=== PATIENT | female | born 1985 | race Caucasian/White ===

== ENCOUNTER 2019-02-08 10:18 | Emergency (ER) | payer BC, SELFPAY ==
[2019-02-08 10:32] VITALS: BP 125/84; PULSE 82; RESP 16; TEMP 36.7; O2SAT 100; BMI 29.2
[2019-02-08 10:51] VITALS: BP 145/82; PULSE 84; RESP 20; O2SAT 98
--- NOTE | 2019-02-08 11:06 | HMH.EDGENADL ---
ED Disposition Clinical Impression: Sciatica of left side, Obesity, History of weight loss surgery Disposition: Home, Self-Care Condition on Discharge: Fair Additional Instructions: 1- rest in the most comfortable position. 2- zanatc, tramado, steroids, use toradol as needed scarcely for extreme pain situation as it cause GI bleeding. 3- needs MRI by your pcp Kalpana Delacruz. 4- needs Neurosurgery consultation by Dr. Gardiner as we discussed. 5- to return to the Ed immediately if incontinence or foot drop occur, as we discussed. 6- Also observe for vianey symptoms of GI bleeding, vomiting blood or black stool to return immediately. 7- off work x 7 days. Prescriptions: methylPREDNISolone [Medrol] 4 mg PO DIRECTED #1 tab.ds.pk Ketorolac Tromethamine [Toradol 10mg tablet] 10 mg PO Q12H #10 tab Tramadol HCl [Tramadol 50mg Tab] 50 mg PO Q6 PRN #12 tab PRN Reason: Moderate Pain raNITIdine HCl [Zantac 150mg] 150 mg PO BID #30 tab Referrals: Kalpana Raymundo APRN [Primary Care Provider] - - Critical Care Critical Care Time: No Attestation: On 02/08/19, the high probability of a clinically significant, sudden or life threatening deterioration of the following system(s) required my full and direct attention, intervention and personal management. The time I documented below is in addition to time spent performing reported procedures but includes the following listed in this critical care notation. Medical Decision Making - Thor Inquiry Pt receiving controlled substance: No Thor was queried for this patient: No Vital Signs: 02/08/19 10:32 02/08/19 10:51 Temperature 98.0 F Temperature Source Oral Pulse Rate [Left Radial] 82 84 Respiratory Rate 16 20 Blood Pressure [Right Arm] 125/84 145/82 H Blood Pressure Mean [Right Arm] 97 103 Blood Pressure Source [Right Arm] Automatic Cuff Automatic Cuff Blood Pressure Position [Right Arm] Sitting Sitting 02 Sat by Pulse Oximetry 100 98 Oxygen Delivery Method Room Air Room Air Orders (Tests/Meds): ED MEDICATIONS Discontinued Medications Generic Name Dose Route Start Last Admin Trade Name Freq PRN Reason Stop Dose Admin Hydrocodone Bitart/Acetaminophen 1 tab 02/08/19 12:02 02/08/19 12:09 [place] 7.5/325mg Tablet PO 02/08/19 12:03 Not Given ONCE ONE Ketorolac Tromethamine 60 mg 02/08/19 11:19 02/08/19 11:36 Toradol 60mg/2ml Vial IM 02/08/19 11:20 60 mg ONCE ONE Administration Methylprednisolone Sodium Succinate 125 mg 02/08/19 11:19 02/08/19 11:37 Solu-Medrol 125mg/2ml Vial IM 02/08/19 11:20 125 mg ONCE ONE Administration Tramadol HCl 50 mg 02/08/19 12:06 02/08/19 12:09 Ultram 50mg Tablet PO 02/08/19 12:07 50 mg ONCE ONE Administration ORDERS Category Date Time Status Lumbar spine XR 2-3 views [XR lumbar spine 2-3V] Stat Exams 02/08/19 11:39 Ordered - Radiology Data #1 Image(s): L-Spine Image Reviewed: Yes I reviewed the patient's radiology image Preliminary Findings: Abnormal Lumbar x-ray: Postop changes from prior with reduction surgery. The patient has a narrow L5-S1 with no fracture or subluxation. Medical Decision Narrative: Discussed with the patient her history of obesity multiple intermittent lower back pain and most recent findings of pain radiating to the left lower extremity. She was advised that this is most likely a sciatica. She will require an MRI and a neurosurgery consultation. She was advised about the warning signs of urine or bowel incontinence and dropfoot, will need to go to the emergency room immediately for emergency surgery if this occurs. She verbalized understanding. After reviewing her lumbar x-rays I informed the patient that she will need to to use her Zantac immediately to avoid GI bleed secondary to her prior weight loss surgery. She can start steroids pack, she can use tramadol for pain q evry 6 hours, although she was given Torad
--- NOTE | 2019-02-08 11:10 | ED_ITS ---
ED Disposition Clinical Impression: Sciatica of left side, Obesity, History of weight loss surgery Disposition: Home, Self-Care Condition on Discharge: Fair Additional Instructions: 1- rest in the most comfortable position. 2- zanatc, tramado, steroids, use toradol as needed scarcely for extreme pain situation as it cause GI bleeding. 3- needs MRI by your pcp Kalpana Delacruz. 4- needs Neurosurgery consultation by Dr. Gardiner as we discussed. 5- to return to the Ed immediately if incontinence or foot drop occur, as we discussed. 6- Also observe for vianey symptoms of GI bleeding, vomiting blood or black stool to return immediately. 7- off work x 7 days. Prescriptions: methylPREDNISolone [Medrol] 4 mg PO DIRECTED #1 tab.ds.pk Ketorolac Tromethamine [Toradol 10mg tablet] 10 mg PO Q12H #10 tab Tramadol HCl [Tramadol 50mg Tab] 50 mg PO Q6 PRN #12 tab PRN Reason: Moderate Pain raNITIdine HCl [Zantac 150mg] 150 mg PO BID #30 tab Referrals: Kalpana Raymundo APRN [Primary Care Provider] - - Critical Care Critical Care Time: No Attestation: On 02/08/19, the high probability of a clinically significant, sudden or life threatening deterioration of the following system(s) required my full and direct attention, intervention and personal management. The time I documented below is in addition to time spent performing reported procedures but includes the following listed in this critical care notation. Medical Decision Making - Thor Inquiry Pt receiving controlled substance: No Thor was queried for this patient: No Vital Signs: 02/08/19 10:32 02/08/19 10:51 Temperature 98.0 F Temperature Source Oral Pulse Rate [Left Radial] 82 84 Respiratory Rate 16 20 Blood Pressure [Right Arm] 125/84 145/82 H Blood Pressure Mean [Right Arm] 97 103 Blood Pressure Source [Right Arm] Automatic Cuff Automatic Cuff Blood Pressure Position [Right Arm] Sitting Sitting 02 Sat by Pulse Oximetry 100 98 Oxygen Delivery Method Room Air Room Air Orders (Tests/Meds): ED MEDICATIONS Discontinued Medications Generic Name Dose Route Start Last Admin Trade Name Freq PRN Reason Stop Dose Admin Hydrocodone Bitart/Acetaminophen 1 tab 02/08/19 12:02 02/08/19 12:09 [place] 7.5/325mg Tablet PO 02/08/19 12:03 Not Given ONCE ONE Ketorolac Tromethamine 60 mg 02/08/19 11:19 02/08/19 11:36 Toradol 60mg/2ml Vial IM 02/08/19 11:20 60 mg ONCE ONE Administration Methylprednisolone Sodium Succinate 125 mg 02/08/19 11:19 02/08/19 11:37 Solu-Medrol 125mg/2ml Vial IM 02/08/19 11:20 125 mg ONCE ONE Administration Tramadol HCl 50 mg 02/08/19 12:06 02/08/19 12:09 Ultram 50mg Tablet PO 02/08/19 12:07 50 mg ONCE ONE Administration ORDERS Category Date Time Status Lumbar spine XR 2-3 views [XR lumbar spine 2-3V] Stat Exams 02/08/19 11:39 Ordered - Radiology Data #1 Image(s): L-Spine Image Reviewed: Yes I reviewed the patient's radiology image Preliminary Findings: Abnormal Lumbar x-ray: Postop changes from prior with reduction surgery. The patient has a narrow L5-S1 with no fracture or subluxation. Medical Decision Narrative:
--- NOTE | 2019-02-08 11:39 | XR_ITS ---
EXAM: XR lumbar spine 2-3V HISTORY: ITS.REASON: pain ORDERING PHYSICIAN: Sarthak Tyler MD PATIENT AGE: 33 years COMPARISON: None FINDINGS: There is degenerative disc disease from L2 to S1 worse at the L3-L4 level. There is straightening of the lumbar lordosis which may be due to patient positioning or muscle spasm. No fracture or dislocation. No lytic or blastic change. IMPRESSION: Degenerative disc disease with straightening of lordosis
[2019-02-08 12:46] VITALS: BP 141/80; PULSE 72; RESP 18; TEMP 36.7; O2SAT 97
== END 2019-02-08 12:48 | disposition home or self-care (01) ==
PROVIDERS: Emergency Provider Emergency Medicine; PCP Nurse Practitioner
DX: M54.32 Sciatica, left side (principal); Z98.84 Bariatric surgery status
CPT/HCPCS: 72100; 96372; 99282

== ENCOUNTER 2020-08-06 10:18 | Emergency (ER) | payer BC, SELFPAY ==
[2020-08-06 10:20] VITALS: BP 110/78; PULSE 74; RESP 19; TEMP 36.6; O2SAT 99; BMI 34.4
--- NOTE | 2020-08-06 11:01 | HMH.EDUTC ---
[facility] [place] Disposition Clinical Impression: Viral syndrome, Exposure to COVID-19 virus Disposition: Home, Self-Care Condition on Discharge: Good Instructions: Preventing the Spread of Coronavirus Discharge Instructions Additional Instructions: Drink plenty of fluids. Take tylenol for pain or fever. Return if you begin to have difficulty breathing. Follow up with your regular doctor. GO TO THE ER FOR ANY WORSENING SYMPTOMS Referrals: Kalpana Raymundo APRN [Primary Care Provider] - Time of Disposition: 11:03 Medical Decision Making - Medical Records Medical records reviewed: No: I reviewed the patient's medical records. - Thor Inquiry Pt receiving controlled substance: No Vital Signs: 08/06/20 10:20 08/06/20 11:08 Temperature 97.8 F 97.8 F Temperature Source Oral Pulse Rate 74 Pulse Rate [Right Brachial] 74 Respiratory Rate 19 19 Blood Pressure 110/78 Blood Pressure [Right Arm] 110/78 Blood Pressure Mean [Right Arm] 88 Blood Pressure Source [Right Arm] Automatic Cuff Blood Pressure Position [Right Arm] Sitting 02 Sat by Pulse Oximetry 99 Oxygen Delivery Method Room Air - Lab Data Lab Results 08/06/20 10:47: Strep Scn Rapid Clinic Negative Orders (Tests/Meds): ORDERS Category Date Time Status Covid-19 Nasal PCR Sendout [facility] Stat Lab 08/06/20 10:25 Received Strep Screen Confirmation Stat Micro 08/06/20 10:47 Received [facility] [place] HPI - General Stated complaint: covid exposure Time Seen by Provider: 08/06/20 10:25 Mode of Arrival: Ambulatory Source of Information: Patient Limitations: No Limitations Description of Symptoms (Recalled from Triage Doc. by RN): PATIENT REQUESTING COVID TEST D/T EXPOSURE; C/O HEADACHE, SORE THROAT SINCE THIS MORNING HEENT Symptoms (Recalled from RN notes): Yes Resp Symptoms (Recalled from RN notes): No Skin Symptoms (Recalled from RN notes): No MS Symptoms (Recalled from RN notes): No Functional Status (Recalled from RN notes): WNL - History of Present Illness Provider Complaint: She states that she was exposed to covid at her work. She has a sore throat. She denies any fever/chills/body aches. - Related Data Home Medications Medication Instructions Recorded Confirmed Amitriptyline HCl [Elavil 50mg 50 mg PO BID 08/06/20 08/06/20 tablet] Levothyroxine Sodium [Euthyrox] 50 mcg PO DAILY 08/06/20 08/06/20 Allergies Allergy/AdvReac Type Severity Reaction Status Date / Time No Known Drug Allergies Allergy Unknown Verified 09/04/19 17:42 [NKDA] - Worker's Comp Is this a Worker's Comp case?: No H History - Hepatitis A Screen Drug use history?: No High risk sexual behaviors?: No History of sexually transmitted infection?: No Currently employed?: No Childcare worker?: No Do you have indoor plumbing?: Yes Do you have electricity?: Yes Attestation statement:: This patient has been screened for Hepatitis A risk factors. I have reviewed the patient's past medical history: Yes Medical History: Denies:: Diabetes Mellitus Type 1, Diabetes Mellitus Type 2 Other Surgeries: Yes: Other - Social History Smoking Status: Never smoker Alcohol Intake: never Occupational Status: other Household Members: spouse Family Hx:: Non-contributory ROS Obtained: Yes All systems reviewed & no additional complaints - Constitutional Constitutional: Reports system reviewed and no additional complaints, except as docu - Eyes Eyes: Reports system reviewed and no additional complaints, except as docu - ENT Ears, Nose, Mouth, and Throat: Reports system reviewed and no additional complaints, except as docu - Cardiovascular Cardiovascular: Reports system reviewed and no additional complaints, except as docu - Respiratory Respiratory: Yes system reviewed and no additional complaints, except as docu - Gastrointestinal Gastrointestingal: Reports: system reviewed and no additional complaints, except as docu Physical Exam
[2020-08-06 11:08] VITALS: BP 110/78; PULSE 74; RESP 19; TEMP 36.6; O2SAT 99
[2020-08-06 11:09] LABS: UTC Strep Screen (Rapid) Negative (Negative)
[2020-08-07 13:59] LABS: Covid-19 Nasal PCR Sendout Lex Not Detected
== END 2020-08-06 11:10 | disposition home or self-care (01) ==
PROVIDERS: Emergency Provider Nurse Practitioner Family; PCP Nurse Practitioner
DX: Z20.828 Contact with and (suspected) exposure to other viral communicable diseases (principal); B34.9 Viral infection, unspecified
CPT/HCPCS: 87880; 99202; U0004

== ENCOUNTER 2021-03-01 18:54 | Emergency (ER) | payer BC, SELFPAY ==
[2021-03-01 19:20] VITALS: BP 112/82; PULSE 89; RESP 19; TEMP 36.6; O2SAT 98; BMI 36.0
--- NOTE | 2021-03-01 20:22 | HMH.EDUTC ---
[facility] [place]ression: Urtic[place] Disposition: Home, Self-Care Condition on Discharge: Good Instructions: Hives, DI for Hives, Prednisone Additional Instructions: Go home and take over the counter Benadryl to help with itching Take it per instructions on package Start oral steriods tomorrow Follow up with your Family Doctor if no improvement or any worsening of symptoms watch area to make sure no signs on infection Return if needed Straight to ER if any life threatening symptoms Prescriptions: methylPREDNISolone [Medrol 4mg tab] 4 mg PO DIRECTED #21 tab Transmission Status: Received by [id number] Referrals: Provider,Referral, [Primary Care Provider] - As needed Time of Disposition: 21:05 Medical Decision Making - Thor Inquiry Pt receiving controlled substance: No Thor was queried for this patient: No Vital Signs: 03/01/21 19:20 03/01/21 20:52 Temperature 97.9 F 97.9 F Temperature Source Oral Pulse Rate 89 Pulse Rate [Right Brachial] 89 Respiratory Rate 19 19 Blood Pressure 112/82 Blood Pressure [Right Arm] 112/82 Blood Pressure Mean [Right Arm] 92 Blood Pressure Source [Right Arm] Automatic Cuff Blood Pressure Position [Right Arm] Sitting 02 Sat by Pulse Oximetry 98 Oxygen Delivery Method Room Air Orders (Tests/Meds): ED MEDICATIONS Discontinued Medications Generic Name Dose Route Start Last Admin Trade Name Alcides PRN Reason Stop Dose Admin Famotidine 20 mg 03/01/21 20:31 03/01/21 20:41 Famotidine 20mg Tablet PO 03/01/21 20:32 20 mg ONCE ONE Administration Methylprednisolone Sodium Succinate 125 mg 03/01/21 20:31 03/01/21 20:41 Methylprednisolone Sod Succ 125mg Vial IM 03/01/21 20:32 125 mg ONCE ONE Administration Medical Decision Narrative: Reports had ablasion done previously denies chance of After SoluMedrol rash appears to be improving on abdomen and chest patient agrees states that she feels like it looks better Patient is driving and advised to go home and take Oral benadryl as directed on package [facility] [place] - General Stated complaint: INSECT BITE L LEG Time Seen by Provider: 03/01/21 20:22 Mode of Arrival: Ambulatory Source of Information: Patient Limitations: No Limitations Description of Symptoms (Recalled from Triage Doc. by RN): PATIENT C/O POSSIBLE BITE/RASH TO INNER LEFT THIGH SINCE THIS MORNING HEENT Symptoms (Recalled from RN notes): No Resp Symptoms (Recalled from RN notes): No Skin Symptoms (Recalled from RN notes): Yes MS Symptoms (Recalled from RN notes): No Functional Status (Recalled from RN notes): WNL - History of Present Illness Provider Complaint: Patient states that she was fine when she went to bed last night but when she woke up she noticed it looked like something had bitten her on her left upper thigh area State that she marked it to watch it but since then she started breaking out in hives and itching all over States that she took some benadryl but it hasnt helped much so she came in to get checked - Related Data Home Medications Medication Instructions Recorded Confirmed Amitriptyline HCl [Elavil 50mg 50 mg PO BID 08/06/20 03/01/21 tablet] Levothyroxine Sodium [Euthyrox] 50 mcg PO DAILY 08/06/20 03/01/21 Gabapentin [Neurontin 300mg 300 mg PO TID 03/01/21 03/01/21 capsule] Levonorgest/Eth.estradiol/Iron 1 each PO DAILY 03/01/21 03/01/21 [Balcoltra Tablet] Omeprazole [Omeprazole 40mg 40 mg PO DAILY 03/01/21 03/01/21 Capsule] Vortioxetine Hydrobromide 5 mg PO DAILY 03/01/21 03/01/21 [Trintellix] Previous Rx's Medication Instructions Recorded methylPREDNISolone [Medrol 4mg 4 mg PO DIRECTED #21 tab 03/01/21 tab] Allergies Allergy/AdvReac Type Severity Reaction Status Date / Time No Known Drug Allergies Allergy Unknown Verified 09/04/19 17:42 [NKDA] - Worker's Comp Is this a Worker's Comp case?: No H History
[2021-03-01 20:52] VITALS: BP 112/82; PULSE 89; RESP 19; TEMP 36.6; O2SAT 98
== END 2021-03-01 21:14 | disposition home or self-care (01) ==
PROVIDERS: Emergency Provider Nurse Practitioner
DX: L50.9 Urticaria, unspecified (principal); S70.362A Insect bite (nonvenomous), left thigh, initial encounter; W57.XXXA Bitten or stung by nonvenomous insect and other nonvenomous arthropods, initial encounter
CPT/HCPCS: 96372; 99202; G0463

== ENCOUNTER 2021-03-04 15:12 | Emergency (ER) | payer BC, SELFPAY ==
[2021-03-04 15:15] VITALS: BP 137/97; PULSE 104; RESP 20; TEMP 37; O2SAT 97; BMI 36.0
--- NOTE | 2021-03-04 15:25 | HMH.EDUTC ---
[facility] [place]: [place] Disposition: Home, Self-Care Condition on Discharge: Good Instructions: Trimethoprim/Sulfamethoxazole (Alternative Therapy), DI for Rash, Cephalexin, Hydroxyzine Additional Instructions: Watch area for worsening of redness and going outside the line Follow up with Family Doctor on Sunday for re-evaluation Return if needed Straight to ER if any life threatening symptoms Prescriptions: hydrOXYzine HCL [Hydroxyzine HCl] 25 mg PO Q8HP PRN #15 tab PRN Reason: Itching Transmission Status: Received by [id number] Sulfamethoxazole/Trimethoprim [Bactrim DS tablet] 1 each PO BID 7 Days #14 tab Transmission Status: Received by [id number] cephALEXin [cephALEXin 500mg capsule*] 500 mg PO Q6H 7 Days #28 cap Transmission Status: Received by [id number] Fluconazole [Diflucan 150mg tab] 150 mg PO ONCE #1 tab Transmission Status: Received by [id number] Referrals: Provider,Referral, MD [Primary Care Provider] - As needed Time of Disposition: 16:00 Medical Decision Making - Thor Inquiry Pt receiving controlled substance: No Thor was queried for this patient: No Vital Signs: 03/04/21 15:15 03/04/21 15:45 Temperature 98.6 F 98.6 F Temperature Source Oral Pulse Rate 104 H Pulse Rate [Left Brachial] 104 H Respiratory Rate 20 20 Blood Pressure 137/97 H Blood Pressure [Left Arm] 137/97 H Blood Pressure Mean [Left Arm] 110 Blood Pressure Source [Left Arm] Automatic Cuff Blood Pressure Position [Left Arm] Sitting 02 Sat by Pulse Oximetry 97 Oxygen Delivery Method Room Air Medical Decision Narrative: Spoke with ED physician and he came to [facility] and looked at the rash on her abdomen and the area on her left inner thigh, Patient still denies any tick bite nor being in any wooded area He recommended starting patient on Cephalexin, Bactrim and hydroxyzine for itching, yuriy area due to redness and hard area noted and have her follow up with PCP on Sunday for re-evaluation to see if area is improving or getting worse Medications discussed with [place] [facility] [place] - General Stated complaint: biten by something Time Seen by Provider: 03/04/21 15:25 Mode of Arrival: Ambulatory Source of Information: Patient Limitations: No Limitations Description of Symptoms (Recalled from Triage Doc. by RN): PATIENT WAS SEEN IN [facility] ON 03/01 FOR A BITE TO LEFT THIGH AND HIVES/RASH. SHE WAS GIVEN A STEROID SHOT AND HAS BEEN TAKING ORAL STEROIDS, BENADRYL, AND CLARITAN. SHE STATES THAT THE RASH HAS GOTTEN WORSE (ALL OVER BODY) AND THE BITE TO LEFT THIGH HAS BECOME HARDENED AND AREA AROUND IT IS RED HEENT Symptoms (Recalled from RN notes): No Resp Symptoms (Recalled from RN notes): No Skin Symptoms (Recalled from RN notes): Yes MS Symptoms (Recalled from RN notes): No Functional Status (Recalled from RN notes): WNL - History of Present Illness Provider Complaint: Patient states that she was bitten by something several days ago and she had broke out in hives all over her body State that she was seen and given steriod injection and dc'd with oral steriods and the rash on her face neck and arms is much better and now gone but the bite area on the inside of her left upper thigh has got larger State that the redness has continued to expand around it and has hard area that feels like it is deep in there and still have itching and rash on her abdomen and breast but not like the hives she had on Sunday so she came back in Denies fever, denies chills, still denies known tick bite and unsure what may have biten/stung her - Related Data Home Medications Medication Instructions Recorded Confirmed Amitriptyline HCl [Elavil 50mg 50 mg PO BID 08/06/20 03/01/21 tablet] Levothyroxine Sodium [Euthyrox] 50 mcg PO DAILY 08/06/20 03/01/21 Gabapentin [Neurontin 300mg 300 mg PO TID 03/01/21 03/01/21 capsule] Levonorgest/Eth.estradiol/Iron 1 each PO DAILY 03/01/21 03/01/21
[2021-03-04 15:45] VITALS: BP 137/97; PULSE 104; RESP 20; TEMP 37; O2SAT 97
== END 2021-03-04 16:04 | disposition home or self-care (01) ==
PROVIDERS: Emergency Provider Nurse Practitioner
DX: R21 Rash and other nonspecific skin eruption (principal); S70.362A Insect bite (nonvenomous), left thigh, initial encounter; W57.XXXA Bitten or stung by nonvenomous insect and other nonvenomous arthropods, initial encounter

== ENCOUNTER → 2021-08-09 16:11 | Outpatient (POV) | payer BC, SELFPAY | PROVIDERS: Visit Provider Dermatology | DX: Z00.00 Encounter for general adult medical examination without abnormal findings (principal) ==

== ENCOUNTER → 2023-03-21 13:51 | Outpatient (CLI) | payer BC, SELFPAY ==
--- NOTE | 2023-03-21 13:57 | MM_ITS ---
PROCEDURE INFORMATION: Exam: US Right Breast, Complete MG Bilateral Diagnostic Breast Tomosynthesis Exam date and time: 03/21/2023 1:51 PM Age: 37 years old Clinical indication: Right breast palpable lump; Bilat reduction TECHNIQUE: Imaging protocol: Complete ultrasound of all four quadrants of the right breast and the retroareolar regions, including ultrasound of the axilla when performed. Bilateral Diagnostic tomosynthesis and 2D mammography including computer-aided detection (CAD) when performed. Unilateral or bilateral exam. COMPARISON: No relevant prior studies available. FINDINGS: MAMMOGRAPHY: The breasts are heterogeneously dense, which may obscure small masses. There is no stellate mass, architectural distortion or suspicious microcalcifications in either breast to suggest malignancy. A skin marker was placed over an area of palpable concern in the right lateral periareolar region. No skin thickening or axillary adenopathy. ULTRASOUND: Sonographic images of the right breast including the retroareolar region, all 4 quadrants and the axilla demonstrates slight increased echogenicity of the subcutaneous fat in the area of palpable concern in the right 9 o'clock periareolar region. It is somewhat border forming and may actually reflect a discrete mass. There is an associated crescentic peripheral area of hypoechogenicity. The area of interest measures 0.9 x 0.7 x 0.9 cm in dimension and likely reflects postoperative fat necrosis. It is much less likely the finding reflects focal marked retroareolar duct ectasia with an intraductal solid mass seen. In the immediate right retroareolar region is a predominantly cystic ovoid mass containing a peripheral solid component. This measures 1.1 x 1.3 x 0.7 cm in dimension and may reflect a cyst with internal debris versus an intracystic papillary lesion. This finding is nonpalpable. No axillary adenopathy. IMPRESSION: 1. Palpable abnormality in the right lateral periareolar region corresponds to a questionable focal solid mass. Ultrasound-guided core biopsy is recommended for further evaluation. 2. Right retroareolar predominantly cystic mass. Ultrasound-guided core biopsy of the solid component within this mass is recommended for further evaluation. ASSESSMENT: BI-RADS Category 4: Suspicious
== END ==
PROVIDERS: Visit Provider Nurse Practitioner Family
DX: N63.41 Unspecified lump in right breast, subareolar (principal)
CPT/HCPCS: 76641; 77062; 77066; G0279

== ENCOUNTER 2024-04-13 08:34 | Emergency (ER) | payer OTHER, SELFPAY ==
[2024-04-13 08:40] VITALS: BP 134/79; PULSE 77; RESP 19; TEMP 36.9; O2SAT 99; BMI 35.6
--- NOTE | 2024-04-13 09:00 | ED_ITS ---
Discharge Plan Disposition Patient Disposition: Home, Self-Care Condition: Good Prescriptions Prescriptions: New azithromycin [Zithromax Z-Eugenio] 250 mg tablet See Rx Instructions .ROUTE .COMPLEX 5 Days Qty: 6 0RF Rx Instructions: For 250 mg dose pack: take 500 mg today (day 1), then 250 mg for 4 days (days 2-5) benzonatate 100 mg capsule 100 mg PO TID PRN (Reason: cough) Qty: 30 0RF methylprednisolone [Medrol (Eugenio)] 4 mg tablets,dose pack See Rx Instructions .Route .COMPLEX 6 Days Qty: 21 0RF Rx Instructions: taper pack; No Action Trintellix 20 mg tablet 20 mg PO DAILY Qty: 30 2RF Emgality Pen 120 mg/mL pen injector 120 mg SQ WEEKLY Patient Comments: INJECT 1 SYRINGE SUBCUTANEOUSLY ONCE EVERY MONTH levothyroxine 50 MCG tablet 50 mcg PO DAILY Patient Comments: TAKE 1 TABLET BY MOUTH ONCE DAILY gabapentin 300 MG capsule 300 mg PO TID Referrals Follow up/Referrals: Erika So APRN [Primary Care Provider] - See instructions Activity Restrictions/Add. Instructions Additional Instructions/Restrictions: * Start antibiotic today. Be sure to complete entire prescription even if feeling better * Monitor temp. Tylenol every 4 hours as needed and / or ibuprofen every 6 hours as needed ( As long as your primary care physician has told you that it ok to take both. For fever/aches/pains ER if no less than 101 despite Tylenol or Motrin * Humidifier/vaporizer or hot steamy shower * *Tessalon Perles will not cause drowsiness but use at bedtime to help stop cough so that you may get some rest. *Start steroid today. Helps with inflammation therefore, cough and wheezing. Follow directions on the package. Reviewed side effects. Patient reports taking them before. Follow up IMMEDIATELY for new or worsening of symptoms OR no noticeable improvement over the next 48-72 hours. 911 immediately for any life threatening symptoms such as chest pain or difficulty breathing Clinical Impressions Clinical Impression: Bronchitis Instructions Patient Instructions: Acute Bronchitis, DI for Sinusitis Print Language Print Language: Luxembourgish Discharge ED [place] [facility] [place] General Stated complaint: congestion, cough, sore throat, body aches Mode of Arrival: Ambulatory Source of Information: Patient Limitations: No Limitations Time Seen by Provider: 04/13/24 09:00 Description of Symptoms (Recalled from Triage Doc. by RN): PATIENT C/O COUGH, CHEST CONGESTION, BODY ACHES, AND RIGHT EAR PAIN SINCE SUNDAY HEENT Symptoms (Recalled from RN notes): Yes Resp Symptoms (Recalled from RN notes): Yes Skin Symptoms (Recalled from RN notes): No MS Symptoms (Recalled from RN notes): No Functional Status (Recalled from RN notes): WNL History of Present Illness Provider Complaint: Patient states that she started feeling bad on Sun with pressure in her ears, sinus congestion and feels like it has moved into her chest area and having some burning when she coughs States she was worried she may have bronchitis so she came in Related Data Home Medications ?Medication ?Instructions ?Recorded ?Confirmed levothyroxine 50 mcg tablet 50 mcg PO DAILY THYROID 08/06/20 04/13/24 gabapentin 300 mg capsule 300 mg PO TID . 03/01/21 04/13/24 galcanezumab-gnlm 120 mg/mL 120 mg SQ WEEKLY 03/05/24 04/13/24 subcutaneous pen injector (Emgality Pen) Previous Rx's ?Medication ?Instructions ?Recorded vortioxetine 20 mg tablet 20 mg PO DAILY #30 tabs 01/03/24 (Trintellix) azithromycin 250 mg tablet See Rx Instructions PO .COMPLEX 5 04/13/24 (Zithromax Z-Eugenio) days #6 tabs benzonatate 100 mg capsule 100 mg PO TID PRN cough #30 caps 04/13/24 methylprednisolone 4 mg tablets in See Rx Instructions .Route 04/13/24 a dose pack (Medrol (Eugenio)) .COMPLEX 6 days #21 tabs Allergies Allergy/AdvReac Type Severity Reaction Status Date / Time adhesive tape Allergy Severe Hives Verified 03/05/24 11:29 cephalexin Allergy Severe Hives Verified 03/05/24 11:29 Worker's Comp Is this a Worker's Comp case?: No [facility] Disclaimer: The information contained in this section may have been updated after the patient was seen, as this information can be updated by other users. Medical History (Updated 04/13/24 @ 09:06 by Tyra Jackson APRN) Dyspareunia in female Endometriosis determined by laparoscopy Abnormal uterine bleeding Generalized anxiety disorder Surgical History (Updated 03/05/24 @ 12:35 by Ashleigh Bianchi DO) History of bilateral salpingectomy S/P endometrial ablation History of History of gastric bypass History of lumbar discectomy History of cholecystectomy Family History (Updated 03/05/24 @ 11:33 by JENNYFER Pacheco) Other Coronary artery disease Diabetes Heart attack Hypertension Social History Smoking Status: Never smoker second hand exposure: No alcohol intake: never counseling given: No substance use type: denies use counseling given: No current occupational status: employed and other details: with her 's business; 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 Travel in the last 8 weeks: None adopted: No caregiver/support person: Yes (for her kids) foster care: No household members: spouse and children housing: house lives independently: Yes marital status: number of children: 2 number of grandchildren: 0 education level: college service: No Hx Recent Travel: No sexually active: Yes caffeine: Yes physical activity: none ann marie/restoration: Buddhist special ann marie needs: No working smoke detector in home: Yes fire extinguisher in home: Yes carbon monox detector in home: Yes firearms in home: Yes firearms unloaded and locked: Yes do you feel safe at home: Yes victim of physical abuse: No victim of emotional abuse: No victim of sexual abuse: No would you like helpful sources: No ROS Obtained: Yes All systems reviewed & no additional complaints except as documented and Yes Systems reviewed as appropriate & no additional complaints except as documented Constitutional Constitutional: Reports system reviewed and no additional complaints, except as documented and Reports as per HPI ENT Ears, Nose, Mouth, and Throat: Reports system reviewed and no additional comp laints, except as documented, Reports as per HPI, Reports otalgia, Reports nasal congestion and Reports sinus pressure Cardiovascular Cardiovascular: Reports system reviewed and no additional complaints, except as documented and Reports as per HPI Respiratory Respiratory: Reports system reviewed and no additional complaints, except as documented, Reports as per HPI, Reports chest congestion and Reports cough Gastrointestinal Gastrointestingal: Reports system reviewed and no additional complaints, except as documented and as per HPI Physical Exam General General appearance: alert and in no apparent distress Expanded ENT Exam TM/Canal exam: Bilateral TM: bulging (no redness) Nose exam: Present sinus tenderness Throat exam: Present other (PND noted) Respiratory Respiratory exam: Present normal lung sounds bilaterally; Absent respiratory distress or wheezes Cardiovascular Cardiovascular exam: Present regular rate, normal rhythm and normal heart sounds Neurological Exam Neurological exam: Present alert, oriented X3 and normal gait Medical Decision Making Thro Inquiry Pt receiving controlled substance: No Thor was queried for this patient: No Vital Signs: 04/13/24 08:40 Temperature 98.4 F Temperature Source Oral Pulse Rate [Left Brachial] 77 Respiratory Rate 19 Blood Pressure [Left Arm] 134/79 Blood Pressure Mean [Left Arm] 97 Blood Pressure Source [Left Arm] Automatic Cuff Blood Pressure Position [Left Arm] Sitting 02 Sat by Pulse Oximetry 99 Oxygen Delivery Method Room Air
[2024-04-13 09:06] VITALS: BP 134/79; PULSE 77; RESP 19; TEMP 36.9; O2SAT 99
== END 2024-04-13 09:09 | disposition home or self-care (01) ==
PROVIDERS: Emergency Provider Nurse Practitioner; PCP Nurse Practitioner Family
DX: J20.9 Acute bronchitis, unspecified (principal); H92.03 Otalgia, bilateral; R09.81 Nasal congestion; R05.9 Cough, unspecified
CPT/HCPCS: 99204; 99212; G0463

== ENCOUNTER 2024-05-05 10:00 | Outpatient (CLI) | payer OTHER, SELFPAY ==
[2024-05-05 11:19] LABS: Basophils % 0.9 % (0.1-2.0); Eosinophils % 0.4 % (0.1-12.0); Hematocrit 38.8 % (37.0-47.0); Hemoglobin 12.3 g/dL (12.2-16.2); Lymphocytes # 1.6 K/mm3 (0.7-4.5); Mean Corpuscular HGB Conc 31.7 g/dL (31.8-35.4); Mean Corpuscular Hemoglobin 31.6 pg (27.0-31.2); Mean Corpuscular Volume 99.8 fl (81-99); Monocytes # 0.2 K/mm3 (0.1-1.0); Monocytes % 4.2 % (1.7-9.3); Neutrophils # 1.8 K/mm3 (1.8-7.8); Neutrophils % 49.4 % (37.0-80.0); Platelet Count 266 K/mm3 (142-424); Red Blood Count 3.89 M/mm3 (4.20-5.40); Red Cell Distribution Width 13.4 % (11.5-17.5); White Blood Count 3.6 K/mm3 (4.8-10.8)
[2024-05-05 11:44] LABS: Alanine Aminotransferase 20 U/L (12-78); Albumin/Globulin Ratio 1.3 (1.1-1.8); Alkaline Phosphatase 72 U/L (38-126); Anion Gap 8.2 mEq/L (5-15); Aspartate Amino Transferase 30 U/L (14-36); Bilirubin,Total 1.1 mg/dl (0.2-1.3); Blood Urea Nitrogen 13 mg/dl (7-17); Calcium 9.2 mg/dl (8.4-10.2); Carbon Dioxide 28 mmol/L (22.0-30.0); Chloride 104 mmol/L (98-107); Estimated Glomerular Filt Rate 138 ml/min (>60); GFR (African American) 167 ML/MIN (>60); Glucose 88 mg/dl (74-100); Potassium 4.2 mmoL/L (3.5-5.1); Sodium 136 mmol/L (136-145)
[2024-05-05 11:59] LABS: HCG,Quantitative < 2 mIU/ml (0-5.42)
== END 2024-05-05 23:59 | disposition home or self-care (01) ==
LOC: LAB 10:01
PROVIDERS: PCP Nurse Practitioner Family; Visit Provider Obstetrics & Gynecology
DX: Z98.890 Other specified postprocedural states (principal)
CPT/HCPCS: 36415; 80053; 84702; 85025; 86850

== ENCOUNTER 2024-05-07 07:03 | Inpatient (IN) | payer OTHER, SELFPAY ==
[2024-05-02 14:05] VITALS: BMI 35.2
[2024-05-07] VITALS (22 sets, daily range): BP systolic 96–154; BP diastolic 47–91; PULSE 71–102; RESP 12–22; TEMP 36.2–37.3; O2SAT 94–100
[2024-05-07] MEDS: LACTATED RINGERS 1000ML 1,000 ML 25 ML IV (06:41)
[2024-05-07] MEDS: CELECOXIB 100MG CAPSULE 400 MG PO (06:52)
[2024-05-07] MEDS: GABAPENTIN 300MG CAPSULE 600 MG (06:52)
[2024-05-07] MEDS: ACETAMINOPHEN 500MG TAB 1000 MG (06:52)
--- NOTE | 2024-05-07 07:25 | EXP.HP ---
History of Present Illness *Admission Date: 05/07/24 *Reason for visit:: Scheduled surgery *History of present illness: Mrs Camryn Gu is a [id number] who presents to [facility] for scheduled surgery. She complains of abnormal uterine bleeding, pelvic pain and dyspareunia. She has history of endometrial ablation a few years ago. She was taking OCPs for contraception and had no bleeding. Bilateral salpingectomy was performed with laser of endometriosis in August 2023. History of endometriosis with laparoscopies every 3 years for laser of endometriosis. She stopped OCPs and had bilateral salpingectomy because OCPs were worsening her mood and anxiety. She started bleeding monthly in October or November. She states bleeding is light but she is now having a lot of pain with intercourse. She reports pain with deep penetration and feeling like her cannot fully insert. She has history of Jose-en-Y gastric bypass, x 2, cholecystectomy, multiple laparoscopies and an abdominoplasty. Also history of FORD 3 on colposcopic biopsy followed by LEEP. Operative notes from previous provider reviewed. Discussed history of adhesions including left ovary adhered to bowel and stage 3 endometriosis with intraabdominal adhesions. [facility] Disclaimer: The information contained in this section may have been updated after the patient was seen, as this information can be updated by other users. 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), grade 3 FORD, on biopsy of cervix Dyspareunia in female Endometriosis determined by laparoscopy Abnormal uterine bleeding Generalized anxiety disorder Surgical History History of bilateral salpingectomy S/P endometrial ablation History of History of gastric bypass History of lumbar discectomy History of cholecystectomy Family History Other Coronary artery disease Diabetes Heart attack Hypertension Social History (Updated 05/07/24 @ 06:31 by Estrella Collins RN) Smoking Status: Never smoker second hand exposure: No alcohol intake: never counseling given: No substance use type: denies use counseling given: No current occupational status: employed Travel in the last 8 weeks: None adopted: No caregiver/support person: Yes (for her kids) foster care: No household members: spouse and children housing: house lives independently: Yes marital status: number of children: 2 number of grandchildren: 0 education level: college service: No Hx Recent Travel: No sexually active: Yes caffeine: Yes physical activity: none ann marie/christianity: Confucianist special ann marie needs: No working smoke detector in home: Yes fire extinguisher in home: Yes carbon monox detector in home: Yes firearms in home: Yes firearms unloaded and locked: Yes do you feel safe at home: Yes victim of physical abuse: No victim of emotional abuse: No victim of sexual abuse: No would you like helpful sources: No Review of Systems Review of Systems Review of systems:: pertinent systems reviewed and negative unless documented below Meds Home Medications and Allergies Home Medications ?Medication ?Instructions ?Recorded ?Confirmed ?Type levothyroxine 50 mcg tablet 50 mcg PO DAILY THYROID 08/06/20 05/07/24 History gabapentin 300 mg capsule 300 mg PO HS . 03/01/21 05/07/24 History galcanezumab-gnlm 120 mg/mL 120 mg SQ MONTHLY 03/05/24 05/07/24 History subcutaneous pen injector (Emgality Pen) omeprazole 20 mg tablet,delayed 20 mg PO DAILY 05/02/24 05/07/24 History release vortioxetine 20 mg tablet 10 mg PO HS 05/02/24 05/07/24 History (Trintellix) New Prescriptions to Start Prescriptions: Allergies Allergy/AdvReac Type Severity Reaction Status Date / Time adhesive tape Allergy Severe Hives Verified 05/07/24 06:28 cephalexin Allergy Severe Hives Verified 05/07/24 06:28 Exam Data for Last 24 hours Vital signs and Labs for Last 24 Hours: Temp Pulse Resp BP Pulse Ox O2 Del Method 97.4 F L 71 18 109/62 L 99 Room Air 05/07/24 06:30 05/07/24 06:30 05/07/24 06:30 05/07/24 06:30 05/07/24 06:30 05/07/24 06:30 Constitutional Constitutional: no acute distress and cooperative *Routine HEENT Exam Head: Present normocephalic and atraumatic Eye: Absent conjunctivae pink ENT: Present mucous membranes moist *Routine Neck Exam Neck: Present full ROM *Routine Respiratory Exam Respiratory: Present CTA bilaterally and normal respiratory effort *Routine Cardiovascular Exam Cardiovascular: Present RRR *Routine Abdominal Exam Abdominal: Present soft and normoactive bowel sounds; Absent tenderness or distended *Routine Rectal Exam Rectal:: deferred *Routine Genitalia Exam Genitalia:: normal female *Routine Extremities Exam Extremities: Present full ROM; Absent edema or calf tenderness *Routine Neurological Exam Neurological: Present alert, moving all extremities and normal speech Routine Psychiatric Exam Psychiatric: Present normal affect and cooperative Assessment and Plan *Assessment and plan (1) Abnormal uterine bleeding: Status: Acute Category: Medical Code(s): N93.9 - Abnormal uterine and vaginal bleeding, unspecified (2) Pelvic pain: Status: Acute Category: Medical Code(s): R10.2 - Pelvic and perineal pain (3) Endometriosis determined by laparoscopy: Problem Comment: stage 3 Status: Acute Category: Medical Code(s): N80.9 - Endometriosis, unspecified (4) S/P endometrial ablation: Status: Acute Category: Surgical Code(s): Z98.890 - Other specified postprocedural states (5) History of bilateral salpingectomy: Status: Acute Category: Surgical Code(s): Z90.79 - Acquired absence of other genital organ(s) (6) History of cholecystectomy: Status: Acute Category: Surgical Code(s): Z90.49 - Acquired absence of other specified parts of digestive tract (7) History of gastric bypass: Problem Comment: Jose-en-Y Status: Acute Category: Surgical Code(s): Z98.84 - Bariatric surgery status (8) History of : Problem Comment: X2 Status: Acute Category: Surgical Code(s): Z98.891 - History of uterine scar from previous surgery (9) Dyspareunia in female: Status: Acute Category: Medical Code(s): N94.10 - Unspecified dyspareunia (10) High grade squamous intraepithelial lesion (HGSIL), grade 3 FORD, on biopsy of cervix: Problem Comment: History of FORD 3 Status: Acute Category: Medical Code(s): D06.9 - Carcinoma in situ of cervix, unspecified Plan Admit to [facility] for scheduled surgery Reviewed risks, benefits, alternatives, expectations and possible complications. All questions addressed and answered. She voiced understanding of risks and possible complications. Proceed with JULIET, bilateral oophorectomy, possible cystoscopy
[2024-05-07] MEDS: CLINDAMYCIN PHOSPHATE/D5W 900 MG/50 ML PIGGYBACK 100 MG IV ×3 (07:50→23:20)
[2024-05-07] MEDS: METRONIDAZ/SOD CHL 500 MG/100 ML PIGGYBACK 100 MG IV (07:55)
--- NOTE | 2024-05-07 08:25 | P.PNANES_ITS ---
[facility] Disclaimer: The information contained in this section may have been updated after the patient was seen, as this information can be updated by other users. 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), grade 3 FORD, on biopsy of cervix Dyspareunia in female Endometriosis determined by laparoscopy Abnormal uterine bleeding Generalized anxiety disorder Surgical History History of bilateral salpingectomy S/P endometrial ablation History of History of gastric bypass History of lumbar discectomy History of cholecystectomy Family History Other Coronary artery disease Diabetes Heart attack Hypertension Social History (Updated 05/07/24 @ 06:31 by Estrella Collins RN) Smoking Status: Never smoker second hand exposure: No alcohol intake: never counseling given: No substance use type: denies use counseling given: No current occupational status: employed Travel in the last 8 weeks: None adopted: No caregiver/support person: Yes (for her kids) foster care: No household members: spouse and children housing: house lives independently: Yes marital status: number of children: 2 number of grandchildren: 0 education level: college service: No Hx Recent Travel: No sexually active: Yes caffeine: Yes physical activity: none ann marie/orthodox: Mandaen special ann marie needs: No working smoke detector in home: Yes fire extinguisher in home: Yes carbon monox detector in home: Yes firearms in home: Yes firearms unloaded and locked: Yes do you feel safe at home: Yes victim of physical abuse: No victim of emotional abuse: No victim of sexual abuse: No would you like helpful sources: No [facility] Anesthesia Checklist Patient Identification Patient Identification: Verbal (Name & ) Structural Data Admitted From: Home Planned Operative Procedure/s: [facility] Consent for Planned Operative Procedure(s) Verified: Yes NPO Status Verified Time NPO: 00:00 Additional verifications Anesthesia Reactions: No (pt states she has hard time waking up after surgery and some nausea) Hx Blood Transfusions: No Blood Transfusion Reaction: No Airway Assessment Mallampati Score:: Class II C-Spine Mobility Assessed: Yes TMJ Mobility Assessed: Yes Dentition: Good Dentition Neurological Assessment Level of Consciousness: Awake, Alert and Appropriate Anesthesia Plan Anesthesia Risk discussed: Yes Anesthesia Plan: Verified ASA Class: II Anesthesia Type: General
[2024-05-07] MEDS: GENTAMICIN SULFATE 320 MG in 0.9 % SODIUM CHLORIDE 100 ML 106.875 MG IV (08:57)
--- NOTE | 2024-05-07 09:25 | SUR.OPER ---
updated her with progress of case at 09.
--- NOTE | 2024-05-07 10:29 | P.PNANES_ITS ---
[facility] Anesthesia Record Part I Anesthesia Record I Intake, IV Amount: 2,500 Hydration: Adequate Estimated blood loss (mL): 300 Urine output (mL): 200 Blood Pressure: 145/84 SaO2: 98 Pulse Rate: 91 Airway Patency: Patent Respiratory Rate: 12 Temperature: 99.1 F Patient is:: Awake and Stable Stable to PACU at:: 10:28
[2024-05-07] MEDS: MORPHINE 2MG/ML SYRINGE 2 MG (10:40)
[2024-05-07] MEDS: ONDANSETRON 4MG/2ML VIAL 4 MG IV (10:40)
--- NOTE | 2024-05-07 10:43 | EXP.OP.NOTE ---
Date of procedure: 05/07/24 Pre-op Diagnosis:: 1. Abnormal uterine bleedin. Pelvic pain 3. Endometriosis determined by laparoscopy 4. S/P endometrial ablation: 5. History of bilateral salpingectomy 6. History of cholecystectomy 7. History of gastric bypass 8. History of x 2 9. Dyspareunia in female 10.History of High grade squamous intraepithelial lesion (HGSIL), grade 3 FORD, on biopsy of cervix Post-op Diagnosis:: 1. Abnormal uterine bleedin. Pelvic pain 3. Endometriosis determined by laparoscopy 4. S/P endometrial ablation: 5. History of bilateral salpingectomy 6. History of cholecystectomy 7. History of gastric bypass 8. History of x 2 9. Dyspareunia in female 10.History of High grade squamous intraepithelial lesion (HGSIL), grade 3 FORD, on biopsy of cervix 11. Bilateral patent ureters Procedure performed:: 1. Total Abdominal Hysterectomy with bilateral oophorectomy 2. Cystoscopy Surgeon:: Ashleigh Bianchi DO Restrike Hammer Operator(s):: Sarah Serrano DO SHOVEL LOG LOADER OPERATOR:: Quentin Waggoner Anesthesia: GETA Estimated blood loss (mL): 300 Clinical Note:: Mrs Camryn Gu is a 39 yo [id number] who presents to [facility] for scheduled surgery. She complains of abnormal uterine bleeding, pelvic pain and dyspareunia. She has history of endometrial ablation a few years ago. She was taking OCPs for contraception and had no bleeding. Bilateral salpingectomy was performed with laser of endometriosis in August 2023. History of endometriosis with laparoscopies every 3 years for laser of endometriosis. She stopped OCPs and had bilateral salpingectomy because OCPs were worsening her mood and anxiety. She started bleeding monthly in October or November. She states bleeding is light but she is now having a lot of pain with intercourse. She reports pain with deep penetration and feeling like her cannot fully insert. She has history of Jose-en-Y gastric bypass, x 2, cholecystectomy, multiple laparoscopies and an abdominoplasty. Also history of FORD 3 on colposcopic biopsy followed by LEEP. Operative notes from previous provider reviewed. Discussed history of adhesions including left ovary adhered to bowel and stage 3 endometriosis with intraabdominal adhesions. Operative findings:: 1. Grossly normal appearing uterus and bilateral ovaries 2. Adhesions between bladder and lower uterine segment 3. Grossly normal appearing bowel and bladder 4. Bilateral patent ureters Operative note:: Discussed risks, benefits, alternatives, expectations and possible complications of surgery. All questions addressed and answered. Patient wished to proceed with surgery. Patient was wheeled back to the operating room and placed under general anesthesia without difficulty. The patient received Clindamycin, Metronidazole and Gentamycin preoperatively. SCDs in place. Montalvo catheter was inserted and draining clear urine prior to the start of the procedure. A bimanual exam was performed. Then she was placed in the supine position. She was prepped and draped in normal sterile fashion. Attention was then turned to the abdomen. A Pfannenstiel skin incision was made 2 cm above pubic symphysis. This was carried through to underlying layer of fascia. Fascia was incised in midline, extended laterally with Guerin scissors. Superior aspect of fascial incision was grasped with two Haresh clamps, elevated up, and rectus muscle dissected off bluntly and sharply with Guerin scissors. The retcus muscle was then in the midline and the peritoneum was entered bluntly with a digit. Peritoneal incision was then extended superiorly and inferiorly with good visualization of the bladder. O'Herbie O'march retractor was placed in the abdominal incision. Bowel was packed cephalad with warm moist laparotomy sponges. Bilateral uterine cornua grasped with Peggy clamps. Uterus was deviated to the right, left round ligament was placed on stretch and incised between two clamps. The distal stump of the round ligament was suture ligated with 0 Vicryl suture. The proximal stump was held with a Haresh clamp. The leaves of the broad ligament were opened both anteriorly and posteriorly. The uterus was retracted cephalad. The anterior leaf of the broad ligament was opened down to the vesicouterine fold. Same procedure was carried out on the contralateral side. The vesicouterine peritoneal fold was elevated, and the bladder was dissected off of the lower uterine segment with sharp and blunt dissection. The uterus was retracted toward the pubic symphysis and deviated to right side. A finger was inserted through the peritoneum of the posterior leaf of the broad ligament under the right IP ligament. Care is taken to ensure that the ureter is not included. The infundibulopelvic ligament was doubly clamped and incised, and the distal stump of the ligament is doubly ligated with 0 Vicryl suture removing the ovary. Same procedure was carried out on the contralateral side. The uterus was retracted cephalad and deviated to the right side. Uterine arteries were skeletonized. Three curved Haresh clamps were placed at the junction of the lower uterine segment on the uterine vessels. An incision was made between the upper clamp and two lower clamps. The stump was doubly suture ligated with 0 Vicryl. The same procedure was carried out on the contralateral side. The uterus was held in traction in the cephalad position and pubovescial cervical fascia was dissected inferiorly. Two straight Haresh clamps were applied to the cardinal ligament. Cardinal ligament was incised between the two clamps and the distal stump was ligated with 0 Vicryl suture. The same procedure was carried out on the contralateral side. Bilateral uterosacral ligaments were clamped between straight Haresh clamps, incised, and suture ligated with 0 Vicryl suture. The lower uterine segment and upper vagina were palpated between the thumb and first finger of the surgeon's hand to ensure that the ligaments have been completely incised. The vagina was entered by a stab wound with a scalpel and cut circumferentially with scalpel and Joregenson scissors. The uterus and bilateral ovaries were removed. The edges of the vagina were grasped with straight Haresh clamps. Vaginal cuff was closed in a running locking manner with 1 Vicryl suture. Pelvis was irrigated. Small amount of oozing at cuff and left pedicle noted. Surgicel powder was applied to vaginal cuff and bilateral pedicles. Hemostasis noted. At this point all instruments and sponges were removed from the pelvis.? The peritoneum was grasped with Peggy clamps x 3. The peritoneum was reapproximated with 0 Vicryl suture in a running stitch. The corners of the fascia were grasped with Haresh clamps, and the fascia was reapproximated with two # 1 Vicryl suture overlapped to the right of midline. The subcutaneous tissue was reapproximated with 3-0 Vicryl. The skin was reapproximated with 2-0 Stratafix suture. Telfa was placed over closed Pfannenstiel skin incision. Catheter was removed from the bladder. 30 degree cystoscope was inserted through the urethra and into the bladder. Bladder was evaluated. Bladder intact. No lesions or damage to the bladder noted. Bilateral spill noted from ureters. Cystoscope was removed. New montalvo catheter was reinserted. Patient was awakened from anesthesia and taken to recovery in stable condition. Condition: stable Disposition: floor Specimens:: 1. Uterus, cervix 2. bilateral ovaries Complications:: None
[2024-05-07] MEDS: HYDROMORPHONE 2MG/ML SYRINGE 0.5 MG IV ×2 (10:55→11:03)
--- NOTE | 2024-05-07 11:37 | EXP.ANES.CKL ---
[facility] Disclaimer: The information contained in this section may have been updated after the patient was seen, as this information can be updated by other users. 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), grade 3 FORD, on biopsy of cervix Dyspareunia in female Endometriosis determined by laparoscopy Abnormal uterine bleeding Generalized anxiety disorder Surgical History History of bilateral salpingectomy S/P endometrial ablation History of History of gastric bypass History of lumbar discectomy History of cholecystectomy Family History Other Coronary artery disease Diabetes Heart attack Hypertension Social History (Updated 05/07/24 @ 06:31 by Estrella Collins RN) Smoking Status: Never smoker second hand exposure: No alcohol intake: never counseling given: No substance use type: denies use counseling given: No current occupational status: employed Travel in the last 8 weeks: None adopted: No caregiver/support person: Yes (for her kids) foster care: No household members: spouse and children housing: house lives independently: Yes marital status: number of children: 2 number of grandchildren: 0 education level: college service: No Hx Recent Travel: No sexually active: Yes caffeine: Yes physical activity: none ann marie/worship: Sikhism special ann marie needs: No working smoke detector in home: Yes fire extinguisher in home: Yes carbon monox detector in home: Yes firearms in home: Yes firearms unloaded and locked: Yes do you feel safe at home: Yes victim of physical abuse: No victim of emotional abuse: No victim of sexual abuse: No would you like helpful sources: No [facility] Anesthesia Checklist Patient Identification Patient Identification: Verbal (Name & ) Structural Data Admitted From: Home Planned Operative Procedure/s: peroneal tendon repair Consent for Planned Operative Procedure(s) Verified: Yes NPO Status Verified Time NPO: 00:00 Additional verifications Anesthesia Reactions: No (pt states she has hard time waking up after surgery and some nausea) Hx Blood Transfusions: No Blood Transfusion Reaction: No Airway Assessment Mallampati Score:: Class II C-Spine Mobility Assessed: Yes TMJ Mobility Assessed: Yes Dentition: Good Dentition Neurological Assessment Level of Consciousness: Awake, Alert and Appropriate Anesthesia Plan Anesthesia Risk discussed: Yes Anesthesia Plan: Verified ASA Class: I Anesthesia Type: General w/block Preoperative Comments Pre-Operative Comments: tap block exp to pt and parents, agreed to proceed
[2024-05-07] MEDS: LACTATED RINGERS 1000ML 1,000 ML 125 ML IV ×2 (11:53→21:56)
[2024-05-07] MEDS: ACETAMINOPHEN 500MG TAB 1000 MG PO ×2 (14:02→20:20)
[2024-05-07] MEDS: KETOROLAC 30MG/ML VIAL 30 MG IV ×2 (14:02→20:19)
[2024-05-07] MEDS: HYDROMORPHONE 2MG/ML SYRINGE 1 MG IV ×3 (14:10→21:58)
[2024-05-07] MEDS: PROMETHAZINE HCL 25MG/ML 1ML VIAL 12.5 MG IV ×3 (14:18→21:57)
[2024-05-07] MEDS: SODIUM CHLORIDE 0.9% 25ML BAG 25 ML IV ×2 (14:19→18:12)
[2024-05-07 15:05] LABS: Microscopic, Urine URINE MICROSCOPIC (MICROSCOPIC)
[2024-05-07 15:08] LABS: Appearance,Urine CLEAR (Clear); Bilirubin,Urine Negative (Negative); Blood, Urine 2+ (Negative); Color,Urine YELLOW (Yellow); Glucose,Urine (UA) Negative (Negative); Ketones,Urine Negative (Negative); Leukocyte Esterase,Urine Negative (Negative); Nitrate,Urine Negative (Negative); Protein,Urine Negative (Negative); Urobilinogen,Urine 0.2 EU/dl (0.2)
[2024-05-07 15:09] LABS: Calcium Oxalate Crystals,Urine Trace /lpf
--- NOTE | 2024-05-07 17:49 | PC.NURSE ---
Pt. up walking around unit, tolerating well.
[2024-05-07] MEDS: SODIUM CHLORIDE 0.9% 10ML FLUSH SYRINGE 10 ML IV (18:13)
[2024-05-07] MEDS: POLYETHYLENE GLYCOL 3350 17 GM PACKET PO (20:21)
--- NOTE | 2024-05-07 20:50 | PC.NURSE ---
Patient up ambulating in hallway with . Tolerating well
[2024-05-07] MEDS: ENOXAPARIN 40MG/0.4ML SYRINGE 40 MG SQ (21:57)
[2024-05-08] MEDS: KETOROLAC 30MG/ML VIAL 30 MG IV ×2 (02:23→08:26)
[2024-05-08] MEDS: ACETAMINOPHEN 500MG TAB 1000 MG PO ×3 (02:23→14:38)
[2024-05-08 04:46] VITALS: BP 96/46; PULSE 83; RESP 18; TEMP 36.8; O2SAT 97
--- NOTE | 2024-05-08 04:46 | PC.NURSE ---
Patient awake and oriented x4. Denies CHUNG, dizziness, or visual disturbances. Heart sounds auscultated apically with a normal rate and rhythm. Lung sounds auscultated clear bilaterally and throughout. Bowel sounds present in all 4 quadrants but patient continues to deny passing flatus. States feels bladder is emptying with voiding but it takes a while to start to void. Rashes on skin continue to improve. Lower transverse incision covered by Telfa dressing. Dressing clean, dry and intact with scant amount of serosanguinous drainage noted. No vaginal bleeding. Patient reports deep sharp pains 8/10 and would like Dilaudid and Phenergan at this time. Trash removed from room and water pitcher refilled for patient. No additional needs reported at this time
[2024-05-08] MEDS: PROMETHAZINE HCL 25MG/ML 1ML VIAL 12.5 MG IV (05:00)
[2024-05-08] MEDS: HYDROMORPHONE 2MG/ML SYRINGE 1 MG IV (05:01)
[2024-05-08] MEDS: LACTATED RINGERS 1000ML 1,000 ML 125 ML IV ×2 (06:27→11:00)
[2024-05-08 06:42] LABS: Anion Gap 3.8 mEq/L (5-15); Blood Urea Nitrogen 9 mg/dl (7-17); Calcium 8.2 mg/dl (8.4-10.2); Carbon Dioxide 30 mmol/L (22.0-30.0); Chloride 106 mmol/L (98-107); Creatinine Clearance Estimated 187 mL/min (50-200); Estimated Glomerular Filt Rate 112 ml/min (>60); GFR (African American) 135 ML/MIN (>60); Glucose 99 mg/dl (74-100); Potassium 3.8 mmoL/L (3.5-5.1); Sodium 136 mmol/L (136-145)
[2024-05-08 06:49] LABS: Basophils % 0.5 % (0.1-2.0); Eosinophils % 0.2 % (0.1-12.0); Hematocrit 31.6 % (37.0-47.0); Hemoglobin 9.9 g/dL (12.2-16.2); Lymphocytes # 1.5 K/mm3 (0.7-4.5); Lymphocytes % 27.4 % (10-50); Mean Corpuscular HGB Conc 31.3 g/dL (31.8-35.4); Mean Corpuscular Hemoglobin 31.2 pg (27.0-31.2); Mean Corpuscular Volume 99.4 fl (81-99); Mean Platelet Volume 8.3 fl (7.4-10.4); Monocytes # 0.3 K/mm3 (0.1-1.0); Monocytes % 6.3 % (1.7-9.3); Neutrophils # 3.5 K/mm3 (1.8-7.8); Neutrophils % 65.6 % (37.0-80.0); Platelet Count 254 K/mm3 (142-424); Red Blood Count 3.18 M/mm3 (4.20-5.40); Red Cell Distribution Width 13.7 % (11.5-17.5); White Blood Count 5.3 K/mm3 (4.8-10.8)
[2024-05-08] MEDS: OXYCODONE 5MG IMMEDIATE RELEASE TABLET 5 MG PO ×2 (08:42→12:58)
--- NOTE | 2024-05-08 09:31 | P.DS_ITS ---
General Admission date:: 05/07/24 Discharge date: 05/08/24 HPI HPI HPI: POD # 1 s/p JULIET, bilateral oophorectomy Resting comfortably. Pain controlled with medication. Voiding without difficulty and passing flatus. Tolerating regular diet. Denies fever/chills, chest pain and shortness of breath. Ambulating well ad gladys. Hospital Course Hospital Course Hospital Course: Mrs Camryn Gu is a 39 [id number] who presents to [facility] for scheduled surgery. She complains of abnormal uterine bleeding, pelvic pain and dyspareunia. She has history of endometrial ablation a few years ago. She was taking OCPs for contraception and had no bleeding. Bilateral salpingectomy was performed with laser of endometriosis in August 2023. History of endometriosis with laparoscopies every 3 years for laser of endometriosis. She stopped OCPs and had bilateral salpingectomy because OCPs were worsening her mood and anxiety. She s tarted bleeding monthly in October or November. She states bleeding is light but she is now having a lot of pain with intercourse. She reports pain with deep penetration and feeling like her cannot fully insert. She has history of Jose-en-Y gastric bypass, x 2, cholecystectomy, multiple laparoscopies and an abdominoplasty. Also history of FORD 3 on colposcopic biopsy followed by LEEP. Operative notes from previous provider reviewed. Discussed history of adhesions including left ovary adhered to bowel and stage 3 endometriosis with intraabdominal adhesions. She underwent total abdominal hysterectomy, bilateral oophorectomy on 05/07/24. EBL 300 mL. She was started on estradiol patch for HRT. She did well postoperatively. Pain controlled. Voiding without difficulty and passing flatus. Tolerating regular diet. Denies fever/chills, chest pain and shortness of breath. Vital signs stable, afebrile. Heart regular rate and rhythm. Lungs clear to auscultation. Abdomen soft, nontender., normal bowel sounds. No lower extremity swelling. Ambulating well ad gladys. Normal hospital course. She was discharged to home on POD # 1 with instructions to follow-up in the office in 2 weeks or sooner if needed. Exam Data for Last 24 hours Vital signs and Labs for Last 24 Hours: Temp Pulse Resp BP Pulse Ox O2 Del Method 98.2 F 83 18 96/46 L 97 Room Air 05/08/24 04:46 05/08/24 04:46 05/08/24 04:46 05/08/24 04:46 05/08/24 04:46 05/08/24 08:30 Laboratory Results - last 24 hr 05/07/24 07:43: Urine Color Yellow, Urine Appearance Clear, Urine pH 6.0, Ur Specific [place] 1.020, Urine Protein Negative, Urine Glucose (UA) Negative, Urine Ketones Negative, Urine Blood 2+ A, Urine Nitrate Negative, Urine Bilirubin Negative, Urine Urobilinogen 0.2, Ur Leukocyte Esterase Negative, Urine RBC 3-5, Urine WBC None, Ur Squamous Epith Cells None, Calcium Oxalate Crystal Trace, Urine Bacteria None 05/08/24 06:15: WBC 5.3 D, RBC 3.18 L, Hgb 9.9 L, Hct 31.6 L, MCV 99.4 H, MCH 31.2, MCHC 31.3 L, RDW 13.7, Plt Count 254, MPV 8.3, Neut % (Auto) 65.6, Lymph % (Auto) 27.4, Metcalfe % (Auto) 6.3, Eos % (Auto) 0.2, Baso % (Auto) 0.5, Neut # (Auto) 3.5, Lymph # (Auto) 1.5, Metcalfe # (Auto) 0.3, Eos # (Auto) 0.0, Baso # (Auto) 0.0, Sodium 136, Potassium 3.8, Chloride 106, Carbon Dioxide 30, Anion Gap 3.8 L, BUN 9 D, Creatinine 0.60, Estimated Creat Clear 187, Estimated GFR 112, Est GFR ( Amer) 135, Glucose 99, Calcium 8.2 L I & O for Last 24 hours: Intake & Output 05/05/24 05/06/24 05/07/24 05/08/24 23:59 23:59 23:59 23:59 Intake Total 2500 / 2500 2131 / 2131 Output Total 1300 / 1300 450 / 450 Balance 1200 / 1200 1681 / 1681 Constitutional Constitutional: no acute distress and cooperative *Routine HEENT Exam Head: Present normocephalic and atraumatic Eye: Absent conjunctivae pink ENT: Present mucous membranes moist *Routine Neck Exam Neck: Present full ROM *Routine Respiratory Exam Respiratory: Present CTA bilaterally and normal respiratory effort *Routine Cardiovascular Exam Cardiovascular: Present RRR *Routine Abdominal Exam Abdominal: Present soft, normoactive bowel sounds and tenderness (appropriate postop tenderness to palpation); Absent distended or guarding *Routine Rectal Exam Patient deferred: visual exam *Routine Exam Patient deferred: external exam *Routine Extremities Exam Extremities: Present full ROM; Absent edema or calf tenderness *Routine Neurological Exam Neurological: Present alert, moving all extremities and normal speech Routine Psychiatric Exam Psychiatric: Present normal affect and cooperative Results Data Completed and Pending Labs on day of discharge: Labs from last 24 hours 05/08/24 05/07/24 06:15 07:43 WBC 5.3 D RBC 3.18 L Hgb 9.9 L Hct 31.6 L MCV 99.4 H MCH 31.2 MCHC 31.3 L RDW 13.7 Plt Count 254 MPV 8.3 Neut % (Auto) 65.6 Lymph % (Auto) 27.4 Metcalfe % (Auto) 6.3 Eos % (Auto) 0.2 Baso % (Auto) 0.5 Neut # (Auto) 3.5 Lymph # (Auto) 1.5 Metcalfe # (Auto) 0.3 Eos # (Auto) 0.0 Baso # (Auto) 0.0 Sodium 136 Potassium 3.8 Chloride 106 Carbon Dioxide 30 Anion Gap 3.8 L BUN 9 D Creatinine 0.60 Estimated Creat Clear 187 Estimated GFR 112 Est GFR ( Amer) 135 Glucose 99 Calcium 8.2 L Urine Color Yellow Urine Appearance Clear Urine pH 6.0 Ur Specific [place] 1.020 Urine Protein Negative Urine Glucose (UA) Negative Urine Ketones Negative Urine Blood 2+ A Urine Nitrate Negative Urine Bilirubin Negative Urine Urobilinogen 0.2 Ur Leukocyte Esterase Negative Urine RBC 3-5 Urine WBC None Ur Squamous Epith Cells None Calcium Oxalate Crystal Trace Urine Bacteria None DS: Diagnosis Discharge Diagnosis (1) Status post total abdominal hysterectomy: Status: Acute Code(s): Z90.710 - Acquired absence of both cervix and uterus Problem details: and bilateral oophorectomy (2) Acute postoperative anemia due to expected blood loss: Status: Acute Code(s): D62 - Acute posthemorrhagic anemia (3) Abnormal uterine bleeding: Status: Acute Code(s): N93.9 - Abnormal uterine and vaginal bleeding, unspecified (4) Pelvic pain: Status: Acute Code(s): R10.2 - Pelvic and perineal pain (5) Endometriosis determined by laparoscopy: Status: Acute Code(s): N80.9 - Endometriosis, unspecified Problem details: stage 3 (6) S/P endometrial ablation: Status: Acute Code(s): Z98.890 - Other specified postprocedural states (7) History of bilateral salpingectomy: Status: Acute Code(s): Z90.79 - Acquired absence of other genital organ(s) (8) History of cholecystectomy: Status: Acute Code(s): Z90.49 - Acquired absence of other specified parts of digestive tract (9) History of gastric bypass: Status: Acute Code(s): Z98.84 - Bariatric surgery status Problem details: Jose-en-Y (10) History of : Status: Acute Code(s): Z98.891 - History of uterine scar from previous surgery Problem details: X2 (11) Dyspareunia in female: Status: Acute Code(s): N94.10 - Unspecified dyspareunia (12) High grade squamous intraepithelial lesion (HGSIL), grade 3 FORD, on biopsy of cervix: Status: Acute Code(s): D06.9 - Carcinoma in situ of cervix, unspecified Problem details: History of FORD 3 Meds Home Medications and Allergies Home Medications ?Medication ?Instructions ?Recorded ?Confirmed ?Type levothyroxine 50 mcg tablet 50 mcg PO DAILY THYROID 08/06/20 05/07/24 History gabapentin 300 mg capsule 300 mg PO HS . 03/01/21 05/07/24 History galcanezumab-gnlm 120 mg/mL 120 mg SQ MONTHLY 03/05/24 05/07/24 History subcutaneous pen injector (Emgality Pen) omeprazole 20 mg tablet,delayed 20 mg PO DAILY 05/02/24 05/07/24 History release vortioxetine 20 mg tablet 10 mg PO HS 05/02/24 05/07/24 History (Trintellix) estradiol 0.1 mg/24 hr semiweekly 1 patch transdermal .semiweekly #8 05/07/24 Rx transdermal patch ea ibuprofen 800 mg tablet 800 mg PO Q8H PRN pain #20 tabs 05/08/24 Rx oxycodone 5 mg tablet 5 mg PO Q4HP PRN Moderate Pain 05/08/24 Rx (4-6) #30 tabs New Prescriptions to Start Prescriptions: estradiol Ashleigh Bianchi ibuprofen Ashleigh Bianchi oxycodone Ashleigh Bianchi Allergies Allergy/AdvReac Type Severity Reaction Status Date / Time adhesive tape Allergy Severe Hives Verified 05/07/24 06:28 cephalexin Allergy Severe Hives Verified 05/07/24 06:28 Discharge Plan Disposition Patient Disposition: Home, Self-Care Condition: Good Follow up Plan Follow up with: Ashleigh Bianchi DO [Staff Physician] - 2 weeks Prescriptions/Medication Reconciliation: New estradiol 0.1 mg/24 hr patch semiweekly 1 patch transdermal .semiweekly Qty: 8 0RF oxycodone 5 mg Tablet 5 mg PO Q4HP PRN (Reason: Moderate Pain (4-6)) Qty: 30 0RF ibuprofen 800 mg tablet 800 mg PO Q8H PRN (Reason: pain) Qty: 20 0RF Continued Emgality Pen 120 mg/mL pen injector 120 mg SQ MONTHLY Patient Comments: INJECT 1 SYRINGE SUBCUTANEOUSLY ONCE EVERY MONTH levothyroxine 50 MCG tablet 50 mcg PO DAILY Patient Comments: TAKE 1 TABLET BY MOUTH ONCE DAILY omeprazole 20 mg Tablet,Delayed Release (Dr/Ec) 20 mg PO DAILY Trintellix 20 mg tablet 10 mg PO HS gabapentin 300 MG capsule 300 mg PO HS Problem Reconciliation Problems Reviewed?: Yes Patient Discharge Instructions ACTIVITY: Limited activity DIET: continue same diet and regular diet Additional Instructions: Additional Instructions: You had a total abdominal hysterectomy and bilateral oophorectomy. This means that your uterus, cervix and ovaries were removed. The top of your vagina is closed with dissolvable sutures. You will follow-up in office for a postop visit at 2 weeks and at 6 weeks. At your 6-week postop appointment you will have a pelvic exam to ensure your cuff is healing well. Discharge: 1. Take 800 mg Ibuprofen every 8 hours as needed for pain. You can also take 1000 mg of Tylenol in between doses, every 6-8 hours and Oxycodone 5 mg, 1 tablet every 4-6 hours or more as needed. 2. Take Miralax twice daily for 3 days and then as needed to prevent constipation Activity: - No lifting more than 10 lbs for 6 weeks. - No driving for 7 days and/or while you are taking narcotic pain medication. - Your skin inicision is closed with dissolvable suture Wound care - Keep your wound clean and dry, ok to wash with soap and water but pat thoroughly dry Please call the office or return to the ER if you have any of the followin. heavy vaginal bleeding 2. pain that does not respond to your narcotic pain medication 3. dizziness or lightheadedness such that you lose consciousness 4. abnormal discharge from your incisions Questions or concerns: It is my privilege to be your doctor. Please let me know if you have other questions or concerns. Ashleigh Bianchi DO [facility] [place], [place] [address] Print Language: [place] Providers Primary Care Provider: Erika So Admit Provider: Ashleigh Bianchi Attending Provider: Ashleigh Bianchi
[2024-05-08 09:40] VITALS: BP 90/40; PULSE 72; RESP 16; TEMP 36.8; O2SAT 98
--- NOTE | 2024-05-08 09:57 | EXP.ANES.II ---
[facility] Anesthesia Record Part II Anesthesia Record Part II Discharge Time: 11:00 Destination: Obstetric Gynecology Dept PACU nurse assessment reviewed?: Yes Patient Condition:: Good Anesthesia Complications:: None Swallowing reflex intact?: Yes Airway Patency: Patent Cyanosis?: No Blood Pressure: 133/72 SaO2: 98 Respiratory Rate: 14 Pulse Rate: 102 Temperature: 98.3 F Mental Status: Alert & Oriented Pain level:: 2 Nausea and/or vomitting:: None Intake, IV Amount: 2,500 Hydration: Adequate
[2024-05-08 09:59] VITALS: BP 133/72; PULSE 102; RESP 14; TEMP 36.8; O2SAT 98
--- NOTE | 2024-05-08 11:24 | PC.NURSE ---
Addendum entered by Leonarda Valdez RN 05/08/24 11:25: Occurred at approx 10:10am Original Note: Pt up to shower, present for stand by assistance. Clean gown provided. Pt tolerated well.
[2024-05-08] MEDS: SENNOSIDES 8.6MG/DOCUSATE 50MG TABLET 1 TAB PO (12:58)
[2024-05-08] MEDS: SIMETHICONE 80MG CHEWABLE TABLET 160 MG PO (14:18)
[2024-05-08] MEDS: IBUPROFEN 400 MG TABLET 800 MG PO (14:37)
[2024-05-08 17:38] VITALS: O2SAT 100
[2024-05-08 17:40] VITALS: BP 143/67; PULSE 81; RESP 16; TEMP 36.9; O2SAT 100
--- NOTE | 2024-05-08 17:59 | PC.NURSE ---
All charting and care completed by ANTHONY Luong was completed under my direct supervision
== END 2024-05-08 18:27 | disposition home or self-care (01) | DRG 743 ==
LOC: OB 05-08 05:23
PROVIDERS: Admitting Provider Obstetrics & Gynecology; PCP Nurse Practitioner Family; Visit Provider Obstetrics & Gynecology
PROC: 0UT90ZZ Resection of Uterus, Open Approach (ICD-10-PCS; CPT 58150; principal; 2024-05-07 07:30)
DX: N93.9 Abnormal uterine and vaginal bleeding, unspecified (principal); R10.2 Pelvic and perineal pain; N80.9 Endometriosis, unspecified; Z98.84 Bariatric surgery status; N94.10 Unspecified dyspareunia; N80.399 Endometriosis of the pelvic peritoneum, other specified sites, unspecified depth
CPT/HCPCS: 58150; 36415; 80048; 81001; 85025; 96374; J1100; J1170; J1580; J1650; J1885; J2250; J2270; J2405; J2550; J2710; J3010; J7120

== ENCOUNTER 2025-05-21 13:15 | Outpatient (CLI) | payer BC, SELFPAY | END 2025-05-21 23:59 | LOC: LAB.DROPOF 05-25 08:04 | PROVIDERS: PCP Obstetrics & Gynecology; Visit Provider Obstetrics & Gynecology | DX: N89.8 Other specified noninflammatory disorders of vagina (principal) | CPT/HCPCS: 87491; 87529; 87591; 87661; 87798; 87801 ==

== ENCOUNTER 2025-05-25 13:14 | Outpatient (CLI) | payer BC, SELFPAY ==
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
--- OUTSIDE RECORDS SUMMARY | 2025-05-25 13:18 | XMS_ITS | Encounter Summary ---
Author Organization [facility] ([place], [place], [place], [place]) Address [address] [place] [address] Care Team Providers Care Elevator Conductor Name Role Phone Erika So APRN Primary Care Provider [phone] [place] Bahena MD Unavailable [phone] Encounter Details Date Type Department Care Team (Late st Contact Info) Description 02/17/2019 Transcribed Document [facility] [place] [address] [place] [address] ProviderJosiah MD [address] [place] [address] [phone] Social History Tobacco Use Types Packs/Day Years Used Date Smoking Tobacco: Never Assessed Comments Unknown Sex and Gender Information Value Date Recorded Sex Assigned at Not on file Legal Sex Female 5:57 PM CDT Gender Identity Not on file Sexual Orientation Not on file documented as of this encounter Miscellaneous Notes * Cerner Conversion Note - Josiah Rivers MD - 02/17/2019 2:07 PM CDT ED Discharge Entered On: 02/17/2019 14:08 EDT Performed On: 02/17/2019 14:07 EDT by Chari Cohen RN Discharge Process Patient Disposition : Discharge Personal Belongings With Patient : Yes Patient Education Completed : Yes Teaching Evaluation : Verbalizes understanding IV Discontinued : Not applicable Nursing Documentation Completed : Yes Chari Cohen RN - 02/17/2019 14:07 EDT ED Discharge Vital Signs Temperature Source : Oral Temperature Mode : Fahrenheit Temperature, Fahrenheit : 97.7 Deg F Clinical Temperature, C : 36.5 Deg C Peripheral Pulse Rate : 89 bpm Respiratory Rate : 16 Breaths/Min Systolic Blood Pressure : 122 mmHg Diastolic Blood Pressure : 76 mmHg Oxygen Saturation : 96 % Oxygen Therapy Mode : Room air Chari Cohen, RN - 02/17/2019 14:07 EDT Electronically signed by Interface, [facility] Conversion Sql Consultant Cerner at 12/11/2022 5:07 PM CDT documented in this encounter Plan of Treatment Not on file documented as of this encounter Visit Diagnoses Not on filedocumented in this encounter Care Teams Elevator Conductor Relationship Specialty Start Date End Date Erika So APRN [address] [phone] PCP - General Nurse Practitioner 05/07/23 [place] Bahena MD [address] [address] Referring Physician Obstetrics and Gynecology 05/07/23 documented as of this encounter
--- OUTSIDE RECORDS SUMMARY | 2025-05-25 13:18 | XMS_ITS | Encounter Summary ---
Author Organization [facility] ([place], [place], [place], [place]) Address [address] [place] [address] Care Team Providers Care Managing Partner [employer] Name Role Phone Erika So APRN Primary Care Provider [phone] [place] Bahena MD Unavailable [phone] Encounter Details Date Type Department Care Team (Late st Contact Info) Description 05/19/2020 Transcribed Document [facility] [place] [address] [place] [address] ProviderJosiah MD [address] [place] [address] [phone] Social History Tobacco Use Types Packs/Day Years Used Date Smoking Tobacco: Never Assessed Comments Unknown Sex and Gender Information Value Date Recorded Sex Assigned at Not on file Legal Sex Female 5:57 PM CDT Gender Identity Not on file Sexual Orientation Not on file documented as of this encounter Miscellaneous Notes * Cerner Conversion Note - Josiah Rivers MD - 05/19/2020 10:23 AM CDT Pain Assessment Entered On: 05/19/2020 15:07 EDT Performed On: 05/19/2020 15:23 EDT by AMIRA SERRANO, RN Intervention Information: [email or web address] Performed by AMIRA SERRANO, RN on 05/19/2020 14:53:00 EDT fentaNYL,50mcg IV Push,Right Mid Forearm,Pain Pain Assessment Pain Assessment : Follow-up assessment Pain Scale Goal : 4 Pain Scale Used : 0-10 Scale Onset : Awoke with pain Quality : Cramping Pain Radiation : No Pain Worsened by : Movement Pain Intervention, Drug : Medicated Pain Improved by Intervention : Yes AMIRA SERRANO RN - 05/19/2020 15:07 EDT Pain Scale Intensity : 5 AMIRA SERRANO RN - 05/19/2020 15:07 EDT Image 4 - Images currently included in the form version of this document have not been included in the text rendition version of the form. Electronically signed by Cameron, [facility] Conversion Bore Mill Operator Cerner at 12/11/2022 5:09 PM CDT documented in this encounter Plan of Treatment Not on file documented as of this encounter Visit Diagnoses Not on filedocumented in this encounter Care Teams Managing Partner [employer] [place] Relationship Specialty Start Date End Date Erika So APRN [address] [phone] PCP - General Nurse Practitioner 05/07/23 [place] Bahena MD [address] [address] Referring Physician Obstetrics and Gynecology 05/07/23 documented as of this encounter
--- OUTSIDE RECORDS SUMMARY | 2025-05-25 13:18 | XMS_ITS | Encounter Summary ---
Author Organization [facility] ([place], [place], [place], [place]) Address [address] [place] [address] Care Team Providers Care Harness Maker Name Role Phone Erika So APRN Primary Care Provider [phone] [place] Bahena MD Unavailable [phone] Encounter Details Date Type Department Care Team (Late st Contact Info) Description 04/18/2019 Transcribed Document [facility] [place] Family Medicine [address] [place] [address] ProviderJosiah MD [address] [place] [address] [id number] Social History Tobacco Use Types Packs/Day Years Used Date Smoking Tobacco: Never Assessed Comments Unknown Sex and Gender Information Value Date Recorded Sex Assigned at Not on file Legal Sex Female 5:57 PM CDT Gender Identity Not on file Sexual Orientation Not on file documented as of this encounter Miscellaneous Notes * Cerner Conversion Note - Josiah Rivers MD - 04/18/2019 10:20 AM CDT Patient Education Materials Follows: General Anesthesia, Adult, Care After This sheet gives you information about how to care for yourself after your procedure. Your health care provider may also give you more specific instructions. If you have problems or questions, contact your health care provider. What can I expect after the procedure? After the procedure, the following side effects are common: ??? Pain or discomfort at the IV site. ??? Nausea. ??? Vomiting. ??? Sore throat. ??? Trouble concentrating. ??? Feeling cold or chills. ??? Weak or tired. ??? Sleepiness and fatigue. ??? Soreness and body aches. These side effects can affect parts of the body that were not involved in surgery. Follow these instructions at home: For at least 24 hours after the procedure: ??? Have a responsible adult stay with you. It is important to have someone help care for you until you are awake and alert. ??? Rest as needed. ??? Do not: ? Participate in activities in which you could fall or become injured. ? Drive. ? Use heavy machinery. ? Drink alcohol. ? Take sleeping pills or medicines that cause drowsiness. ? Make important decisions or sign legal documents. ? Take care of children on your own. Eating and drinking ??? Follow any instructions from your health care provider about eating or drinking restrictions. ??? When you feel hungry, start by eating small amounts of foods that are soft and easy to digest (bland), such as toast. Gradually return to your regular diet. ??? Drink enough fluid to keep your urine pale yellow. ??? If you vomit, rehydrate by drinking water, juice, or clear broth. General instructions ??? If you have sleep apnea, surgery and certain medicines can increase your risk for breathing problems. Follow instructions from your health care provider about wearing your sleep device: ? Anytime you are sleeping, including during daytime naps. ? While taking prescription pain medicines, sleeping medicines, or medicines that make you drowsy. ??? Return to your normal activities as told by your health care provider. Ask your health care provider what activities are safe for you. ??? Take kqej-nun-xpfrwnv and prescription medicines only as told by your health care provider. ??? If you smoke, do not smoke without supervision. ??? Keep all follow-up visits as told by your health care provider. This is important. Contact a health care provider if: ??? You have nausea or vomiting that does not get better with medicine. ??? You cannot eat or drink without vomiting. ??? You have pain that does not get better with medicine. ??? You are unable to pass urine. ??? You develop a skin rash. ??? You have a fever. ??? You have redness around your IV site that gets worse. Get help right away if: ??? You have difficulty breathing. ??? You have chest pain. ??? You have blood in your urine or stool, or you vomit blood. Summary ??? After the procedure, it is common to have a sore throat or nausea. It is also common to feel tired. ??? Have a responsible adult stay with you for the first 24 hours after general anesthesia. It is important to have someone help care for you until you are awake and alert. ??? When you feel hungry, start by eating small amounts of foods that are soft and easy to digest (bland), such as toast. Gradually return to your regular diet. ??? Drink enough fluid to keep your urine pale yellow. ??? Return to your normal activities as told by your health care provider. Ask your health care provider what activities are safe for you. This information is not intended to replace advice given to you by your health care provider. Make sure you discuss any questions you have with your health care provider. Document Released: 11/19/2001 Document Revised: 03/29/2018 Document Reviewed: 03/29/2018 [employer] Interactive Patient Education ? 2019 [employer] Ovarian Cystectomy, Care After This sheet gives you information about how to care for yourself after your procedure. Your health care provider may also give you more specific instructions. If you have problems or questions, contact your health care provider. What can I expect after the procedure? After the procedure, it is common to have: ??? Pain in your abdomen, especially at the incision areas. You will be given pain medicines to control the pain. ??? Tiredness. This is a normal part of the recovery process. Your energy level will return to normal over the next several weeks. ??? Problems passing stool (constipation). Follow these instructions at home: Medicines ??? Take wria-cml-yqpysrk and prescription medicines only as told by your health care provider. ??? If you were prescribed an antibiotic medicine, use it as told by your health care provider. Do not stop using the antibiotic even if you start to feel better. ??? Do not take aspirin because it can cause bleeding. ??? Do not drink alcohol while taking prescription pain medicine. ??? Do not drive or use heavy machinery while taking prescription pain medicine. Incision care ??? Follow instructions from your health care provider about how to take care of your incisions. Make sure you: ? Wash your hands with soap and water before you change your bandage (dressing). If soap and water are not available, use hand telephone clerks supervisor. ? Change your dressing as told by your health care provider. ? Leave stitches (sutures), skin glue, or adhesive strips in place. These skin closures may need to stay in place for 2 weeks or longer. If adhesive strip edges start to loosen and curl up, you may trim the loose edges. Do not remove adhesive strips completely unless your health care provider tells you to do that. ??? Check your incision areas every day for signs of infection. Check for: ? Redness, swelling, or pain. ? Fluid or blood. ? Warmth. ? Pus or a bad smell. ??? Do not take baths, swim, or use a hot tub until your health care provider approves. Take showers instead of baths. Activity ??? Return to your normal activities and diet as told by your health care provider. Ask your health care provider what activities are safe for you. ??? Take rest breaks during the day as needed. ??? Do not drive until your health care provider approves. General instructions ??? Do not douche, use tampons, or have sexual intercourse until your health care provider says it is okay to do so. ??? To prevent or treat constipation while you are taking prescription pain medicine, your health care provider may recommend that you: ? Take qonp-csy-jylqmvh or prescription medicines. ? Eat foods that are high in fiber, such as fresh fruits and vegetables, whole grains, and beans. ? Drink enough fluid to keep your urine clear or pale yellow. ? Limit foods that are high in fat and processed sugars, such as fried and sweet foods. ??? Keep all follow-up visits as told by your health care provider. This is important. Contact a health care provider if: ??? You have a fever. ??? You feel nauseous or you vomit. ??? You have pain when you urinate or have blood in your urine. ??? You have a rash on your body. ??? You have pain or redness where the IV was inserted. ??? You have pain that is not relieved with medicine. ??? You have signs of infection, such as: ? Redness, swelling, or pain around your incisions. ? Fluid or blood coming from your incisions. ? An incision that feels warm to the touch. ? Pus or a bad smell coming from your incisions. Get help right away if: ??? You have chest pain or shortness of breath. ??? You feel dizzy or light-headed. ??? You have increasing abdominal pain that is not relieved with medicines. ??? You have pain, swelling, or redness in your leg. ??? Your incision is opening (the edges are not staying together). Summary ??? After the procedure, it is common to have some pain in your abdomen. You will be given pain medicines to control the pain. ??? Follow instructions from your health care provider about how to take care of your incisions. ??? Do not douche, use tampons, or have sexual intercourse until your health care provider says it is okay to do so. ??? Keep all follow-up visits as told by your health care provider. This is important. This information is not intended to replace advice given to you by your health care provider. Make sure you discuss any questions you have with your health care provider. Document Released: 06/03/2014 Document Revised: 10/02/2017 Document Reviewed: 10/02/2017 [employer] Interactive Patient Education ? 2019 [employer] Diagnostic Laparoscopy, Care After This sheet gives you information about how to care for yourself after your procedure. Your health care provider may also give you more specific instructions. If you have problems or questions, contact your health care provider. What can I expect after the procedure? After the procedure, it is common to have: ??? Mild discomfort in the abdomen. ??? Sore throat. Women who have laparoscopy with pelvic examination may have mild cramping and fluid coming from the vagina for a few days after the procedure. Follow these instructions at home: Medicines ??? Take bsig-nov-nkkrkia and prescription medicines only as told by your health care provider. ??? If you were prescribed an antibiotic medicine, take it as told by your health care provider. Do not stop taking the antibiotic even if you start to feel better. Driving ??? Do not drive for 24 hours if you were given a medicine to help you relax (sedative) during your procedure. ??? Do not drive or use heavy machinery while taking prescription pain medicine. Bathing ??? Do not take baths, swim, or use a hot tub until your health care provider approves. You may take showers. Incision care ??? Follow instructions from your health care provider about how to take care of your incisions. Make sure you: ? Wash your hands with soap and water before you change your bandage (dressing). If soap and water are not available, use hand telephone clerks supervisor. ? Change your dressing as told by your health care provider. ? Leave stitches (sutures), skin glue, or adhesive strips in place. These skin closures may need to stay in place for 2 weeks or longer. If adhesive strip edges start to loosen and curl up, you may trim the loose edges. Do not remove adhesive strips completely unless your health care provider tells you to do that. ??? Check your incision areas every day for signs of infection. Check for: ? Redness, swelling, or pain. ? Fluid or blood. ? Warmth. ? Pus or a bad smell. Activity ??? Return to your normal activities as told by your health care provider. Ask your health care provider what activities are safe for you. ??? Do not lift anything that is heavier than 10 lb (4.5 kg), or the limit that you are told, until your health care provider says that it is safe. General instructions ??? To prevent or treat constipation while you are taking prescription pain medicine, your health care provider may recommend that you: ? Drink enough fluid to keep your urine pale yellow. ? Take ylxf-mzf-uwqnmyn or prescription medicines. ? Eat foods that are high in fiber, such as fresh fruits and vegetables, whole grains, and beans. ? Limit foods that are high in fat and processed sugars, such as fried and sweet foods. ??? Do not use any products that contain nicotine or tobacco, such as cigarettes and e-cigarettes. If you need help quitting, ask your health care provider. ??? Keep all follow-up visits as told by your health care provider. This is important. Contact a health care provider if: ??? You develop shoulder pain. ??? You feel lightheaded or faint. ??? You are unable to pass gas or have a bowel movement. ??? You feel nauseous or you vomit. ??? You develop a rash. ??? You have redness, swelling, or pain around any incision. ??? You have fluid or blood coming from any incision. ??? Any incision feels warm to the touch. ??? You have pus or a bad smell coming from any incision. ??? You have a fever or chills. Get help right away if: ??? You have severe pain. ??? You have vomiting that does not go away. ??? You have heavy bleeding from the vagina. ??? Any incision opens. ??? You have trouble breathing. ??? You have chest pain. Summary ??? After the procedure, it is common to have mild discomfort in the abdomen and a sore throat. ??? Check your incision areas every day for signs of infection. ??? Return to your normal activities as told by your health care provider. Ask your health care provider what activities are safe for you. This information is not intended to replace advice given to you by your health care provider. Make sure you discuss any questions you have with your health care provider. Document Released: 07/24/2016 Document Revised: 02/06/2018 Document Reviewed: 02/06/2018 [employer] Interactive Patient Education ? 2019 [employer] Hysteroscopy, Care After This sheet gives you information about how to care for yourself after your procedure. Your health care provider may also give you more specific instructions. If you have problems or questions, contact your health care provider. What can I expect after the procedure? After the procedure, it is common to have: ??? Cramping. ??? Bleeding. This can vary from light spotting to menstrual-like bleeding. Follow these instructions at home: Activity ??? Rest for 1?2 days after the procedure. ??? Do not douche, use tampons, or have sex for 2 weeks after the procedure, or until your health care provider approves. ??? Do not drive for 24 hours after the procedure, or for as long as told by your health care provider. ??? Do not drive, use heavy machinery, or drink alcohol while taking prescription pain medicines. Medicines ??? Take jwja-oqx-gggoucq and prescription medicines only as told by your health care provider. ??? Do not take aspirin during recovery. It can increase the risk of bleeding. General instructions ??? Do not take baths, swim, or use a hot tub until your health care provider approves. Take showers instead of baths for 2 weeks, or for as long as told by your health care provider. ??? To prevent or treat constipation while you are taking prescription pain medicine, your health care provider may recommend that you: ? Drink enough fluid to keep your urine clear or pale yellow. ? Take xtyh-eis-zulegzc or prescription medicines. ? Eat foods that are high in fiber, such as fresh fruits and vegetables, whole grains, and beans. ? Limit foods that are high in fat and processed sugars, such as fried and sweet foods. ??? Keep all follow-up visits as told by your health care provider. This is important. Contact a health care provider if: ??? You feel dizzy or lightheaded. ??? You feel nauseous. ??? You have abnormal vaginal discharge. ??? You have a rash. ??? You have pain that does not get better with medicine. ??? You have chills. Get help right away if: ??? You have bleeding that is heavier than a normal menstrual period. ??? You have a fever. ??? You have pain or cramps that get worse. ??? You develop new abdominal pain. ??? You faint. ??? You have pain in your shoulders. ??? You have shortness of breath. Summary ??? After the procedure, you may have cramping and some vaginal bleeding. ??? Do not douche, use tampons, or have sex for 2 weeks after the procedure, or until your health care provider approves. ??? Do not take baths, swim, or use a hot tub until your health care provider approves. Take showers instead of baths for 2 weeks, or for as long as told by your health care provider. ??? Report any unusual symptoms to your health care provider. ??? Keep all follow-up visits as told by your health care provider. This is important. This information is not intended to replace advice given to you by your health care provider. Make sure you discuss any questions you have with your health care provider. Document Released: 06/03/2014 Document Revised: 09/11/2017 Document Reviewed: 09/11/2017 [employer] Interactive Patient Education ? 2019 [employer] Electronically signed by Armando Barnes Conversion Chief Of Safety And Protection Cerner at 12/11/2022 4:50 PM CDT documented in this encounter Plan of Treatment Not on file documented as of this encounter Visit Diagnoses Not on filedocumented in this encounter Care Teams Harness Maker Relationship Specialty Start Date End Date Erika So APRN [address] [phone] PCP - General Nurse Practitioner 05/07/23 [place] Bahena MD [address] [id number] Referring Physician Obstetrics and Gynecology 05/07/23 documented as of this encounter
--- OUTSIDE RECORDS SUMMARY | 2025-05-25 13:18 | XMS_ITS | Encounter Summary ---
Author Organization [employer] ([place], [place], [place], [place]) Address [address] [place] [address] Care Team Providers Care Threader Name Role Phone Erika So APRN Primary Care Provider [phone] [place] Bahena MD Unavailable [phone] Encounter Details Date Type Department Care Team (Late st Contact Info) Description 04/18/2019 Transcribed Document [facility] [place] Family Medicine [address] [place] [address] ProviderJosiah MD [address] [place], [place] [id number] Social History Tobacco Use Types Packs/Day Years Used Date Smoking Tobacco: Never Assessed Comments Unknown Sex and Gender Information Value Date Recorded Sex Assigned at Not on file Legal Sex Female 5:57 PM CDT Gender Identity Not on file Sexual Orientation Not on file documented as of this encounter Miscellaneous Notes * Cerner Conversion Note - Josiah Rivers MD - 04/18/2019 6:54 AM CDT Pre Procedure Adult Entered On: 04/18/2019 6:58 EDT Performed On: 04/18/2019 6:54 EDT by Cinthia Mendosa Rn Height and Weight, Clinical Dosing Height Source : Stated Height Entry Format : [place] Height, Feet : 5 ft(Converted to: 152 cm, 60 Inch) Height, Inches : 4 Inch(Converted to: 0 ft 4 Inch, 10.16 cm) Clinical Height : 162.56 cm Weight Source : Standing scale Weight Entry Format : [place] Clinical [facility] Weight : 82.27 kg Weight, Pounds : 181 lb Body Surface Area (BSA) : 1.88 m2 Body Mass Index : 31.1 kg/m2 (HI) [place] Body Weight : 54 kg Cinthia Mendosa Rn - 04/18/2019 6:54 EDT Health Histories Smoking Status : Never (less than 100 in lifetime; none in last 30 days) Smokeless Tobacco Status : Never Cinthia Mendosa Rn - 04/18/2019 6:54 EDT Social History (As Of: 04/18/2019 06:58:48 EDT) Tobacco: Use in Last 12 Months: No. Smoking Status Never smoker. (Last Updated: 07/30/2015 14:50:13 EST by KECIA MASON RN) Alcohol: Alcohol Use History Yes. Use in Last 12 Months: Yes. Alcohol Use Frequency Rarely. (Last Updated: 07/30/2015 14:50:19 EST by KECIA AMSON, ANTHONY) Substance Abuse: Drug Use Hx: No. (Last Updated: 01/05/2017 13:14:14 EDT by ERIKA TOUSSAINT RN) Nutrition/Health: Caffeine intake amount: none. (Last Updated: 01/05/2017 13:14:22 EDT by ERIKA TOUSSAINT RN) Type of diet: low carb. Wants to lose weight: Yes. (Last Updated: 01/31/2017 10:31:02 EDT by MARY LOU SIMS, RN) Home/Environment: Lives with Children, Spouse. Living situation: Home/Independent. Alcohol abuse in household: No. Substance abuse in household: No. Smoker in household: No. Injuries/Abuse/Neglect in household: No. Feels unsafe at home: No. Family/Friends available for support: Yes. (Last Updated: 01/31/2017 10:31:36 EDT by MARY LOU SIMS, RN) Employment/School: Employed, Work/School description: [employer]. (Last Updated: 01/31/2017 10:31:56 EDT by MARY LOU SIMS, RN) Infectious Disease History Infectious Disease History : Chicken pox/Shingles, Influenza Isolation Needed : Standard Fever/Chills Last 48 Hours : No Travel To Regions with Travel Advisories : No Travel Outside [place] Within Last 30 Days : No Contact With Traveler to Advisory Region : No Tuberculosis Symptoms : None Cinthia Mendosa Rn - 04/18/2019 6:54 EDT Anesthesia/Transfusion History Family History of Anesthesia Reaction : No prior transfusion(s) Transfusion History : Prior anesthesia reaction Type of Anesthesia Reaction : Excessive nausea/vomiting Family History of Anesthesia Reaction : None Cinthia Mendosa Rn - 04/18/2019 6:54 EDT Functional Assessment Living Situation : Home Patient Lives With : Spouse Current Daily Living Assistance : None Sensory Deficits : None Mobility Assistance Prior to Admission : Independent Current Home Treatments : None Cinthia Mendosa Rn - 04/18/2019 6:54 EDT Psychosocial History Chronic/Terminal Illness w/Freq Visits : No Do You Have a History of the Following? : Anxiety Currently in Unsafe Situation : No Tried to Harm Yourself in the Past? : No Thoughts of Harming/Killing Yourself : No Cinthia Mendosa Rn - 04/18/2019 6:54 EDT Advance Directive Patient has Advance Directive *Q : No, patient refuses Advance Directive information Cinthia Mendosa Rn - 04/18/2019 6:54 EDT Spiritual/Cultural Needs Any Spiritual/Cultural Needs or Requests : No Cinthia Mendosa Rn - 04/18/2019 6:54 EDT Teaching/Learning Assessment Barriers To Learning : None evident Individuals Taught : Patient, Spouse Readiness to Learn : Cooperative Readiness to Learn : Explanation, Printed materials Learning Style Preferences Patient : Printed materials, Verbal explanation Learning Style Preferences Family : Printed materials, Verbal explanation Cinthia Mendosa Rn - 04/18/2019 6:54 EDT Education Topics, Periop Preadmission Perioperative Education Grid Falls : Verbalizes understanding IV's : Verbalizes understanding Pain Management : Verbalizes understanding Preprocedure Preparations : Verbalizes understanding Preprocedure Tests/Labs : Verbalizes understanding Responsible Adult : Verbalizes understanding Cnithia Mendosa Rn - 04/18/2019 6:54 EDT General Info Preferred Name : Camryn Arrived From : Home Mode of Arrival on Unit : Ambulatory Patient Arrival Date/Time : 04/18/2019 5:45 EDT Legal Guardian : Spouse Support Person/Patient Side Seam Machine Operator : Yes Support Person/Pt Rep Name : Jose Gu Support Person/Pt Rep Contact Information : [phone] [place] Family/Rep/Phys Notified of Admit : No Emergency Contact #1 : Jose Emergency Contact #1 Emergency Contact #1 Relationship : Emergency Contact #2 : . Emergency Contact #2 Phone Number : . Emergency Contact #2 Relationship : . Information Obtained From : Patient Primary Language : Fijian Preferred Communication Mode : Verbal Communication Barrier : None Cinthia Mendosa Rn - 04/18/2019 6:54 EDT Sleep Apnea Risk Assmt Hx of Obstructive Sleep Apnea Diagnosis : No Snore Loudly : No Tired, Fatigued, or Sleepy During Day : No Observed Stopping Breathing During Sleep : No Have/Are Being Treated for Hypertension : No BMI Greater Than 35 kg/m2 : No Age over 50 Years Old : No Neck Circumference Greater Than 40 cm : No Gender Male : No STOP-BANG Sleep Apnea Risk Level Score : 0 Cinthia Mendosa Rn - 04/18/2019 6:54 EDT Patel Scale Patel Sensory Perception : No impairment Patel Moisture : Rarely moist Patel Activity : Walks frequently Patel Mobility : No limitation Patel Nutrition : Adequate Patel Friction and Shear : No apparent problem Patel Score : 22 Cinthia Mendosa Rn - 04/18/2019 6:54 EDT Oxygen Therapy Oxygen Therapy Mode : Room air Cinthia Mendosa Rn - 04/18/2019 6:54 EDT Pain Assessment Pain Assessment : Initial assessment Pain Scale Used : 0-10 Scale Cinthia Mendosa Rn - 04/18/2019 6:54 EDT Fall Risk Scales ABCs Fall Injury Risk Identification : None POSEY Hx Falls Immediate/Within 3 Months : No Posey Secondary Diagnosis : Yes POSEY Use of Ambulatory Aid : None POSEY IV Therapy or IV Access : Yes [place]y Gait/Transferring : Normal, bedrest, immobile Posey Mental Status : Oriented to own ability Posey Fall Risk Score : 35 POSEY Fall Scale Risk Level : 25-45 Medium Risk [place] Fall Interventions : Adequate lighting, Bed in low position, Call device within reach, Hourly comfort/safety rounds, Non-slip footwear, Personal items within reach, Reinforced to call for assistance before getting out of bed, Room free of clutter/spills, Upper side-rails up, Wheels locked, Wires/Cords secured Cinthia Mendosa Rn - 04/18/2019 6:54 EDT Education Topics, Day of Surgery DayofSurgery Education Grid Anesthesia/Sedation : Verbalizes understanding Fall Risks : Verbalizes understanding Family Instructions : Verbalizes understanding IV's : Verbalizes understanding Medication Instructions : Verbalizes understanding Plan of Care : Verbalizes understanding Responsible Adult : Verbalizes understanding Cinthia Mendosa Rn - 04/18/2019 6:54 EDT Valuables and Belongings Valuables and Belongings : Clothing Clothing : Common streetwear Clothing Disposition : With family Cinthia Mendosa Rn - 04/18/2019 6:54 EDT Pain Scale Intensity : 0 Cinthia Mendosa Rn - 04/18/2019 6:54 EDT Image 4 - Images currently included in the form version of this document have not been included in the text rendition version of the form. Ada Coma Ada Best Motor Response : Obey commands Denise Best Verbal Response : Oriented Denise Eye Opening Response : Spontaneous Denise Coma Score : 15 Cinthia Mendosa Rn - 04/18/2019 6:54 EDT Electronically signed by [facility] Conversion Director Of Training Cerner at 12/11/2022 5:04 PM CDT documented in this encounter Plan of Treatment Not on file documented as of this encounter Visit Diagnoses Not on filedocumented in this encounter Care Teams Threader Relationship Specialty Start Date End Date Erika So APRN [address] [place] [address] PCP - General Nurse Practitioner 05/07/23 [place] Bahena MD [address] [address] Referring Physician Obstetrics and Gynecology 05/07/23 documented as of this encounter
--- OUTSIDE RECORDS SUMMARY | 2025-05-25 13:18 | XMS_ITS | Encounter Summary ---
Author Organization [employer] ([place], [place], [place], [place]) Address [address] [place] [address] Care Team Providers Care Portable Grinding Machine Operator Name Role Phone Erika So APRN Primary Care Provider [phone] [place] Bahena MD Unavailable [phone] Encounter Details Date Type Department Care Team (Late st Contact Info) Description 06/02/2019 Transcribed Document [facility] [place] [address] [place] [address] ProviderJosiah MD [address] [place], [place] [id number] Social History Tobacco Use Types Packs/Day Years Used Date Smoking Tobacco: Never Assessed Comments Unknown Sex and Gender Information Value Date Recorded Sex Assigned at Not on file Legal Sex Female 5:57 PM CDT Gender Identity Not on file Sexual Orientation Not on file documented as of this encounter Miscellaneous Notes * Cerner Conversion Note - Josiah Rivers MD - 06/02/2019 9:16 AM CDT PAT Adult Entered On: 06/02/2019 9:19 EDT Performed On: 06/02/2019 9:16 EDT by Ashleigh Choudhary RN Vital Measurements Temperature Source : Temporal artery scanning Temperature Mode : Fahrenheit Temperature, Fahrenheit : 98.3 Deg F Clinical Temperature, C : 36.8 Deg C Pulse Method : Non-Invasive BP Device Pulse Source : Brachial, Right Peripheral Pulse Rate : 76 bpm Pulse Rhythm : Regular Respiratory Rate : 16 Breaths/Min Blood Pressure Location : Arm, right upper Blood Pressure Source : Non-Invasive BP Device Blood Pressure Position : Sitting Systolic Blood Pressure : 123 mmHg Diastolic Blood Pressure : 68 mmHg Oxygen Saturation : 99 % Oxygen Therapy Mode : Room air Ashleigh Choudhary RN - 06/02/2019 9:16 EDT Height and Weight, Clinical Dosing Height Source : Stated Height Entry Format : [place] Height, Feet : 5 ft(Converted to: 152 cm, 60 Inch) Height, Inches : 4 Inch(Converted to: 0 ft 4 Inch, 10.16 cm) Clinical Height : 162.56 cm Weight Source : Standing scale Weight Entry Format : [place] Clinical Dosing Weight : 77.27 kg Weight, Pounds : 170 lb Body Surface Area (BSA) : 1.83 m2 Body Mass Index : 29.2 kg/m2 (HI) [place] Body Weight : 54 kg Ashleigh Choudhary RN - 06/02/2019 9:16 EDT Health Histories Smoking Status : Never (less than 100 in lifetime; none in last 30 days) Smokeless Tobacco Status : Never Ashleigh Choudhary RN - 06/02/2019 9:16 EDT Social History (As Of: 06/02/2019 09:19:29 EDT) Tobacco: Use in Last 12 Months: No. Smoking Status Never smoker. (Last Updated: 07/30/2015 14:50:13 EST by KECIA MASON, ANTHONY) Alcohol: Alcohol Use History Yes. Use in Last 12 Months: Yes. Alcohol Use Frequency Rarely. (Last Updated: 07/30/2015 14:50:19 EST by KECIA MASON, ANTHONY) Substance Abuse: Drug Use Hx: No. (Last Updated: 01/05/2017 13:14:14 EDT by ERIKA TOUSSAINT, RN) Nutrition/Health: Caffeine intake amount: none. (Last Updated: 01/05/2017 13:14:22 EDT by ERIKA TOUSSAINT, ANTHONY) Type of diet: low carb. Wants to [...] LOU SIMS, RN) Employment/School: Employed, Work/School description: [employer]. (Last Updated: 01/31/2017 10:31:56 EDT by MARY LOU SIMS, RN) Infectious Disease History Infectious Disease History : Chicken pox/Shingles, Influenza Isolation Needed : Standard Fever/Chills Last 48 Hours : No Travel To [place] with Travel Advisories : No Travel Outside [place] Within Last 30 Days : No Contact With Traveler to Advisory Region : No Tuberculosis Symptoms : None Ashleigh Choudhary RN - 06/02/2019 9:16 EDT Anesthesia/Transfusion History Family History of Anesthesia Reaction : No prior transfusion(s) Transfusion History : Prior anesthesia reaction Type of Anesthesia Reaction : Excessive nausea/vomiting Family History of Anesthesia Reaction : None Ashleigh Choudhary RN - 06/02/2019 9:16 EDT Functional Assessment Functional ADL Evaluation Index EBN Bathing : Independent (2) Dressing : Independent (2) Toileting : Independent (2) Transferring Bed or Chair : Independent (2) Continence : Independent (2) Feeding : Independent (2) Ashleigh Choudhary RN - 06/02/2019 9:16 EDT ADL Index Score : 12 Ashleigh Choudhary RN - 06/02/2019 9:16 EDT Advance Directive Patient has Advance Directive *Q : No, patient refuses Advance Directive information Ashleigh Choudhary RN - 06/02/2019 9:16 EDT Psychosocial History Chronic/Terminal Illness w/Freq Visits : No Do You Have a History of the Following? : Anxiety Currently in Unsafe Situation : No Tried to Harm Yourself in the Past? : No Thoughts of Harming/Killing Yourself : No Ashleigh Choudhary RN - 06/02/2019 9:16 EDT Teaching/Learning Assessment Barriers To Learning : None evident Individuals Taught : Patient Readiness to Learn : Cooperative Ashleigh Choudhary RN - 06/02/2019 9:16 EDT Education Topics, Periop Preadmission Perioperative Education Grid Arrival Time/Place : Verbalizes understanding Infection Control : Verbalizes understanding NPO Status/Directions : Verbalizes understanding Preprocedure Preparations : Verbalizes understanding Preprocedure Tests/Labs : Verbalizes understanding Responsible Adult : Verbalizes understanding Take/Hold Medications Pre-Procedure : Verbalizes understanding Ashleigh Choudhary RN - 06/02/2019 9:16 EDT General Info Preferred Name : Camryn Support Person/Patient Lens Generating Machine Tender : Yes Support Person/Pt Rep Name : Jose Gu Support Person/Pt Rep Contact Information : [phone] [place] Family/Rep/Phys Notified of Admit : No Emergency Contact #1 : Jose Emergency Contact #1 Emergency Contact #1 Relationship : spouse Emergency Contact #2 : . Emergency Contact #2 Phone Number : . Emergency Contact #2 Relationship : . Information Obtained From : Patient Primary Language : Macanese Preferred Communication Mode : Verbal Communication Barrier : None Ashleigh Choudhary RN - 06/02/2019 9:16 EDT Patel Scale Patel Sensory Perception : No impairment Patel Moisture : Rarely moist Patel Activity : Walks occasionally Patel Mobility : No limitation Patel Nutrition : Adequate Patel Friction and Shear : No apparent problem Patel Score : 21 Ashleigh Choudhary RN - 06/02/2019 9:16 EDT Sleep Apnea Risk Assmt Hx of [...] Sleep Apnea Risk Level Score : 0 Ashleigh Choudhary RN - 06/02/2019 9:16 EDT documented in this encounter Plan of Treatment Not on file documented as of this encounter Visit Diagnoses Not on filedocumented in this encounter Care Teams Portable Grinding Machine Operator Relationship Specialty Start Date End Date Erika So APRN [address] [place] [address] PCP - General Nurse Practitioner 05/07/23 [place] Bahena MD [address] [address] Referring Physician Obstetrics and Gynecology 05/07/23 documented as of this encounter
--- OUTSIDE RECORDS SUMMARY | 2025-05-25 13:18 | XMS_ITS | Encounter Summary ---
Author Organization [employer] ([place], [place], [place], [place]) Address [address] [place] [address] Care Team Providers Care Clinical Biostatistician Name Role Phone Erika So APRN Primary Care Provider [phone] Jim Bahena MD Unavailable [phone] Encounter Details Date Type Department Care Team (Late st Contact Info) Description 04/18/2019 Transcribed Document [facility] Family Medicine [address] [place] [address] ProviderJosiah MD [address] [place] [id number] Social History Tobacco Use Types Packs/Day Years Used Date Smoking Tobacco: Never Assessed Comments Unknown Sex and Gender Information Value Date Recorded Sex Assigned at Not on file Legal Sex Female 5:57 PM CDT Gender Identity Not on file Sexual Orientation Not on file documented as of this encounter Miscellaneous Notes * Cerner Conversion Note - Josiah Rivers MD - 04/18/2019 11:22 AM CDT [address] [address] QUINCY MCCARTY :1985 Visit Time:04/18/2019 What to do next Your Diagnosis Hypermenorrhea Severe dysmenorrhea Dyspareunia, female Endometriosis of pelvis Abnormal endometrial ultrasound PCO (polycystic ovaries) BMI 30.0-30.9,adult Truncal obesity Hemorrhagic ovarian cyst Ovarian cyst, right Pelvic and perineal pain, Pelvic and perineal pain Instructions From Your Care Team activity as tolerated. resume diet as tolerated. Keep follow up appointment. You have been prescribed percocet 5 mg tablet to be taken by mouth every 4 hrs as needed for pain. You were given a pain pill at 11:15 am. Your next pain will will not be due until 3:15am. Do not exceed recommended dose. Discharge Follow Up Instructions: Follow up in office in 1 month Activity: Discharge Activity: Activity as tolerated Activity: Discharge Activity: Activity as tolerated Diet: Discharge Diet: Resume usual diet as tolerated Diet: Advance as tolerated to home diet, Discharge Diet: Other (see Special Instructions) Follow-Up Appointments Follow Up with JIM BAHENA MD When 05/19/2019 10:30 AM EDT Where: [address] [place] [phone] Follow Up with JIM BAHENA When Within 1 month Where: [address] [place] [phone] Business (3) Medications What How Much When Instructions Next Dose acetaminophen-oxyCODONE (Percocet 5/ 325 oral tablet) 1 Tablet(s) Oral Every 4 Hours as needed for Pain (Moderate 4-6) ibuprofen (ibuprofen 600 mg oral tablet) 1 Tablet(s) Oral Every 6 Hours as needed for Pain/Fever calcium carbonate (calcium (as carbonate) 600 mg oral tablet) 1 Tablet(s) Oral Two Times A Day cholecalciferol (Vitamin D3 5000 units oral capsule) 1 Capsule(s) Oral Every Day with food cyanocobalamin (Vitamin B12 2500 mcg sublingual tablet) 1 Tablet(s) SubLINgual Sunday, Sunday, Sunday ferrous sulfate (ferrous sulfate 325 mg (65 mg elemental iron) oral tablet) 1 Tablet(s) Oral Every Day multivitamin, ( Multivitamins) 1 Tablet(s) Oral Every Day pyridoxine (Vitamin B6 50 mg oral tablet) 1 Tablet(s) Oral Every Day raNITIdine 150 Milligram(s) Oral Every Day vortioxetine (Trintellix 5 mg oral tablet) 1 Tablet(s) Oral Every Day Take your medications faithfully. Do NOT skip medication. Do NOT stop taking medications without the direction of a physician. Carry a list of your medications with you at all times, and take this medication list with you to your first follow up visit. Report any side effects. Avoid herbal remedies unless discussed with your physician. As part of your treatment plan, your physician may have prescribed a limited course of a controlled substance. This medication may be given to help people with moderate or severe pain or for other medical conditions, but there are risks involved with treatment. Common side effects may include nausea, constipation, drowsiness, sweating, itching, dry mouth, and rash. More serious side effects may include cognitive and motor impairment, like problems with thinking, concentrating, alertness, and movement (e.g. slowed reflexes), and driving and operating heavy machinery can be dangerous. It is important for you to talk to your physician if you have these side effects or questions. These controlled substances can produce physical dependence and be habit-forming if taken for an extended period of time, which means that the body has gotten used to them and may experience withdrawal symptoms if they are abruptly stopped. Withdrawal symptoms can include runny nose, sweating, goose bumps, diarrhea, abdominal cramping, rapid heartbeat, difficulty sleeping, and nervousness. Please dispose of unused and medications per pharmacy guidance. Education Materials General Anesthesia, Adult, Care After This sheet [...] activities are safe for you. ??? Take umbj-hez-omqhdsd and prescription medicines only as told by [...] 11/19/2001 Document Revised: 03/29/2018 Document Reviewed: 03/29/2018 [employer] Interactive Patient Education ?? 2019 [employer] Ovarian Cystectomy, Care After This sheet [...] these instructions at home: Medicines ??? Take cffw-irv-afuzijz and prescription medicines only as told by [...] and water are not available, use hand patient access registrar. ? Change your dressing as told by [...] provider may recommend that you: ? Take dpkh-icp-agcoidb or prescription medicines. ? Eat foods that [...] 06/03/2014 Document Revised: 10/02/2017 Document Reviewed: 10/02/2017 [employer] Interactive Patient Education ?? 2019 [employer] Diagnostic Laparoscopy, Care After This sheet [...] these instructions at home: Medicines ??? Take lufh-qmk-jwqygnf and prescription medicines only as told by [...] and water are not available, use hand patient access registrar. ? Change your dressing as told by [...] keep your urine pale yellow. ? Take gbfg-fnf-kvdkgtm or prescription medicines. ? Eat foods that [...] 07/24/2016 Document Revised: 02/06/2018 Document Reviewed: 02/06/2018 [employer] Interactive Patient Education ?? 2019 [employer] Hysteroscopy, Care After This sheet gives [...] instructions at home: Activity ??? Rest for 1???2 days after the procedure. ??? Do not [...] taking prescription pain medicines. Medicines ??? Take hrvm-nnb-gxfxkam and prescription medicines only as told by [...] urine clear or pale yellow. ? Take zvcs-ycq-uldzeer or prescription medicines. ? Eat foods that [...] 06/03/2014 Document Revised: 09/11/2017 Document Reviewed: 09/11/2017 [employer] Interactive Patient Education ?? 2019 mention. acetaminophen and oxycodone (a SEET a MIN oh fen and OX i KOE done) Endocet 10/325, Endocet 2.5/325, Endocet 5/325, Endocet 7.5/325, Nalocet, Percocet 10/325, Percocet 2.5/325, Percocet 5/325, Percocet 7.5/325, Primalev, Primlev, Roxicet, Xartemis XR What is the most important information I should know about acetaminophen and oxycodone? MISUSE OF OPIOID MEDICINE CAN CAUSE ADDICTION, OVERDOSE, OR . Keep the medication in a place where others cannot get to it. An overdose of acetaminophen can damage your liver or cause . Call your doctor at once if you have pain in your upper stomach, loss of appetite, dark urine, or jaundice (yellowing of your skin or eyes). Taking opioid medicine during may cause life-threatening withdrawal symptoms in the . Fatal side effects can occur if you use opioid medicine with alcohol, or with other drugs that cause drowsiness or slow your breathing. Stop taking this medicine and call your doctor right away if you have skin redness or a rash that spreads and causes blistering and peeling. What is acetaminophen and oxycodone? Oxycodone is an opioid pain medication, sometimes called a narcotic. Acetaminophen is a less potent pain reliever that increases the effects of oxycodone. Acetaminophen and oxycodone is a combination medicine used to relieve moderate to severe pain. Acetaminophen and oxycodone may also be used for purposes not listed in this medication guide. What should I discuss with my healthcare provider before taking acetaminophen and oxycodone? You should not use this medicine if you are allergic to acetaminophen or oxycodone, or if you have: ?? severe asthma or breathing problems; or ?? a blockage in your stomach or intestines. Tell your doctor if you have ever had: ?? liver disease; ?? a drug or alcohol addiction; ?? kidney disease; ?? a head injury or seizures; ?? urination problems; or ?? problems with your thyroid, pancreas, or gallbladder. If you use opioid medicine while you are , your baby could become dependent on the drug. This can cause life-threatening withdrawal symptoms in the baby after it is born. Babies born dependent on opioids may need medical treatment for several weeks. Do not breast-feed. This medicine can pass into breast milk and cause drowsiness, breathing problems, or in a nursing baby. How should I take acetaminophen and oxycodone? Follow all directions on your prescription label. Never take this medicine in larger amounts, or for longer than prescribed. An overdose can damage your liver or cause . Tell your doctor if the medicine seems to stop working as well in relieving your pain. Never share this medicine with another person, especially someone with a history of drug abuse or addiction. MISUSE CAN CAUSE ADDICTION, OVERDOSE, OR . Keep the medicine in a place where others cannot get to it. Selling or giving away acetaminophen and oxycodone is against the law. Measure liquid medicine carefully. Use the dosing syringe provided, or use a medicine dose-measuring device (not a kitchen spoon). If you need surgery or medical tests, tell the doctor ahead of time that you are using this medicine. You should not stop using this medicine suddenly. Follow your doctor's instructions about tapering your dose. Store at room temperature away from moisture and heat. Keep track of your medicine. You should be aware if anyone is using it improperly or without a prescription. Do not keep leftover opioid medication. Just one dose can cause in someone using this medicine accidentally or improperly. Ask your pharmacist where to locate a drug take-back disposal program. If there is no take-back program, flush the unused medicine down the toilet. What happens if I miss a dose? Since this medicine is used for pain, you are not likely to miss a dose. Skip any missed dose if it is almost time for your next dose. Do not use two doses at one time. What happens if I overdose? Seek emergency medical attention or call the Poison Help line at . An overdose of acetaminophen and oxycodone can be fatal. The first signs of an acetaminophen overdose include loss of appetite, nausea, vomiting, stomach pain, sweating, and confusion or weakness. Later symptoms may include pain in your upper stomach, dark urine, and yellowing of your skin or the whites of your eyes. Overdose can also cause severe muscle weakness, pinpoint pupils, very slow breathing, extreme drowsiness, or coma. What should I avoid while taking acetaminophen and oxycodone? Avoid driving or operating machinery until you know how this medicine will affect you. Dizziness or drowsiness can cause falls, accidents, or severe injuries. Do not drink alcohol. Dangerous side effects or could occur. Ask a doctor or pharmacist before using any other medicine that may contain acetaminophen (sometimes abbreviated as APAP). Taking certain medications together can lead to a fatal overdose. What are the possible side effects of acetaminophen and oxycodone? Get emergency medical help if you have signs of an allergic reaction: hives; difficulty breathing; swelling of your face, lips, tongue, or throat. Opioid medicine can slow or stop your breathing, and may occur. A person caring for you should seek emergency medical attention if you have slow breathing with long pauses, blue colored lips, or if you are hard to wake up. In rare cases, acetaminophen may cause a severe skin reaction that can be fatal. This could occur even if you have taken acetaminophen in the past and had no reaction. Stop taking this medicine and call your doctor right away if you have skin redness or a rash that spreads and causes blistering and peeling. Call your doctor at once if you have: ?? noisy breathing, sighing, shallow breathing; ?? a light-headed feeling, like you might pass out; ?? weakness, tiredness, fever, unusual bruising or bleeding; ?? confusion, unusual thoughts or behavior; ?? problems with urination; ?? liver problems--nausea, upper stomach pain, tiredness, loss of appetite, dark urine, lisa-colored stools, jaundice (yellowing of the skin or eyes); or ?? low cortisol levels-- nausea, vomiting, loss of appetite, dizziness, worsening tiredness or weakness. Seek medical attention right away if you have symptoms of serotonin syndrome, such as: agitation, hallucinations, fever, sweating, shivering, fast heart rate, muscle stiffness, twitching, loss of coordination, nausea, vomiting, or diarrhea. Serious side effects may be more likely in older adults and those who are overweight, malnourished, or debilitated. Long-term use of opioid medication may affect fertility (ability to have children) in men or women. It is not known whether opioid effects on fertility are permanent. Common side effects include: ?? dizziness, drowsiness, feeling tired; ?? feelings of extreme happiness or sadness; ?? nausea, vomiting, stomach pain; ?? constipation; or ?? headache. This is not a complete list of side effects and others may occur. Call your doctor for medical advice about side effects. You may report side effects to FDA at 6-839-MOH-2433. What other drugs will affect acetaminophen and oxycodone? You may have breathing problems or withdrawal symptoms if you start or stop taking certain other medicines. Tell your doctor if you also use an antibiotic, antifungal medication, heart or blood pressure medication, seizure medication, or medicine to treat HIV or hepatitis C. Opioid medication can interact with many other drugs and cause dangerous side effects or . Be sure your doctor knows if you also use: ?? cold or allergy medicines, bronchodilator asthma/COPD medication, or a diuretic ('water pill'); ?? medicines for motion sickness, irritable bowel syndrome, or overactive bladder; ?? other narcotic medications--opioid pain medicine or prescription cough medicine; ?? a sedative like Valium--diazepam, alprazolam, lorazepam, Xanax, Klonopin, Versed, and others; ?? drugs that make you sleepy or slow your breathing--a sleeping pill, muscle relaxer, medicine to treat mood disorders or mental illness; ?? drugs that affect serotonin levels in your body--a stimulant, or medicine for depression, Parkinson's disease, migraine headaches, serious infections, or nausea and vomiting. This list is not complete. Other drugs may affect acetaminophen and oxycodone, including prescription and nkks-jgp-kyrylga medicines, vitamins, and herbal products. Not all possible interactions are listed here. Where can I get more information? Your doctor or pharmacist can provide more information about acetaminophen and oxycodone. Remember, keep this and all other medicines out of the reach of children, never share your medicines with others, and use this medication only for the indication prescribed. Every effort has been made to ensure that the information provided by [employer]') is accurate, up-to-date, and complete, but no guarantee is made to that effect. Drug information contained herein may be time sensitive. [employer] information has been compiled for use by healthcare practitioners and consumers in the [place] and therefore [employer] does not warrant that uses outside of the [place] are appropriate, unless specifically indicated otherwise. [employer] drug information does not endorse drugs, diagnose patients or recommend therapy. [employer] drug information is an informational resource designed to assist licensed healthcare practitioners in caring for their patients and/or to serve consumers viewing this service as a supplement to, and not a substitute for, the expertise, skill, knowledge and judgment of healthcare practitioners. The absence of a warning for a given drug or drug combination in no way should be construed to indicate that the drug or drug combination is safe, effective or appropriate for any given patient. [employer] does not assume any responsibility for any aspect of healthcare administered with the aid of information [employer] provides. The information contained herein is not intended to cover all possible uses, directions, precautions, warnings, drug interactions, allergic reactions, or adverse effects. If you have questions about the drugs you are taking, check with your doctor, nurse or pharmacist. Copyright 9473-7591 [employer]. Version: 18.02. Revision Date: 07/24/2018. Emergency Awareness and Preventative Care STROKE is an EMERGENCY Every Minute Counts Act FAST and Check for these signs: FACE Does the face look uneven? ARM Does one arm drift down? SPEECH Does their speech sound strange? TIME Call at any sign of stroke Stroke Risk Factors Atrial Fibrillation (irregular heartbeat) Diabetes Family history of stroke Heart Disease Heavy alcohol use High Blood Pressure High Cholesterol Physical inactivity and obesity Smoking Cigarette Smoking The facts are clear, cigarette smoking will shorten your life. Smoking can cause many illnesses along the way. As a healthcare provider, we recommend that you stop smoking. Assistance with quitting is available by contacting 5-068-[employer]NOW. This is a free resource providing counseling, support, and referral. Or you may contact your personal physician. National Suicide Prevention Lifeline: The National Suicide Prevention Lifeline is a national network of local crisis centers that provides free and confidential emotional support to people in suicidal crisis or emotional distress 24 hours a day, 7 days a week. Don't Wait! Stop a Heart Attack Before it Starts What is a heart attack? A heart attack is damage or to a part of the heart from severely decreased or lack of blood flow to the heart. Over time, arteries can become narrow from the buildup of fat and cholesterol, which is called plaque. The plaque can rupture causing a blood clot to form. When the blood clot forms, the artery can become severely narrowed or completely blocked, causing a heart attack. Heart attack is the leading cause of in the [place]. 85% of muscle damage occurs within the first 2 hours. Delay in the recognition of heart attack symptoms increases the chances of . Know the early symptoms of a heart attack: Nausea Feeling of fullness in chest Jaw Pain Pain that travels down one or both arms Fatigue/being tired Anxiety Back Pain Chest pressure, squeezing, or discomfort Shortness of breath Sweating, or a cold sweat Feeling of impending doom There are unusual signs of a heart attack, too! Women, the elderly, and diabetics may present with atypical symptoms: Fainting/dizziness Weakness Confusion Risk Factors for a Heart Attack Some heart disease risk factors, such as age and family history, cannot be changed. Others, like smoking and lack of exercise, can be changed. Smoking High Cholesterol High Blood Pressure Family History Obesity Age Gender (Males are at higher risk) Lack of Exercise Diabetes Diet Stress Excessive Alcohol Intake If you or someone you know is experiencing the signs and symptoms of a heart attack, DON???T DELAY. Call immediately and seek help. If someone collapses, perform CPR! Do not attempt to drive if you are having symptoms of heart attack. Hands-Only CPR Why Hands-Only CPR? Hands-Only CPR has been shown to be as effective as conventional CPR for cardiac arrests that occur outside of a hospital. Survival depends on immediately receiving CPR from someone nearby. How do you perform Hands-Only CPR? There are two easy steps: Call if you see a teen or adult collapse Push hard and fast in the center of the chest at a beat of 100 beats per minute. Save a life! 4 WAYS TO GET AHEAD OF SEPSIS SEPSIS is a MEDICAL EMERGENCY. Time matters! Infections put you and your family at risk for a life-threatening condition called sepsis. Sepsis is the body's extreme response to an infection. It is life-threatening, and without timely treatment, sepsis can rapidly lead to tissue damage, organ failure, and . Sepsis happens when an infection you already have-in your skin, lungs, urinary tract or somewhere else-triggers a chain reaction throughout your body. 1 PREVENT INFECTIONS Take good care of chronic conditions. Talk to your doctor about getting the recommended vaccines. 2 PRACTICE GOOD HYGIENE Wash your hands frequently. Keep cuts or open sores clean and covered until they are healed. 3 KNOW THE SYMPTOMS Confusion or disorientation Shortness of breath High heart rate Fever, shivering, or feeling very cold Extreme pain or discomfort Clammy or sweaty skin 4 ACT FAST Get medical care IMMEDIATELY if you suspect sepsis or if you have an infection that is not getting better or is getting worse. To learn more about sepsis and how to prevent infections, visit www.cdc.gov/sepsis. Test Results Laboratory or Other Results This Visit (last charted value for your 04/18/2019 visit) Hematology 04/18/19 10:55:00 Platelet Count: 216 K/uL -- Normal range between ( 163 and 369 ) Lipid Studies 04/18/19 06:38:00 Cholesterol Tot: 152 mg/dL -- Normal range between ( 0 and 199 ) Cholesterol HDL: 71.0 mg/dL Cholesterol LDL Calculation: 69.6 mg/dL -- Normal range between ( 0.0 and 99.0 ) Cholesterol VLDL Calculation: 11.4 mg/dL -- Normal range between ( 5.0 and 40.0 ) Cholesterol/HDL Ratio: 2.1 -- Normal range between ( 0.0 and 3.2 ) Triglyceride: 57 mg/dL -- Normal range between ( 0 and 249 ) LDL/HDL Ratio: 1.0 -- Normal range between ( 0.0 and 3.2 ) Endocrinology 04/18/19 06:38:00 HCG Urine Qualitative: Negative Patient Name:QUINCY MCCARTY I have received this information and was given the opportunity to ask questions. Patient/Care Administrative Tech Name: Patient/Care Administrative Tech Signature: Relationship to Patient: Clinician/Hospital Care Administrative Tech Signature: Date: Electronically signed by Cameron, [facility] Conversion Medicine Technologist Cerner at 12/11/2022 4:52 PM CDT documented in this encounter Plan of Treatment Not on file documented as of this encounter Visit Diagnoses Not on filedocumented in this encounter Care Teams Clinical Biostatistician Relationship Specialty Start Date End Date Erika So, RAGHU [address] [phone] PCP - General Nurse Practitioner 05/07/23 Jim Bahena MD [address] [id number] Referring Physician Obstetrics and Gynecology 05/07/23 documented as of this encounter
--- OUTSIDE RECORDS SUMMARY | 2025-05-25 13:18 | XMS_ITS | Encounter Summary ---
Author Organization [employer] ([place], [place], [place], [place]) Address [address] [place] [address] Care Team Providers Care Lithostripper Name Role Phone Erika So APRN Primary Care Provider [phone] [place] Bahena MD Unavailable [phone] Encounter Details Date Type Department Care Team (Late st Contact Info) Description 02/17/2019 Transcribed Document [facility] [address] [place] [address] ProviderJosiah MD [address] [place] [id number] Social History Tobacco Use Types Packs/Day Years Used Date Smoking Tobacco: Never Assessed Comments Unknown Sex and Gender Information Value Date Recorded Sex Assigned at Not on file Legal Sex Female 5:57 PM CDT Gender Identity Not on file Sexual Orientation Not on file documented as of this encounter Miscellaneous Notes * Cerner Conversion Note - Josiah Rivers MD - 02/17/2019 2:10 PM CDT [address] [address] CAMRYN MCCARTY :1985 Visit Time:02/17/2019 Your Visit Summary Your Care Team Admitting Physician - ABDELRAHMAN KEENAN MD-EMR Attending Physician - ABDELRAHMAN KEENAN MD-EMR Primary Care Physician - RUEL LECHUGA VINCE-GLORIA Referring Physician - ROSALIE, SELF REFERRED Your Diagnosis Back pain Elevated blood pressure reading Hip pain-swelling Lumbar herniated disc Medical Information You may obtain a copy of your Emergency Department visit from Medical Records by calling the hospital phone number listed above and asking to be directed to the Medical Records Department. If you had special tests, such as EKG???s or X-rays, the interpretation of your tests given to you by the Emergency Department Physician is a preliminary report. Some fractures and illnesses fail to show up on preliminary tests. These will be reviewed again and we will call you if there are any new suggestions. If your symptoms continue notify your physician. After you leave, you should follow the instructions provided. What to do next Follow-Up Appointments Follow Up with VIVIANA RUBIO When 02/19/2019 10:00 AM EDT Comments [facility] orthopedic [place] office please call prior to ensure the location Where: [address] [place] [address] [address] [place] [address]- Business (1) Follow Up with RUEL LECHUGA When Within 2 to 3 days Where: [address] [place] [address]- Business (1) Allergies Adhesive Bandage (surgical tape rash) Immunizations This Visit No Immunizations Found Medications What How Much When Instructions Next Dose New acetaminophen-oxyCODONE (Percocet 5/ 325 oral tablet) 1 Tablet(s) Oral Every 4 Hours as needed for for pain Printed Prescription New gabapentin (gabapentin 300 mg oral capsule) 1 Capsule(s) Oral Three Times A Day Printed Prescription New methylPREDNISolone (Medrol Dosepak 4 mg oral tablet) 1 Packet(s) Oral Every Day Duration: 6 Day(s) as directed on package labeling Pickup at [facility] Pharmacy Information [facility]: [address] [place] [address] [phone] The home medications listed are only as accurate as the information you provided. Please continue taking all of your medications prescribed by your Primary Care Provider unless specifically told to change or discontinue the medication. Please direct any questions regarding your home medications to your Primary Care Provider. Take your medications faithfully. Do NOT skip [...] of unused and medications per pharmacy guidance. Test Results Laboratory or Other Results This Visit (last charted value for your 02/17/2019 visit) Magnetic Resonance Imaging 02/17/19 12:47:38 MRI Spine Thoracic WO: MRI Spine Thoracic WO Education Materials Herniated Disk A herniated disk, also called a ruptured disk or slipped disk, occurs when a disk in the spine bulges out too far. Between the bones in the spine (vertebrae), there are oval disks that are made of a soft, spongy center that is surrounded by a tough outer ring. The disks connect your vertebrae, help your spine move, and absorb shocks from your movement. When you have a herniated disk, the spongy center of the disk bulges out or breaks through the outer ring. It can press on a nerve between the vertebrae and cause pain. This can occur anywhere in the back or neck area, but the lower back is most commonly affected. What are the causes? This condition may be caused by: ??? Age-related wear and tear. The spongy centers of spinal disks tend to shrink and dry out with age, which makes them more likely to herniate. ??? Sudden injury, such as a strain or sprain. What increases the risk? Aging is the main risk factor for a herniated disk. Other risk factors include: ??? Being a man who is 30???50 years old. ??? Frequently doing activities that involve heavy lifting, bending, or twisting. ??? Frequently driving for long hours at a time. ??? Not getting enough exercise. ??? Being overweight. ??? Smoking. ??? Having a family history of back problems or herniated disks. ??? Being or giving . ??? Having poor nutrition. ??? Being tall. What are the signs or symptoms? Symptoms may vary depending on where your herniated disk is located. ??? A herniated disk in the lower back may cause sharp pain in: ? Part of the arm, leg, hip, or buttocks. ? The back of the lower leg (calf). ? The lower back, spreading down through the leg into the foot (sciatica). ??? A herniated disk in the neck may cause dizziness and vertigo. It may also cause pain or weakness in: ? The neck. ? The shoulder blades. ? Upper arm, forearm, or fingers. ??? You may also have muscle weakness. It may be difficult to: ? Lift your leg or arm. ? Stand on your toes. ? Squeeze tightly with one of your hands. ??? Other symptoms may include: ? Numbness or tingling in the affected areas of the hands, arms, feet, or legs. ? Inability to control when you urinate or when you have bowel movements. This is a rare but serious sign of a severe herniated disk in the lower back. How is this diagnosed? This condition may be diagnosed based on: ??? Your symptoms. ??? Your medical history. ??? A physical exam. The exam may include: ? Straight-leg test. You will lie on your back while your health care provider lifts your leg, keeping your knee straight. If you feel pain, you likely have a herniated disk. ? Neurological tests. This includes checking for numbness, reflexes, muscle strength, and posture. ??? Imaging tests, such as: ? X-rays. ? MRI. ? CT scan. ? Electromyogram (EMG) to check the nerves that control muscles. This test may be used to determine which nerves are affected by your herniated disk. How is this treated? Treatment for this condition may include: ??? A short period of rest. This is usually the first treatment. ? You may be on bed rest for up to 2 days, or you may be instructed to stay home and avoid physical activity. ? If you have a herniated disk in your lower back, avoid sitting as much as possible. Sitting increases pressure on the disk. ??? Medicines. These may include: ? NSAIDs to help reduce pain and swelling. ? Muscle relaxants to prevent sudden tightening of the back muscles (back spasms). ? Prescription pain medicines, if you have severe pain. ??? Steroid injections in the area of the herniated disk. This can help reduce pain and swelling. ??? Physical therapy to strengthen your back muscles. In many cases, symptoms go away with treatment over a period of days or weeks. You will most likely be free of symptoms after 3???4 months. If other treatments do not help to relieve your symptoms, you may need surgery. Follow these instructions at home: Medicines ??? Take gcpn-nwd-pmpouhs and prescription medicines only as told by your health care provider. ??? Do not drive or use heavy machinery while taking prescription pain medicine. Activity ??? Rest as directed. ??? After your rest period: ? Return to your normal activities and gradually begin exercising as told by your health care provider. Ask your health care provider what activities and exercises are safe for you. ? Use good posture. ? Avoid movements that cause pain. ? Do not lift anything that is heavier than 10 lb (4.5 kg) until your health care provider says this is safe. ? Do not sit or stand for long periods of time without changing positions. ? Do not sit for long periods of time without getting up and moving around. ??? If physical therapy was prescribed, do exercises as instructed. ??? Aim to strengthen muscles in your back and abdomen with exercises like crunches, swimming, or walking. General instructions ??? Do not use any products that contain nicotine or tobacco, such as cigarettes and e-cigarettes. These products can delay healing. If you need help quitting, ask your health care provider. ??? Do not wear high-heeled shoes. ??? Do not sleep on your belly. ??? If you are overweight, work with your health care provider to lose weight safely. ??? To prevent or treat constipation while you are taking prescription pain medicine, your health care provider may recommend that you: ? Drink enough fluid to keep your urine clear or pale yellow. ? Take cuze-yfg-hxkrwnc or prescription medicines. ? Eat foods that are high in fiber, such as fresh fruits and vegetables, whole grains, and beans. ? Limit foods that are high in fat and processed sugars, such as fried and sweet foods. ??? Keep all follow-up visits as told by your health care provider. This is important. How is this prevented? Maintain a healthy weight. ??? Try to avoid stressful situations. ??? Maintain physical fitness. Do at least 150 minutes of moderate-intensity exercise each week, such as brisk walking or water aerobics. ??? When lifting objects: ? Keep your feet at least shoulder-width apart and tighten your abdominal muscles. ? Keep your spine neutral as you bend your knees and hips. It is important to lift using the strength of your legs, not your back. Do not lock your knees straight out. ? Always ask for help to lift heavy or awkward objects. Contact a health care provider if: ??? You have back pain or neck pain that does not get better after 6 weeks. ??? You have severe pain in your back, neck, legs, or arms. ??? You develop numbness, tingling, or weakness in any part of your body. Get help right away if: ??? You cannot move your arms or legs. ??? You cannot control when you urinate or have bowel movements. ??? You feel dizzy or you faint. ??? You have shortness of breath. This information is not intended to replace advice given to you by your health care provider. Make sure you discuss any questions you have with your health care provider. Document Released: 08/10/2001 Document Revised: 04/09/2017 Document Reviewed: 04/09/2017 [employer] Interactive Patient Education ?? 2019 [employer] Acute Back Pain, Adult Acute back pain is sudden and usually short-lived. It is often caused by an injury to the muscles and tissues in the back. The injury may result from: ??? A muscle or ligament getting overstretched or torn (strained). Ligaments are tissues that connect bones to each other. Lifting something improperly can cause a back strain. ??? Wear and tear (degeneration) of the spinal disks. Spinal disks are circular tissue that provides cushioning between the bones of the spine (vertebrae). ??? Twisting motions, such as while playing sports or doing yard work. ??? A hit to the back. ??? Arthritis. You may have a physical exam, lab tests, and imaging tests to find the cause of your pain. Acute back pain usually goes away with rest and home care. Follow these instructions at home: Managing pain, stiffness, and swelling ??? Take zaeb-pgh-snvevct and prescription medicines only as told by your health care provider. ??? Your health care provider may recommend applying ice during the first 24???48 hours after your pain starts. To do this: ? Put ice in a plastic bag. ? Place a towel between your skin and the bag. ? Leave the ice on for 20 minutes, 2???3 times a day. ??? If directed, apply heat to the affected area as often as told by your health care provider. Use the heat source that your health care provider recommends, such as a moist heat pack or a heating pad. ? Place a towel between your skin and the heat source. ? Leave the heat on for 20???30 minutes. ? Remove the heat if your skin turns bright red. This is especially important if you are unable to feel pain, heat, or cold. You have a greater risk of getting burned. Activity ??? Do not stay in bed. Staying in bed for more than 1???2 days can delay your recovery. ??? Sit up and stand up straight. Avoid leaning forward when you sit, or hunching over when you stand. ? If you work at a desk, sit close to it so you do not need to lean over. Keep your chin tucked in. Keep your neck drawn back, and keep your elbows bent at a right angle. Your arms should look like the letter L. ? Sit high and close to the steering wheel when you drive. Add lower back (lumbar) support to your car seat, if needed. ??? Take short walks on even surfaces as soon as you are able. Try to increase the length of time you walk each day. ??? Do not sit, drive, or wallcovering hanger one place for more than 30 minutes at a time. Sitting or standing for long periods of time can put stress on your back. ??? Do not drive or use heavy machinery while taking prescription pain medicine. ??? Use proper lifting techniques. When you bend and lift, use positions that put less stress on your back: ? Bend your knees. ? Keep the load close to your body. ? Avoid twisting. ??? Exercise regularly as told by your health care provider. Exercising helps your back heal faster and helps prevent back injuries by keeping muscles strong and flexible. ??? Work with a physical therapist to make a safe exercise program, as recommended by your health care provider. Do any exercises as told by your physical therapist. Lifestyle ??? Maintain a healthy weight. Extra weight puts stress on your back and makes it difficult to have good posture. ??? Avoid activities or situations that make you feel anxious or stressed. Stress and anxiety increase muscle tension and can make back pain worse. Learn ways to manage anxiety and stress, such as through exercise. General instructions ??? Sleep on a firm mattress in a comfortable position. Try lying on your side with your knees slightly bent. If you lie on your back, put a pillow under your knees. ??? Follow your treatment plan as told by your health care provider. This may include: ? Cognitive or behavioral therapy. ? Acupuncture or massage therapy. ? Meditation or yoga. Contact a health care provider if: ??? You have pain that is not relieved with rest or medicine. ??? You have increasing pain going down into your legs or buttocks. ??? Your pain does not improve after 2 weeks. ??? You have pain at night. ??? You lose weight without trying. ??? You have a fever or chills. Get help right away if: ??? You develop new bowel or bladder control problems. ??? You have unusual weakness or numbness in your arms or legs. ??? You develop nausea or vomiting. ??? You develop abdominal pain. ??? You feel faint. Summary ??? Acute back pain is sudden and usually short-lived. ??? Use proper lifting techniques. When you bend and lift, use positions that put less stress on your back. ??? Take giua-osl-xfudsft and prescription medicines and apply heat or ice as directed by your health care provider. This information is not intended to replace advice given to you by your health care provider. Make sure you discuss any questions you have with your health care provider. Document Released: 08/13/2006 Document Revised: 03/27/2018 Document Reviewed: 03/27/2018 [employer] Patient Education ?? 2019 [email or web address]. Emergency Awareness and Preventative Care STROKE is [...] Assistance with quitting is available by contacting 0-398-BOHI-NOW. This is a free resource providing counseling, [...] and how to prevent infections, visit www.cdc.gov/sepsis. The examination and treatment you have received in the Emergency Department has been done to provide an appropriate evaluation and stabilizing treatment on an emergency basis only. Given the limited resources, it is not meant to be a substitute for complete medical care. The follow-up doctor you named will receive a copy of your records and all test reports. IT IS IMPORTANT THAT YOU SCHEDULE A FOLLOW-UP APPOINTMENT AND ARE RE-EVALUATED. You should report any new complaints, symptoms, or remaining problems at that time. IT IS IMPOSSIBLE FOR THE EMERGENCY DEPARTMENT TO RECOGNIZE AND TREAT ALL ELEMENTS OF INJURY OR ILLNESS IN A SINGLE VISIT. If you have been referred to a specialist physician, it means that we believe you may have a condition that requires the expertise of a specialist. These physicians work in partnership with the hospital and have agreed to see referred patients in their office for further evaluation. KEEP IN MIND THAT THE SPECIALIST HAS HIS/HER OWN OFFICE POLICIES WHICH MAY REQUIRE PROPER INSURANCE OR PAYMENT UP FRONT BEFORE THE SPECIALIST WILL SEE YOU. It is your responsibility to call the specialist physician to make an appointment. We do not have the ability to refer patients to specialists/physicians that work with specific insurance companies. Please be advised that all financial charges or billing practices are determined by that practice, not the hospital. If your insurance company requires that you see a specialist from their approved list, it is your responsibility to contact your insurance company to make those arrangements. It is also your responsibility to follow any other requirements of your insurance company necessary to obtain coverage for claims submitted. We will bill your insurance; however, you are responsible today for any co-pay amounts. You will receive a separate bill for any services you may have received including: emergency, radiology, or pathology physicians. Patient Name:EVITA COECUTTCAMRYN I have received this information and was given the opportunity to ask questions. Patient/Upward Bound Director Name: Patient/Upward Bound Director Signature: Relationship to Patient: Clinician/Hospital Upward Bound Director Signature: Please Provide a Telephone Number Where You Can Be Reached: Is it Permissible To Leave a Message? Date: documented in this encounter Plan of Treatment Not on file documented as of this encounter Visit Diagnoses Not on filedocumented in this encounter Care Teams Lithostripper Relationship Specialty Start Date End Date Erika So APRN [address] [place] [address] PCP - General Nurse Practitioner 05/07/23 [place] Bahena MD [address] [place] [address] Referring Physician Obstetrics and Gynecology 05/07/23 documented as of this encounter
--- OUTSIDE RECORDS SUMMARY | 2025-05-25 13:18 | XMS_ITS | Encounter Summary ---
Author Organization [employer] ([place], [place], [place], [place]) Address [address] [place] [address] Care Team Providers Care Production Control Specialist Name Role Phone Erika So APRN Primary Care Provider [phone] Jim Bahena MD Unavailable [phone] Encounter Details Date Type Department Care Team (Late st Contact Info) Description 04/18/2019 Transcribed Document [facility] [place] Family Medicine [address] [place] [address] ProviderJosiah MD [address] [place] [address] Social History Tobacco Use Types Packs/Day Years Used Date Smoking Tobacco: Never Assessed Comments Unknown Sex and Gender Information Value Date Recorded Sex Assigned at Not on file Legal Sex Female 5:57 PM CDT Gender Identity Not on file Sexual Orientation Not on file documented as of this encounter Miscellaneous Notes * Cerner Conversion Note - Josiah Rivers MD - 04/18/2019 8:09 AM CDT [facility] [address], [place] [address] Patient Copy Patient Information: Name: QUINCY MCCARTY Current Date: 04/18/2019 08:09:09 : 1985 Patient Address: [address] [place] [address] Patient Attending Physician: JIM BAHENA MD Primary Care Provider: RUEL LECHUGA APRN Primary Care Provider Discharge Diagnosis: 1:Hypermenorrhea; 2:Severe dysmenorrhea; 3:Dyspareunia, female; 4:Endometriosis of pelvis; 5:Abnormal endometrial ultrasound; 6:PCO (polycystic ovaries); 7:BMI 30.0-30.9,adult; 8:Truncal obesity Weight on Admission: 181 lb, 0 oz Comment: Follow-up Instructions: With: Address: When: JIM BAHENA [facility] [place] [id number] [phone] Business (3) Within 1 month Discharge Instructions: Immunizations Documented During Stay: No Immunizations Found Heart Failure Discharge Instructions (if any): Stroke Related Discharge Instructions (if any): Warfarin Related Discharge Instructions (if any): Final Medication List: Other Medications acetaminophen-oxyCODONE (Percocet 5/325 oral tablet) 1 Tablet(s) Oral Every 4 Hours as needed Pain (Moderate 4-6). calcium carbonate (calcium (as carbonate) 600 mg oral tablet) 1 Tablet(s) Oral Two Times A Day. cholecalciferol (Vitamin D3 5000 units oral capsule) 1 Capsule(s) Oral Every Day. with food. cyanocobalamin (Vitamin B12 2500 mcg sublingual tablet) 1 Tablet(s) SubLINgual Sunday, Sunday, Sunday. ferrous sulfate (ferrous sulfate 325 mg (65 mg elemental iron) oral tablet) 1 Tablet(s) Oral Every Day. ibuprofen (ibuprofen 600 mg oral tablet) 1 Tablet(s) Oral Every 6 Hours as needed Pain/Fever. multivitamin, ( Multivitamins) 1 Tablet(s) Oral Every Day. pyridoxine (Vitamin B6 50 mg oral tablet) 1 Tablet(s) Oral Every Day. raNITIdine 150 Milligram(s) Oral Every Day. vortioxetine (Trintellix 5 mg oral tablet) 1 Tablet(s) Oral Every Day. Patient Allergies: Adhesive Bandage Medication Instructions: Take your medications faithfully. Do NOT skip [...] cramping, rapid heartbeat, difficulty sleeping, and nervousness. CIGARETTE SMOKING: The facts are clear, cigarette smoking will shorten your life. Smoking can cause many illnesses along the way. As a healthcare provider, we recommend that you stop smoking. Assistance with quitting is available by contacting 9-297-YVNY-NOW. This is a free resource providing counseling, support, and referral. Or you may contact your personal physician. 4 WAYS TO GET AHEAD OF SEPSIS SEPSIS is a MEDICAL EMERGENCY. Time matters! Infections put you and your family at risk for a life-threatening condition called sepsis. Sepsis is the body???s extreme response to an infection. It is life-threatening, and without timely treatment, sepsis can rapidly lead to tissue damage, organ failure, and . Sepsis happens when an infection you already have???in your skin, lungs, urinary tract or somewhere else???triggers a chain reaction throughout your body. 1 [...] sepsis or if you have an infection that???s not getting better or is getting worse. To learn more about sepsis and how to prevent infections, visit www.cdc.gov/sepsis. STROKE is an EMERGENCY Every Minute Counts ACT F.A.S.T! FACE ?? Facial droop ?? Uneven smile ARM ?? Arm numbness ?? Arm weakness SPEECH ?? Slurred speech ?? Difficulty speaking or understanding TIME ?? Call 911 and get to the hospital immediately Have the ambulance go to the nearest stroke center. STROKE Risk Factors High blood pressure High cholesterol Heart Disease Diabetes Smoking Heavy alcohol use Physical inactivity and obesity Atrial Fibrillation (irregular heartbeat) Family history of stroke Reminder: Be sure to sign up for the [employer] patient portal, which gives you 19/03 access to your medical information ??? including these discharge instructions ??? using your computer, smartphone, or tablet. Just go to [employer] to get started. Questions? Call . [facility] would like to thank you for allowing us to assist you with your healthcare needs. I, EVITA GU, QUINCY SANCHEZ, (or credit representative) have received the above patient education materials/instructions and have verbalized understanding: Patient Signature _ Date/Time Patient Advice Nurse Signature (if needed) Date/Time Clinician/Hospital Advice Nurse Signature (if needed) Date/Time Electronically signed by Cameron, [facility] Conversion Line Out Man Cerner at 12/11/2022 5:02 PM CDT documented in this encounter Plan of Treatment Not on file documented as of this encounter Visit Diagnoses Not on filedocumented in this encounter Care Teams Production Control Specialist Relationship Specialty Start Date End Date Erika So APRN [address] [place] [address] PCP - General Nurse Practitioner 05/07/23 Jim Bahena MD [address] [address] Referring Physician Obstetrics and Gynecology 05/07/23 documented as of this encounter
--- OUTSIDE RECORDS SUMMARY | 2025-05-25 13:18 | XMS_ITS | Encounter Summary ---
Author Organization [employer] ([place], [place], [place], [place]) Address [address] [place] [address] Care Team Providers Care Control Technician Name Role Phone Erika So APRN Primary Care Provider [phone] Jim Bahena MD Unavailable [phone] Encounter Details Date Type Department Care Team (Late st Contact Info) Description 04/18/2019 Transcribed Document [facility] [place] [address] [place] [address] ProviderJosiah MD [address] [place] [address] Social History Tobacco Use Types Packs/Day Years Used Date Smoking Tobacco: Never Assessed Comments Unknown Sex and Gender Information Value Date Recorded Sex Assigned at Not on file Legal Sex Female 5:57 PM CDT Gender Identity Not on file Sexual Orientation Not on file documented as of this encounter Miscellaneous Notes * Cerner Conversion Note - Josiah Rivers MD - 04/18/2019 9:42 AM CDT [facility] [address], [place] [address] Patient Copy Patient Information: Name: QUINCY MCCARTY Current Date: 04/18/2019 09:42:20 : 1985 Patient Address: [address] [place] [address] Patient Attending Physician: JIM BAHENA MD Primary Care Provider: RUEL LECHUGA APRN Primary Care Provider Discharge Diagnosis: 1:Hypermenorrhea; 2:Severe dysmenorrhea; 3:Dyspareunia, female; 4:Endometriosis of pelvis; 5:Abnormal endometrial ultrasound; 6:PCO (polycystic ovaries); 7:BMI 30.0-30.9,adult; 8:Truncal obesity; Hemorrhagic ovarian cyst; Ovarian cyst, right Weight on Admission: 181 lb, 0 oz Comment: Follow-up Instructions: With: Address: When: JIM BAHENA [address] [place] [address] [place] [phone] Business (3) Within 1 month Discharge Instructions: [...] Assistance with quitting is available by contacting 5-811-WVJJ-NOW. This is a free resource providing counseling, [...] Be sure to sign up for the [employer] patient portal, which gives you 19/03 access to your medical information ??? including these discharge instructions ??? using your computer, smartphone, or tablet. Just go to [employer] to get started. Questions? Call . [facility] would like to thank you for allowing us to assist you with your healthcare needs. I, QUINCY MCCARTY, (or textile machinery sales representative) have received the above patient education materials/instructions and have verbalized understanding: Patient Signature _ Date/Time Patient Stone Grader Signature (if needed) Date/Time Clinician/Hospital Stone Grader Signature (if needed) Date/Time Electronically signed by Cameron, [facility] Conversion Internet Sales Representative Cerner at 12/11/2022 4:50 PM CDT documented in this encounter Plan of Treatment Not on file documented as of this encounter Visit Diagnoses Not on filedocumented in this encounter Care Teams Control Technician Relationship Specialty Start Date End Date Erika So, RAGHU [address] [place] [phone] PCP - General Nurse Practitioner 05/07/23 Jim Bahena MD [address] [address] Referring Physician Obstetrics and Gynecology 05/07/23 documented as of this encounter
--- OUTSIDE RECORDS SUMMARY | 2025-05-25 13:18 | XMS_ITS | Encounter Summary ---
Author Organization [employer] ([place], [place], [place], [place]) Address [address] [place] [address] Care Team Providers Care Lime Plant Operator Name Role Phone Erika So APRN Primary Care Provider [phone] Jim Bahena MD Unavailable [phone] Encounter Details Date Type Department Care Team (Late st Contact Info) Description 04/18/2019 Transcribed Document [facility] [place] Medicine [address] [place] [address] ProviderJosiah MD [address] [place] [id number] Social History Tobacco Use Types Packs/Day Years Used Date Smoking Tobacco: Never Assessed Comments Unknown Sex and Gender Information Value Date Recorded Sex Assigned at Not on file Legal Sex Female 5:57 PM CDT Gender Identity Not on file Sexual Orientation Not on file documented as of this encounter Miscellaneous Notes * Cerner Conversion Note - Josiah Rivers MD - 04/18/2019 8:16 AM CDT [facility] PACU Summary Primary Physician: JIM BAHENA MD Finalized Date/Time: 04/18/19 10:15:40 Pt. Name: TAHIR GU QUINCYJANAY SANCHEZ D.O.B./Sex: 1985 Female Med Rec #: [id number] Physician: JIM BAHENA MD Financial #: [id number] Pt. Type: O Room/Bed: [facility]/2 Admit/Disch: 04/18/19 05:38:00 - Institution: [facility] OR PACU Case Times Entry 1 In PACU I 04/18/19 09:24:00 Ready for PACU 04/18/19 10:06:00 Discharge Discharge from PACU 04/18/19 10:06:00 I Last Modified By: Deidre Ramsay RN 04/18/19 10:15:34 [facility] OR PACU Case Times Audit 04/18/19 10:15:34 Graphic Design Specialist: [email or web address] Modifier: [email or web address] <+> 1 Ready for PACU Discharge <+> 1 Discharge from PACU I Finalized By: Deidre Ramsay RN Document Signatures Signed By: Deidre Ramsay RN 04/18/19 10:15 Electronically signed by Cameron [facility] Conversion Psych Coordinator Cerner at 12/11/2022 5:13 PM CDT documented in this encounter Plan of Treatment Not on file documented as of this encounter Visit Diagnoses Not on filedocumented in this encounter Care Teams Lime Plant Operator Relationship Specialty Start Date End Date Erika So, CONCEPTOR [address] [place] [address] PCP - General Nurse Practitioner 05/07/23 Jim Bahena MD [address] [address] Referring Physician Obstetrics and Gynecology 05/07/23 documented as of this encounter
--- OUTSIDE RECORDS SUMMARY | 2025-05-25 13:18 | XMS_ITS | Encounter Summary ---
Author Organization [employer] ([place], [place], [place], [place]) Address [address] [place] [address] Care Team Providers Care Commercial Or Institutional Cleaner Name Role Phone Erika So APRN Primary Care Provider [phone] Jim Bahena MD Unavailable [phone] Encounter Details Date Type Department Care Team (Late st Contact Info) Description 04/18/2019 Transcribed Document [facility] [place] Family Medicine [address] [place] [address] ProviderJosiah MD [address] [place] [id number] Social History Tobacco Use Types Packs/Day Years [...] 04/18/2019 8:16 AM CDT [facility] PreOp Summary Primary Physician: JIM BAHENA MD Finalized Date/Time: 04/18/19 09:15:19 Pt. Name: TAHIR GU QUINCYJANAY SANCHEZ D.O.B./Sex: 1985 Female Med Rec #: [id number] Physician: JIM BAHENA MD Financial #: [id number] Pt. Type: O Room/Bed: EAS/2 Admit/Disch: 04/18/19 05:38:00 - Institution: [facility] PreOp Case Times Entry 1 In Preop 04/18/19 05:45:00 Ready for Holding n/a Room Patient Ready for 04/18/19 07:10:00 Surgery Patient Out of Preop 04/18/19 07:37:00 Patient Out of n/a Holding Room Last Modified By: KEVIN SAWANT RN 04/18/19 09:15:15 [facility] PreOp Case Times Audit 04/18/19 09:15:15 Computer Tech: MILLEDA Modifier: [email or web address] <+> 1 Patient Out of Preop 04/18/19 07:10:06 Computer Tech: MILLEDA Modifier: [email or web address] <+> 1 Patient Ready for Surgery Finalized By: KEVIN SAWANT, RN Document Signatures Signed By: KEVIN SAWANT RN 04/18/19 09:15 Electronically signed by Cameron [facility] Conversion Agile Developer Cerner at 12/11/2022 5:16 PM CDT documented in this encounter Plan of Treatment Not on file documented as of this encounter Visit Diagnoses Not on filedocumented in this encounter Care Teams Commercial Or Institutional Cleaner Relationship Specialty Start Date End Date Erika So APRN [address] [place] [address] PCP - General Nurse Practitioner 05/07/23 Jim Bahena MD [address] [address] Referring Physician Obstetrics and Gynecology 05/07/23 documented as of this encounter
--- OUTSIDE RECORDS SUMMARY | 2025-05-25 13:18 | XMS_ITS | Encounter Summary ---
Author Organization [employer] ([place], [place], [place], [place]) Address [address] [place] [address] Care Team Providers Care Airborne Operations Manager Name Role Phone Erika So APRN Primary Care Provider [phone] [place] Bahena MD Unavailable [phone] Reason for Visit * Reason Comments Medication Refill Encounter Details Date Type Department Care Team (Late st Contact Info) Description 11/09/2023 Refill [facility] Neurology - [facility] [address] [facility] [address] [place] [address] Bette Garner APRN [address] [facility] [address] [place] [address] Social History Tobacco Use Types Packs/Day Years Used Date Smoking Tobacco: Never Smokeless Tobacco: Never Alcohol Use Standard Drinks/Week Comments Not Currently 0 (1 standard drink = 0.6 oz pur e alcohol) Family and Community Support Answer Dalton e Recorded Help with Day to Day Activities Not on file 09/05/2023 Feeling Lonely or Isolated Not on file 09/05 Educational Attainment Answer Date Lonnie rded Speak language other than Divehi at home Not on file 09/05/2023 Want help with school or training Not on file 09/05/2023 Substance Use Answer Date Recorded Used prescription meds for non-medical reasons N ot on file 09/05/2023 Used illegal drugs past 12 months Not on file 09/05/2023 Comments Unknown Sex and Gender Information Value Date Recorded Sex Assigned at Not on file Legal Sex Female 5:57 PM CDT Gender Identity Not on file Sexual Orientation Not on file documented as of this encounter Plan of Treatment Not on file documented as of this encounter Visit Diagnoses Not on filedocumented in this encounter Care Teams Airborne Operations Manager Relationship Specialty Start Date End Date SoAngeliErika, SHAFT HEADMAN [address] [place] [phone] PCP - General Nurse Practitioner 05/07/23 [place] Bahena MD [address] [address] Referring Physician Obstetrics and Gynecology 05/07/23 documented as of this encounter
--- OUTSIDE RECORDS SUMMARY | 2025-05-25 13:18 | XMS_ITS | Encounter Summary ---
Author Organization [employer] ([place], [place], [place], [place]) Address [address] [place] [address] Care Team Providers Care Kitchen Steward Name Role Phone Erika So APRN Primary Care Provider [phone] [place] Bahena MD Unavailable [phone] Encounter Details Date Type Department Care Team (Late st Contact Info) Description 11/05/2020 Transcribed Document [facility] [place] [facility] [place] [address] ProviderJosiah MD [address] [place] [address] Social History Tobacco Use Types Packs/Day Years Used Date Smoking Tobacco: Never Assessed Comments Unknown Sex and Gender Information Value Date Recorded Sex Assigned at Not on file Legal Sex Female 5:57 PM CDT Gender Identity Not on file Sexual Orientation Not on file documented as of this encounter Miscellaneous Notes * Cerner Conversion Note - Josiah Rivers MD - 11/05/2020 4:56 PM SPARE HAND CARDING Patient Education Materials Follows: General Anesthesia, Adult, [...] activities are safe for you. ??? Take cxby-lce-asbbuak and prescription medicines only as told by [...] care provider. Document Released: 11/19/2001 Document Revised: 08/16/2018 Document Reviewed: 03/29/2018 [employer] Patient Education ? 2020 [employer]. documented in this encounter Plan of Treatment Not on file documented as of this encounter Visit Diagnoses Not on filedocumented in this encounter Care Teams Kitchen Steward Relationship Specialty Start Date End Date Erika So APRN [address] [place] [address] PCP - General Nurse Practitioner 05/07/23 [place] Bahena MD [address] [place] [address] Referring Physician Obstetrics and Gynecology 05/07/23 documented as of this encounter
--- OUTSIDE RECORDS SUMMARY | 2025-05-25 13:18 | XMS_ITS | Encounter Summary ---
Author Organization [employer] ([place], [place], [place], [place]) Address [address] [place] [address] Care Team Providers Care Smoke Chaser Name Role Phone Erika So APRN Primary Care Provider [phone] [place] Bahena MD Unavailable [phone] Encounter Details Date Type Department Care Team (Late st Contact Info) Description 11/05/2020 Transcribed Document [facility] [place] [address] [place] [address] ProviderJosiah MD [address] [place] [address] Social History Tobacco Use Types Packs/Day Years Used Date Smoking Tobacco: Never Assessed Comments Unknown Sex and Gender Information Value Date Recorded Sex Assigned at Not on file Legal Sex Female 5:57 PM CDT Gender Identity Not on file Sexual Orientation Not on file documented as of this encounter Miscellaneous Notes * Cerner Conversion Note - Josiah ProviderMD - 11/05/2020 12:30 PM ORNAMENTAL PLASTER STICKER PAT Adult Entered On: 11/05/2020 14:18 EST Performed On: 11/05/2020 12:30 EST by Carol Licona RN Vital Measurements Temperature Source : Temporal artery scanning Temperature Mode : Fahrenheit Temperature, Fahrenheit : 98.2 Deg F Clinical Temperature, C : 36.8 Deg C Peripheral Pulse Rate : 82 bpm Pulse Rhythm : Regular Respiratory Rate : 16 Breaths/Min Systolic Blood Pressure : 124 mmHg Diastolic Blood Pressure : 82 mmHg Oxygen Saturation : 98 % Oxygen Therapy Mode : Room air Carol Licona RN - 11/05/2020 14:15 EST Pain Assessment Pain Assessment : Initial assessment Pain Scale Used : 0-10 Scale Carol Licona RN - 11/05/2020 14:15 EST Height and Weight, Clinical Dosing Height Source : Stated Height Entry Format : [place] Height, Feet : 5 ft(Converted to: 152 cm, 60 Inch) Height, Inches : 4 Inch(Converted to: 0 ft 4 Inch, 10.16 cm) Clinical Height : 162.56 cm Weight Source : Standing scale Weight Entry Format : [place] Clinical Dosing Weight : 97.27 kg Weight, Pounds : 214 lb Body Surface Area (BSA) : 2.01 m2 Body Mass Index : 36.8 kg/m2 (HI) [place] Body Weight : 54 kg Carol Licona RN - 11/05/2020 14:15 EST Health Histories Smoking Status : Never (less than 100 in lifetime; none in last 30 days) Smokeless Tobacco Status : Never Implant/Device Type, Court Reporter and Model : Carol Russell RN - 11/05/2020 14:15 EST Social History (As Of: 11/05/2020 14:18:01 EST) Tobacco: Use in Last 12 Months: No. Smoking Status Never smoker. (Last Updated: 07/30/2015 14:50:13 EST by KECIA MASON, ANTHONY) Alcohol: Alcohol Use History Yes. Use in Last 12 Months: Yes. Alcohol Use Frequency Rarely. (Last Updated: 07/30/2015 14:50:19 EST by KECIA MASON RN) Substance Abuse: Drug Use Hx: No. (Last Updated: 01/05/2017 13:14:14 EDT by ERIKA TOUSSAINT, ANTHONY) Nutrition/Health: Caffeine intake amount: none. (Last Updated: 01/05/2017 13:14:22 EDT by ERIKA TOUSSAINT, ANTHONY) Type of diet: low carb. Wants to lose weight: Yes. (Last Updated: 01/31/2017 10:31:02 EDT by MARY LOU SIMS, ANTHONY) Home/Environment: Lives with Children, Spouse. Living situation: Home/Independent. Alcohol abuse in household: No. Substance abuse in household: No. Smoker in household: No. Injuries/Abuse/Neglect in household: No. Feels unsafe at home: No. Family/Friends available for support: Yes. (Last Updated: 01/31/2017 10:31:36 EDT by MARY LOU SIMS, RN) Employment/School: Employed, Work/School description: [employer]. (Last Updated: 01/31/2017 10:31:56 EDT by MARY LOU SIMS, RN) Infectious Disease History Where are the test results? : In EMR Results Date of COVID-19 test known? : Yes Date of COVID-19 Test : 11/01/2020 EST Does patient have symptoms of COVID-19? : No COVID19 Screening : No Experiencing Infectious Disease Symptoms : No symptoms Physical contact outside [place] in the last 30 days : No Tuberculosis Symptoms : None Carol Licona RN - 11/05/2020 14:18 EST Has the patient ever been tested for COVID-19? : Yes, Patient stated results Negative Infectious Disease History : Chicken pox/Shingles, Human papilloma virus (HPV), Influenza Carol Licona RN - 11/05/2020 14:15 EST COVID19 PreProcedure Screening Is this an Emergent or Add on Procedure? : No Date PreProcedure COVID-19 test known? : Yes Date of PreProcedure COVID-19 : 11/01/2020 EST Has patient been isolated since the test : Yes Exposed to COVID19 symptoms since test? : No Carol Licona RN - 11/05/2020 14:18 EST Anesthesia/Transfusion History Family History of Anesthesia Reaction : No prior transfusion(s) Transfusion History : Prior anesthesia reaction Type of Anesthesia Reaction : Excessive somnolence, Excessive nausea/vomiting Family History of Anesthesia Reaction : None Carol Licona RN - 11/05/2020 14:18 EST Functional Assessment Functional ADL Evaluation Index EBN Bathing : Independent (2) Dressing : Independent (2) Toileting : Independent (2) Transferring Bed or Chair : Independent (2) Continence : Independent (2) Feeding : Independent (2) Carol Licona RN - 11/05/2020 14:18 EST ADL Index Score : 12 Carol Licona RN - 11/05/2020 14:18 EST Advance Directive Patient has Advance Directive *Q : No, patient refuses Advance Directive information Carol Licona RN - 11/05/2020 14:18 EST Spiritual/Cultural Needs Any Spiritual/Cultural Needs or Requests : No Carol Licona RN - 11/05/2020 14:18 EST [place] Suicide Severity Rating Scale (C-SSRS) CSSRS Past Month Wish to be : No CSSRS Past Month Suicidal Thoughts : No CSSRS Lifetime Suicide Behavior : No Suicide Severity Rating Score : 0 Suicide Severity Rating : No Additional Care Required at this time Carol Licona RN - 11/05/2020 14:18 EST Psychosocial History Chronic/Terminal Illness w/Freq Visits : No Do You Have a History of the Following? : Anxiety Currently in Unsafe Situation : No Carol Lciona RN - 11/05/2020 14:18 EST Teaching/Learning Assessment Individuals Taught : Patient Readiness to Learn : Cooperative Readiness to Learn : Explanation Carol Licona RN - 11/05/2020 14:18 EST Education Topics, Periop Preadmission Perioperative Education Grid Arrival Time/Place : Verbalizes understanding Falls : Verbalizes understanding Infection Control : Verbalizes understanding IV's : Verbalizes understanding NPO Status/Directions : Verbalizes understanding Pain Management : Verbalizes understanding Preprocedure Preparations : Verbalizes understanding Preprocedure Tests/Labs : Verbalizes understanding Responsible Adult : Verbalizes understanding Take/Hold Medications Pre-Procedure : Verbalizes understanding Carol Licona RN - 11/05/2020 14:18 EST General Info Preferred Name : Camryn Arrived From : Home Mode of Arrival on Unit : Ambulatory Patient Arrival Date/Time : 11/05/2020 11:55 EST Legal Guardian : Spouse Support Person/Patient Waiter/Waitress Third Class : Alvina Support Person/Pt Rep Name : Jose Gu Support Person/Pt Rep Contact Information : [phone] Want Family/Rep/Phys Notified of Admit : No Emergency Contact #1 : Jose Emergency Contact #1 Emergency Contact #1 Relationship : spouse Emergency Contact #2 : . Emergency Contact #2 Phone Number : . Emergency Contact #2 Relationship : . Primary Language : Korean Preferred Communication Mode : Verbal Communication Barrier : None Vp Customer Service Needed : No Carol Licona RN - 11/05/2020 14:18 EST Patel Scale Patel Sensory Perception : No impairment Patel Moisture : Rarely moist Patel Activity : Walks frequently Patel Mobility : No limitation Patel Nutrition : Excellent Patel Friction and Shear : No apparent problem Patel Score : 23 Carol Licona RN - 11/05/2020 14:18 EST Sleep Apnea Risk Assmt Hx of Obstructive [...] Sleep Apnea Risk Level Score : 0 Carol Licona RN - 11/05/2020 14:18 EST Pain Scale Intensity : 0 Carol Licona RN - 11/05/2020 14:15 EST Image 4 - Images currently included in the form version of this document have not been included in the text rendition version of the form. documented in this encounter Plan of Treatment Not on file documented as of this encounter Visit Diagnoses Not on filedocumented in this encounter Care Teams Smoke Chaser Relationship Specialty Start Date End Date Erika So APRN [address] [phone] PCP - General Nurse Practitioner 05/07/23 [place] Bahena MD [address] [address] Referring Physician Obstetrics and Gynecology 05/07/23 documented as of this encounter
--- OUTSIDE RECORDS SUMMARY | 2025-05-25 13:18 | XMS_ITS | Encounter Summary ---
Author Organization [employer] ([place], [place], [place], [place]) Address [address] [place] [address] Care Team Providers Care Eyelet Punch Operator Name Role Phone Erika So APRN Primary Care Provider [phone] Jim Bahena MD Unavailable [phone] Encounter Details Date Type Department Care Team (Late st Contact Info) Description 05/19/2020 Transcribed Document [facility] [place] [address] [place] [address] ProviderJosiah MD [address] [place] [phone] Social History Tobacco Use Types Packs/Day Years Used Date Smoking Tobacco: Never Assessed Comments Unknown Sex and Gender Information Value Date Recorded Sex Assigned at Not on file Legal Sex Female 5:57 PM CDT Gender Identity Not on file Sexual Orientation Not on file documented as of this encounter Miscellaneous Notes * Cerner Conversion Note - Josiah Rivers MD - 05/19/2020 1:23 PM CDT [facility] Main OR PACU Summary Primary Physician: JIM BAHENA MD-OBG Finalized Date/Time: 05/19/20 15:55:39 Pt. Name: MAYCOBIJAL COECUTTQUINCY D.O.B./Sex: 1985 Female Med Rec #: [id number] Physician: JIM BAHENA MD-OBG Financial #: [id number] Pt. Type: O Room/Bed: /1 Admit/Disch: 05/19/20 08:51:00 - Institution: [facility] Main OR PACU I Case Times Entry 1 In PACU I 05/19/20 14:28:00 Ready for PACU 05/19/20 15:54:00 Discharge Discharge from PACU 05/19/20 15:54:00 I Last Modified By: AMIRA SERRANO RN 05/19/20 15:55:24 Finalized By: AMIRA SERRANO, RN Document Signatures Signed By: AMIRA SERRANO RN 05/19/20 15:55 Electronically signed by [facility] Conversion Rotary Drill Operator Helper Cerner at 12/11/2022 5:18 PM CDT documented in this encounter Plan of Treatment Not on file documented as of this encounter Visit Diagnoses Not on filedocumented in this encounter Care Teams Eyelet Punch Operator Relationship Specialty Start Date End Date Erika So APRN [address] [place] [address] PCP - General Nurse Practitioner 05/07/23 Jim Bahena MD [address] [phone] Referring Physician Obstetrics and Gynecology 05/07/23 documented as of this encounter
--- OUTSIDE RECORDS SUMMARY | 2025-05-25 13:18 | XMS_ITS | Encounter Summary ---
Author Organization [employer] ([place], [place], [place], [place]) Address [address] [place] [address] Care Team Providers Care Center Consultant Name Role Phone Erika So APRN Primary Care Provider [phone] [place] Bahena MD Unavailable [phone] Encounter Details Date Type Department Care Team (Late st Contact Info) Description 04/18/2019 Transcribed Document [facility] [place] [address] [place] [address] ProviderJosiah MD [address] [place] [id number] Social History Tobacco Use Types Packs/Day Years Used Date Smoking Tobacco: Never Assessed Comments Unknown Sex and Gender Information Value Date Recorded Sex Assigned at Not on file Legal Sex Female 5:57 PM CDT Gender Identity Not on file Sexual Orientation Not on file documented as of this encounter Miscellaneous Notes * Cerner Conversion Note - Josiah Rivers MD - 04/18/2019 9:43 AM CDT DATE OF PROCEDURE: PREOPERATIVE DIAGNOSIS(ES): Hypermenorrhea, abnormal endometrial ultrasound, severe dysmenorrhea, dyspareunia, pelvic pain, history of pelvic endometriosis, polycystic ovaries, body mass index greater than 30 with truncal obesity. POSTOPERATIVE DIAGNOSIS(ES): Hypermenorrhea, abnormal endometrial ultrasound, severe dysmenorrhea, dyspareunia, pelvic pain, history of pelvic endometriosis, polycystic ovaries, body mass index greater than 30 with truncal obesity, and right ovarian hemorrhagic cyst. PROCEDURE: 1. Hysteroscopy, and dilation and curettage. 2. Laparoscopy with removal of stage III endometriosis, right ovarian cystectomy, lysis of dense vascular adhesions, decompression of bilateral ovarian cysts. SURGEON: [place] Bahena MD ESTIMATED BLOOD LOSS: 5 mL. FINDINGS: On hysteroscopic findings, patient had normal uterine cavity. There was vascular sub-endometrium and thickened endometrium, which appeared polypoid in nature. On laparoscopic findings, patient has had stage III endometriosis consisting of red vascular inflammatory implants located in the back of the uterus, cul-de-sac, superficially on the ovaries and some in front of the uterus and the old scar. The appendix was normal. The uterus was normal size. Tubes were patent. There were dense adhesions pulling the left tube and ovary out of the pelvis, and attaching it to the pelvic brim. Filmy tubal ovarian adhesions were present and filmy adhesions in the ovaries and pelvic side. DESCRIPTION OF PROCEDURE: Under general anesthesia, patient was placed in dorsal lithotomy position. The perineum was prepped and draped in sterile manner so was the abdomen. Tdod was placed. Speculum was placed. Cervix was grasped with tenaculum and then dilated. Hysteroscope was introduced and uterine cavity was visualized. A thick polypoid endometrium was noted, and therefore, D and C was performed and tissue was submitted to Pathology. Hysteroscope was reintroduced and most of the endometrial tissue was removed. No abnormalities were noted. A uterine manipulator was placed with a balloon inflated inside the endometrial cavity and then attention was turned towards the abdomen. A midline incision was made inside the umbilicus through which Veress needle was inserted and the abdomen was insufflated with CO2. Veress needle was removed and trocars introduced. Next, 10 cm right from the umbilicus to the left to the right and using previous laparoscopic incisions, size 8 trocars were placed, and a size 5 in right lower lateral area. These were all done under direct visualization. Prior to making skin incision, local Marcaine was infiltrated. Next, the robot was docked and rest of procedure was done through the console. First, the left side was addressed the dense adhesions pulling left tube and ovary up, however, released and the ovary relaxed into normal position. The filmy adhesions were that were also between the pelvic side and the ovary were removed with the laser. Superficial endometriosis was removed from the surface of the ovary and 1 cm cyst was decompressed. The endometriosis was then treated in the cul-de-sac, back of the uterus and behind the right ovary. The right ovary was freed up from filmy adhesions and the larger cyst was an old hemorrhagic cyst with a thick capsule, which was removed with a capsule and submitted to Pathology. The area of the excision was cauterized, and laser and bleeding stopped. Tubes were then checked for patency and there was good spill on both sides. The front of the uterus was then examined and the endometriosis in the scar was removed. The pelvis was then thoroughly irrigated. It was felt that all the visible endometriosis and adhesions were taken care of. We then used for adhesion prevention, amniotic allograft, which was placed in the areas of the adhesiolysis as a tissue wrap . It was also placed in the right cystectomy area on the ovary and then the left ovary and then in the uterosacral ligaments where pain fibers run to the uterus. All instruments were then removed. The gas was deflated. Incisions closed with 4-0 PDS subcuticular closure. A deeper suture was placed in the umbilical fascia with 0-Vicryl. Sponge and instrument count was correct. Patient tolerated the procedure well and was taken to Recovery in good condition. [place] Bahena M.D. Dict: 04/18/2019 09:43:47 Trans: 04/18/2019 11:11:38 CC1: [place] Bahena M.D. documented in this encounter Plan of Treatment Not on file documented as of this encounter Visit Diagnoses Not on filedocumented in this encounter Care Teams Center Consultant Relationship Specialty Start Date End Date Erika So, RAGHU [address] [place] [address] PCP - General Nurse Practitioner 05/07/23 [place] Bahena MD [address] [place] [phone] Referring Physician Obstetrics and Gynecology 05/07/23 documented as of this encounter
--- OUTSIDE RECORDS SUMMARY | 2025-05-25 13:18 | XMS_ITS | Encounter Summary ---
Author Organization [employer] ([place], [place], [place], [place]) Address [address] [place] [address] Care Team Providers Care Director Zone Name Role Phone Erika So APRN Primary Care Provider [phone] [place] Bahena MD Unavailable [phone] Encounter Details Date Type Department Care Team (Late st Contact Info) Description 04/18/2019 Transcribed Document [facility] [place] [address] [place] [address] ProviderJosiah MD [address] [place] [phone] Social History Tobacco Use Types Packs/Day Years Used Date Smoking Tobacco: Never Assessed Comments Unknown Sex and Gender Information Value Date Recorded Sex Assigned at Not on file Legal Sex Female 5:57 PM CDT Gender Identity Not on file Sexual Orientation Not on file documented as of this encounter Miscellaneous Notes * Cerner Conversion Note - Josiah Rivers MD - 04/18/2019 12:43 PM CDT Event Note Entered On: 04/18/2019 12:52 EDT Performed On: 04/18/2019 12:43 EDT by Chari Wynn, Rn Event Note Event Date/Time : 04/18/2019 12:43 EDT Description of Event : Patient started feeling nauseated after she got up to go to the bathroom. has already had zofran in OR and PACU. She was given the option ot have haldol and chose to have it. haldol administered. will follow up. Chari Wynn, Rn - 04/18/2019 12:43 EDT Electronically signed by Armando Barnes Conversion Microfabrication Engineer Manager Cerner at 12/11/2022 5:18 PM CDT documented in this encounter Plan of Treatment Not on file documented as of this encounter Visit Diagnoses Not on filedocumented in this encounter Care Teams Director Zone Relationship Specialty Start Date End Date Erika So APRN [address] [phone] PCP - General Nurse Practitioner 05/07/23 [place] Bahena MD [address] [phone] Referring Physician Obstetrics and Gynecology 05/07/23 documented as of this encounter
--- OUTSIDE RECORDS SUMMARY | 2025-05-25 13:18 | XMS_ITS | Encounter Summary ---
Author Organization [employer] ([place], [place], [place], [place]) Address [address] [place] [address] Care Team Providers Care Side Stapler Name Role Phone Erika So APRN Primary Care Provider [phone] [place] Bahena MD Unavailable [phone] Encounter Details Date Type Department Care Team (Late st Contact Info) Description 11/05/2020 Transcribed Document [facility] [place] [facility] [place] [address] ProviderJosiah MD [address] [place] [address] Social History Tobacco Use Types Packs/Day Years Used Date Smoking Tobacco: Never Assessed Comments Unknown Sex and Gender Information Value Date Recorded Sex Assigned at Not on file Legal Sex Female 5:57 PM CDT Gender Identity Not on file Sexual Orientation Not on file documented as of this encounter Miscellaneous Notes * Cerner Conversion Note - Josiah ProviderMD - 11/05/2020 3:37 PM [employer] TRAVEL COUNSELOR [facility] Main OR PostOp Summary Primary Physician: [place] BAHENA MD-OBG Finalized Date/Time: 11/05/20 17:29:18 Pt. Name: EVITAJaymiePRECIOUSCAMRYN D.O.B./Sex: 1985 Female Med Rec #: [id number] Physician: [place] BAHENA MD-OBG Financial #: [id number] Pt. Type: O Room/Bed: EAS/1 Admit/Disch: 11/05/20 11:56:00 - Institution: [facility] Main OR PostOp Case Times Entry 1 In PACU II 11/05/20 17:04:00 Ready for PACU II 11/05/20 17:29:00 Discharge Discharge from PACU 11/05/20 17:29:00 II Last Modified By: Jaycee Cook RN 11/05/20 17:29:17 [facility] OR PostOp Case Times Audit 11/05/20 17:29:17 Salicylic Acid Blender: JOSE ANTONIO Modifier: SUSANBREWER <+> 1 Ready for PACU II Discharge <+> 1 Discharge from PACU II Finalized By: Jaycee Cook, RN Document Signatures Signed By: Jaycee Cook RN 11/05/20 17:29 Electronically signed by [facility] Conversion Manager Work Cerner at 12/11/2022 5:05 PM CDT documented in this encounter Plan of Treatment Not on file documented as of this encounter Visit Diagnoses Not on filedocumented in this encounter Care Teams Side Stapler Relationship Specialty Start Date End Date Erika So, RAGHU [address] [place] [address] PCP - General Nurse Practitioner 05/07/23 [place] Bahena MD [address] [phone] Referring Physician Obstetrics and Gynecology 05/07/23 documented as of this encounter
--- OUTSIDE RECORDS SUMMARY | 2025-05-25 13:18 | XMS_ITS | Encounter Summary ---
Author Organization [employer] ([place], [place], [place], [place]) Address [address] [place] [address] Care Team Providers Care Jackscrew Man Name Role Phone So, Erika RAGHU Primary Care Provider [phone] [place] Bahena MD Unavailable [phone] Encounter Details Date Type Department Care Team (Late st Contact Info) Description 11/05/2020 Transcribed Document [facility] [place] Family Medicine [facility], [facility] [place] [address] ProviderJosiah MD [address] [place] [address] [id number] Social History Tobacco Use Types Packs/Day Years Used Date Smoking Tobacco: Never Assessed Comments Unknown Sex and Gender Information Value Date Recorded Sex Assigned at Not on file Legal Sex Female 5:57 PM CDT Gender Identity Not on file Sexual Orientation Not on file documented as of this encounter Miscellaneous Notes * Cerner Conversion Note - Josiah Rivers MD - 11/05/2020 8:18 PM FIRST GRADE TEACHER DATE OF PROCEDURE: 11/05/2020 SURGEON: [place] Bahena MD PREOPERATIVE DIAGNOSIS: Cervical dysplasia with FORD-3, 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 PROCEDURE: Conization of the cervix and laser removal of external vulvar lesions under colposcopic visualization. ESTIMATED BLOOD LOSS: Zero. ANESTHESIA: General. FINDINGS: The patient had an area of the dysplasia around the cervical os that was irregular, but not extending to the vaginal region. Mid vaginal area did not have any lesions. Around the vaginal introitus flat condyloma were noted and a few raised ones. No perianal lesions were noted. DESCRIPTION OF PROCEDURE: Under general anesthesia, the patient was placed in dorsal lithotomy position. The perineum was prepped and draped in a sterile manner. The bladder was emptied with a Todd. A speculum was placed and cervix was visualized colposcopically. Lugol solution was applied and the area of dysplasia was clearly visible. This area was outlined with the laser and then the laser was used to resect the cone-shaped area from the cervix including the endocervical canal. This was submitted to pathology in few pieces not intact. The area of the excision was then treated with the laser such that the edges were smoothed down and future Pap smears would be easy to obtain. The defocused laser beam was used to brush over the whole area. No active bleeders were present and the rest of the vagina was inspected and then the vulva. The external vulvar lesions were treated to the depth of the dermis with Revolix laser. No bleeding was present. The patient tolerated the procedure well and was taken to recovery room in good condition. /[id number] MD GAMA Campbell/TOMAS / GAMA / MODL /[id number] Electronically signed by Cameron [facility] Conversion System Development Manager Cerner at 12/11/2022 4:54 PM CDT documented in this encounter Plan of Treatment Not on file documented as of this encounter Visit Diagnoses Not on filedocumented in this encounter Care Teams Jackscrew Man Relationship Specialty Start Date End Date Erika So, CALL CENTER TEAM LEADER [address] [place] [address] PCP - General Nurse Practitioner 05/07/23 [place] Bahena MD [address] [place] [phone] Referring Physician Obstetrics and Gynecology 05/07/23 documented as of this encounter
--- OUTSIDE RECORDS SUMMARY | 2025-05-25 13:18 | XMS_ITS | Encounter Summary ---
Author Organization [employer] ([place], [place], [place], [place]) Address [address] [place] [address] Care Team Providers Care Resident Assistant Name Role Phone Erika So APRN Primary Care Provider [phone] [place] Bahena MD Unavailable [phone] Encounter Details Date Type Department Care Team (Late st Contact Info) Description 11/05/2020 Transcribed Document [facility] [place] [facility] [place] [address] ProviderJosiah MD [address] [place] [address] Social History Tobacco Use Types Packs/Day Years Used Date Smoking Tobacco: Never Assessed Comments Unknown Sex and Gender Information Value Date Recorded Sex Assigned at Not on file Legal Sex Female 5:57 PM CDT Gender Identity Not on file Sexual Orientation Not on file documented as of this encounter Miscellaneous Notes * Cerner Conversion Note - Josiah ProviderMD - 11/05/2020 3:37 PM ACADEMIC ADVISER [facility] Main OR IntraOp Summary Primary Physician: FLOR[place] BAHENA MD-OBG Finalized Date/Time: 11/05/20 16:29:42 Pt. Name: EVTIAJaymiePRECIOUSCAMRYN D.O.B./Sex: 1985 Female Med Rec #: [id number] Physician: [place] BAHENA MD-OBG Financial #: [id number] Pt. Type: O Room/Bed: [facility] Admit/Disch: 11/05/20 11:56:00 - Institution: [facility] [place] IntraOp Case Attendance Entry 1 Entry 2 Entry 3 Case Attendee [place]OR[place] BAHENA Dooley, Carol, RN TOÑITO PRINCE, HEATHER ALVAREZ-OBG Role Performed Surgeon/Proceduralist, Pan Washer, First INSIDE STEWARD/STEWARDESS/Nurse Early Childhood Director First Time In 11/05/20 15:18:00 11/05/20 15:18:00 11/05/20 15:18:00 Time Out 11/05/20 16:35:00 11/05/20 16:35:00 11/05/20 16:35:00 Procedure Cervix Conization w CO2 Cervix Conization w CO2 Cervix Conization w CO2 Laser, Vulva Labia Laser, Vulva Labia Laser, Vulva Labia Laser Vaporization Laser Vaporization Laser Vaporization Other Attendee Superficial Wound Closed By: Last Modified By: Divya Slaughter RN Dooley, Carol, Divya Mondragon, ANTHONY 11/05/20 16:25:38 11/05/20 16:25:38 11/05/20 16:25:38 Entry 4 Entry 5 Case Attendee JULIETTE JACOBO CHRISTOPHER, ST Role Performed Scrub, First Laser System Operation Superintendent Time In 11/05/20 15:18:00 11/05/20 15:18:00 Time Out 11/05/20 16:35:00 11/05/20 16:35:00 Procedure Cervix Conization w CO2 Cervix Conization w CO2 Laser, Vulva Labia Laser, Vulva Labia Laser Vaporization Laser Vaporization Other Attendee Superficial Wound Closed By: Last Modified By: Divya Slaughter RN Dooley, Carol, RN 11/05/20 16:25:38 11/05/20 16:25:38 [facility] [place] [facility] IntraOp Case Attendance Audit 11/05/20 16:25:38 Delicatessen Clerk: MATA Modifier: MATA 1 <+> Time In 1 <+> Time Out 1 <*> Procedure Cervix Conization w CO2 Laser, Vulva Labia Laser Vaporization 2 <+> Time In 2 <+> Time Out 2 <*> Procedure Cervix Conization w CO2 Laser, Vulva Labia Laser Vaporization 3 <+> Time In 3 <+> Time Out 3 <*> Procedure Cervix Conization w CO2 Laser, Vulva Labia Laser Vaporization 4 <+> Time In 4 <+> Time Out 4 <*> Procedure Cervix Conization w CO2 Laser, Vulva Labia Laser Vaporization 5 <+> Time In 5 <+> Time Out 5 <*> Procedure Cervix Conization w CO2 Laser, Vulva Labia Laser Vaporization [facility] IntraOp Case Times Entry 1 Patient In Room Time 11/05/20 15:18:00 Out Room Time 11/05/20 16:35:00 Anesthesia Start Time 11/05/20 15:18:00 Stop Time 11/05/20 16:35:00 Anesthesia Ready 11/05/20 15:18:00 Surgery / Procedure Times Start Time 11/05/20 15:37:00 Stop Time 11/05/20 16:25:00 Last Modified By: Divya Slaughter RN 11/05/20 16:25:37 [facility] IntraOp Case Times Audit 11/05/20 16:25:37 Delicatessen Clerk: DOOLEYC Modifier: DOOLEYC <+> 1 Out Room Time <+> 1 Stop Time <+> 1 Start Time <+> 1 Stop Time [facility] IntraOp Cultures and Spec Summary Entry 1 Cultrures and Specimens Specimen Ordered: Yes Test(s) Routine/Path-Lab Requested/Final Disposition Last Modified By: Divya Slaughter RN 11/05/20 15:33:23 [facility] IntraOp Departure from OR Entry 1 Integumentary Assessment Integumentary WDL Assessment WDL Transfer/Handoff Transfer to PACU Phase I Handoff Method Bedside/Face to face Post-op Transport Stretcher/Gurney Via Patient Transport Divya Slaughter, RN, Accompanied by TOÑITO PRINCE CRNA Last Modified By: Divya Slaughter RN 11/05/20 15:33:27 [facility] IntraOp Fire Risk Assessment Entry 1 Fire Info Surgical Site or 0- No Incision Above the Xyphoid Open O2 Source 0- No (Mask or Cannula) Available Ignition 1- Yes (ESU, Laser, Light Source) Fire Risk 1 Assessment Score Fire Score Fire Risk Yes Assessment Complete Fire Risk Divya Slaughter RN Assessment Verified By Fire Risk 11/05/20 15:18:00 Assessment Verified Date/Time Fire Risk High Risk Protocol Yes Implemented Standard Fire Yes Safety Precautions Followed Last Modified By: Divya Slaughter RN 11/05/20 15:33:35 [facility] IntraOp General Case Tin Flopper 1 Case Information OR OR 07 [facility] Case Level 1 Room Verified Yes Wound Class II - Clean-Contaminated Specialty SN Gynecology Anesthesia Type General ASA Class 2 Diagnosis Preop Diagnosis abnormal pap, hpv Postop Same As Preop Yes Postop Diagnosis abnormal pap, hpv Last Modified By: Divya Slaughter RN 11/05/20 15:33:53 [facility] IntraOp Intraoperative Assessment Entry 1 Valid History / Yes Physical in Chart Preoperative Yes Checklist Reviewed/Evaluated Allergies Reviewed Yes Patient is Latex No Sensitive Isolation Not applicable Precautions Noted Level of WDL Consciousness (WDL = Alert, Oriented to Person, Place, and Time) Skin Assessment Yes Verified Present Upon IVs Arrival to OR Last Modified By: Divya Slaughter RN 11/05/20 15:33:58 [facility] IntraOp Intraoperative Equipment Entry 1 Type Equipment Equipment Equipment Smoke evacuator Intraop Monitoring Antiembolic Devices Scopes Photo/Video Documentation Last Modified By: Divya Slaughter RN 11/05/20 15:34:02 [facility] IntraOp Laser Data/Safety Entry 1 Procedure Cervix Conization w CO2 Laser, Vulva Labia Laser Vaporization Laser Data Laser Type Other Laser Mode Continuous Laser Mode Set By DAVID OSHEA ST Laser Fiber Used Yes Laser Safety Procedure personnel Measures Included received laser safety information, [place] of water/Saline immediately available, Fire extinguisher location noted, Laser Caution placards placed on all doors, Laser safe instrumentation utilized, Specific laser safety precautions implemented, Rinse prep thoroughly from surgical site, Smoke evacuator tested/used, Suction evacuator with laser filter, Wet towels and sponges used to protect patient and drapes, Windows covered, Laser tested/calibrated, Appropriate eye protection for patient, Appropriate eye protection for staff, Appropriate eye protection for surgeon, Laser safe ET tube as applicable, High-filtration mask available, No flammable liquid around surgical area, Secure laser operation ca, Implement fire protection measures Last Modified By: Divya Slaughter RN 11/05/20 15:34:37 [facility] IntraOp Medication Admin Entry 1 Entry 2 Medication/Irrigant Acetic Acid irrigation Lugols solution 30ml 3% 500ml - [id number] topical - [id number] Combo Med List Time Administered Route of topical topical Administration Dose Dose 10 10 Unit of Measure ml ml Volume qs Administered By FLOR[place] BAHENA, [place] BAHENA MD-OBG ALIYAH Procedure Irrigation Irrigant Volume In Irrigant Volume Out Last Modified By: Divya Slaughter, Divya Mondragon RN 11/05/20 15:36:37 11/05/20 15:36:37 [facility] IntraOp Patient Positioning Entry 1 Procedure Cervix Conization w CO2 Laser Body Position Lithotomy Left Arm Position Secured on padded arm board Right Arm Position Secured on padded arm board Left Leg Position Secured in stirrup Right Leg Position Secured in stirrup Feet Uncrossed Yes Pressure Points Yes Checked Positioning Devices Arm Board, Stirrups/Leg Brown, Sling Positioned By TOÑITO PRINCE CRNA, [place] BAHENA, ALIYAH, Divya Slaughter, RN Position Verified Positioning Yes Verified by Anesthesia Positioning Yes Verified by Surgeon Last Modified By: Divya Slaughter RN 11/05/20 15:38:01 [facility] IntraOp Patient Positioning Audit 11/05/20 15:38:01 Delicatessen Clerk: DOOLEYC Modifier: DOOLEYC 1 <*> Procedure Cervix Conization w CO2 Laser 11/05/20 15:38:00 Delicatessen Clerk: DOOLEYC Modifier: DOOLEYC 1 <*> Procedure Cervix Conization w CO2 Laser 1 <+> Positioned By [facility] IntraOp Sign In Entry 1 Patient, Site, Yes Procedure Identified Surgical Consent Yes Confirmed Relevant Surgical Yes Documents Available Surgical Site Yes Marked by person performing procedure Anesthesia Machine Yes Check Completed Medication Checks Yes Completed Allergies Yes Airway Difficult No Airway/Aspiration Risk Difficult Yes Airway/Aspiration Intervention Equipment Available Blood Loss Risk Yes Blood Loss Yes Intervention Equipment Prepared and Ready Hypothermia Risk Yes Warming Measures Yes Taken Last Modified By: Divya Slaughter RN 11/05/20 15:36:53 [facility] Intra Op Sign Out Entry 1 RN Confirmation Surgical Yes Procedure(s) Identified Instrument, Sponge Yes and Sharps Counts Correct/Documented Equipment Problems Yes Documented Specimen Labeled N/A Correctly Urinary Catheter N/A Documented in IView Ca Patient Yes Recovery Concerns Reviewed with Anesthesia Provider, Surgeon and RN Ca Patient Yes Management Concerns Reviewed with Anesthesia Provider, Surgeon and RN Safety Checklist Yes Elements Complete? RN Sign Out Divya Slaughter, RN Signature RN Sign Out 11/05/20 16:35:00 Signature Date/Time Plan of Care Outcome - Fire Risk OUTCOME STATEMENT: Goal met Patient is free from injury related to surgical fire Plan of Care Outcome - Pt Positioning OUTCOME STATEMENT: Goal met Absence of signs and symptoms of positioning injury. Plan of Care Outcome - Skin Prep OUTCOME STATEMENT: Goal met Intraoperative care is consistent with measures to prevent infection Plan of Care Outcome - Xray/Images OUTCOME STATEMENT: Goal met Absence of observable signs or symptoms of radiation injury Plan of Care Outcome - Counts OUTCOME STATEMENT: Goal met Absence of signs and symptoms of injury related to extraneous objects Last Modified By: Divya Slaughter RN 11/05/20 16:25:50 [facility] IntraOp Surgical Procedures Entry 1 Entry 2 Procedure Cervix Conization w CO2 Vulva Labia Laser Laser Vaporization Modifiers Additional LASER CONIZATION OF THE Procedure CERVIX, LASER OF VULVAR Description LESIONS Primary Procedure Yes No Primary Surgeon FLOR[place] BAHENA, [place] BAHENA MD-OBG MD-OBG Start 11/05/20 15:37:00 11/05/20 15:37:00 Stop 11/05/20 16:25:00 11/05/20 16:25:00 Physician States Cecum Reached Anesthesia Type General General Specialty SN Gynecology SN Gynecology Wound Class II - Clean-Contaminated II - Clean-Contaminated Last Modified By: Divay Slaughter RN Dooley, Carol, RN 11/05/20 16:25:39 11/05/20 16:25:39 [facility] IntraOp Surgical Procedures Audit 11/05/20 16:25:39 Delicatessen Clerk: DOOLEYC Modifier: DOOLEYC <+> 1 Start <+> 1 Stop <+> 2 Start <+> 2 Stop [facility] IntraOp Time Out Entry 1 Procedure to be Cervix Conization w CO2 Performed Laser, Vulva Labia Laser Vaporization Time Out Time Out Pause Time 11/05/20 15:37:00 All activity Yes suspended (unless life threatening emergency) Team Verbally Correct patient Confirms Information identity, Correct side and site are marked, Consent form is present and accurate, Agreement on the procedure to be done, Correct patient position, Relevant images/results properly labeled/appropriately displayed, Confirm antibiotics have been administered, Confirm the skin prep has dried, Confirm prosthesis/implant/devic e is present, Performed in location of procedure after prepped/draped, Performed before each procedure if multiple procedures, Reconcile problems if responses among team members differ Antibiotic Yes Prophylaxis Administered Or In Progress Within the Last 60 Minutes Beta Tatianna N/A Administered Venous Yes Thromboembolism Prophylaxis Required Anticipated Critical Events Surgeon None expected Anesthesia Provider None expected Nursing Assures Sterility of instruments Essential Imaging N/A Labeled and Displayed Last Modified By: Divya Slaughter RN 11/05/20 15:37:32 Case Comments <None> Finalized By: Divya Slaughter RN Document Signatures Signed By: Divya Slaughter RN 11/05/20 16:[address] [facility] Conversion Pilot Can Router Cerner at 12/11/2022 4:53 PM CDT documented in this encounter Plan of Treatment Not on file documented as of this encounter Visit Diagnoses Not on filedocumented in this encounter Care Teams Resident Assistant Relationship Specialty Start Date End Date Erika So APRN [address] [place] [address] PCP - General Nurse Practitioner 05/07/23 [place] Bahena MD [address] [phone] Referring Physician Obstetrics and Gynecology 05/07/23 documented as of this encounter
--- OUTSIDE RECORDS SUMMARY | 2025-05-25 13:18 | XMS_ITS | Encounter Summary ---
Author Organization [employer] ([place], [place], [place], [place]) Address [address] [place] [address] Care Team Providers Care Communications Director Name Role Phone Erika So APRN Primary Care Provider [phone] [place] Bahena MD Unavailable [phone] Encounter Details Date Type Department Care Team (Late st Contact Info) Description 04/18/2019 Transcribed Document [facility] [place] Family Medicine [address] [place] [address] ProviderJosiah MD [address] [place], [place] [id number] Social History Tobacco Use Types Packs/Day Years Used Date Smoking Tobacco: Never Assessed Comments Unknown Sex and Gender Information Value Date Recorded Sex Assigned at Not on file Legal Sex Female 5:57 PM CDT Gender Identity Not on file Sexual Orientation Not on file documented as of this encounter Miscellaneous Notes * Cerner Conversion Note - Josiah Rivers MD - 04/18/2019 11:05 AM CDT Event Note Entered On: 04/18/2019 11:06 EDT Performed On: 04/18/2019 11:05 EDT by Chari Wynn Rn Event Note Event Date/Time : 04/18/2019 10:50 EDT Description of Event : dr bryant notified of purpura on patient face and neck area. vitals wnl. eyes swollen slightly. orders to draw platelet count. anesthesia will see patient. no other symptoms noted of patient. Chari Wynn Rn - 04/18/2019 11:05 EDT Electronically signed by Cameron, [facility] Conversion Insole Doubler Cerner at 12/11/2022 5:00 PM CDT documented in this encounter Plan of Treatment Not on file documented as of this encounter Visit Diagnoses Not on filedocumented in this encounter Care Teams Communications Director Relationship Specialty Start Date End Date Erika So APRN [address] [id number] PCP - General Nurse Practitioner 05/07/23 [place] Bahena MD [address] [phone] Referring Physician Obstetrics and Gynecology 05/07/23 documented as of this encounter
--- OUTSIDE RECORDS SUMMARY | 2025-05-25 13:18 | XMS_ITS | Encounter Summary ---
Author Organization [employer] ([place], [place], [place], [place]) Address [address] [place] [address] Care Team Providers Care Insurance Billing Clerk Name Role Phone Erika So APRN Primary Care Provider [phone] Jim Bahena MD Unavailable [phone] Encounter Details Date Type Department Care Team (Late st Contact Info) Description 11/05/2020 Transcribed Document [facility] [place] Family Medicine [facility] [place] [address] ProviderJosiah MD [address] [place] [address] Social History Tobacco Use Types Packs/Day Years Used Date Smoking Tobacco: Never Assessed Comments Unknown Sex and Gender Information Value Date Recorded Sex Assigned at Not on file Legal Sex Female 5:57 PM CDT Gender Identity Not on file Sexual Orientation Not on file documented as of this encounter Miscellaneous Notes * Cerner Conversion Note - Josiah ProviderMD - 11/05/2020 3:37 PM MANAGER DOMESTIC [facility] Main OR PreOp Summary Primary Physician: JIM BAHENA MD-OBG Finalized Date/Time: 11/11/20 08:07:36 Pt. Name: MAYCOBIJALJaymiePRECIOUSQUINCY D.O.B./Sex: 1985 Female Med Rec #: [id number] Physician: JIM BAHENA MD-OBG Financial #: [id number] Pt. Type: O Room/Bed: [facility] Admit/Disch: 11/05/20 11:56:00 - 11/05/20 17:29:00 Institution: [facility] [place] PreOp Case Times Entry 1 In Preop 11/05/20 11:55:00 Ready for Holding n/a Room Patient Ready for 11/05/20 13:00:00 Surgery Patient Out of Preop 11/05/20 15:18:00 Patient Out of n/a Holding Room Last Modified By: KEVNI SAWANT, RN 11/11/20 08:07:33 [facility] PreOp Case Times Audit 11/11/20 08:07:33 [employer] Leadership: [id number] Modifier: [email or web address] <+> 1 Patient Out of Preop Finalized By: KEVIN SAWANT, RN Document Signatures Signed By: KEVIN SAWANT RN 11/11/20 08:07 Electronically signed by [facility] Conversion Program Director Group Work Cerner at 12/11/2022 4:57 PM CDT documented in this encounter Plan of Treatment Not on file documented as of this encounter Visit Diagnoses Not on filedocumented in this encounter Care Teams Insurance Billing Clerk Relationship Specialty Start Date End Date Erika So APRN [address] [place] [address] PCP - General Nurse Practitioner 05/07/23 Jim Bahena MD [address] [phone] Referring Physician Obstetrics and Gynecology 05/07/23 documented as of this encounter
--- OUTSIDE RECORDS SUMMARY | 2025-05-25 13:18 | XMS_ITS | Clinical Summary ---
Author Organization [facility] Address [address] [place] [address] Care Team Providers Care Hvac Controls Technician Name Role Phone Provider, No Known Primary Care Provider Unavail able Allergies Active Allergy Reactions Criticality Noted Date Comments Cephalexin Hives,Itching,Rash Low 10/10/2022 Medications gabapentin (NEURONTIN) 300 MG capsule Take 1 capsule by mouth Every 12 (Twelve) Hours. 08/29/19 23 Active levothyroxine (SYNTHROID, LEVOTHROID) 50 MCG tablet Take 1 tablet by mouth Daily. 07/18/20 22 Active Trintellix 10 MG tablet tablet Take 1 tablet by mouth Every Night. 09/29/19 23 Active amitriptyline (ELAVIL) 25 MG tablet Take 25-50 mg by mouth Every Night. 09/08/19 23 Active omeprazole (priLOSEC) 20 MG capsule Take 20 mg by mouth Daily As Needed. Active Levonorgest-Eth Estrad-Fe Bisg (BALCOLTRA PO) Take 1 tablet by mouth Daily. Active diazePAM (VALIUM) 5 MG tablet Take 1 tablet by mouth 3 (Three) Times a Day. 10/02/19 23 Active docusate sodium (COLACE) 100 MG capsule Take 1 capsule by mouth Every 12 (Twelve) Hours. 10/02/19 23 Active fluconazole (DIFLUCAN) 150 MG tablet Take 1 tablet by mouth Daily. 10/02/19 23 Active doxycycline (VIBRAMYCIN) 100 MG capsule Take 1 capsule by mouth Every 12 (Twelve) Hours. 10/02/19 23 Active fondaparinux (ARIXTRA) 2.5 MG/0.5ML solution injection INJECT 1 SYRINGE UNDER THE SKIN SUBCUTANEOUSLY DAILY START 24 HOURS AFTER SURGERY 10/03/19 23 Active Emgality 120 MG/ML auto-injector pen INJECT 1 SYRINGE SUBCUTANEOUSLY ONCE EVERY MONTH 09/30/19 23 Active loratadine (CLARITIN) 10 MG tablet Take 1 tablet by mouth Daily As Needed. 07/18/20 22 Active ondansetron ODT (ZOFRAN-ODT) [address] under the tongue Daily As Needed. 08/25/20 22 Active oxyCODONE (ROXICODONE) 5 MG immediate release tablet 10/03/19 23 Active promethazine (PHENERGAN) 12.5 MG tablet Take 1 tablet by mouth 6 (Six) Times a Day. 10/02/19 23 Active Active Problems Problem Noted Date Diagnosed Date S/P cosmetic plastic surgery 10/17/2022 Immunizations Immunization Administration Dates Next Due Influenza Injectable Mdck Pf Quad 06/13/2019 Social History Tobacco Use Types Packs/Day Years Used Date Smoking Tobacco: Never Smokeless Tobacco: Never Tobacco Cessation:Counseling Given: Not Answered Alcohol Use Standard Drinks/Week Comments Yes 0 (1 standard drink = 0.6 oz pur e alcohol) RARELY PER PT AUDIT-C Answer Date Recorded Q1: How often do you have a drink containing alc ohol? Monthly or less 10/17/2022 Q2: How many drinks containi ng alcohol do you have on a typical day when you are drinking? 1 or 2 10/17/2022 Q3: How often do you have si x or more drinks on one occasion? Never 10/17/2022 Abuse Screen Answer Date Recorded Unsafe at Home or Work/School Not on file Feels Threatened by Someone? Not on file Does Anyone Keep You from Co ntacting Others or Doint Things Outside the Home? Not on file 10/22/2023 Physical Sign of Abuse Present Not on file 0 10/22/2023 Housing Stability Answer Date Recorded Current Living Arrangements Not on file 09/28 Potentially Unsafe Housing Conditions Not on jackie e 10/22/2023 Family and Community Support Answer [place] Recorded Help with Day-to-Day Activities Not on file 06/08/2023 Lonely or Isolated Not on file 06/08/2023 Employment Answer Date Recorded Do you want help finding or keeping work or a kasey b? Not on file 06/08/2023 Disabilities Answer Date Recorded Concentrating, Remembering, or Making Decisions Difficulty Not on file 10/22/2023 Doing Errands Independently Difficulty Not on fi le 10/22/2023 Education Answer Date Recorded Help with school or training? Not on file Preferred Language Not on file 10/22/2023 Comments No Sex and Gender Information Value Date Recorded Sex Assigned at Not on file Legal Sex Female 10:39 AM EST Gender Identity Not on file Sexual Orientation Not on file Last Filed Vital Signs Vital Sign Reading Time Taken Comments Blood Pressure 112/70 10/18/2022 7:00 AM EST Pulse 83 10/18/2022 7:00 AM EST Temperature 37 C (98.6 F) 10/18/2022 7:00 AM EST Respiratory Rate 18 10/18/2022 7:00 AM EST Oxygen Saturation 95% 10/18/2022 7:00 AM EST Inhaled Oxygen Concentration - - Weight 95.3 kg (210 lb) 10/17/2022 7:43 AM EST Height 162.6 cm (5' 4 ) 10/17/2022 7:43 AM EST Body Mass Index 36.05 10/17/2022 7:43 AM EST Plan of Treatment Health Maintenance Due Date Last Done Comments Annual Gynecologic Pelvic an d Breast Exam 1986 TDAP/TD VACCINES (1 - Tdap) 2005 ANNUAL PHYSICAL 10/10/2022 HEPATITIS C SCREENING 10/10/2022 INFLUENZA VACCINE 03/27/2025 06/13/2019 Pneumococcal Vaccine 0-49 Aged Out No longer eligible based on patient's age to complete this topic Medical Devices Implanted Type Area Halfway House Counselor Device Identifier Shelf Expiration Date Model / Serial / Lot Dev Contrl Tiss Stratafix Spiral Mncryl Ud 3/0 Pls 60cm - [id number] Implanted:Qty : 4 on 10/17/2022 by Rene Adkins MD at [facility] Implant N/A: Abdomen [employer] 02/24/2024 [id number] / / [id number] Dev Contrl Tiss Stratafix Spiral Mncryl Ud 3/0 Pls 30cm - [id number] Implanted:Qty : 2 on 10/17/2022 by Rene Adkins MD at [facility] Implant N/A: Breast [employer] [id number] / / [id number] Insurance EMPLOYEE Advance Directives * CPR (Attempt to Resuscitate) (Latest Code Status on File) Date Activated Date Inactivated Comments 10/17/2022 4:57 PM 10/18/2022 12:31 PM Question Answer Comments Code Status (Patient has no pulse and is not breathing): CPR (Attempt to Resuscitate) Medical Interventions (Patie nt has pulse or is breathing): Full Support Level Of Support Discussed With: Patient Release to patient: Routine Release Care Teams Hvac Controls Technician Relationship Specialty Start Date End Date Provider, No Known [facility] [place] [address] PCP - General 09/19/22
--- OUTSIDE RECORDS SUMMARY | 2025-05-25 13:18 | XMS_ITS | Encounter Summary ---
Author Organization [employer] ([place], [place], [place], [place]) Address [address] [place] [address] Care Team Providers Care Water Supply Engineer Name Role Phone Erika So APRN Primary Care Provider [phone] Jim Bahena MD Unavailable [phone] Encounter Details Date Type Department Care Team (Late st Contact Info) Description 05/19/2020 Transcribed Document [facility] [place] [address] [place] [address] ProviderJosiah MD [address] [place] [address] Social History Tobacco Use Types Packs/Day Years Used Date Smoking Tobacco: Never Assessed Comments Unknown Sex and Gender Information Value Date Recorded Sex Assigned at Not on file Legal Sex Female 5:57 PM CDT Gender Identity Not on file Sexual Orientation Not on file documented as of this encounter Miscellaneous Notes * Cerner Conversion Note - Josiah Rivers MD - 05/19/2020 4:10 PM CDT [facility] [place] [address] QUINCY MCCARTY :1985 Visit Time:05/19/2020 What to do next Your Diagnosis Cervical dysplasia, moderate High risk HPV infection Vulvar lesion Unspecified abnormal cytological findings in specimens from cervix uteri, Unspecified abnormal cytological findings in specimens from cervix uteri Instructions From Your Care Team Diet after Discharge: Resume usual diet as tolerated, Do not drink any alcoholic beverages, Drink at least 8-10 glasses of water per day Activity after Discharge: As tolerated, Rest and relax today, No strenuous activity Driving after Discharge: Do not drive for 24 hours Notify Provider of: fever, chills, excessive swelling/bleeding, discharge/foul odor of operative site some spotting is normal, may use pad without deodorant or irritant for spotting walk 3-5 times a day take pain medication with food, use stool softener 2-3 times a day while taking pain medication Discharge Activity: Discharge Activity: Activity as tolerated Activity: Discharge Activity: Activity as tolerated Diet: Discharge Diet: Resume usual diet as tolerated Diet: Advance as tolerated and resume usual diet, Discharge Diet: Other (see Special Instructions) Follow-Up Appointments Follow Up with JIM BAHENA When Within 1 month Where: [address] [facility] [place] [phone]- Business (1) Medications What How Much When Instructions Next Dose amitriptyline 100 Milligram(s) Oral At Bedtime ethinyl estradiol-levonorgestrel (Balcoltra) Oral Every Day levothyroxine (levothyroxine 50 mcg (0.05 mg) oral tablet) 1 Tablet(s) Oral Every Day omeprazole 20 Milligram(s) Oral Every Day vortioxetine (Trintellix 10 mg oral tablet) Oral Every Day Take your medications faithfully. [...] and medications per pharmacy guidance. Education Materials Hysteroscopy, Care After This sheet gives you [...] taking prescription pain medicines. Medicines ??? Take sark-nna-voejyoe and prescription medicines only as told by [...] urine clear or pale yellow. ? Take jbsn-ovx-ncrvacm or prescription medicines. ? Eat foods that [...] care provider. Document Released: 06/03/2014 Document Revised: 07/26/2018 Document Reviewed: 09/11/2017 [employer] Patient Education ?? 2020 [employer]. acetaminophen and hydrocodone (a SEET a MIN oh fen and suzanne droe KOE done) Hycet, Lorcet, [place], Verdrocet, Vicodin, Xodol, Zamicet What is the most important information I should know about acetaminophen and hydrocodone? MISUSE OF OPIOID MEDICINE CAN CAUSE ADDICTION, OVERDOSE, OR . Keep the medication in a place where others cannot get to it. Taking opioid medicine during may cause life-threatening [...] blistering and peeling. What is acetaminophen and hydrocodone? Acetaminophen and hydrocodone is a combination medicine used to relieve moderate to severe pain. Acetaminophen and hydrocodone may also be used for purposes not listed in this medication guide. What should I discuss with my healthcare provider before taking acetaminophen and hydrocodone? You should not use this medicine if you are allergic to acetaminophen or hydrocodone, or if you have: ?? severe asthma or breathing problems; or ?? a blockage in your stomach or intestines. Tell your doctor if you have ever had: ?? breathing problems, sleep apnea; ?? liver disease; ?? a drug or [...] medical treatment for several weeks. Do not breastfeed. This medicine can pass into breast milk and cause drowsiness, breathing problems, or in a nursing baby. How should I take acetaminophen and hydrocodone? Follow all directions on your prescription label. Never take this medicine in larger amounts, or for longer than prescribed. An overdose can damage your liver or cause . Tell your doctor if you feel an increased urge to use more of this medicine. Never share this medicine with another person, especially someone with a history of drug abuse or addiction. MISUSE CAN CAUSE ADDICTION, OVERDOSE, OR . Keep the medicine in a place where others cannot get to it. Selling or giving away acetaminophen and hydrocodone is against the law. Measure liquid medicine [...] at . An overdose of acetaminophen and hydrocodone can be fatal. The first signs of [...] should I avoid while taking acetaminophen and hydrocodone? Avoid driving or operating machinery until you [...] the possible side effects of acetaminophen and hydrocodone? Get emergency medical help if you have [...] you have: ?? noisy breathing, sighing, shallow breathing, breathing that stops during sleep; ?? a light-headed feeling, like you might pass out; ?? liver problems--nausea, upper stomach pain, tiredness, [...] include: ?? dizziness, drowsiness, feeling tired; ?? nausea, vomiting, stomach pain; ?? constipation; or ?? headache. This is not a complete list of side effects and others may occur. Call your doctor for medical advice about side effects. You may report side effects to FDA at 3-692-NWX-2351. What other drugs will affect acetaminophen and hydrocodone? You may have breathing problems or withdrawal [...] complete. Other drugs may affect acetaminophen and hydrocodone, including prescription and yicv-bnc-bsuhkta medicines, vitamins, and herbal products. Not all possible interactions are listed here. Where can I get more information? Your doctor or pharmacist can provide more information about acetaminophen and hydrocodone. Remember, keep this and all other medicines out of the reach of children, never share your medicines with others, and use this medication only for the indication prescribed. Every effort has been made to ensure that the information provided by [employer]. ('[employer]') is accurate, up-to-date, and complete, but no guarantee is made to that effect. Drug information contained herein may be time sensitive. [employer] information has been compiled for use by healthcare practitioners and consumers in the [place] and therefore [employer] does not warrant that uses outside of the [place] are appropriate, unless specifically indicated otherwise. [employer] drug information does not endorse drugs, diagnose patients or recommend therapy. [employer] drug information is an informational resource designed [...] effective or appropriate for any given patient. [employer] does not assume any responsibility for any aspect of healthcare administered with the aid of information [employer] provides. The information contained herein is not intended to cover all possible uses, directions, precautions, warnings, drug interactions, allergic reactions, or adverse effects. If you have questions about the drugs you are taking, check with your doctor, nurse or pharmacist. Copyright 0148-2534 [employer]. Version: 16.01. Revision Date: 09/17/2019. Emergency Awareness and Preventative Care STROKE is [...] Assistance with quitting is available by contacting 0-316-SERN-NOW. This is a free resource providing counseling, [...] This Visit (last charted value for your 05/19/2020 visit) Microbiology 05/17/2020 12:15 PM Novel Coronavirus 2019: Not Detected Lipid Studies 05/19/2020 12:20 PM Cholesterol Tot: 159 mg/dL -- Normal range between ( 0 and 199 ) Cholesterol HDL: 78.0 mg/dL Cholesterol LDL Calculation: 71.8 mg/dL -- Normal range between ( 0.0 and 99.0 ) Cholesterol VLDL Calculation: 9.2 mg/dL -- Normal range between ( 5.0 and 40.0 ) Cholesterol/HDL Ratio: 2.0 -- Normal range between ( 0.0 and 3.2 ) Triglyceride: 46 mg/dL -- Normal range between ( 0 and 249 ) LDL/HDL Ratio: 0.9 -- Normal range between ( 0.0 and 3.2 ) Patient Name:QUINCY MCCARTY I have received this information and was given the opportunity to ask questions. Patient/Automobile Detailer Name: Patient/Automobile Detailer Signature: Relationship to Patient: Clinician/Hospital Automobile Detailer Signature: Date: Electronically signed by Cameron, [facility] Conversion Governor Assembler Cerner at 12/11/2022 5:13 PM CDT documented in this encounter Plan of Treatment Not on file documented as of this encounter Visit Diagnoses Not on filedocumented in this encounter Care Teams Water Supply Engineer Relationship Specialty Start Date End Date Erika So APRN [address] [place] [address] PCP - General Nurse Practitioner 05/07/23 Jim Bahena MD [address] [place] [phone] Referring Physician Obstetrics and Gynecology 05/07/23 documented as of this encounter
--- OUTSIDE RECORDS SUMMARY | 2025-05-25 13:18 | XMS_ITS | Encounter Summary ---
Author Organization [employer] ([place], [place], [place], [place]) Address [address] [place] [address] Care Team Providers Care Respite Care Provider Name Role Phone Erika So APRN Primary Care Provider [phone] [place] Bahena MD Unavailable [phone] Encounter Details Date Type Department Care Team (Late st Contact Info) Description 05/19/2020 Transcribed Document [facility] [place] [address] [place] [address] ProviderJosiah MD [address] [place], [place] [id number] Social History Tobacco Use Types Packs/Day Years Used Date Smoking Tobacco: Never Assessed Comments Unknown Sex and Gender Information Value Date Recorded Sex Assigned at Not on file Legal Sex Female 5:57 PM CDT Gender Identity Not on file Sexual Orientation Not on file documented as of this encounter Miscellaneous Notes * Cerner Conversion Note - Josiah Rivers MD - 05/19/2020 4:07 PM CDT Patient Education Materials Follows: Hysteroscopy, Care After This sheet gives you [...] taking prescription pain medicines. Medicines ??? Take xdmp-pqr-ipclgkw and prescription medicines only as told by [...] urine clear or pale yellow. ? Take wnjo-mvg-damsbmj or prescription medicines. ? Eat foods that [...] 06/03/2014 Document Revised: 07/26/2018 Document Reviewed: 09/11/2017 [employer] Patient Education ? 2020 [employer]. documented in this encounter Plan of Treatment Not on file documented as of this encounter Visit Diagnoses Not on filedocumented in this encounter Care Teams Respite Care Provider Relationship Specialty Start Date End Date Erika So APRN [address] [place] [address] PCP - General Nurse Practitioner 05/07/23 [place] Bahena MD [address] [address] Referring Physician Obstetrics and Gynecology 05/07/23 documented as of this encounter
--- OUTSIDE RECORDS SUMMARY | 2025-05-25 13:18 | XMS_ITS | Encounter Summary ---
Author Organization [employer] ([place], [place], [place], [place]) Address [address] [place] [address] Care Team Providers Care Attenuator Name Role Phone Erika So APRN Primary Care Provider [phone] [place] Bahena MD Unavailable [phone] Encounter Details Date Type Department Care Team (Late st Contact Info) Description 05/19/2020 Transcribed Document [facility] [place] [address] [place] [address] ProviderJosiah MD [address] [place] [id number] Social History Tobacco Use Types Packs/Day Years Used Date Smoking Tobacco: Never Assessed Comments Unknown Sex and Gender Information Value Date Recorded Sex Assigned at Not on file Legal Sex Female 5:57 PM CDT Gender Identity Not on file Sexual Orientation Not on file documented as of this encounter Miscellaneous Notes * Cerner Conversion Note - Josiah Rivers MD - 05/19/2020 9:45 AM CDT Patient: QUINCY MCCARTY Age: 35 years Sex: Female : 1985 Associated Diagnoses: None Author: CHEVYRLAWANDA APRN Chief Complaint AUB, cervical dysplasia Review of Systems ROS reviewed as documented in chart no change since last seen by surgeon Health Status Allergies: Allergic Reactions (Selected) Severity Not Documented Adhesive Bandage- Surgical tape rash., Allergies (1) Active Reaction Adhesive Bandage surgical tape rash Current medications: (Selected) Inpatient Medications Ordered Mefoxin: 2 Gram, 50 mL, 100 mL/Hr, IV Piggyback, PREOP acetaminophen: 1,000 mg, Oral, 1-Time Documented Medications Documented Trintellix 10 mg oral tablet: Tab, Oral, Daily, 0 Refill(s), Home Medications (1) Active Trintellix 10 mg oral tablet , Oral, Daily , Medications (2) Active Scheduled: (2) acetaminophen 500 mg tab 1,000 mg 2 Tab, Oral, 1-Time cefOXitin 2 Gram 50 mL, IV Piggyback, PREOP Continuous: (0) PRN: (0) Problem list: All Problems PONV (postoperative nausea and vomiting) / SNOMED CT 4215212 / Confirmed PCOS (polycystic ovarian syndrome) / SNOMED CT 197438660 / Confirmed Pelvic pain in female / SNOMED CT 5829391484 / Confirmed Heartburn / SNOMED CT 43907306 / Confirmed GERD (gastroesophageal reflux disease) / SNOMED CT 6051028627 / Confirmed Endometriosis / SNOMED CT 252512137 / Confirmed Back pain / SNOMED CT 551622801 / Confirmed Anxiety / SNOMED CT 49766058 / Confirmed, Active Problems (8) Anxiety Back pain Endometriosis GERD (gastroesophageal reflux disease) Heartburn PCOS (polycystic ovarian syndrome) Pelvic pain in female PONV (postoperative nausea and vomiting) AUB cervical dysplasia Histories Past Medical History: Active GERD (gastroesophageal reflux disease) (2478055355) Family History: No family history items have been selected or recorded. Procedure history: Dx Lap for endometrosis. Lap Cholecystectomy. x 2. removal of IUD. Gastric bypass 2017. Physical Examination VS/Measurements No qualifying data available General: Alert and oriented, No acute distress, obese. Eye: Pupils are equal, round and reactive to light, Extraocular movements are intact, glasses. HENT: Normocephalic, Normal hearing. Neck: Supple, Non-tender. Respiratory: Lungs are clear to auscultation, Respirations are non-labored. Cardiovascular: Normal rate, Regular rhythm, No murmur, No gallop, No edema. Gastrointestinal: Soft, Non-tender. Genitourinary: No costovertebral angle tenderness. Lymphatics: No lymphadenopathy neck, axilla, groin. Musculoskeletal: Normal range of motion, Normal strength. Integumentary: Warm, Dry, [place]. Neurologic: Alert, Oriented. Psychiatric: Cooperative, Appropriate mood & affect. Review / Management Results review: No qualifying data available. Impression and Plan Condition: Stable. documented in this encounter Plan of Treatment Not on file documented as of this encounter Visit Diagnoses Not on filedocumented in this encounter Care Teams Attenuator Relationship Specialty Start Date End Date Erika So APRN [address] [place] [id number] PCP - General Nurse Practitioner 05/07/23 [place] Bahena MD [address] [address] Referring Physician Obstetrics and Gynecology 05/07/23 documented as of this encounter
--- OUTSIDE RECORDS SUMMARY | 2025-05-25 13:18 | XMS_ITS | Encounter Summary ---
Author Organization [employer] ([place], [place], [place], [place]) Address [address] [place] [address] Care Team Providers Care Dye Colorist Formulator Name Role Phone Erika So APRN Primary Care Provider [phone] [place] Bahena MD Unavailable [phone] Encounter Details Date Type Department Care Team (Late st Contact Info) Description 04/18/2019 Transcribed Document [facility] [place] [address] [place] [address] ProviderJosiah MD [address] [place] [id number] Social History Tobacco Use Types Packs/Day Years Used Date Smoking Tobacco: Never Assessed Comments Unknown Sex and Gender Information Value Date Recorded Sex Assigned at Not on file Legal Sex Female 5:57 PM CDT Gender Identity Not on file Sexual Orientation Not on file documented as of this encounter Miscellaneous Notes * [employer] Conversion Note - Josiah Rivers MD - 04/18/2019 6:04 AM CDT Pediatric Growth Entered On: 04/18/2019 6:04 EDT Performed On: 04/18/2019 6:04 EDT by Uzma Cordova Patient Prekindergarten Teacher Height and Weight, Clinical Dosing Weight Source : Standing scale Weight Entry Format : [place] Clinical Dosing Weight : 82.27 kg Weight, Pounds : 181 lb Uzma Cordova Patient Prekindergarten Teacher - 04/18/2019 6:04 EDT Electronically signed by Cameron [facility] Conversion Gold Beater Cerner at 12/11/2022 5:11 PM CDT documented in this encounter Plan of Treatment Not on file documented as of this encounter Visit Diagnoses Not on filedocumented in this encounter Care Teams Dye Colorist Formulator Relationship Specialty Start Date End Date Erika So APRN [address] [place] [id number] PCP - General Nurse Practitioner 05/07/23 [place] Bahena MD [address] [address] Referring Physician Obstetrics and Gynecology 05/07/23 documented as of this encounter
--- OUTSIDE RECORDS SUMMARY | 2025-05-25 13:18 | XMS_ITS | Encounter Summary ---
Author Organization [employer] ([place], [place], [place], [place]) Address [address] [place] [address] Care Team Providers Care Credit Counselor Name Role Phone Erika So APRN Primary Care Provider [phone] [place] Bahena MD Unavailable [phone] Encounter Details Date Type Department Care Team (Late st Contact Info) Description 02/17/2019 Transcribed Document [facility] [address] [place] [address] ProviderJosiah MD [address] [place] [address] Social History Tobacco Use Types Packs/Day Years Used Date Smoking Tobacco: Never Assessed Comments Unknown Sex and Gender Information Value Date Recorded Sex Assigned at Not on file Legal Sex Female 5:57 PM CDT Gender Identity Not on file Sexual Orientation Not on file documented as of this encounter Miscellaneous Notes * Cerner Conversion Note - Josiah Rivers MD - 02/17/2019 10:27 AM CDT ED Triage Entered On: 02/17/2019 10:35 EDT Performed On: 02/17/2019 10:28 EDT by SHELLEY OWEN RN ED Triage Across the Room Triage Date/Time : 02/17/2019 10:28 EDT Chief Complaint : c/o left hip/back radiating into left leg starting few weeks ago, has been seen at [facility] and her pmd and given pain meds and steroids , states not helping. pt p/w/d. SHELLEY OWEN RN - 02/17/2019 10:28 EDT DCP GENERIC CODE Tracking Acuity : 3 - Urgent Tracking Group : [facility] SHELLEY OWEN RN - 02/17/2019 10:28 EDT Mode of Arrival : Wheelchair Transported to ED by : Private vehicle To Room Via : Wheelchair Accompanied By : Friend ED Vital Signs : Document Height & Weight : Document ED Allergies : Document ED Reason for Visit : Document Tetanus Immunization : Unknown SHELLEY OWEN RN - 02/17/2019 10:28 EDT Infectious Disease History Infectious Disease History : Chicken pox/Shingles, Influenza Isolation Needed : Standard Fever/Chills Last 48 Hours : No Travel To Regions with Travel Advisories : No Travel Outside [place] Within Last 30 Days : No Contact With Traveler to Advisory Region : No Tuberculosis Symptoms : None SHELLEY OWEN RN - 02/17/2019 10:28 EDT Vital Signs ED Temperature Source : Oral Temperature Mode : Fahrenheit Temperature, Fahrenheit : 98.7 Deg F ED Pain : Yes Clinical Temperature, C : 37.1 Deg C Oxygen Therapy Mode : Room air Peripheral Pulse Rate : 106 bpm (HI) Respiratory Rate : 18 Breaths/Min Systolic Blood Pressure : 138 mmHg Diastolic Blood Pressure : 84 mmHg Oxygen Saturation : 99 % SHELLEY OWEN RN - 02/17/2019 10:28 EDT Allergy (As Of: 02/17/2019 10:35:20 EDT) Allergies (Active) Adhesive Bandage Estimated Onset Date: Unspecified ; Reactions: surgical tape rash ; Comments: Comment 1: pt states she is allergic to surgical tape ; Created By: KEVIN SAWANT RN; Reaction Status: Active ; Category: Other ; Substance: Adhesive Bandage ; Type: Allergy ; Updated By: KEVIN SAWANT RN; Reviewed Date: 02/17/2019 10:34 EDT Diagnosis Control ED (As Of: 02/17/2019 10:35:20 EDT) Problems(Active) Anxiety (SNOMED CT :37397454 ) Name of Problem: Anxiety ; Recorder: KECIA MASON RN; Confirmation: Confirmed ; Classification: Patient Stated ; Code: [id number] ; Contributor System: PowerChart ; Last Updated: 07/30/2015 14:46 EST ; Life Cycle Date: 07/30/2015 ; Life Cycle Status: Active ; Vocabulary: SNOMED CT Endometriosis (SNOMED CT :608792578 ) Name of Problem: Endometriosis ; Recorder: KECIA MASON RN; Confirmation: Confirmed ; Classification: Patient Stated ; Code: [id number] ; Contributor System: PowerChart ; Last Updated: 07/30/2015 14:45 EST ; Life Cycle Date: 07/30/2015 ; Life Cycle Status: Active ; Vocabulary: SNOMED CT GERD (gastroesophageal reflux disease) (SNOMED CT :9999300337 ) Name of Problem: GERD (gastroesophageal reflux disease) ; Recorder: ERIKA TOUSSAINT RN; Confirmation: Confirmed ; Classification: Medical ; Code: [id number] ; Contributor System: 1001 MenusChart ; Last Updated: 01/05/2017 13:12 EDT ; Life Cycle Date: 01/05/2017 ; Life Cycle Status: Active ; Vocabulary: SNOMED CT Heartburn (SNOMED CT :51760876 ) Name of Problem: Heartburn ; Recorder: KECIA MASON RN; Confirmation: Confirmed ; Classification: Patient Stated ; Code: 48794170 ; Contributor System: PowerChart ; Last Updated: 07/30/2015 14:43 EST ; Life Cycle Date: 07/30/2015 ; Life Cycle Status: Active ; Vocabulary: SNOMED CT Obesity, Class III, BMI 40-49.9 (morbid obesity) (SNOMED CT :337428316 ) Name of Problem: Obesity, Class III, BMI 40-49.9 (morbid obesity) ; Recorder: KECIA MASON RN; Confirmation: Confirmed ; Classification: Patient Stated ; Code: 039660728 ; Contributor System: PowerChart ; Last Updated: 01/31/2017 10:27 EDT ; Life Cycle Date: 07/30/2015 ; Life Cycle Status: Active ; Vocabulary: SNOMED CT PCOS (polycystic ovarian syndrome) (SNOMED CT :485578628 ) Name of Problem: PCOS (polycystic ovarian syndrome) ; Recorder: KECIA MASON RN; Confirmation: Confirmed ; Classification: Patient Stated ; Code: 089567606 ; Contributor System: PowerChart ; Last Updated: 07/30/2015 14:44 EST ; Life Cycle Date: 07/30/2015 ; Life Cycle Status: Active ; Vocabulary: SNOMED CT Pelvic pain in female (SNOMED CT :9980758531 ) Name of Problem: Pelvic pain in female ; Recorder: KECIA MASON RN; Confirmation: Confirmed ; Classification: Patient Stated ; Code: 3206278004 ; Contributor System: [employer] ; Last Updated: 07/30/2015 14:45 EST ; Life Cycle Date: 07/30/2015 ; Life Cycle Status: Active ; Vocabulary: SNOMED CT PONV (postoperative nausea and vomiting) (SNOMED CT :2279874 ) Name of Problem: PONV (postoperative nausea and vomiting) ; Recorder: KECIA MASON RN; Confirmation: Confirmed ; Classification: Patient Stated ; Code: 7453231 ; Contributor System: 1001 MenusChart ; Last Updated: 07/30/2015 14:49 EST ; Life Cycle Date: 07/30/2015 ; Life Cycle Status: Active ; Vocabulary: SNOMED CT Diagnoses(Active) Hip pain-swelling Date: 02/17/2019 ; Diagnosis Type: Reason For Visit ; Confirmation: Complaint of ; Clinical Dx: Hip pain-swelling ; Classification: Medical ; Clinical Service: Emergency medicine ; Code: PNED ; Probability: 0 ; Diagnosis Code: [id number] ED Height and Weight Height Source : Stated Height Entry Format : [place] Height, Feet : 5 ft(Converted to: 152 cm, 60 Inch) Height, Inches : 4 Inch(Converted to: 0 ft 4 Inch, 10.16 cm) Clinical Height : 162.56 cm Weight Source, ED : Standing scale Weight Entry Format : [place] Weight, Pounds : 170 lb Clinical Dosing Weight : 77.27 kg Body Surface Area (BSA) : 1.83 m2 Body Mass Index : 29.2 kg/m2 (HI) [place]ce Body Weight (IBW) : 54.3 kg SHELLEY OWEN RN - 02/17/2019 10:28 EDT Pain Assessment Pain Assessment : Initial assessment Pain Scale Used : 0-10 Scale Location : Back, lower SHELLEY OWEN RN - 02/17/2019 10:28 EDT Pain Scale Intensity : 1 SHELLEY OWEN RN - 02/17/2019 10:28 EDT Image 4 - Images currently included in the form version of this document have not been included in the text rendition version of the form. documented in this encounter Plan of Treatment Not on file documented as of this encounter Visit Diagnoses Not on filedocumented in this encounter Care Teams Credit Counselor Relationship Specialty Start Date End Date Erika So APRN [address] [id number] PCP - General Nurse Practitioner 05/07/23 [place] Bahena MD [address] [address] Referring Physician Obstetrics and Gynecology 05/07/23 documented as of this encounter
--- OUTSIDE RECORDS SUMMARY | 2025-05-25 13:18 | XMS_ITS | Encounter Summary ---
Author Organization [employer] ([place], [place], [place], [place]) Address [address] [place] [address] Care Team Providers Care Quality Lead Name Role Phone Erika So APRN Primary Care Provider [phone] [place] Bahena MD Unavailable [phone] Encounter Details Date Type Department Care Team (Late st Contact Info) Description 02/17/2019 Transcribed Document [facility] [place] Medicine [address] [place] [address] ProviderJosiah MD [address] [place], [place] [address] Social History Tobacco Use Types Packs/Day Years [...] MD - 02/17/2019 10:27 AM CDT ED Assessment Entered On: 02/17/2019 10:39 EDT Performed On: 02/17/2019 10:38 EDT by NAYA SEBASTIAN RN ED Quick Look Assessment Level of Consciousness : Alert Affect/Behavior : Appropriate Orientation : Oriented x 4 Skin Temperature : Warm Skin Description : Normal for ethnicity NAYA SEBASTIAN RN - 02/17/2019 10:38 EDT ED General-Functional Assess Information Obtained From : Patient Preferred Communication Mode : Verbal Communication Barrier : None Primary Language : Sinhala Any Spiritual/Cultural Needs or Requests : No Currently in Unsafe Situation : No NAYA SEBASTIAN RN - 02/17/2019 10:38 EDT Social Habits Smoking Status : Never (less than 100 in lifetime; none in last 30 days) Smokeless Tobacco Status : Never Desires Tobacco Cessation Calc : 0 NAYA SEBASTIAN RN - 02/17/2019 10:38 EDT Social History (As Of: 02/17/2019 10:39:22 EDT) Tobacco: Use in Last 12 Months: No. Smoking Status Never smoker. (Last Updated: 07/30/2015 14:50:13 EST by KECIA MASON, RN) Alcohol: Alcohol Use History Yes. Use in Last 12 Months: Yes. Alcohol Use Frequency Rarely. (Last Updated: 07/30/2015 14:50:19 EST by KECIA MASON, RN) Substance Abuse: Drug Use Hx: No. (Last Updated: 01/05/2017 13:14:14 EDT by ERIKA TOUSSAINT, RN) Nutrition/Health: Caffeine intake amount: none. (Last Updated: 01/05/2017 13:14:22 EDT by ERIKA TOUSSAINT, RN) Type of diet: low carb. Wants [...] LOU SIMS, RN) Employment/School: Employed, Work/School description: [employer]. (Last Updated: 01/31/2017 10:31:56 EDT by MARY LOU SIMS, RN) documented in this encounter Plan of Treatment Not on file documented as of this encounter Visit Diagnoses Not on filedocumented in this encounter Care Teams Quality Lead Relationship Specialty Start Date End Date Erika So APRN [address] [place] [address] PCP - General Nurse Practitioner 05/07/23 [place] Bahena MD [address] [facility] [address] [place] [address] Referring Physician Obstetrics and Gynecology 05/07/23 documented as of this encounter
--- OUTSIDE RECORDS SUMMARY | 2025-05-25 13:18 | XMS_ITS | Encounter Summary ---
Author Organization [employer] ([place], [place], [place], [place]) Address [address] [place] [address] Care Team Providers Care Caustic Pump Operator Name Role Phone Erika So APRN Primary Care Provider [phone] Jim Bahena MD Unavailable [phone] Encounter Details Date Type Department Care Team (Late st Contact Info) Description 11/05/[address] [facility] [place] Family Medicine [address] [place] [address] ProviderJosiah MD [address] [place] [address] Social History Tobacco Use Types Packs/Day Years Used Date Smoking Tobacco: Never Assessed Comments Unknown Sex and Gender Information Value Date Recorded Sex Assigned at Not on file Legal Sex Female 5:57 PM CDT Gender Identity Not on file Sexual Orientation Not on file documented as of this encounter Miscellaneous Notes * Cerner Conversion Note - Josiah ProviderMD - 11/05/2020 5:13 PM ELEMENTARY SCHOOL PROFESSIONAL [address] [address] QUINCY GEORGES :1985 Visit Time:11/05/2020 What to do next Your Diagnosis Cervical dysplasia FORD III with severe 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 Bahena's post op order sheet. Take Scopolamine patch behind left ear off in 3 days, wash hands immediately after. Discharge Activity: Discharge Activity: Activity as tolerated Activity: Discharge Activity: Activity as tolerated Diet: Discharge Diet: Resume usual diet as tolerated Diet: Advance as tolerated and resume usual diet, Discharge Diet: Other (see Special Instructions) Follow-Up Appointments Follow Up with JIM BAHENA When Within 1 month Comments Call for follow up appointment. 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 Do NOT skip [...] activities are safe for you. ??? Take qwxz-xwa-xqxubvj and prescription medicines only as told by [...] 11/19/2001 Document Revised: 08/16/2018 Document Reviewed: 03/29/2018 Elsevier Patient Education ?? 2020 [employer] Emergency Awareness and Preventative Care STROKE is [...] Assistance with quitting is available by contacting 0-051-PJIH-NOW. This is a free resource providing counseling, support, and referral. Or you may contact your personal physician. [employer] Suicide Prevention Lifeline: The National Suicide Prevention [...] This Visit (last charted value for your 11/05/2020 visit) Microbiology 11/01/2020 11:35 AM SARS-CoV-2 (COVID19 PCR): Negative Lipid Studies 11/05/2020 12:37 PM Cholesterol Tot: 173 mg/dL -- Normal range between ( 0 and 199 ) Cholesterol HDL: 79.0 mg/dL Cholesterol LDL Calculation: 79.4 mg/dL -- Normal range between ( 0.0 and 99.0 ) Cholesterol VLDL Calculation: 14.6 mg/dL -- Normal range between ( 5.0 and 40.0 ) Cholesterol/HDL Ratio: 2.2 -- Normal range between ( 0.0 and 3.2 ) Triglyceride: 73 mg/dL -- Normal range between ( 0 and 249 ) LDL/HDL Ratio: 1.0 -- Normal range between ( 0.0 and 3.2 ) Patient Name:QUINCY GEORGES I have received this information and was given the opportunity to ask questions. Patient/Supervisor Slitting And Shipping Name: Patient/Supervisor Slitting And Shipping Signature: Relationship to Patient: Clinician/Hospital Supervisor Slitting [employer] Shipping Signature: Date: Electronically signed by [facility] Conversion Die Presser Cerner at 12/11/2022 5:12 PM CDT documented in this encounter Plan of Treatment Not on file documented as of this encounter Visit Diagnoses Not on filedocumented in this encounter Care Teams Caustic Pump Operator Relationship Specialty Start Date End Date Erika So APRN [address] [place] [address] PCP - General Nurse Practitioner 05/07/23 Jim Bahena MD [address] [place] [address] Referring Physician Obstetrics and Gynecology 05/07/23 documented as of this encounter
--- OUTSIDE RECORDS SUMMARY | 2025-05-25 13:18 | XMS_ITS | Encounter Summary ---
Author Organization [employer] ([place], [place], [place], [place]) Address [address] [place] [address] Care Team Providers Care Restorative Coordinator Name Role Phone Erika So APRN Primary Care Provider [phone] Jim Bahena MD Unavailable [phone] Encounter Details Date Type Department Care Team (Late st Contact Info) Description 11/05/2020 Transcribed Document [facility] [place] [address] [place] [address] ProviderJosiah MD [address] [place] [address] Social History Tobacco Use Types Packs/Day Years Used Date Smoking Tobacco: Never Assessed Comments Unknown Sex and Gender Information Value Date Recorded Sex Assigned at Not on file Legal Sex Female 5:57 PM CDT Gender Identity Not on file Sexual Orientation Not on file documented as of this encounter Miscellaneous Notes * Cerner Conversion Note - Josiah ProviderMD - 11/05/2020 4:56 PM SPECIAL WARFARE OPERATOR [facility] [address], [place] [address] Patient Copy Patient Information: Name: QUINCY GEORGES Current Date: 11/05/2020 16:56:18 : 1985 Patient Address: [place] [address] Patient Attending Physician: JIM BAHENA MD-OBG Primary Care Provider: RUEL LECHUGA NP-[facility] Primary Care Provider Discharge Diagnosis: 1:Cervical dysplasia; 2:FORD III with severe dysplasia; 3:High risk HPV infection; 4:Vulvar low-grade squamous intraepithelial lesion (LGSIL) Weight on Admission: 214 lb, 0 oz Comment: Follow-up Instructions: With: Address: When: JIM BAHENA [address] [place] [address] Seaters (1) Within 1 month Comments: Call for follow up appointment Discharge Instructions: Immunizations Documented During Stay: No Immunizations Found Heart Failure Discharge Instructions (if any): Stroke Related Discharge Instructions (if any): Warfarin Related Discharge Instructions (if any): Final Medication List: [facility], [address] [address], [phone] silver sulfADIAZINE topical (Silvadene 1% topical cream) 1 Application(s) Topical Two Times A Day. Refills: 0. Other Medications amitriptyline 50 Milligram(s) Oral At Bedtime. ethinyl estradiol-levonorgestrel (Balcoltra) Oral Every Day. levothyroxine (levothyroxine 50 mcg (0.05 mg) oral tablet) 1 Tablet(s) Oral Every Day. omeprazole 20 Milligram(s) Oral Every Day. vortioxetine (Trintellix 10 mg oral tablet) Oral Every Day. Patient Allergies: Latex; Adhesive Bandage Medication Instructions: Take your medications [...] cramping, rapid heartbeat, difficulty sleeping, and nervousness. Patient education materials: General Anesthesia, Adult, Care After This sheet [...] activities are safe for you. ??? Take oepa-yvk-bvegaxx and prescription medicines only as told by [...] 11/19/2001 Document Revised: 08/16/2018 Document Reviewed: 03/29/2018 [employer] Patient Education ? 2019 [employer] CIGARETTE SMOKING: The facts are clear, cigarette smoking will shorten your life. Smoking can cause many illnesses along the way. As a healthcare provider, we recommend that you stop smoking. Assistance with quitting is available by contacting 9-797-GEZA-NOW. This is a free resource providing counseling, [...] Be sure to sign up for the [employer] patient portal, which gives you 19/03 access to your medical information ??? including these discharge instructions ??? using your computer, smartphone, or tablet. Just go to [employer] to get started. Questions? Call . [facility] would like to thank you for allowing us to assist you with your healthcare needs. I, QUINCY GEORGES, (or corporate sales representative) have received the above patient education materials/instructions and have verbalized understanding: Patient Signature _ Date/Time Patient Gate Keeper Signature (if needed) Date/Time Clinician/Hospital Gate Keeper Signature (if needed) Date/Time Electronically signed by [facility] Conversion Flying Teacher Cerner at 12/11/2022 5:03 PM CDT documented in this encounter Plan of Treatment Not on file documented as of this encounter Visit Diagnoses Not on filedocumented in this encounter Care Teams Restorative Coordinator Relationship Specialty Start Date End Date Erika So, RAGHU [address] [place] [address] PCP - General Nurse Practitioner 05/07/23 Jim Bahean MD [address] [place] [address] Referring Physician Obstetrics and Gynecology 05/07/23 documented as of this encounter
--- OUTSIDE RECORDS SUMMARY | 2025-05-25 13:18 | XMS_ITS | Encounter Summary ---
Author Organization [employer] ([place], [place], [place], [place]) Address [address] [place] [address] Care Team Providers Care Helpdesk Administrator Name Role Phone Erika So APRN Primary Care Provider [phone] Bahena MD Unavailable [phone] Encounter Details Date Type Department Care Team (Late st Contact Info) Description 02/17/2019 Transcribed Document [facility] [place] Family Medicine [address] [place] [address] ProviderJosiah MD [address] [place] [address] Social History Tobacco Use Types Packs/Day Years Used Date Smoking Tobacco: Never Assessed Comments Unknown Sex and Gender Information Value Date Recorded Sex Assigned at Not on file Legal Sex Female 5:57 PM CDT Gender Identity Not on file Sexual Orientation Not on file documented as of this encounter Miscellaneous Notes * [employer] Conversion Note - Josiah ProviderMD - 02/17/2019 2:07 PM CDT Electronically signed by Cameron [facility] Conversion Pest Control Service Sales Agent [employer] at 12/11/2022 5:01 PM CDT documented in this encounter Plan of Treatment Not on file documented as of this encounter Visit Diagnoses Not on filedocumented in this encounter Care Teams Helpdesk Administrator Relationship Specialty Start Date End Date Erika So APRN [address] [place] [address] PCP - General Nurse Practitioner 05/07/23 [place] Bahena MD [address] [address] Referring Physician Obstetrics and Gynecology 05/07/23 documented as of this encounter
--- OUTSIDE RECORDS SUMMARY | 2025-05-25 13:18 | XMS_ITS | Encounter Summary ---
Author Organization [employer] ([place], [place], [place], [place]) Address [address] [place] [address] Care Team Providers Care Predator Control Trapper Name Role Phone Erika So APRN Primary Care Provider [phone] [place] Bahena MD Unavailable [phone] Encounter Details Date Type Department Care Team (Late st Contact Info) Description 05/19/2020 Transcribed Document [facility] [place] [address] [place] [address] ProviderJosiah MD [address] [place] [address] [id number] Social History Tobacco Use Types Packs/Day Years Used Date Smoking Tobacco: Never Assessed Comments Unknown Sex and Gender Information Value Date Recorded Sex Assigned at Not on file Legal Sex Female 5:57 PM CDT Gender Identity Not on file Sexual Orientation Not on file documented as of this encounter Miscellaneous Notes * Cerner Conversion Note - Josiah Rivers MD - 05/19/2020 3:01 PM CDT DATE OF PROCEDURE: 05/19/2020 SURGEON: [place] Bahena MD PREOPERATIVE DIAGNOSES: 1. 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 2. Hypermenorrhea and abnormal endometrium on ultrasound. POSTOPERATIVE DIAGNOSES: 1. 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 2. Hypermenorrhea and abnormal endometrium on ultrasound. PROCEDURE PERFORMED: 1. Hysteroscopy, dilation and curettage, and endometrial ablation. 2. Conization of the cervix, colposcopy of the vagina and the vulva and laser removal of vulvar lesions. ESTIMATED BLOOD LOSS: 3 mL. FINDINGS: On hysteroscopic findings, patient had hypervascular fundal portion of the uterine cavity and there were prominent cornual regions of both the left and right cornua of the uterus, but not a true septum. Multiple small soft polypoid structures were present originating from the endometrium. On colposcopic findings, the patient had an irregular area around the cervix consistent with the dysplasia. There were no vaginal lesions. Around the vaginal introitus there were raised HPV spikes and also some flat HPV lesions. DESCRIPTION OF PROCEDURE: Under general anesthesia, the patient was placed in the dorsal lithotomy position. The perineum was prepped and draped in a sterile manner. The bladder was emptied with a catheter. Speculum was placed. Cervix was grasped with tenaculum and then dilated. Hysteroscope was introduced and uterine cavity was visualized. The polypoid structures were noted and removed with dilation and curettage, and a curette. The cavity appeared normal. Endometrial ablation was then performed with Monserrat device in a standard fashion. Afterwards, the cavity was again assessed and there were some pink areas around the tubal origins on each side, but overall very good blanching effect was achieved. No active bleeders were present. The conization was then performed with a laser. Vinegar solution was applied to the cervix, vaginal rausch and the vulva. Cervix was visualized after monsells solution was applied which made the area of the dysplasia more visible. Cone shaped area was excised and submitted to pathology in one shanika. The area of the excision was then treated with a defocused laser beam to shrink the surface area and remodel it to make the future pap smears more acessible. The rest of the wagina was examined and no lesions were seen. The vulva was inspected and both the raised and the flat lesions were removed with the laser. No bleeding was present. Monsel's solution was applied to the cervix. Sponge and instrument count was correct. Patient tolerated procedure well and was taken to recovery in good condition. /[id number] MD GAMA Campbell/TOMAS / GAMA / MODL /[id number] documented in this encounter Plan of Treatment Not on file documented as of this encounter Visit Diagnoses Not on filedocumented in this encounter Care Teams Predator Control Trapper Relationship Specialty Start Date End Date Erika So APRN [address] [place] [address] PCP - General Nurse Practitioner 05/07/23 [place] Bahena MD [address] [address] Referring Physician Obstetrics and Gynecology 05/07/23 documented as of this encounter
--- OUTSIDE RECORDS SUMMARY | 2025-05-25 13:18 | XMS_ITS | Encounter Summary ---
Author Organization [employer] ([place], [place], [place], [place]) Address [address] [place] [address] Care Team Providers Care Offset Printing Pressmen Name Role Phone Erika So APRN Primary Care Provider [phone] [place] Bahena MD Unavailable [phone] Encounter Details Date Type Department Care Team (Late st Contact Info) Description 04/18/2019 Transcribed Document [facility] [place] [address] [place] [address] ProviderJosiah MD [address] [place] [address] [id number] Social History Tobacco Use Types Packs/Day Years [...] 04/18/2019 8:16 AM CDT [facility] Main OR PostOp Summary Primary Physician: [place] BAHENA MD Finalized Date/Time: 04/22/19 07:51:57 Pt. Name: EVITA GU CAMRYNJANAY SANCHEZ D.O.B./Sex: 1985 Female Med Rec #: [id number] Physician: [place] BAHENA MD Financial #: [id number] Pt. Type: O Room/Bed: [facility]/2 Admit/Disch: 04/18/19 05:38:00 - 04/18/19 13:03:00 Institution: [facility] [place] PostOp Case Times Entry 1 In PACU II 04/18/19 10:11:00 Ready for PACU II 04/18/19 13:03:00 Discharge Discharge from PACU 04/18/19 13:03:00 II Last Modified By: Chari Wynn Rn 04/18/19 13:07:12 Finalized By: Arlette Deras RN Document Signatures Signed By: Chari Wynn Rn 04/18/19 13:07 Arlette Deras RN 04/22/19 07:51 Unfinalized History Date/Time Username Reason for Unfinalizing Freetext Reason for Unfinalizing 04/22/19 07:51 JAJA Modify Pick List Electronically signed by [facility] Conversion Professor Of Art Cerner at 12/11/2022 5:02 PM CDT documented in this encounter Plan of Treatment Not on file documented as of this encounter Visit Diagnoses Not on filedocumented in this encounter Care Teams Offset Printing Pressmen Relationship Specialty Start Date End Date Erika So APRN [address] [place] [address] PCP - General Nurse Practitioner 05/07/23 [place] Bahena MD [address] [address] Referring Physician Obstetrics and Gynecology 05/07/23 documented as of this encounter
--- OUTSIDE RECORDS SUMMARY | 2025-05-25 13:18 | XMS_ITS | Encounter Summary ---
Author Organization [facility] ([place], [place], [place], [place]) Address [address] [place] [address] Care Team Providers Care Water Treatment Plant Engineer Name Role Phone Erika So APRN Primary Care Provider [phone] [place] Bahena MD Unavailable [phone] Encounter Details Date Type Department Care Team (Late st Contact Info) Description 04/18/2019 Transcribed Document [facility] [place] [facility] [address] [place] [address] ProviderJosiah MD [address] [place] [address] [id number] Social History Tobacco Use Types Packs/Day Years [...] 04/18/2019 8:16 AM CDT [facility] Main OR IntraOp Summary Primary Physician: [place] BAHENA MD-OBG Finalized Date/Time: 05/28/20 12:48:33 Pt. Name: EVITA COECUTTJAIMECAMRYNJANAY CAREY D.O.B./Sex: 1985 Female Med Rec #: [id number] Physician: [place] BAHENA MD-OBG Financial #: [id number] Pt. Type: O Room/Bed: [facility]/2 Admit/Disch: 04/18/19 05:38:00 - 04/18/19 13:03:00 Institution: [facility] IntraOp Case Attendance Entry 1 Entry 2 Entry 3 Case Attendee [place] BAHENA Davis, Aleitha E, LANCE MELGAR ST MD-OBG Role Performed Surgeon/Proceduralist, Plastics Tooling Engineer, First Scrub, First First Time In 04/18/19 07:50:00 04/18/19 07:50:00 04/18/19 07:50:00 Time Out 04/18/19 09:20:00 04/18/19 09:20:00 04/18/19 09:20:00 Procedure Laparoscopy Operative Laparoscopy Operative Laparoscopy Operative Robotic, Uterine D and Robotic, Uterine D and Robotic, Uterine D and C Hysteroscopy, Ovarian C Hysteroscopy, Ovarian C Hysteroscopy, Ovarian Cystectomy Laparoscopic Cystectomy Laparoscopic Cystectomy Laparoscopic Other Attendee Superficial Wound Closed By: Last Modified By: Carmen Lo RN Davis, Aleitha E, Carmen Sierra RN 04/18/19 09:25:38 04/18/19 09:25:38 04/18/19 09:25:38 Entry 4 Entry 5 Entry 6 Case Attendee DAVID OSHEA ST ARVIN, BRIAN Araujo, CARLO LOW, HEATHER Role Performed Scrub, Second Physician assistant professor of forestry VP STRATEGIC PLANNING/Nurse Health And Safety Consultant Time In 04/18/19 07:50:00 04/18/19 07:50:00 04/18/19 07:50:00 Time Out 04/18/19 09:20:00 04/18/19 09:20:00 04/18/19 09:20:00 Procedure Laparoscopy Operative Laparoscopy Operative Laparoscopy Operative Robotic, Uterine D and Robotic, Uterine D and Robotic, Uterine D and C Hysteroscopy, Ovarian C Hysteroscopy, Ovarian C Hysteroscopy, Ovarian Cystectomy Laparoscopic Cystectomy Laparoscopic Cystectomy Laparoscopic Other Attendee Superficial Wound Closed By: Last Modified By: Carmen Lo RN Davis, Aleitha E, Carmen Sierra RN 04/18/19 09:25:38 04/18/19 09:25:38 04/18/19 09:25:38 Entry 7 Entry 8 Entry 9 Case Attendee Luis Carlos Hanks, REP - Quentin Starks, Surgical RICHARD COLE, Skein Washer Cert VP STRATEGIC PLANNING Role Performed Skein Washer, Ancillary Scrub, Second VP STRATEGIC PLANNING/Nurse Health And Safety Consultant Time In 04/18/19 07:50:00 04/18/19 08:57:00 04/18/19 09:00:00 Time Out 04/18/19 09:20:00 04/18/19 09:20:00 04/18/19 09:20:00 Procedure Laparoscopy Operative Laparoscopy Operative Laparoscopy Operative Robotic, Uterine D and Robotic, Uterine D and Robotic, Uterine D and C Hysteroscopy, Ovarian C Hysteroscopy, Ovarian C Hysteroscopy, Ovarian Cystectomy Laparoscopic Cystectomy Laparoscopic Cystectomy Laparoscopic Other Attendee VP STRATEGIC PLANNING BREAK Superficial Wound Closed By: Last Modified By: Carmen Lo RN Davis, Aleitha E, RN Davis, Aleitha E, RN 04/18/19 09:25:38 04/18/19 09:25:38 04/18/19 09:08:44 Entry 10 Case Attendee KEVIN KNOWLES, ANTHONY Role Performed Plastics Tooling Engineer, Second Time In 04/18/19 08:57:00 Time Out 04/18/19 09:07:00 Procedure Laparoscopy Operative Robotic, Uterine D and C Hysteroscopy, Ovarian Cystectomy Laparoscopic Other Attendee Superficial Wound Closed By: Last Modified By: Carmen Lo RN 04/18/19 09:08:44 [facility] IntraOp Case Attendance Audit 04/18/19 09:25:38 Gum Worker: [email or web address] Modifier: ALEITHADAVIS 1 <+> Time Out 1 <*> Procedure Laparoscopy Operative Robotic, Uterine D and C Hysteroscopy, Ovarian Cystectomy Laparoscopic 2 <+> Time Out 2 <*> Procedure Laparoscopy Operative Robotic, Uterine D and C Hysteroscopy, Ovarian Cystectomy Laparoscopic 3 <+> Time Out 3 <*> Procedure Laparoscopy Operative Robotic, Uterine D and C Hysteroscopy, Ovarian Cystectomy Laparoscopic 4 <+> Time Out 4 <*> Procedure Laparoscopy Operative Robotic, Uterine D and C Hysteroscopy, Ovarian Cystectomy Laparoscopic 5 <+> Time Out 5 <*> Procedure Laparoscopy Operative Robotic, Uterine D and C Hysteroscopy, Ovarian Cystectomy Laparoscopic 6 <+> Time Out 6 <*> Procedure Laparoscopy Operative Robotic, Uterine D and C Hysteroscopy, Ovarian Cystectomy Laparoscopic 7 <+> Time Out 7 <*> Procedure Laparoscopy Operative Robotic, Uterine D and C Hysteroscopy, Ovarian Cystectomy Laparoscopic 8 <+> Time Out 8 <*> Procedure Laparoscopy Operative Robotic, Uterine D and C Hysteroscopy, Ovarian Cystectomy Laparoscopic 9 <+> Time Out 9 <*> Procedure Laparoscopy Operative Robotic, Uterine D and C Hysteroscopy, Ovarian Cystectomy Laparoscopic 10 <*> Procedure Laparoscopy Operative Robotic, Uterine D and C Hysteroscopy, Ovarian Cystectomy Laparoscopic 04/18/19 09:10:57 Gum Worker: [email or web address] Modifier: ALEITHADAVIS 1 <*> Procedure Laparoscopy Operative Robotic, Uterine D and C Hysteroscopy 2 <*> Procedure Laparoscopy Operative Robotic, Uterine D and C Hysteroscopy 3 <*> Procedure Laparoscopy Operative Robotic, Uterine D and C Hysteroscopy 4 <*> Procedure Laparoscopy Operative Robotic, Uterine D and C Hysteroscopy 5 <*> Procedure Laparoscopy Operative Robotic, Uterine D and C Hysteroscopy 6 <*> Procedure Laparoscopy Operative Robotic, Uterine D and C Hysteroscopy 7 <*> Procedure Laparoscopy Operative Robotic, Uterine D and C Hysteroscopy 8 <*> Procedure Laparoscopy Operative Robotic, Uterine D and C Hysteroscopy 9 <*> Procedure Laparoscopy Operative Robotic, Uterine D and C Hysteroscopy 10 <*> Procedure Laparoscopy Operative Robotic, Uterine D and C Hysteroscopy 04/18/19 09:08:44 Gum Worker: [email or web address] Modifier: ALEITHADAVIS 1 <*> Procedure Laparoscopy Operative Robotic, Uterine D and C Hysteroscopy 2 <+> Time In 2 <*> Procedure Laparoscopy Operative Robotic, Uterine D and C Hysteroscopy 3 <+> Time In 3 <*> Procedure Laparoscopy Operative Robotic, Uterine D and C Hysteroscopy 4 <+> Time In 4 <*> Procedure Laparoscopy Operative Robotic, Uterine D and C Hysteroscopy 5 <+> Time In 5 <*> Procedure Laparoscopy Operative Robotic, Uterine D and C Hysteroscopy 6 <+> Time In 6 <*> Procedure Laparoscopy Operative Robotic, Uterine D and C Hysteroscopy 7 <+> Time In 7 <*> Procedure Laparoscopy Operative Robotic, Uterine D and C Hysteroscopy <+> 8 Case Attendee <+> 8 Role Performed <+> 8 Time In <+> 8 Procedure <+> 9 Case Attendee <+> 9 Role Performed <+> 9 Time In <+> 9 Procedure <+> 9 Other Attendee <+> 10 Case Attendee <+> 10 Role Performed <+> 10 Time In <+> 10 Time Out <+> 10 Procedure 04/18/19 08:21:47 Gum Worker: [email or web address] Modifier: [email or web address] <+> 1 Procedure <+> 2 Case Attendee <+> 2 Role Performed <+> 2 Procedure <+> 3 Case Attendee <+> 3 Role Performed <+> 3 Procedure <+> 4 Case Attendee <+> 4 Role Performed <+> 4 Procedure <+> 5 Case Attendee <+> 5 Role Performed <+> 5 Procedure <+> 6 Case Attendee <+> 6 Role Performed <+> 6 Procedure <+> 7 Case Attendee <+> 7 Role Performed <+> 7 Procedure [facility] IntraOp Case Times Entry 1 Patient In Room Time 04/18/19 07:50:00 Out Room Time 04/18/19 09:20:00 Anesthesia Start Time 04/18/19 07:50:00 Stop Time 04/18/19 09:20:00 Anesthesia Ready 04/18/19 07:50:00 Surgery / Procedure Times Start Time 04/18/19 08:16:00 Stop Time 04/18/19 09:15:00 Last Modified By: Carmen Lo RN 04/18/19 08:10:04 [facility] IntraOp Case Times Audit 04/18/19 09:25:37 Gum Worker: [email or web address] Modifier: ALEITHADAVIS <+> 1 Out Room Time <+> 1 Stop Time <+> 1 Stop Time 04/18/19 08:20:13 Gum Worker: ALEITHADAVIS Modifier: ALEITHADAVIS <+> 1 Start Time [facility] IntraOp Cautery Entry 1 ESU Identification Cautery Type Monopolar ESU ID Number ERBE ID Type Hospital Number Cautery Settings Cut Setting 0 Coag Setting 30 ESU Grounding Pad Ground Pad Type Adult Grounding Pad Site Left thigh Grounding Pad Carmen Lo RN Applied By Grounding Pad Site Intact Skin Condition Before Cautery Grounding Pad Site Unchanged Skin Condition After Cautery Last Modified By: Carmen Lo RN 04/18/19 08:33:23 [facility] IntraOp Cautery Audit 04/18/19 08:35:51 Gum Worker: [email or web address] Modifier: [email or web address] <+> 1 ID Type [facility] IntraOp Communication Entry 1 Communication To Family/Significant other Comment START OF PROCEDURE Communication By Carmen Lo RN Date and Time 04/18/19 08:33:00 Last Modified By: Carmen Lo RN 04/18/19 08:33:34 [facility] IntraOp Counts Verification Entry 1 Procedure Laparoscopy Operative Robotic, Uterine D and C Hysteroscopy, Ovarian Cystectomy Laparoscopic Count Info Count Type Sponge, Sharps, Instrument, Miscellaneous Counts Verification Baseline/pre-procedure Sequence Count Results Correct, surgeon notified Counts Performed By Count Performed By LANCE GONZALEZ ST (Scrub) Count Performed By Carmen Lo RN (RN) Last Modified By: Carmen Lo RN 04/18/19 08:33:45 [facility] IntraOp Counts Verification Audit 04/18/19 09:10:59 Gum Worker: [email or web address] Modifier: ALEITHADAVIS 1 <*> Procedure Laparoscopy Operative Robotic, Uterine D and C Hysteroscopy [facility] IntraOp Counts Final Entry 1 Procedure Laparoscopy Operative Robotic, Uterine D and C Hysteroscopy, Ovarian Cystectomy Laparoscopic Final Count Info Count Type Sponge, Sharps, Miscellaneous Counts Verification Skin Closure/end of Sequence procedure Count Results Correct, surgeon notified Counts Performed By Count Performed By Quentin Cooper Surgical (Scrub) Skein Washer Cert Count Performed By Carmen Lo RN (RN) Last Modified By: Carmen Lo RN 04/18/19 08:33:56 [facility] IntraOp Counts Final Audit 04/18/19 09:11:01 Gum Worker: ALEITHADAVIS Modifier: ALEITHADAVIS 1 <*> Procedure Laparoscopy Operative Robotic, Uterine D and C Hysteroscopy 04/18/19 09:09:24 Gum Worker: [email or web address] Modifier: ALEITHADAVIS 1 <*> Procedure Laparoscopy Operative Robotic, Uterine D and C Hysteroscopy 1 <+> Count Performed By (Scrub) [facility] IntraOp Cultures and Spec Summary Entry 1 Cultrures and Specimens Specimen Ordered: Yes Test(s) Routine/Path-Lab Requested/Final Disposition Last Modified By: Carmen Lo RN 04/18/19 08:33:59 [facility] IntraOp Delays Entry 1 Delay Reason Surgeon late - no reason Duration 20 Minute(s) Comment MD SPEAKING WITH PATIENT AND FAMILY IN PREOP BEFORE PROCEDURE Last Modified By: Carmen Lo RN 04/18/19 08:34:34 [facility] IntraOp Departure from OR Entry 1 Integumentary Assessment Integumentary WDL Assessment WDL Transfer/Handoff Transfer to PACU Phase I Post-op Transport Stretcher/Gurney Via Patient Transport Carmen Lo RN, Accompanied by CARLO BA CRNA Last Modified By: Carmen Lo RN 04/18/19 08:34:45 [facility] IntraOp Dressing and Packing Entry 1 Type Dressing Location ABDOMEN Wound Dressing Item Steristrip, Occlusive dressing Applied By BRIAN BARRERA PA-C Other Comments STERISTRIPS AND TEGADERM Last Modified By: Carmen Lo RN 04/18/19 08:35:38 [facility] IntraOp Fire Risk Assessment Entry 1 Fire Info Surgical Site or 0- No Incision Above the Xyphoid Open O2 Source 0- No (Mask or Cannula) Available Ignition 1- Yes (ESU, Laser, Light Source) Fire Risk 1 Assessment Score Fire Score Fire Risk Yes Assessment Complete Fire Risk Carmen Lo RN Assessment Verified By Fire Risk 04/18/19 07:45:00 Assessment Verified Date/Time Fire Risk Standard Fire Yes Safety Precautions Followed Last Modified By: Carmen Lo RN 04/18/19 08:35:43 [facility] IntraOp General Case Goldbeater 1 Case Information OR OR 07 SJE Case Level 1 Room Verified Yes Wound Class II - Clean-Contaminated Specialty SN Gynecology Anesthesia Type General ASA Class 2 Diagnosis Preop Diagnosis HEAVY PAINFUL PERIODS, HX ENDOMETRIOSIS, DYSPAREUNIA, PCOS Postop Diagnosis DICTATED BY Last Modified By: Carmen Lo RN 04/18/19 08:36:09 [facility] IntraOp Implant Log Entry 1 Type Tissue Implant (Biologic) Implant Log Tissue Implant Type Tissue Implant TISS MTRX BIODRESTORE Identification [id number] Description Implant Quantity 1 Implant Site ABDOMEN Implant [id number] Identification Serial Number Implant [employer] Identification Vp Cardiovascular Service Line Name: Implant [id number] Identification Catalog Number Implant Has an Yes Expiration Date Implant Expiration 09/19/20 Date Tissue Implant Last Modified By: Carmen Lo RN 04/18/19 10:47:03 [facility] IntraOp Intraoperative Assessment Entry 1 Handoff Method Bedside/Face to face Valid History / Yes Physical in Chart Preoperative Yes Checklist Reviewed/Evaluated Allergies Reviewed No Patient is Latex No Sensitive Isolation Not applicable Precautions Noted Level of WDL Consciousness (WDL = Alert, Oriented to Person, Place, and Time) Skin Assessment Yes Verified Present Upon IVs Arrival to OR Last Modified By: Carmen Lo RN 04/18/19 08:36:14 [facility] IntraOp Intraoperative Equipment Entry 1 Equipment Equipment Robot Intraop Monitoring Electrocardiogram Three lead placement (ECG) Electrode Placement Antiembolic Devices Antiembolic Devices Sequential compression device, knee high Antiembolic Device Bilateral Location Scopes Photo/Video Documentation Last Modified By: Carmen Lo RN 04/18/19 08:36:29 [facility] IntraOp Laser Data/Safety Entry 1 Procedure Laparoscopy Operative Robotic, Uterine D and C Hysteroscopy, Ovarian Cystectomy Laparoscopic Laser Data Laser Mode Set By DAVID OSHEA ST Laser Fiber Used Yes Laser Safety Procedure personnel Measures Included received laser safety information, [place] of water/Saline immediately available, Fire extinguisher location [...] liquid around surgical area, Secure laser operation mitcehll, Implement fire protection measures Last Modified By: Carmen Lo RN 04/18/19 08:36:55 [facility] IntraOp Laser Data/Safety Audit 04/18/19 09:11:01 Gum Worker: TAMIKO Modifier: TAMIKO 1 <*> Procedure Laparoscopy Operative Robotic, Uterine D and C Hysteroscopy E IntraOp Medication Admin Entry 1 Entry 2 Entry 3 Medication/Irrigant Bacitracin 15Gm Xylocaine 2% 5ml jelly methylene blue 1% 1ml - ointment - [id number] - [id number] Combo Med List Time Administered Route of USED ON TROCARS LOCAL FLUSH Administration Dose Dose 5 Unit of Measure ml Volume QS QS Administered By [place] BAHENA KARON, MAGDALENE B, KARON, MAGDALENE B, MD-OBG MD-OBG MD-OBG Procedure Irrigation Irrigant Volume In Irrigant Volume Out Last Modified By: Carmen Lo, Carmen Sierra, Carmen Sierra, ANTHONY 04/18/19 08:37:39 04/18/19 08:37:39 04/18/19 08:37:39 Entry 4 Entry 5 Entry 6 Medication/Irrigant Ketorolac 30mg/ml vial clonidine 1ml Marcaine 0.5% w/ epinephrine 1:200,000 30ml vial - [id number] Combo Med List Time Administered Route of LOCAL LOCAL LOCAL Administration Dose Dose 1 0.8 30 Unit of Measure ml ml ml Volume QS Administered By [place] BAHENA KARON, MAGDALENE B, KARON, MAGDALENE B, MD-OBG MD-OBG MD-OBG Procedure Irrigation Irrigant Volume In Irrigant Volume Out Last Modified By: Carmen Lo RN Davis, Aleitha E, Carmen Sierra RN 04/18/19 08:37:39 04/18/19 08:37:39 04/18/19 08:37:39 Entry 7 Entry 8 Medication/Irrigant Naropin 0.5% 30ml vial Xylocaine 1% w/ - [id number] epinephrine 1:200,000 30ml vial - [id number] Combo Med List Time Administered Route of LOCAL LOCAL Administration Dose Dose 30 28.2 Unit of Measure ml ml Volume Administered By [place] BAHENA KARON, MAGDALENE B, MD-OBG MD-OBG Procedure Irrigation Irrigant Volume In Irrigant Volume Out Last Modified By: Carmen Lo RN Davis, Aleitha E, RN 04/18/19 08:37:39 04/18/19 08:37:39 [facility] IntraOp Patient Positioning Entry 1 Procedure Laparoscopy Operative Robotic, Ovarian Cystectomy Laparoscopic Body Position Lithotomy Left Arm Position Tucked and padded at side Right Arm Position Tucked and padded at side Left Leg Position Uncrossed, parallel Right Leg Position Uncrossed, parallel Feet Uncrossed Yes Pressure Points Yes Checked Positioning Devices Stirrups/Leg Brown, Boot, Pad (Other) Device Position PINK PAD Positioned By Carmen oL RN, CARLO BA CRNA, KARON, MAGDALENE B, MD-OBG, BRIAN BARRERA PA-C Position Verified Positioning Yes Verified by Anesthesia Positioning Yes Verified by Surgeon Last Modified By: Carmen Lo RN 04/18/19 08:38:17 [facility] IntraOp Patient Positioning Audit 04/18/19 09:11:00 Gum Worker: [email or web address] Modifier: ALEITHADAVIS 1 <*> Procedure Laparoscopy Operative Robotic 04/18/19 08:38:17 Gum Worker: [email or web address] Modifier: ALEITHADAVIS 1 <+> Body Position 1 <*> Procedure Laparoscopy Operative Robotic 1 <*> Positioned By Carmen Lo RN [facility] IntraOp Sign In Entry 1 Patient, Site, Yes Procedure Identified Surgical Consent Yes Confirmed Relevant Surgical Yes Documents Available Surgical Site N/A Marked by person performing procedure Anesthesia Machine Yes Check Completed Medication Checks Yes Completed Allergies Yes Airway Difficult No Airway/Aspiration Risk Difficult Yes Airway/Aspiration Intervention Equipment Available Blood Loss Risk No Blood Loss No Intervention Equipment Prepared and Ready Hypothermia Risk Yes Warming Measures Yes Taken Last Modified By: Carmen Lo RN 04/18/19 08:38:01 [facility] Intra Op Sign Out Entry 1 RN Confirmation Surgical Yes Procedure(s) Identified Instrument, Sponge Yes and Sharps Counts Correct/Documented Equipment Problems N/A Documented Specimen Labeled Yes Correctly Urinary Catheter Yes Documented in IView Mitchell Patient Yes Recovery Concerns Reviewed with Anesthesia Provider, Surgeon and RN Mitchell Patient Yes Management Concerns Reviewed with Anesthesia Provider, Surgeon and RN Safety Checklist Yes Elements Complete? RN Sign Out Carmen Lo RN Signature RN Sign Out 04/18/19 09:25:00 Signature Date/Time Plan of Care Outcome - [...] related to extraneous objects Last Modified By: Carmen Lo RN 04/18/19 08:38:22 [facility] Intra Op Sign Out Audit 04/18/19 09:25:43 Gum Worker: TAMIKO Modifier: [email or web address] <+> 1 RN Sign Out Signature Date/Time [facility] IntraOp Skin Prep Entry 1 Procedure Laparoscopy Operative Robotic, Uterine D and C Hysteroscopy, Ovarian Cystectomy Laparoscopic Prescribed Yes Pre-Surgical Prep Completed Prep Area VAGINA AND ABDOMEN Intraop Prep Integumentary WDL Assessment WDL Prep Agents Betadine solution, Chloraprep Prep by Carmen Lo RN Hair Removal Last Modified By: Carmen Lo RN 04/18/19 08:38:37 [facility] IntraOp Skin Prep Audit 04/18/19 09:11:00 Gum Worker: TAMIKO Modifier: ALEITHADAVIS 1 <*> Procedure Laparoscopy Operative Robotic, Uterine D and C Hysteroscopy [facility] IntraOp Surgical Procedures Entry 1 Entry 2 Entry 3 Procedure Laparoscopy Operative Uterine D and C Ovarian Cystectomy Robotic Hysteroscopy Laparoscopic Modifiers Additional ROBOTIC LAPAROSCOPY Procedure WITH LASER, Description HYSTEROSCOPY WITH DILATATION AND CURATTAGE, ENDOMETRIAL ABLATION Primary Procedure Yes No No Primary Surgeon [place] BAHENA, [place] BAHENA, [place] BAHENA MD-OBG -OBG -OBG Start 04/18/19 08:16:00 04/18/19 08:16:00 04/18/19 08:16:00 Stop 04/18/19 09:15:00 04/18/19 09:15:00 04/18/19 09:15:00 Physician States Cecum Reached Anesthesia Type General General General Specialty SN Gynecology SN Gynecology SN Gynecology Wound Class I - Clean II - Clean-Contaminated I - Clean Last Modified By: Carmen Lo RN Davis, Aleitha E, RN Davis, Aleitha E, RN 04/18/19 08:39:31 04/18/19 08:39:31 04/18/19 09:10:53 [facility] IntraOp Surgical Procedures Audit 04/18/19 09:25:44 Gum Worker: TAMIKO Modifier: [email or web address] <+> 1 Stop <+> 2 Stop <+> 3 Start <+> 3 Stop 04/18/19 09:10:53 Gum Worker: TAMIKO Modifier: [email or web address] <+> 3 Procedure <+> 3 Primary Procedure <+> 3 Primary Surgeon <+> 3 Specialty <+> 3 Wound Class <+> 3 Anesthesia Type [facility] IntraOp Time Out Entry 1 Procedure to be Laparoscopy Operative Performed Robotic, Uterine D and C Hysteroscopy, Ovarian Cystectomy Laparoscopic Time Out Time Out Pause Time 04/18/19 08:15:00 All activity Yes suspended (unless life threatening [...] present, Performed in location of procedure after prepped/draped Antibiotic Yes Prophylaxis Administered Or In Progress Within the Last 60 Minutes Beta Tatianna N/A Administered Venous Yes Thromboembolism Prophylaxis Required Anticipated Critical Events Surgeon None expected Anesthesia Provider None expected Nursing Assures Sterility of instruments, Implant Availability Essential Imaging Yes Labeled and Displayed Last Modified By: Carmen Lo RN 04/18/19 09:11:01 [facility] IntraOp Time Out Audit 04/18/19 09:11:01 Gum Worker: TAMIKO Modifier: MARBINVIS 1 <*> Procedure to be Performed Laparoscopy Operative Robotic, Uterine D and C Hysteroscopy Case Comments <None> Finalized By: Arlette Deras, RN Document Signatures Signed By: Carmen Lo RN 04/18/19 09:25 Carmen Lo RN 04/18/19 10:47 Arlette Deras RN 04/18/19 14:25 VIRY BENITEZ RN 04/19/19 05:05 Arlette Deras RN 05/28/20 12:48 Unfinalized History Date/Time Username Reason for Unfinalizing Freetext Reason for Unfinalizing 04/18/19 10:46 JESICA Modify Pick List S 04/18/19 14:24 JAJA Correct Billing 04/19/19 05:04 BALAJI Correct Billing 05/28/20 12:47 JAJA Chart Audit documented in this encounter Plan of Treatment Not on file documented as of this encounter Visit Diagnoses Not on filedocumented in this encounter Care Teams Water Treatment Plant Engineer Relationship Specialty Start Date End Date Erika So APRN [address] [place] [address] PCP - General Nurse Practitioner 05/07/23 [place] Bahena MD [address] [address] Referring Physician Obstetrics and Gynecology 05/07/23 documented as of this encounter
--- OUTSIDE RECORDS SUMMARY | 2025-05-25 13:18 | XMS_ITS | Encounter Summary ---
Author Organization [employer] ([place], [place], [place], [place]) Address [address] [place] [address] Care Team Providers Care Director Of Strategic Communications Name Role Phone Erika So APRN Primary Care Provider [phone] [place] Bahena MD Unavailable [phone] Encounter Details Date Type Department Care Team (Late st Contact Info) Description 03/06/2021 Transcribed Document [facility] [place] Medicine [facility] [place] [address] ProviderJosiah MD [address] [place] [address] Social History Tobacco Use Types Packs/Day Years Used Date Smoking Tobacco: Never Assessed Comments Unknown Sex and Gender Information Value Date Recorded Sex Assigned at Not on file Legal Sex Female 5:57 PM CDT Gender Identity Not on file Sexual Orientation Not on file documented as of this encounter Miscellaneous Notes * Cerner Conversion Note - Josiah Rivers MD - 03/06/2021 11:11 AM CDT ED Triage Entered On: 03/06/2021 11:30 EDT Performed On: 03/06/2021 11:25 EDT by Odessa Farr RN ED Triage Across the Room Chief Complaint : Pt c/o abscess on left upper thigh, pt was seen twice a @ [facility]. Pt was placed on steroids, bactrim, keflex and hydroxizine. Pt states site is getting worse. Pt has rash on back/abd and buttocks. Pt states rash was there prior to abx. Triage Date/Time : 03/06/2021 11:25 EDT Odessa Farr RN - 03/06/2021 11:25 EDT DCP GENERIC CODE Tracking Acuity : 3 - Urgent Tracking Group : [facility] [place] Odessa Farr RN - 03/06/2021 11:25 EDT Mode of Arrival : Ambulatory Transported to ED by : Walk in To Room Via : Ambulate Accompanied By : Unaccompanied ED Vital Signs : Document Height & Weight : Document ED Allergies : Document ED Infection Control : No ED Reason for Visit : Document Tetanus Immunization : Greater than 10 years Odessa Farr RN - 03/06/2021 11:25 EDT Infectious Disease History Has the patient ever been tested for COVID-19? : No, Patient stated Does patient have symptoms of COVID-19? : No COVID19 Screening : No Experiencing Infectious Disease Symptoms : No symptoms Physical contact outside [place] in the last 30 days : No Infectious Disease History : Chicken pox/Shingles, Human papilloma virus (HPV), Influenza Tuberculosis Symptoms : None Odessa Farr RN - 03/06/2021 11:25 EDT Vital Signs ED Temperature Source : Oral Temperature Mode : Fahrenheit Temperature, Fahrenheit : 98.5 Deg F Clinical Temperature, C : 36.9 Deg C Peripheral Pulse Rate : 78 bpm Respiratory Rate : 18 Breaths/Min Systolic Blood Pressure : 147 mmHg (HI) Diastolic Blood Pressure : 75 mmHg Oxygen Saturation : 98 % Odessa Farr RN - 03/06/2021 11:25 EDT Allergy (As Of: 03/06/2021 11:30:34 EDT) Allergies (Active) Adhesive Bandage Estimated Onset Date: Unspecified ; Reactions: surgical tape rash ; Comments: Comment 1: pt states she is allergic to surgical tape ; Created By: KEVIN SAWANT RN; Reaction Status: Active ; Category: Other ; Substance: Adhesive Bandage ; Type: Allergy ; Updated By: KEVIN SAWANT RN; Reviewed Date: 03/06/2021 11:28 EDT Latex Estimated Onset Date: Unspecified ; Created By: Carol Licona RN; Reaction Status: Active ; Category: Other ; Substance: Latex ; Type: Allergy ; Updated By: Carol Licona RN; Reviewed Date: 03/06/2021 11:28 EDT Diagnosis Control ED (As Of: 03/06/2021 11:30:34 EDT) Problems(Active) Anxiety (SNOMED CT :47360782 ) Name of Problem: Anxiety ; Recorder: KECIA MASON RN; Confirmation: Confirmed ; Classification: Patient Stated ; Code: 53681489 ; Contributor System: PowerChart ; Last Updated: 07/30/2015 14:46 EST ; Life Cycle Date: 07/30/2015 ; Life Cycle Status: Active ; Vocabulary: SNOMED CT Back pain (SNOMED CT :716285155 ) Name of Problem: Back pain ; Recorder: Ashleigh Choudhary RN; Confirmation: Confirmed ; Classification: Medical ; Code: 082120727 ; Contributor System: PowerChart ; Last Updated: 06/02/2019 9:16 EDT ; Life Cycle Date: 06/02/2019 ; Life Cycle Status: Active ; Vocabulary: SNOMED CT Endometriosis (SNOMED CT :778301996 ) Name of Problem: Endometriosis ; Recorder: KECIA MASON RN; Confirmation: Confirmed ; Classification: Patient Stated ; Code: 604976266 ; Contributor System: PowerChart ; Last Updated: 07/30/2015 14:45 EST ; Life Cycle Date: 07/30/2015 ; Life Cycle Status: Active ; Vocabulary: SNOMED CT GERD (gastroesophageal reflux disease) (SNOMED CT :6299917225 ) Name of Problem: GERD (gastroesophageal reflux disease) ; Recorder: ERIKA TOUSSAINT RN; Confirmation: Confirmed ; Classification: Medical ; Code: 5550249686 ; Contributor System: PowerChart ; Last Updated: 01/05/2017 13:12 EDT ; Life Cycle Date: 01/05/2017 ; Life Cycle Status: Active ; Vocabulary: SNOMED CT PCOS (polycystic ovarian syndrome) (SNOMED CT :205192349 ) Name of Problem: PCOS (polycystic ovarian syndrome) ; Recorder: KECIA MASON RN; Confirmation: Confirmed ; Classification: Patient Stated ; Code: 903976865 ; Contributor System: PowerChart ; Last Updated: 07/30/2015 14:44 EST ; Life Cycle Date: 07/30/2015 ; Life Cycle Status: Active ; Vocabulary: SNOMED CT Pelvic pain in female (SNOMED CT :8582320068 ) Name of Problem: Pelvic pain in female ; Recorder: KECIA MASON RN; Confirmation: Confirmed ; Classification: Patient Stated ; Code: 9807302962 ; Contributor System: Sazneo ; Last Updated: 07/30/2015 14:45 EST ; Life Cycle Date: 07/30/2015 ; Life Cycle Status: Active ; Vocabulary: SNOMED CT PONV (postoperative nausea and vomiting) (SNOMED CT :3115977 ) Name of Problem: PONV (postoperative nausea and vomiting) ; Recorder: KECIA MASON RN; Confirmation: Confirmed ; Classification: Patient Stated ; Code: 5995057 ; Contributor System: Accelerated IOChart ; Last Updated: 07/30/2015 14:49 EST ; Life Cycle Date: 07/30/2015 ; Life Cycle Status: Active ; Vocabulary: SNOMED CT Diagnoses(Active) Abscess - simple Date: 03/06/2021 ; Diagnosis Type: Reason For Visit ; Confirmation: Complaint of ; Clinical Dx: Abscess - simple ; Classification: Medical ; Clinical Service: Emergency medicine ; Code: PNED ; Probability: 0 ; Diagnosis Code: [id number] ED Height and Weight Height Source : Stated Height Entry Format : Carver Height, Feet : 5 ft(Converted to: 152 cm, 60 Inch) Height, Inches : 4 Inch(Converted to: 0 ft 4 Inch, 10.16 cm) Clinical Height : 162.56 cm Weight Source, ED : Critical estimated dosing weight Weight Entry Format : Carver Weight, Pounds : 210 lb Clinical Dosing Weight : 95.45 kg Body Surface Area (BSA) : 2 m2 Body Mass Index : 36.1 kg/m2 (HI) Deloit Body Weight (IBW) : 54.3 kg Odessa Farr RN - 03/06/2021 11:25 EDT documented in this encounter Plan of Treatment Not on file documented as of this encounter Visit Diagnoses Not on filedocumented in this encounter Care Teams Director Of Strategic Communications Relationship Specialty Start Date End Date Erika So APRN [address] [place] [address] PCP - General Nurse Practitioner 05/07/23 [place] Bahena MD [address] [address] Referring Physician Obstetrics and Gynecology 05/07/23 documented as of this encounter
--- OUTSIDE RECORDS SUMMARY | 2025-05-25 13:18 | XMS_ITS | Encounter Summary ---
Author Organization [employer] ([place], [place], [place], [place]) Address [address] [place] [address] Care Team Providers Care Mandarin Tutor Name Role Phone Erika So APRN Primary Care Provider [phone] Jim Bahena MD Unavailable [phone] Encounter Details Date Type Department Care Team (Late st Contact Info) Description 05/19/2020 Transcribed Document [facility] [place] [address] [place] [address] ProviderJosiah MD [address] [place] [id number] Social History Tobacco Use Types Packs/Day Years [...] Rivers MD - 05/19/2020 1:23 PM CDT [facility] Main OR PostOp Summary Primary Physician: JIM BAHENA MD-OBG Finalized Date/Time: 05/19/20 16:39:47 Pt. Name: TAHIR COECUTTQUINCY D.O.B./Sex: 1985 Female Med Rec #: [id number] Physician: JIM BAHENA MD-OBG Financial #: [id number] Pt. Type: O Room/Bed: /1 Admit/Disch: 05/19/20 08:51:00 - Institution: [facility] Main OR PostOp Case Times Entry 1 In PACU II 05/19/20 15:50:00 Ready for PACU II 05/19/20 16:23:00 Discharge Discharge from PACU 05/19/20 16:30:00 II Last Modified By: Samuel Jo RN 05/19/20 16:39:44 Finalized By: Samuel Jo, RN Document Signatures Signed By: Samuel Jo RN 05/19/20 16:39 Electronically signed by [facility] [employer] Conversion Banker Mason [employer]ner at 12/11/2022 4:51 PM CDT documented in this encounter Plan of Treatment Not on file documented as of this encounter Visit Diagnoses Not on filedocumented in this encounter Care Teams Mandarin Tutor Relationship Specialty Start Date End Date Erika So APRN [address] [place], [place] [phone] PCP - General Nurse Practitioner 05/07/23 Jim Bahena MD [address] [address] Referring Physician Obstetrics and Gynecology 05/07/23 documented as of this encounter
--- OUTSIDE RECORDS SUMMARY | 2025-05-25 13:18 | XMS_ITS | Encounter Summary ---
Author Organization [employer] ([place], [place], [place], [place]) Address [address] [place] [address] Care Team Providers Care White Goods Appliance Tech Name Role Phone Erika So APRN Primary Care Provider [phone] [place] Bahena MD Unavailable [phone] Encounter Details Date Type Department Care Team (Late st Contact Info) Description 02/17/2019 Transcribed Document [facility] [place] Family Medicine [address] [place] [address] ProviderJosiah MD [address] [place], [place] [id number] Social History Tobacco Use Types Packs/Day Years Used Date Smoking Tobacco: Never Assessed Comments Unknown Sex and Gender Information Value Date Recorded Sex Assigned at Not on file Legal Sex Female 5:57 PM CDT Gender Identity Not on file Sexual Orientation Not on file documented as of this encounter Miscellaneous Notes * Cerner Conversion Note - Josiah Rivers MD - 02/17/2019 10:54 AM CDT Pain Assessment Entered On: 02/17/2019 12:22 EDT Performed On: 02/17/2019 12:22 EDT by Chari Cohen RN Intervention Information: morphine Performed by Chari Cohen RN on 02/17/2019 11:22:00 EDT morphine,10mg IntraMuscular,Left Gluteus Medius Pain Assessment Pain Scale Used : 0-10 Scale Chari Cohen RN - 02/17/2019 12:22 EDT Pain Scale Intensity : 2 Chari Cohen, RN - 02/17/2019 12:22 EDT Image 4 - Images currently included in the form version of this document have not been included in the text rendition version of the form. documented in this encounter Plan of Treatment Not on file documented as of this encounter Visit Diagnoses Not on filedocumented in this encounter Care Teams White Goods Appliance Tech Relationship Specialty Start Date End Date Erika So, RAGHU [address] [place] [phone] PCP - General Nurse Practitioner 05/07/23 [place] Bahena MD [address] [address] Referring Physician Obstetrics and Gynecology 05/07/23 documented as of this encounter
--- OUTSIDE RECORDS SUMMARY | 2025-05-25 13:18 | XMS_ITS | Encounter Summary ---
Author Organization [employer] ([place], [place], [place], [place]) Address [address] [place] [address] Care Team Providers Care Manager Latin Name Role Phone Erika So APRN Primary Care Provider [phone] [place] Bahena MD Unavailable [phone] Encounter Details Date Type Department Care Team (Late st Contact Info) Description 02/17/2019 Transcribed Document [facility] [place] [address] [place] [address] ProviderJosiah MD [address] [place] [phone] Social History Tobacco Use Types Packs/Day Years Used Date Smoking Tobacco: Never Assessed Comments Unknown Sex and Gender Information Value Date Recorded Sex Assigned at Not on file Legal Sex Female 5:57 PM CDT Gender Identity Not on file Sexual Orientation Not on file documented as of this encounter Miscellaneous Notes * Cerner Conversion Note - Josiah Rivers MD - 02/17/2019 2:08 PM CDT ED Discharge Entered On: 02/17/2019 14:09 EDT Performed On: 02/17/2019 14:08 EDT by Chari Cohen RN Discharge Process Patient Disposition : Discharge Personal Belongings With Patient : No Patient Education Completed : No Teaching Evaluation : Verbalizes understanding IV Discontinued : Not applicable Nursing Documentation Completed : Yes Chari Cohen RN - 02/17/2019 14:08 EDT ED Discharge Discharge To : Home with ambulatory/outpatient follow-up Mode Of Departure : Ambulatory Discharge Instructions Reviewed With, Opportunity For Questions Given : Patient Chari Cohen, RN - 02/17/2019 14:08 EDT documented in this encounter Plan of Treatment Not on file documented as of this encounter Visit Diagnoses Not on filedocumented in this encounter Care Teams Manager Latin Relationship Specialty Start Date End Date Erika So APRN [address] [place] [phone] PCP - General Nurse Practitioner 05/07/23 [place] Bahena MD [address] [address] Referring Physician Obstetrics and Gynecology 05/07/23 documented as of this encounter
--- OUTSIDE RECORDS SUMMARY | 2025-05-25 13:18 | XMS_ITS | Referral Summary ---
Author Organization [employer] ([place], [place], [place], [place]) Address [address] [place] [address] Care Team Providers Care Combining Machine Operator Name Role Phone Erika So APRN Primary Care Provider [phone] [place] Bahena MD Unavailable [phone] Allergies Active Allergy Reactions Criticality Noted Date Comments Adhesive Bandage 09/18/2023 Other reaction(s): surgical tape rash 1pt states she is allergic to surgical tape Cephalexin Hives,Itching,Rash High 10/10/2022 Medications gabapentin (NEURONTIN) 300 MG capsule Take 1 capsule (300 mg total) by mouth 2 (two) times daily. 3 Active levothyroxine (SYNTHROID, LEVOTHROID) 50 MCG tablet Take 1 tablet (50 mcg total) by mouth daily. 2 Active omeprazole (PriLOSEC) 20 MG capsule Take 1 capsule (20 mg total) by mouth. Active Trintellix 10 mg tablet Take 1 tablet (10 mg total) by mouth daily. 3 Active galcanezumab-gnlm (Emgality Pen) 120 mg/mL pen Inject 1 mL (120 mg total) under the skin every 28 days. 3 mL 3 5 12/17/19 26 Active indomethacin (INDOCIN) 50 MG capsule Take 1 capsule (50 mg total) by mouth 2 (two) times daily as needed. 20 capsule 11 5 12/17/19 26 Active ondansetron (ZOFRAN-ODT) 8 MG disintegrating tabletIndications:I ntractable migraine without aura and without status migrainosus Take 1 tablet (8 mg total) by mouth every 6 (six) hours as needed for nausea. 20 tablet 11 5 12/17/19 26 Active Active Problems Problem Noted Date Diagnosed Date Endometriosis, pelvic peritoneum 09/24/2023 Severe dysmenorrhea 09/24/2023 Pelvic pain in female 09/24/2023 Irregular menses 09/24/2023 Preop examination 09/18/2023 Hypothyroid 09/18/2023 Endometriosis 09/18/2023 Mood disorder 09/18/2023 Migraine 09/18/2023 Obesity 09/18/2023 Social History Tobacco Use Types Packs/Day Years Used Date Smoking Tobacco: Never Smokeless Tobacco: Never Tobacco Cessation:Counseling Given: Not Answered Alcohol Use Standard Drinks/Week Comments Not Currently 0 (1 standard drink = 0.6 oz pur e alcohol) Family and Community Support Answer Dalton e Recorded Help with Day to Day Activities Not on file 09/05/2023 Feeling Lonely or Isolated Not on file 09/05 Educational Attainment Answer Date Lonnie rded Speak language other than Chinese at home Not on file 09/05/2023 Want [...] Sign Reading Time Taken Comments Blood Pressure 96/63 12/16/2024 10:45 AM EDT Pulse 69 12/16/2024 10:45 AM EDT Temperature 36.5 C (97.7 F) 09/25/2023 9:03 AM EST Respiratory Rate 14 09/25/2023 10:24 AM EST Oxygen Saturation 99% 12/20/2023 8:59 AM EDT Inhaled Oxygen Concentration - - Weight 98.2 kg (216 lb 8 oz) 12/16/2024 10:45 AM EDT Height 162.6 cm (5' 4 ) 12/16/2024 10:45 AM EDT Body Mass Index 37.16 12/16/2024 10:45 AM EDT Plan of Treatment Not on file Procedures Procedure Name Priority Date/Time Associated Diagnosis Comments LIPID PANEL STAT 09/25/2023 6:53 AM EST from Last 3 Months or Most Recently Relevant to Health Maintenance Results * Lipid panel (09/25/2023 6:53 AM EST) Triglycerides 60 0 - 249 mg/dL 09/25/2023 7:20 AM EST [facility] Cholesterol 197 0 - 199 mg/dL 09/25/2023 7:20 AM EST [facility] Comment: 200 to 239 mg/dL = Moderate (borderline) >239 mg/dL = High HDL Cholesterol 88 >=40 mg/dL 7:20 AM EST [facility] Comment: >=60 mg/dL = Desirable <40 mg/dL = Increased Risk All other components are listed individually or are calculations VLDL Cholesterol 12 5 - 40 mg/dL 09/25/2023 7:20 AM EST [facility] Cholesterol/HDL ratio 2.2 0.0 - 3.2 09/25/2023 7:20 AM EST [facility] LDl/HDL Ratio 1 0 - 4 09/25/2023 7:20 AM EST [facility] RISK COMP 2 09/25/2023 7:20 AM EST [facility] LDL Cholesterol, Calculated 97 0 - 99 mg/dL 09/25/2023 7:20 AM EST [facility] Blood Venipuncture / Unknown 09/25/2023 6:53 AM EST 09/25/2023 6:57 AM EST us [place] Bahena MD LAB BLOOD ORDERABLES Final Re sult [facility] [address] [place] [address], [facility] [phone] from Last 3 Months or Most Recently Relevant to Health Maintenance Insurance [employer] Advance Directives For more information, please contact: [phone] * Full Code (Latest Code Status on File) Date Activated Date Inactivated Comments 09/25/2023 8:08 AM 09/25/2023 12:20 PM * Full Code Date Activated Date Inactivated Comments 09/25/2023 5:18 AM 09/25/2023 8:08 AM Care Teams Combining Machine Operator Relationship Specialty Start Date End Date Erika So, RAGHU [address] [address] PCP - General Nurse Practitioner 05/07/23 [place] Bahena MD [address] [phone] Referring Physician Obstetrics and Gynecology 05/07/23
--- OUTSIDE RECORDS SUMMARY | 2025-05-25 13:18 | XMS_ITS | Encounter Summary ---
Author Organization [employer] ([place], [place], [place], [place]) Address [address] [place] [address] Care Team Providers Care Supervisor Mattress And Boxsprings Name Role Phone Erika So APRN Primary Care Provider [phone] [place] Bahena MD Unavailable [phone] Encounter Details Date Type Department Care Team (Late st Contact Info) Description 11/05/2020 Transcribed Document [facility] [place] [facility] [place] [address] ProviderJosiah MD [address] [place] [address] Social History Tobacco Use Types Packs/Day Years Used Date Smoking Tobacco: Never Assessed Comments Unknown Sex and Gender Information Value Date Recorded Sex Assigned at Not on file Legal Sex Female 5:57 PM CDT Gender Identity Not on file Sexual Orientation Not on file documented as of this encounter Miscellaneous Notes * Cerner Conversion Note - Josiah ProviderMD - 11/05/2020 3:37 PM GUITAR PLAYER [facility] Main OR PACU Summary Primary Physician: [place] BAHENA MD-OBG Finalized Date/Time: 11/05/20 17:09:59 Pt. Name: MAYCOJANAYCHUCKTTCAMRYN D.O.B./Sex: 1985 Female Med Rec #: [id number] Physician: [place] BAHENA MD-OBG Financial #: [id number] Pt. Type: O Room/Bed: EAS/1 Admit/Disch: 11/05/20 11:56:00 - Institution: [facility] Main OR PACU Case Times Entry 1 In PACU I 11/05/20 16:33:00 Ready for PACU 11/05/20 17:03:00 Discharge Discharge from PACU 11/05/20 17:03:00 I Last Modified By: Jaycee Cook RN 11/05/20 17:09:57 [facility] Main OR PACU Case Times Audit 11/05/20 17:09:57 Scientific Informatics Project Leader: JOSE ANTONIO Modifier: SUSANBREWER <+> 1 Ready for PACU Discharge <+> 1 Discharge from PACU I Finalized By: Jaycee Cook, RN Document Signatures Signed By: Jaycee Cook RN 11/05/20 17:09 Electronically signed by [facility] Conversion Insecticide Maker Cerner at 12/11/2022 4:52 PM CDT documented in this encounter Plan of Treatment Not on file documented as of this encounter Visit Diagnoses Not on filedocumented in this encounter Care Teams Supervisor Mattress And Boxsprings Relationship Specialty Start Date End Date Erika So, RAGHU [address] [place] [address] PCP - General Nurse Practitioner 05/07/23 [place] Bahena MD [address] [address] Referring Physician Obstetrics and Gynecology 05/07/23 documented as of this encounter
--- OUTSIDE RECORDS SUMMARY | 2025-05-25 13:19 | XMS_ITS | Encounter Summary ---
Author Organization [employer] ([place], [place], [place], [place]) Address [address] [place] [address] Care Team Providers Care Waterproofer Name Role Phone Erika So APRN Primary Care Provider [phone] [place] Bahena MD Unavailable [phone] Encounter Details Date Type Department Care Team (Late st Contact Info) Description 06/13/2019 Transcribed Document [facility] Family Medicine [address] [place] [address] ProviderJosiah MD [address] [place] [phone] Social History Tobacco Use Types Packs/Day Years Used Date Smoking Tobacco: Never Assessed Comments Unknown Sex and Gender Information Value Date Recorded Sex Assigned at Not on file Legal Sex Female 5:57 PM CDT Gender Identity Not on file Sexual Orientation Not on file documented as of this encounter Miscellaneous Notes * Cerner Conversion Note - Josiah Rivers MD - 06/13/2019 2:46 PM CDT Evaluation, Physical Therapy Entered On: 06/13/2019 15:27 EDT Performed On: 06/13/2019 14:38 EDT by VINITA ESTEVEZ Physical Therapist General Information, PT Visit Type, PT : Initial evaluation Patient Orders : Order Date Order Ordering 06/13/2019 09:50 Consult to Physical Therapy Ordered By: VIVIANA RUBIO MD-ORT 06/13/2019 14:46 PT Evaluation and Treatment Ordered By: VIVIANA RUBIO MD-ORT Active Diagnoses : No Qualifying Diagnoses Therapy Diagnosis, PT : aftercare following lumbar disc/lami Onset of Problem, PT : 06/13/2019 EDT Admission Date : 06/13/2019 03:57 Personal Devices : Personal Devices No Devices Recorded Assistive Devices : Assistive Devices No Devices Recorded VINITA ESTEVEZ Physical Therapist - 06/13/2019 15:11 EDT General Status Patient Received Status : Supine in bed Treatment Start Time : 06/13/2019 14:38 EDT Patient Left Status : Up in chair, Chair alarm activated, RN/PCT informed, Family/Visitors at bedside, Communication board completed, All needs met and within reach RN/PCT Informed Comment : RN and pt agreeable Treatment End Time : 06/13/2019 15:03 EDT Treatment Time : 25 Minute(s) VINITA ESTEVEZ Physical Therapist - 06/13/2019 15:11 EDT History and Environment Living Situation, Therapy : Home Patient Lives With : Dependent Child/Children, Spouse Persons Assisting Patient at Home : Spouse Professional Skilled Services : None Persons Providing Information : Patient Home Equipment Therapy, PT : None Home Setup : Two story Bedroom Location : Main level Bathroom #1 Location : Main level Stairs : Yes Stair Location(s) : Outside Outside Stairs, Number of Steps : 1 VINITA ESTEVEZ Physical Therapist - 06/13/2019 15:11 EDT Prior Level of Function PT GRID Prior LOF Ambulation, Household : Independent Prior LOF Ambulation, Community : Independent Prior LOF Bed Mobility : Independent Prior LOF Toileting : Independent Prior LOF Transfer : Independent VINITA ESTEVEZ Physical Therapist - 06/13/2019 15:11 EDT Upper Extremity Upper Extremity Dominance : Right Right UE Active ROM : WFL Right UE Strength : WFL Left UE Active ROM : WFL Left UE Strength : WFVINITA CAMPOS Physical Therapist - 06/13/2019 15:11 EDT Lower Extremity RLE Active ROM : WFL Right LE Strength : WFL LLE Active ROM : WFL Left LE Strength : WFVINITA CAMPOS Physical Therapist - 06/13/2019 15:11 EDT Functional Mobility Mobility Grid Bed Roll Left : Rehab Minimal assistance Bed Scooting : Rehab Minimal assistance Supine to Sit : Rehab Minimal assistance Sit to Stand : Rehab Minimal assistance Bed to Chair : Rehab Minimal assistance Stand to Sit : Rehab Minimal assistance VINITA ESTEVEZ Physical Therapist - 06/13/2019 15:11 EDT Functional MobilityComment : gait belt and RWx for transfers. CGA and educ for bed mobility within spinal precautions. CGA and cues for sit/stand, bed/chair, and stand/sit. Limited gait per pt request due to nausea once supine-sit. VINITA ESTEVEZ Physical Therapist - 06/13/2019 15:11 EDT Gait Training/Assessment, PT Weight Bearing Status : Full Gait Assistance Level : Assist, minimal Walking Distance : 5 feet Ambulatory Devices : Gait belt, Walker, front wheel Gait Deviations : Yes Gait Training Comment : CGA, cues for upright posture and gaze, safety with turns. Decreased hari, step length B, and apprehensive with all mobility. Pt used Wx for stability but unlikely to need it once anesthesia fully wears off and pt is no longer nauseous. VINITA ESTEVEZ Physical Therapist - 06/13/2019 15:11 EDT Neuromuscular Reeducation, PT Balance Comment : Sitting SBA static, CGA dynamic Standing CGA static, Haile dynamic VINITA ESTEVEZ Physical Therapist - 06/13/2019 15:11 EDT Neurological/Sensory Overall Sensory Response : Intact Response to Pain : Intact Neuro/Sensory Interventions Comment : ankle DF WFL B VINITA ESTEVEZ Physical Therapist - 06/13/2019 15:11 EDT Cognition Assessment, PT Orientation : Oriented x 4 Attention Assessment : Present VINITA ESTEVEZ Physical Therapist - 06/13/2019 15:11 EDT Edu Topics Physical Therapy Education Grid Balance Training : Returns demonstration Bed Mobility Training : Returns demonstration Caregiver Training : Verbalizes understanding Gait Training : Returns demonstration Positioning : Verbalizes understanding Precaution/Contraindication : Verbalizes understanding Role of Physical Therapy : Verbalizes understanding Safety : Verbalizes understanding Transfer Training : Returns demonstration Use of Assistive Device : Returns demonstration VINITA ESTEVEZ Physical Therapist - 06/13/2019 15:11 EDT Indication Assesessment, PT Physical Therapy Indicated : No VINITA ESTEVEZ Physical Therapist - 06/13/2019 15:11 EDT Plan of Care, PT PT Tx Plan/Goals Established w Patient : No Reason Tx/Plan Not Established W/ Pt PT : Pt to DC home today wtith good family support. No skilled need following eval and teaching today. VINITA ESTEVEZ Physical Therapist - 06/13/2019 15:11 EDT Treatment Note Subjective Comment : Pt agreeable to PT, denies pain but has nausea once sitting and requests not to walk too far. Her arrives in room during treatment and is supportive. Patient's Response to Treatment : good aside from nausea limiting amb distance Additional Objective Information : Per eval Pt educ in detail for spinal precautions and implications for mobility and ADLs, written on board in room to improve retention. Pt educ for safety precautions at home and general home safety. Assessment : Pt is appropriate to DC home once medically stable. No further skilled needs at this time. Plan for Treatment : DC home VINITA ESTEVEZ Physical Therapist - 06/13/2019 15:11 EDT Pain Assessment Pain Scaled Used : 0-10 Pain scale Pain Score Pre-Intervention : 0 (Comment: pt denies pain but has nausea, RN Notified and brought meds while PT still in room [VINITA ESTEVEZ Physical Therapist - 06/13/2019 15:11 EDT] ) Pain Score During-Intervention : 0 Pain Score Post-Intervention. : 0 VINITA ESTEVEZ Physical Therapist - 06/13/2019 15:11 EDT Image 1 - Images currently included in the form version of this document have not been included in the text rendition version of the form. [facility] PT Charges Gait Training Each 15 Min : 1 PT Eval Low Complexity : 1 VINITA ESTEVEZ Physical Therapist - 06/13/2019 15:11 EDT Electronically signed by Armando Barnes Conversion Machine Or Machinery Mechanic Cerner at 12/11/2022 5:19 PM CDT documented in this encounter Plan of Treatment Not on file documented as of this encounter Visit Diagnoses Not on filedocumented in this encounter Care Teams Waterproofer Relationship Specialty Start Date End Date Erika So APRN [address] [place] [address] PCP - General Nurse Practitioner 05/07/23 [place] Bahena MD [address] [place] [id number] Referring Physician Obstetrics and Gynecology 05/07/23 documented as of this encounter
--- OUTSIDE RECORDS SUMMARY | 2025-05-25 13:19 | XMS_ITS | Encounter Summary ---
Author Organization [employer] ([place], [place], [place], [place]) Address [address] [place] [address] Care Team Providers Care Waste Salvager Name Role Phone Erika So APRN Primary Care Provider [phone] [place] Bahena MD Unavailable [phone] Encounter Details Date Type Department Care Team (Late st Contact Info) Description 06/13/2019 Transcribed Document [facility] [place] [address] [place] [address] ProviderJosiah MD [address] [place], [place] [address] Social History Tobacco Use Types Packs/Day Years Used Date Smoking Tobacco: Never Assessed Comments Unknown Sex and Gender Information Value Date Recorded Sex Assigned at Not on file Legal Sex Female 5:57 PM CDT Gender Identity Not on file Sexual Orientation Not on file documented as of this encounter Miscellaneous Notes * Cerner Conversion Note - Josiah Rivers MD - 06/13/2019 5:13 PM CDT Initial Discharge Planning Entered On: 06/13/2019 17:14 EDT Performed On: 06/13/2019 17:13 EDT by GAYE DEVI, Care Management-Gel Coater Initial Assessment I Previously Documented Living Environment : No qualifying data available. Living Situation : Home Patient Lives With : Spouse Emergency Contact #1 : Jose Emergency Contact #1 Emergency Contact #1 Relationship : spouse Emergency Contact #2 : . Emergency Contact #2 Phone Number : . Emergency Contact #2 Relationship : . GAYE DEVI Care Management-Gel Coater - 06/13/2019 17:13 EDT Initial Assessment II Sensory and Motor Deficits : Other: lumbar fusion Current Home Treatments and Equipment : None GAYE DEVI Care Management-Gel Coater - 06/13/2019 17:13 EDT Discharge Needs I Anticipated Discharge Date : 06/13/2019 EDT Anticipated Discharge To, CM : Home with family care Current Home Treatment/Equipment : Current Home Treatment/Equipment No qualifying data available. Post Acute/Home Treatments : None Documentation Status Complete : Yes GAYE DEVI Care Management-Gel Coater - 06/13/2019 17:13 EDT Discharge Needs II Professional Skilled Services : Professional Skilled Services No qualifying data available. GAYE DEVI Care Management-Gel Coater - 06/13/2019 17:13 EDT Narrative Note Narrative Note : patient ambulating independently with no use of walker stated she does not need one GAYE DEVI Care Management-Gel Coater - 06/13/2019 17:13 EDT documented in this encounter Plan of Treatment Not on file documented as of this encounter Visit Diagnoses Not on filedocumented in this encounter Care Teams Waste Salvager Relationship Specialty Start Date End Date Erika So APRN [address] [place] [address] PCP - General Nurse Practitioner 05/07/23 [place] Bahena MD [address] [facility] [address] [place] [address] Referring Physician Obstetrics and Gynecology 05/07/23 documented as of this encounter
--- OUTSIDE RECORDS SUMMARY | 2025-05-25 13:20 | XMS_ITS | Encounter Summary ---
Author Organization [employer] ([place], [place], [place], [place]) Address [address] [place] [address] Care Team Providers Care Eap Counselor Name Role Phone Erika So APRN Primary Care Provider [phone] [place] Bahena MD Unavailable [phone] Encounter Details Date Type Department Care Team (Late st Contact Info) Description 03/06/2021 Transcribed Document [facility] [place] Family Medicine [address] [place] [address] ProviderJosiah MD [address] [place] [id number] Social History Tobacco Use Types Packs/Day Years Used Date Smoking Tobacco: Never Assessed Comments Unknown Sex and Gender Information Value Date Recorded Sex Assigned at Not on file Legal Sex Female 5:57 PM CDT Gender Identity Not on file Sexual Orientation Not on file documented as of this encounter Miscellaneous Notes * Cerner Conversion Note - Josiah Rivers MD - 03/06/2021 3:15 PM CDT [address] [address] EVITA CAVAZOSTT QUINCYJANAY SANCHEZ :1985 Visit Time:03/06/2021 Your Visit Summary Your Care Team Primary Provider: ZIA SYKES MD Secondary Provider: Your Diagnosis Abscess - simple Cellulitis, leg Hypertension Rash Vasculitis of skin Medical Information You may obtain a copy [...] do next Follow-Up Appointments Follow Up with SHON BAEZA When Within 2 to 3 days Comments Your blood pressure was elevated during your visit to the emergency department today. There are many reasons as to why this may be, including your condition upon arrival to the hospital, as well as the stress involved with your situation. I have provided you a phone contact in order to arrange follow-up for this condition and its potential complications. You may certainly arrange follow up with your primary provider. Return or go to the nearest ER for dizziness, fever, difficulty in breathing and or persistent vomiting without keeping the medications down. I would discontinue the Bactrim, Keflex, Medrol Dosepak and low-dose hydroxyzine. Prescriptions (3) Active clindamycin 300 mg oral capsule 300 mg = 1 Cap, Cap, Q6H, Oral, 10 Day(s), 40 Cap, 0 refill(s), Route to Pharmacy Electronically, [facility] DexPak 13 DayTaperpak 1.5 mg oral tablet See Instructions, as directed on package labeling, 27 Day(s), 51 Each, 0 refill(s), Route to Pharmacy Electronically, [facility] hydrOXYzine pamoate 50 mg oral capsule 50 mg = 1 Cap, Cap, QID, Oral, PRN, as needed for itching, 5 Day(s), 20 Cap, 0 refill(s), Route to Pharmacy Electronically, [facility] Where: [address] [place] [address] Business (1) Follow Up with RUEL LECHUGA When Within 2 to 3 days Where: [address] [place] [address]- Business (1) Allergies Adhesive Bandage (surgical tape rash) Latex Immunizations This Visit No Immunizations Found Medications What How Much When Instructions Next Dose clindamycin (clindamycin 300 mg oral capsule) 1 Capsule(s) Oral Every 6 Hours Duration: 10 Day(s) Pickup at [facility]91 dexAMETHasone (DexPak 13 DayTaperpak 1.5 mg oral tablet) See instructions Duration: 27 Day(s) as directed on package labeling Pickup at [facility] 591 hydrOXYzine (hydrOXYzine pamoate 50 mg oral capsule) 1 Capsule(s) Oral Four Times A Day as needed for as needed for itching Duration: 5 Day(s) Pickup at [facility] 591 amitriptyline 50 Milligram(s) Oral At Bedtime ethinyl estradiol-levonorgestrel (Balcoltra) Oral Every Day levothyroxine (levothyroxine 50 mcg (0.05 mg) oral tablet) 1 Tablet(s) Oral Every Day omeprazole 20 Milligram(s) Oral Every Day vortioxetine (Trintellix 10 mg oral tablet) Oral Every Day Pharmacy Information [facility]: [address] [place] [address] [phone] The home medications listed are only as [...] This Visit (last charted value for your 03/06/2021 visit) Hematology 03/06/2021 12:12 PM WBC: 13.6 K/uL -- Normal range between ( 3.9 and 10.0 ) RBC: 4.15 Million/uL -- Normal range between ( 3.93 and 5.22 ) Hct: 39.8 % -- Normal range between ( 34.1 and 44.9 ) Hgb: 13.0 Gram/dL -- Normal range between ( 11.2 and 15.7 ) Platelet Count: 306 K/uL -- Normal range between ( 163 and 369 ) MCH: 31.3 pg -- Normal range between ( 25.6 and 32.2 ) MCHC: 32.7 Gram/dL -- Normal range between ( 32.3 and 36.5 ) MCV: 95.9 fL -- Normal range between ( 79.0 and 94.8 ) Slide Review: No Eos %: 2.3 % -- Normal range between ( 1.0 and 7.0 ) [place] #: 0.60 K/uL -- Normal range between ( 0.24 and 0.82 ) Eos #: 0.31 K/uL -- Normal range between ( 0.04 and 0.54 ) [place] %: 4.4 % -- Normal range between ( 4.7 and 12.5 ) Sed Rate Auto: 15 mm/Hr -- Normal range between ( 0 and 20 ) Baso %: 0.1 % -- Normal range between ( 0.0 and 1.0 ) Baso #: 0.02 K/uL -- Normal range between ( 0.01 and 0.08 ) RDW: 13.0 % -- Normal range between ( 11.6 and 14.4 ) Neut %: 86.9 % -- Normal range between ( 34.0 and 71.0 ) Neut #: 11.82 K/uL -- Normal range between ( 1.56 and 6.13 ) Lymph %: 5.9 % -- Normal range between ( 19.3 and 53.0 ) Lymph #: 0.81 K/uL -- Normal range between ( 1.18 and 3.74 ) MPV: 8.6 fL -- Normal range between ( 9.4 and 12.4 ) IG#: 0 x10(3)/uL IG%: 0 % -- Normal range between ( 0 and 1 ) Urinalysis 03/06/2021 12:12 PM Ur RBC: 10-20 /HPF Urine Nitrite: Negative Urine Leukocyte Esterase: Moderate Urine Appearance: Cloudy Urine Glucose Dipstick: Negative Urine Blood Dipstick: Large Urine Urobilinogen Dipstick: 0.2 EU/dL -- Normal range between ( 0.2 and 1.0 ) Urine Protein Dipstick: Negative Ur Bacteria: 2+ Ur Squamous Epithelial Cells: 50-100 /HPF Urine Color: Yellow Ur WBC: 10-20 /HPF Urine Ketones Dipstick: Negative Ur Mucous: 1+ Urine pH Dipstick: 6.0 -- Normal range between ( 6.0 and 8.0 ) Urine Bilirubin Dipstick: Negative Urine Specific [place]: 1.020 -- Normal range between ( 1.005 and 1.030 ) Urine Type.: U CleanCatch Urine Culture if Indicated: See Comment General Chemistry 03/06/2021 12:12 PM Creatinine Level: 0.95 mg/dL -- Normal range between ( 0.55 and 1.02 ) Sodium Level: 139 mmol/L -- Normal range between ( 136 and 146 ) Potassium Level: 3.8 mmol/L -- Normal range between ( 3.5 and 5.1 ) Chloride Level: 111 mmol/L -- Normal range between ( 102 and 112 ) Carbon Dioxide Level: 23 mmol/L -- Normal range between ( 21 and 32 ) Anion Gap: 9 -- Normal range between ( 9 and 20 ) Bilirubin Total: 0.5 mg/dL -- Normal range between ( 0.2 and 1.3 ) A/G Ratio: 0.9 -- Normal range between ( 1.1 and 2.5 ) ALT: 19 Units/Liter -- Normal range between ( 12 and 78 ) AST: 12 Units/Liter -- Normal range between ( 5 and 37 ) Globulin: 3.8 Gram/dL -- Normal range between ( 1.5 and 4.5 ) Alk Phos: 89 Units/Liter -- Normal range between ( 27 and 136 ) Bun/Creatinine: 18.9 -- Normal range between ( 8.0 and 20.0 ) Calcium Level: 7.7 mg/dL -- Normal range between ( 8.5 and 10.1 ) CRP: 1.0 mg/dL -- Normal range between ( 0.0 and 0.9 ) eGFR : >60 mL/min/1.73m2 eGFR NonAfrican: >60 mL/min/1.73m2 Glucose Level: 80 mg/dL -- Normal range between ( 74 and 106 ) Blood Urea Nitrogen: 18 mg/dL -- Normal range between ( 7 and 22 ) Protein Total: 7.2 Gram/dL -- Normal range between ( 6.4 and 8.2 ) Albumin Level: 3.4 Gram/dL -- Normal range between ( 3.4 and 5.0 ) Cardiac Specific Markers 03/06/2021 12:12 PM CK: 47 Units/Liter -- Normal range between ( 26 and 192 ) Education Materials Hypertension, Adult High blood pressure (hypertension) is when the force of blood pumping through the arteries is too strong. The arteries are the blood vessels that carry blood from the heart throughout the body. Hypertension forces the heart to work harder to pump blood and may cause arteries to become narrow or stiff. Untreated or uncontrolled hypertension can cause a heart attack, heart failure, a stroke, kidney disease, and other problems. A blood pressure reading consists of a higher number over a lower number. Ideally, your blood pressure should be below 120/80. The first ( top ) number is called the systolic pressure. It is a measure of the pressure in your arteries as your heart beats. The second ( bottom ) number is called the diastolic pressure. It is a measure of the pressure in your arteries as the heart relaxes. What are the causes? The exact cause of this condition is not known. There are some conditions that result in or are related to high blood pressure. What increases the risk? Some risk factors for high blood pressure are under your control. The following factors may make you more likely to develop this condition: ??? Smoking. ??? Having type 2 diabetes mellitus, high cholesterol, or both. ??? Not getting enough exercise or physical activity. ??? Being overweight. ??? Having too much fat, sugar, calories, or salt (sodium) in your diet. ??? Drinking too much alcohol. Some risk factors for high blood pressure may be difficult or impossible to change. Some of these factors include: ??? Having chronic kidney disease. ??? Having a family history of high blood pressure. ??? Age. Risk increases with age. ??? Race. You may be at higher risk if you are . ??? Gender. Men are at higher risk than women before age 45. After age 65, women are at higher risk than men. ??? Having obstructive sleep apnea. ??? Stress. What are the signs or symptoms? High blood pressure may not cause symptoms. Very high blood pressure (hypertensive crisis) may cause: ??? Headache. ??? Anxiety. ??? Shortness of breath. ??? Nosebleed. ??? Nausea and vomiting. ??? Vision changes. ??? Severe chest pain. ??? Seizures. How is this diagnosed? This condition is diagnosed by measuring your blood pressure while you are seated, with your arm resting on a flat surface, your legs uncrossed, and your feet flat on the floor. The cuff of the blood pressure monitor will be placed directly against the skin of your upper arm at the level of your heart. It should be measured at least twice using the same arm. Certain conditions can cause a difference in blood pressure between your right and left arms. Certain factors can cause blood pressure readings to be lower or higher than normal for a short period of time: ??? When your blood pressure is higher when you are in a health care provider's office than when you are at home, this is called white coat hypertension. Most people with this condition do not need medicines. ??? When your blood pressure is higher at home than when you are in a health care provider's office, this is called masked hypertension. Most people with this condition may need medicines to control blood pressure. If you have a high blood pressure reading during one visit or you have normal blood pressure with other risk factors, you may be asked to: ??? Return on a different day to have your blood pressure checked again. ??? Monitor your blood pressure at home for 1 week or longer. If you are diagnosed with hypertension, you may have other blood or imaging tests to help your health care provider understand your overall risk for other conditions. How is this treated? This condition is treated by making healthy lifestyle changes, such as eating healthy foods, exercising more, and reducing your alcohol intake. Your health care provider may prescribe medicine if lifestyle changes are not enough to get your blood pressure under control, and if: ??? Your systolic blood pressure is above 130. ??? Your diastolic blood pressure is above 80. Your personal target blood pressure may vary depending on your medical conditions, your age, and other factors. Follow these instructions at home: Eating and drinking ??? Eat a diet that is high in fiber and potassium, and low in sodium, added sugar, and fat. An example eating plan is called the DASH (Dietary Approaches to Stop Hypertension) diet. To eat this way: ? Eat plenty of fresh fruits and vegetables. Try to fill one half of your plate at each meal with fruits and vegetables. ? Eat whole grains, such as whole-wheat pasta, brown rice, or whole-grain bread. Fill about one fourth of your plate with whole grains. ? Eat or drink low-fat dairy products, such as skim milk or low-fat yogurt. ? Avoid fatty cuts of meat, processed or cured meats, and poultry with skin. Fill about one fourth of your plate with lean proteins, such as fish, chicken without skin, beans, eggs, or tofu. ? Avoid pre-made and processed foods. These tend to be higher in sodium, added sugar, and fat. ??? Reduce your daily sodium intake. Most people with hypertension should eat less than 1,500 mg of sodium a day. ??? Do not drink alcohol if: ? Your health care provider tells you not to drink. ? You are , may be , or are planning to become . ??? If you drink alcohol: ? Limit how much you use to: ? 0???1 drink a day for women. ? 0???2 drinks a day for men. ? Be aware of how much alcohol is in your drink. In the [place] one drink equals one 12 oz bottle of beer (355 mL), one 5 oz glass of wine (148 mL), or one 1?? oz glass of hard liquor (44 mL). Lifestyle ??? Work with your health care provider to maintain a healthy body weight or to lose weight. Ask what an ideal weight is for you. ??? Get at least 30 minutes of exercise most days of the week. Activities may include walking, swimming, or biking. ??? Include exercise to strengthen your muscles (resistance exercise), such as Pilates or lifting weights, as part of your weekly exercise routine. Try to do these types of exercises for 30 minutes at least 3 days a week. ??? Do not use any products that contain nicotine or tobacco, such as cigarettes, e-cigarettes, and chewing tobacco. If you need help quitting, ask your health care provider. ??? Monitor your blood pressure at home as told by your health care provider. ??? Keep all follow-up visits as told by your health care provider. This is important. Medicines ??? Take ukvj-jos-qmjpiht and prescription medicines only as told by your health care provider. Follow directions carefully. Blood pressure medicines must be taken as prescribed. ??? Do not skip doses of blood pressure medicine. Doing this puts you at risk for problems and can make the medicine less effective. ??? Ask your health care provider about side effects or reactions to medicines that you should watch for. Contact a health care provider if you: ??? Think you are having a reaction to a medicine you are taking. ??? Have headaches that keep coming back (recurring). ??? Feel dizzy. ??? Have swelling in your ankles. ??? Have trouble with your vision. Get help right away if you: ??? Develop a severe headache or confusion. ??? Have unusual weakness or numbness. ??? Feel faint. ??? Have severe pain in your chest or abdomen. ??? Vomit repeatedly. ??? Have trouble breathing. Summary ??? Hypertension is when the force of blood pumping through your arteries is too strong. If this condition is not controlled, it may put you at risk for serious complications. ??? Your personal target blood pressure may vary depending on your medical conditions, your age, and other factors. For most people, a normal blood pressure is less than 120/80. ??? Hypertension is treated with lifestyle changes, medicines, or a combination of both. Lifestyle changes include losing weight, eating a healthy, low-sodium diet, exercising more, and limiting alcohol. This information is not intended to replace advice given to you by your health care provider. Make sure you discuss any questions you have with your health care provider. Document Revised: 04/23/2019 Document Reviewed: 04/23/2019 [employer] Patient Education ?? 2020 [employer]. Cellulitis, Adult Cellulitis is a skin infection. The infected area is often warm, red, swollen, and sore. It occurs most often in the arms and lower legs. It is very important to get treated for this condition. What are the causes? This condition is caused by bacteria. The bacteria enter through a break in the skin, such as a cut, burn, insect bite, open sore, or crack. What increases the risk? This condition is more likely to occur in people who: ??? Have a weak body defense system (immune system). ??? Have open cuts, pitst, bites, or scrapes on the skin. ??? Are older than 60 years of age. ??? Have a blood sugar problem (diabetes). ??? Have a long-lasting (chronic) liver disease (cirrhosis) or kidney disease. ??? Are very overweight (obese). ??? Have a skin problem, such as: ? Itchy rash (eczema). ? Slow movement of blood in the veins (venous stasis). ? Fluid buildup below the skin (edema). ??? Have been treated with high-energy rays (radiation). ??? Use IV drugs. What are the signs or symptoms? Symptoms of this condition include: ??? Skin that is: ? Red. ? Streaking. ? Spotting. ? Swollen. ? Sore or painful when you touch it. ? Warm. ??? A fever. ??? Chills. ??? Blisters. How is this diagnosed? This condition is diagnosed based on: ??? Medical history. ??? Physical exam. ??? Blood tests. ??? Imaging tests. How is this treated? Treatment for this condition may include: ??? Medicines to treat infections or allergies. ??? Home care, such as: ? Rest. ? Placing cold or warm cloths (compresses) on the skin. ??? Hospital care, if the condition is very bad. Follow these instructions at home: Medicines ??? Take cesc-smp-mbeeygv and prescription medicines only as told by your doctor. ??? If you were prescribed an antibiotic medicine, take it as told by your doctor. Do not stop taking it even if you start to feel better. General instructions ??? Drink enough fluid to keep your pee (urine) pale yellow. ??? Do not touch or rub the infected area. ??? Raise (elevate) the infected area above the level of your heart while you are sitting or lying down. ??? Place cold or warm cloths on the area as told by your doctor. ??? Keep all follow-up visits as told by your doctor. This is important. Contact a doctor if: ??? You have a fever. ??? You do not start to get better after 1???2 days of treatment. ??? Your bone or joint under the infected area starts to hurt after the skin has healed. ??? Your infection comes back. This can happen in the same area or another area. ??? You have a swollen bump in the area. ??? You have new symptoms. ??? You feel ill and have muscle aches and pains. Get help right away if: ??? Your symptoms get worse. ??? You feel very sleepy. ??? You throw up (vomit) or have watery poop (diarrhea) for a long time. ??? You see red streaks coming from the area. ??? Your red area gets larger. ??? Your red area turns dark in color. These symptoms may represent a serious problem that is an emergency. Do not wait to see if the symptoms will go away. Get medical help right away. Call your local emergency services (911 in the [place] Do not drive yourself to the hospital. Summary ??? Cellulitis is a skin infection. The area is often warm, red, swollen, and sore. ??? This condition is treated with medicines, rest, and cold and warm cloths. ??? Take all medicines only as told by your doctor. ??? Tell your doctor if symptoms do not start to get better after 1???2 days of treatment. This information is not intended to replace advice given to you by your health care provider. Make sure you discuss any questions you have with your health care provider. Document Revised: 01/02/2019 Document Reviewed: 01/02/2019 [employer] Patient Education ?? 2020 [employer] Vasculitis Vasculitis is inflammation of the blood vessels. With vasculitis, the blood vessels can become thick, narrow, scarred, or weak. Enough blood may not be able to flow through them. This can cause damage to the muscles, kidneys, lungs, brain, and other parts of the body. There are many types of vasculitis. The different types may affect different kinds of blood vessels or different areas of the body. Some types last only a short time, while others last a long time. What are the causes? The exact cause of this condition is not known. However, vasculitis can develop when the body's defense system (immune system) attacks its own blood vessels. This attack can be caused by: ??? An infection. ??? An immune system disease, such as lupus, rheumatoid arthritis, or scleroderma. ??? An allergic reaction to a medicine. ??? A cancer that affects blood cells, such as leukemia or lymphoma. What increases the risk? The following factors may make you more likely to develop this condition: ??? Being a smoker. ??? Being under stress. ??? Having a physical injury. What are the signs or symptoms? Symptoms of this condition depend on the type of vasculitis that you have. Symptoms that are common to all types of vasculitis include: ??? Fever. ??? Poor appetite. ??? Weight loss. ??? Feeling very tired (fatigue). ??? Having aches and pains. ??? Weakness. ??? Numbness in an area of your body. Symptoms for specific types of vasculitis include: ??? Skin problems, such as sores, spots, or rashes. ??? Trouble seeing. ??? Trouble breathing. ??? Coughing up blood. ??? Blood in your urine. ??? Headaches. ??? Stomach pain. ??? Stuffy or bloody nose. How is this diagnosed? This condition may be diagnosed based on: ??? Your symptoms. ??? A physical exam. You may also have tests, including: ??? Blood tests. ??? A urine test. ??? A biopsy of a blood vessel. ??? A test to measure the electrical signals moving through nerves (nerve conduction study). ??? Imaging tests, such as: ? X-rays. ? CT scan. ? Ultrasound. ? MRI. ? Angiogram. How is this treated? Treatment for this condition will depend on the type of vasculitis that you have and how severe the symptoms are. Sometimes treatment is not needed. Treatment often includes: ??? Medicines. ??? Physical therapy or occupational therapy. This helps strengthen muscles that were weakened by the disease. You will need to see your health care provider while you are being treated. During follow-up visits, your health care provider may: ??? Perform blood tests and bone density tests. ??? Check your blood pressure and blood sugar. ??? Check for side effects of any medicines you are taking. Vasculitis cannot always be cured. Sometimes symptoms go away but the disease does not (the disease goes into remission). If symptoms return, increased treatment may be needed. Follow these instructions at home: ??? Take uxkl-wdv-ikmnynd and prescription medicines only as told by your health care provider. ??? Exercise as directed. Talk with your health care provider about what exercises are okay for you to do. Exercises that increase your heart rate (aerobic exercise), such as walking, are usually recommended. Aerobic exercise helps control your blood pressure and prevent bone loss. ??? Follow a healthy diet. Make sure your diet includes fruits, vegetables, whole grains, and healthy sources of protein. ??? Learn as much as you can about vasculitis, and consider joining a support group. ? Talk to other people who have your condition. This may help you cope with the illness. ? Talk with your health care provider if you feel stressed, anxious, or depressed. ??? Keep all follow-up visits as told by your health care provider. This is important. Contact a health care provider if: ??? Your symptoms return or you have new symptoms. ??? Your fever, fatigue, headache, or weight loss gets worse. ??? You have signs of infection, such as redness, swelling, tenderness, warmth, or a new fever. ??? Your pain does not go away, even after you take pain medicine. ??? Your nose bleeds. Get help right away if: ??? Your vision gets worse. ??? You have chest pain or stomach pain. ??? You have trouble breathing. ??? One side of your face or body suddenly becomes weak or numb. ??? There is blood in your urine. Summary ??? Vasculitis is inflammation of the blood vessels that may cause them to become thick, narrow, scarred, or weak. Enough blood may not be able to flow through them. This can cause damage throughout your body. ??? The exact cause of this condition is not known. However, vasculitis can develop when the body's immune system attacks its own blood vessels. This attack may be caused by an infection, an immune system disease, an allergic reaction to a medicine, or a cancer that affects blood cells, such as leukemia or lymphoma. ??? Vasculitis cannot always be cured. Sometimes symptoms go away but the disease does not (the disease goes into remission). If symptoms return, increased treatment may be needed. This information is not intended to replace advice given to you by your health care provider. Make sure you discuss any questions you have with your health care provider. Document Revised: 09/13/2018 Document Reviewed: 09/03/2018 [employer] Patient Education ?? 2020 [employer]. Emergency Awareness and Preventative Care STROKE is [...] Assistance with quitting is available by contacting 0-181-ZYVT-NOW. This is a free resource providing counseling, [...] including: emergency, radiology, or pathology physicians. Patient Name:QUINCY MCCARTY I have received this information and was given the opportunity to ask questions. Patient/Surface Boss Name: Patient/Surface Boss Signature: Relationship to Patient: Clinician/Hospital Surface Boss Signature: Please Provide a Telephone Number Where You Can Be Reached: Is it Permissible To Leave a Message? Date: documented in this encounter Plan of Treatment Not on file documented as of this encounter Visit Diagnoses Not on filedocumented in this encounter Care Teams Eap Counselor Relationship Specialty Start Date End Date Erika So, RAGHU [address] [place] [address] PCP - General Nurse Practitioner 05/07/23 [place] Bahena MD [address] [address] Referring Physician Obstetrics and Gynecology 05/07/23 documented as of this encounter
--- OUTSIDE RECORDS SUMMARY | 2025-05-25 13:20 | XMS_ITS | Encounter Summary ---
Author Organization [facility] ([place], [place], [place], [place]) Address [address] [place] [address] Care Team Providers Care Air Conditioning Service Technician Name Role Phone Erika So APRN Primary Care Provider [phone] [place] Bahena MD Unavailable [phone] Encounter Details Date Type Department Care Team (Late st Contact Info) Description 06/13/2019 Transcribed Document [facility] Family Medicine [address] [place] [address] ProviderJosiah MD [address] [place] [id number] Social History Tobacco Use Types Packs/Day Years Used Date Smoking Tobacco: Never Assessed Comments Unknown Sex and Gender Information Value Date Recorded Sex Assigned at Not on file Legal Sex Female 5:57 PM CDT Gender Identity Not on file Sexual Orientation Not on file documented as of this encounter Miscellaneous Notes * Cerner Conversion Note - Josiah Rivers MD - 06/13/2019 5:44 PM CDT [address] [address] QUINCY MCCARTY :1985 Visit Time:06/13/2019 Your Visit Summary Your Care Team Admitting Physician - VIVIANA RUBIO MD-ORT Attending Physician - VIVIANA RUBIO MD-ORT Primary Care Physician - RUEL LECHUGA NP-[facility] Referring Physician - VIVIANA RUBIO MD-[place] Your Diagnosis Spinal stenosis, lumbar region, Spinal stenosis, lumbar region These Are Your Goals To have no more numbness in left leg and feet. What to do next Instructions From Your Care Team Discharge Follow Up Instructions: Follow-up in my office, 12-14 days.Prescription.-Check intake sheet from my office for follow-up date and appointment time Follow Up Instructions: Follow up farooq't as written o [facility] Intake Sheet Activity: [place] dressing. Do not remove. May shower with dressing on. She is 1 dressings comes off, cleaned with peroxide, triple antibiotic ointment and new dressing., Discharge Activity: No strenuous activities, Order Comment: Sitting, standing, walking, is fine. Minimize repetitive bending and twisting. May drive vehicle when legs feel normal, and no longer taking medication. And medically stable. Make sure patient has voided is medically stable prior to discharge Diet: Discharge Diet: Regular diet as tolerated Wound/Incision Care Instructions: With Aquasol dressing, patient may shower daily, using antibiotic soap, such as Dial. Dressing change prior to discharge when necessary with Aquasol. Follow-Up Appointments Follow Up with VIVIANA RUBIO MD-ORT When 06/26/2019 11:00 AM EDT Comments Appointment has been made Where: [address] [place] [address]- Medications What How Much When Instructions Next Dose vortioxetine (Trintellix 10 mg oral tablet) Every Day Take your medications faithfully. Do [...] Please dispose of unused and medications per your retail pharmacy guidance. Allergies Adhesive Bandage (surgical tape rash) Immunizations This Visit No Immunizations Found Education Materials What to expect after the Procedure: After the procedure, it is common to have: ??? Pain and swelling. ??? A small amount of blood or clear fluid coming from your incision for up to 7 days ??? It is normal to have a moderate amount of bleeding from the site of the drain that was pulled on the morning after surgery. You can hold pressure on the area for 3-5 minutes and cover with a bandage as needed. Diet: ??? Resume usual diet ??? No alcoholic beverages while taking pain medication ??? Drink 8-10 glasses of water a day to prevent constipation from pain medication ??? Increase fiber to help prevent constipation. Straining can cause increased pressure and pain in your incision area ??? Increase protein to promote healing Driving: ??? Do not drive until your health care provider approves. Ask your health care provider when it is safe to drive if you have an immobilizer on your knee. ??? Do not drive or operate heavy machinery while taking prescription pain medicine. ??? Do not drive for 24 hours if you received a sedative. Activity: ??? No strenuous activity ??? Avoid high-impact activities, including running, jumping rope, and jumping jacks. ??? Avoid sitting for a long time without moving. Get up and move around at least every few hours. ??? Keep legs elevated while seated and place surgery leg on 2-3 pillows, this will decrease swelling ??? Continue using walker until cleared by physical therapy Back Activity ??? Minimize bending, twisting, and lifting. Bathing: ??? May shower ??? Do not take baths, swim, or use a hot tub for one month after surgery. Other: ??? Use ice therapy for 20-30 minutes at a time and leave off for 20-30 minutes at a time. Always keep a towel or cloth between the ice pack and your skin ??? Continue to use Incentive Spirometer 10 times an hour while awake for one month to help prevent pneumonia ??? No strenuous activity. ??? May drive when legs feel normal and no longer taking pain medication. ??? Leave Aquacel in place until follow-up visit. If dressing comes off, clean with peroxide, triple antibiotic ointment, and cover with new dressing. Contact a health care provider if: ??? You have more redness, swelling, or pain around your incision. ??? You have more fluid or blood coming from your incision. ??? Your incision or drain site feels warm to the touch. ??? You have pus or a bad smell coming from your incision. ??? You have a fever. ??? Your incision breaks open after your health care provider removes your sutures, skin glue, or adhesive tape. ??? Your prosthesis feels loose. ??? You have knee pain that does not go away. DVT: Blood Clot Blood clots are a common risk after an orthopedic surgery Symptoms: ??? Swelling of your leg or arm, especially if one side is much worse. ??? Warmth and redness of your leg or arm, especially if one side is much worse. ??? Pain in your arm or leg. If the clot is in your leg, symptoms may be more noticeable or worse when you stand or walk. ??? A feeling of pins and needles, if the clot is in the arm. The symptoms of a DVT that has traveled to the lungs (pulmonary embolism, PE) usually start suddenly and include: ??? Shortness of breath while active or at rest. ??? Coughing or coughing up blood or blood-tinged mucus. ??? Chest pain that is often worse with deep breaths. ??? Rapid or irregular heartbeat. ??? Feeling light-headed or dizzy. ??? Fainting. ??? Feeling anxious. ??? Sweating. There may also be pain and swelling in a leg if that is where the blood clot started. How is this prevented? Exercise regularly. For at least 30 minutes every day, engage in: ? Activity that involves moving your arms and legs. ? Activity that encourages good blood flow through your body by increasing your heart rate. ??? Exercise your arms and legs every hour during long-distance travel (over 4 hours). Drink plenty of water and avoid drinking alcohol while traveling. ??? Avoid sitting or lying in bed for long periods of time without moving your legs. ??? Maintain a weight that is appropriate for your height. Ask your health care provider what weight is healthy for you. ??? If you are a woman who is over 35 years of age, avoid unnecessary use of medicines that contain estrogen. These include control pills. ??? Do not smoke, especially if you take estrogen medicines. If you need help quitting, ask your health care provider. ??? Wear compression stockings (if told by your health care provider) to help prevent blood clots from forming. High Fiber/High Protein Diet High fiber foods: To prevent constipation ??? Grains Whole-grain breads. Multigrain cereal. Oats and oatmeal. Brown rice. Barley. Bulgur wheat. Millet. Bran muffins. Popcorn. [place] wafer crackers. ??? Vegetables Sweet potatoes. Spinach. Kale. Artichokes. Cabbage. Broccoli. Green peas. Carrots. Squash. ??? Fruits Berries. Pears. Apples. Oranges. Avocados. Prunes and raisins. Dried figs. ??? Meats and Other Protein Sources [place], kidney, lang, and soy beans. Split peas. Lentils. Nuts and seeds. ??? Dairy Fiber-fortified yogurt. ??? Beverages Fiber-fortified soy milk. Fiber-fortified orange juice. ??? Other Fiber bars. High-protein foods: To promote healing High-protein foods contain 4 grams (4 g) or more of protein per serving. They include: ??? Beef, ground sirloin (cooked) ??? 3 oz have 24 g of protein. ??? Cheese (hard) ??? 1 oz has 7 g of protein. ??? Chicken breast, boneless and skinless (cooked) ??? 3 oz have 13.4 g of protein. ??? Cottage cheese ??? 1/2 cup has 13.4 g of protein. ??? Egg ??? 1 egg has 6 g of protein. ??? Fish, filet (cooked) ??? 1 oz has 6???7 g of protein. ??? Garbanzo beans (canned or cooked) ??? 1/2 cup has 6???7 g of protein. ??? Kidney beans (canned or cooked) ??? 1/2 cup has 6???7 g of protein. ??? [place] (cooked) ??? 3 oz has 24 g of protein. ??? Milk ??? 1 cup (8 oz) has 8 g of protein. ??? Nuts (peanuts, pistachios, almonds) ??? 1 oz has 6 g of protein. ??? Peanut butter ??? 1 oz has 7???8 g of protein. ??? Pork tenderloin (cooked) ??? 3 oz has 18.4 g of protein. ??? Pumpkin seeds ??? 1 oz has 8.5 g of protein. ??? Soybeans (roasted) ??? 1 oz has 8 g of protein. ??? Soybeans (cooked) ??? 1/2 cup has 11 g of protein. ??? Soy milk ??? 1 cup (8 oz) has 5???10 g of protein. ??? Soy or vegetable vernon ??? 1 vernon has 11 g of protein. ??? [place] seeds ??? 1 oz has 5.5 g of protein. ??? Tofu (firm) ??? 1/2 cup has 20 g of protein. ??? Tuna (canned in water) ??? 3 oz has 20 g of protein. ??? Yogurt ??? 6 oz has 8 g of protein. Fall Prevention ??? Use night lights. ??? Install grab bars by the toilet and in the tub and shower. Do not use towel bars as grab bars. ??? Use non-skid mats or decals on the floor of the tub or shower. ??? If you need to sit down while you are in the shower, use a plastic, non-slip stool. ??? Keep the floor dry. Immediately clean up any water that spills on the floor. ??? Remove soap buildup in the tub or shower on a regular basis. ??? Remove throw rugs and other tripping hazards from the floor. ??? Place frequently used items in hlhl-so-xmdpj places ??? Keep electrical cables out of the way. ??? Do not leave any items on the stairs. ??? Make sure that there are handrails on both sides of the stairs. Fix handrails that are broken or loose. Make sure that handrails are as long as the stairways. ??? Check any carpeting to make sure that it is firmly attached to the stairs. Fix any carpet that is loose or worn. ??? Avoid having throw rugs at the top or bottom of stairways, or secure the rugs with carpet tape to prevent them from moving. ??? Wear closed-toe shoes that fit well and support your feet. Wear shoes that have rubber soles or low heels. ??? Use mobility aids as needed, such as canes, walkers, scooters, and crutches. ??? Turn on lights if it is dark. Replace any light bulbs that burn out. ??? Set up furniture so that there are clear paths. Keep the furniture in the same spot. ??? Be aware of any and all pets. ??? Review your medicines with your healthcare provider. Some medicines can cause dizziness or changes in blood pressure, which increase your risk of falling. Hand Washing You should wash your hands whenever you think they are dirty. You should also wash your hands: ??? After: ? Working or playing outside. ? Touching an animal or its toys or leash. ? Handling livestock. ? Using the bathroom. ? Using household lipcoat sprayer or toxic chemicals. ? Touching or taking out the garbage. ? Touching anything dirty around your home. ? Handling soiled clothes or rags. ? Taking care of a sick child. This includes touching used tissues, toys, and clothes. ? Sneezing, coughing, or blowing your nose. ? Using public transportation. ? Shaking hands. ? Using a phone, including your mobile phone. ? Touching money. ??? Before and after: ? Preparing food. ? Feeding a baby or young child. ? Eating. ? Visiting or taking care of someone who is sick. ? Changing a diaper. ? Changing a bandage (dressing) or taking care of an injury or wound. ? Giving or taking medicine. If soap and clean water are not available, use an alcohol-based wipe, spray, or hand gel. Use a hand-sanitizing agent that contains at least 60% alcohol. If you are preparing food, hand sanitizers are not recommended as a substitute for hand washing. acetaminophen and hydrocodone (a SEET a MIN oh fen and suzanne droe KOE done) Hycet, Lorcet, [place], Verdrocet, Vicodin, Xodol, Zamicet What is the [...] and peeling. What is acetaminophen and hydrocodone? Hydrocodone is an opioid pain medication, sometimes called a narcotic. Acetaminophen is a less potent pain reliever that increases the effects of hydrocodone. Acetaminophen and hydrocodone is a combination medicine [...] working as well in relieving your pain. Always check your bottle to make sure you have received the correct pills (same brand and type) of medicine prescribed by your doctor. Never share this medicine with another person, [...] may report side effects to FDA at 2-082-YUR-8202. What other drugs will affect acetaminophen and [...] affect acetaminophen and hydrocodone, including prescription and cucj-chw-zuldqvl medicines, vitamins, and herbal products. Not all [...] to ensure that the information provided by [employer]. ('[employer]') is accurate, up-to-date, and complete, but no guarantee is made to that effect. Drug information contained herein may be time sensitive. [employer] information has been compiled for use by healthcare practitioners and consumers in the [place] and therefore [employer] does not warrant that uses outside of the [place] are appropriate, unless specifically indicated otherwise. [facility] drug information does not endorse drugs, diagnose patients or recommend therapy. [facility] drug information is an informational resource designed [...] effective or appropriate for any given patient. [employer] does not assume any responsibility for any aspect of healthcare administered with the aid of information [employer] provides. The information contained herein is not intended to cover all possible uses, directions, precautions, warnings, drug interactions, allergic reactions, or adverse effects. If you have questions about the drugs you are taking, check with your doctor, nurse or pharmacist. Copyright 6572-3245 [employer]. Version: 15.02. Revision Date: 07/01/2018. Emergency Awareness and Preventative Care STROKE is [...] Assistance with quitting is available by contacting 2-413-NISR-NOW. This is a free resource providing counseling, [...] This Visit (last charted value for your 06/13/2019 visit) Hematology 06/02/2019 9:34 AM WBC: 4.5 K/uL -- Normal range between ( 3.9 and 10.0 ) RBC: 3.82 Million/uL -- Normal range between ( 3.93 and 5.22 ) Hct: 37.4 % -- Normal range between ( 34.1 and 44.9 ) Hgb: 12.5 Gram/dL -- Normal range between ( 11.2 and 15.7 ) Platelet Count: 278 K/uL -- Normal range between ( 163 and 369 ) MCH: 32.7 pg -- Normal range between ( 25.6 and 32.2 ) MCHC: 33.4 Gram/dL -- Normal range between ( 32.3 and 36.5 ) MCV: 97.9 fL -- Normal range between ( 79.0 and 94.8 ) Slide Review: No Eos %: 0.9 % -- Normal range between ( 1.0 and 7.0 ) [place] #: 0.21 K/uL -- Normal range between ( 0.24 and 0.82 ) Eos #: 0.04 K/uL -- Normal range between ( 0.04 and 0.54 ) [place] %: 4.7 % -- Normal range between ( 4.7 and 12.5 ) Baso %: 0.4 % -- Normal range between ( 0.0 and 1.0 ) Baso #: 0.02 K/uL -- Normal range between ( 0.01 and 0.08 ) RDW: 11.9 % -- Normal range between ( 11.6 and 14.4 ) Neut %: 59.7 % -- Normal range between ( 34.0 and 71.0 ) Neut #: 2.68 K/uL -- Normal range between ( 1.56 and 6.13 ) Lymph %: 34.1 % -- Normal range between ( 19.3 and 53.0 ) Lymph #: 1.53 K/uL -- Normal range between ( 1.18 and 3.74 ) MPV: 9.3 fL -- Normal range between ( 9.4 and 12.4 ) IG#: 0 x10(3)/uL IG%: 0 % -- Normal range between ( 0 and 1 ) Urinalysis 06/02/2019 9:34 AM Ur RBC: 2-5 /HPF Urine Nitrite: Negative Urine Leukocyte Esterase: Negative Urine Appearance: Clear Urine Glucose Dipstick: Negative Urine Blood Dipstick: Negative Urine Urobilinogen Dipstick: 1.0 EU/dL -- Normal range between ( 0.2 and 1.0 ) Urine Protein Dipstick: Negative Ur Bacteria: Trace Ur Squamous Epithelial Cells: 2-5 /HPF Urine Color: Yellow Ur WBC: 0-2 /HPF Urine Ketones Dipstick: Negative Urine pH Dipstick: 7.5 -- Normal range between ( 6.0 and 8.0 ) Urine Bilirubin Dipstick: Negative mg/dL Urine Specific [place]: 1.015 -- Normal range between ( 1.005 and 1.030 ) Urine Type.: U CleanCatch General Chemistry 06/02/2019 9:34 AM Creatinine Level: 0.58 mg/dL -- Normal range between ( 0.55 and 1.02 ) Sodium Level: 139 mmol/L -- Normal range between ( 136 and 146 ) Potassium Level: 3.5 mmol/L -- Normal range between ( 3.5 and 5.1 ) Chloride Level: 104 mmol/L -- Normal range between ( 102 and 112 ) Carbon Dioxide Level: 29 mmol/L -- Normal range between ( 21 and 32 ) Anion Gap: 10 -- Normal range between ( 9 and 20 ) Bilirubin Total: 0.9 mg/dL -- Normal range between ( 0.2 and 1.3 ) A/G Ratio: 1.1 -- Normal range between ( 1.1 and 2.5 ) ALT: 22 Units/Liter -- Normal range between ( 12 and 78 ) AST: 16 Units/Liter -- Normal range between ( 5 and 37 ) Globulin: 3.5 Gram/dL -- Normal range between ( 1.5 and 4.5 ) Alk Phos: 65 Units/Liter -- Normal range between ( 27 and 136 ) Bun/Creatinine: 19.0 -- Normal range between ( 8.0 and 20.0 ) Calcium Level: 8.8 mg/dL -- Normal range between ( 8.5 and 10.1 ) eGFR : >60 mL/min/1.73m2 eGFR NonAfrican: >60 mL/min/1.73m2 Glucose Level: 75 mg/dL -- Normal range between ( 74 and 106 ) Blood Urea Nitrogen: 11 mg/dL -- Normal range between ( 7 and 22 ) Protein Total: 7.2 Gram/dL -- Normal range between ( 6.4 and 8.2 ) Albumin Level: 3.7 Gram/dL -- Normal range between ( 3.4 and 5.0 ) Coagulation 06/02/2019 9:34 AM INR: 1.0 -- Normal range between ( 0.9 and 1.1 ) PT: 10.5 Second(s) -- Normal range between ( 9.6 and 11.5 ) Endocrinology 06/13/2019 9:26 AM HCG Urine Qualitative: Negative Diagnostic Radiology 06/02/2019 10:05 AM CR Chest 2 Vws: CR Chest 2 Vws Patient Name:QUINCY MCCARTY I have received and understand this information and was given the opportunity to ask questions. Patient/Floor Trader Name: Patient/Floor Trader Signature: Relationship to Patient: Clinician/Hospital Floor Trader Signature: Date: Electronically signed by Interface, [facility] Conversion Bale Piler Cerner at 12/11/2022 5:12 PM CDT documented in this encounter Plan of Treatment Not on file documented as of this encounter Visit Diagnoses Not on filedocumented in this encounter Care Teams Air Conditioning Service Technician Relationship Specialty Start Date End Date Erika So APRN [address] [place] [address] PCP - General Nurse Practitioner 05/07/23 [place] Bahena MD [address] [address] Referring Physician Obstetrics and Gynecology 05/07/23 documented as of this encounter
--- OUTSIDE RECORDS SUMMARY | 2025-05-25 13:20 | XMS_ITS | Encounter Summary ---
Author Organization [facility] ([place], [place], [place], [place]) Address [address] [place] [address] Care Team Providers Care Home Office Claims Examiner Name Role Phone Erika So APRN Primary Care Provider [phone] [place] Bahena MD Unavailable [phone] Encounter Details Date Type Department Care Team (Late st Contact Info) Description 06/13/2019 Transcribed Document [facility] Family Medicine [address] [place] [address] ProviderJosiah MD [address] [place], [place] [id number] Social History Tobacco Use Types Packs/Day Years Used Date Smoking Tobacco: Never Assessed Comments Unknown Sex and Gender Information Value Date Recorded Sex Assigned at Not on file Legal Sex Female 5:57 PM CDT Gender Identity Not on file Sexual Orientation Not on file documented as of this encounter Miscellaneous Notes * Cerner Conversion Note - Josiah Rivers MD - 06/13/2019 5:41 PM CDT Patient Education Materials Follows: What to expect after the Procedure: After the procedure, it is common to have: ?? Pain and swelling. ?? A small amount of blood or clear fluid coming from your incision for up to 7 days ?? It is normal to have a moderate amount of bleeding from the site of the drain that was pulled on the morning after surgery. You can hold pressure on the area for 3-5 minutes and cover with a bandage as needed. Diet: ?? Resume usual diet ?? No alcoholic beverages while taking pain medication ?? Drink 8-10 glasses of water a day to prevent constipation from pain medication ?? Increase fiber to help prevent constipation. Straining can cause increased pressure and pain in your incision area ?? Increase protein to promote healing Driving: ?? Do not drive until your health care provider approves. Ask your health care provider when it is safe to drive if you have an immobilizer on your knee. ?? Do not drive or operate heavy machinery while taking prescription pain medicine. ?? Do not drive for 24 hours if you received a sedative. Activity: ??? No strenuous activity ??? Avoid high-impact activities, including running, jumping rope, and jumping jacks. ??? Avoid sitting for a long time without moving. Get up and move around at least every few hours. ?? Keep legs elevated while seated and place surgery leg on 2-3 pillows, this will decrease swelling ?? Continue using walker until cleared by physical therapy Back Activity ?? Minimize bending, twisting, and lifting. Bathing: ??? May shower ?? Do not take baths, swim, or use a hot tub for one month after surgery. Other: ?? Use ice therapy for 20-30 minutes at a time and leave off for 20-30 minutes at a time. Always keep a towel or cloth between the ice pack and your skin ?? Continue to use Incentive Spirometer 10 times an hour while awake for one month to help prevent pneumonia Contact a health care provider if: ??? [...] common risk after an orthopedic surgery Symptoms: ?? Swelling of your leg or arm, especially if one side is much worse. ?? Warmth and redness of your leg or arm, especially if one side is much worse. ?? Pain in your arm or leg. If the clot is in your leg, symptoms may be more noticeable or worse when you stand or walk. ?? A feeling of pins and needles, if [...] Diet High fiber foods: To prevent constipation ?? Grains Whole-grain breads. Multigrain cereal. Oats and oatmeal. Brown rice. Barley. Bulgur wheat. Millet. Bran muffins. Popcorn. Beulah wafer crackers. ?? Vegetables Sweet potatoes. Spinach. Kale. Artichokes. Cabbage. Broccoli. Green peas. Carrots. Squash. ?? Fruits Berries. Pears. Apples. Oranges. Avocados. Prunes and raisins. Dried figs. ?? Meats and Other Protein Sources [place], kidney, lang, and soy beans. Split peas. Lentils. Nuts and seeds. ?? Dairy Fiber-fortified yogurt. ?? Beverages Fiber-fortified soy milk. Fiber-fortified orange juice. ?? Other Fiber bars. High-protein foods: To promote healing High-protein foods contain 4 grams (4 g) or more of protein per serving. They include: ??? Beef, ground sirloin (cooked) - 3 oz have 24 g of protein. ??? Cheese (hard) - 1 oz has 7 g of protein. ??? Chicken breast, boneless and skinless (cooked) - 3 oz have 13.4 g of protein. ??? Cottage cheese - 1/2 cup has 13.4 g of protein. ??? Egg - 1 egg has 6 g of protein. ??? Fish, filet (cooked) - 1 oz has 6-7 g of protein. ??? Garbanzo beans (canned or cooked) - 1/2 cup has 6-7 g of protein. ??? Kidney beans (canned or cooked) - 1/2 cup has 6-7 g of protein. ??? Uribe (cooked) - 3 oz has 24 g of protein. ??? Milk - 1 cup (8 oz) has 8 g of protein. ??? Nuts (peanuts, pistachios, almonds) - 1 oz has 6 g of protein. ??? Peanut butter - 1 oz has 7-8 g of protein. ??? Pork tenderloin (cooked) - 3 oz has 18.4 g of protein. ??? Pumpkin seeds - 1 oz has 8.5 g of protein. ??? Soybeans (roasted) - 1 oz has 8 g of protein. ??? Soybeans (cooked) - 1/2 cup has 11 g of protein. ??? Soy milk - 1 cup (8 oz) has 5-10 g of protein. ??? Soy or vegetable vernon - 1 vernon has 11 g of protein. ??? Gosper seeds - 1 oz has 5.5 g of protein. ??? Tofu (firm) - 1/2 cup has 20 g of protein. ??? Tuna (canned in water) - 3 oz has 20 g of protein. ?? Yogurt - 6 oz has 8 g of protein. Fall Prevention ?? Use night lights. ?? Install grab bars by the toilet and in the tub and shower. Do not use towel bars as grab bars. ?? Use non-skid mats or decals on the floor of the tub or shower. ?? If you need to sit down while you are in the shower, use a plastic, non-slip stool. ?? Keep the floor dry. Immediately clean up any water that spills on the floor. ?? Remove soap buildup in the tub or shower on a regular basis. ?? Remove throw rugs and other tripping hazards from the floor. ?? Place frequently used items in [id number] places ?? Keep electrical cables out of the way. ?? Do not leave any items on the stairs. ?? Make sure that there are handrails on both sides of the stairs. Fix handrails that are broken or loose. Make sure that handrails are as long as the stairways. ?? Check any carpeting to make sure that it is firmly attached to the stairs. Fix any carpet that is loose or worn. ?? Avoid having throw rugs at the top or bottom of stairways, or secure the rugs with carpet tape to prevent them from moving. ?? Wear closed-toe shoes that fit well and support your feet. Wear shoes that have rubber soles or low heels. ?? Use mobility aids as needed, such as canes, walkers, scooters, and crutches. ?? Turn on lights if it is dark. Replace any light bulbs that burn out. ?? Set up furniture so that there are clear paths. Keep the furniture in the same spot. ?? Be aware of any and all pets. ?? Review your medicines with your healthcare provider. [...] ? Using the bathroom. ? Using household eligibility worker or toxic chemicals. ? Touching or taking [...] recommended as a substitute for hand washing. documented in this encounter Plan of Treatment Not on file documented as of this encounter Visit Diagnoses Not on filedocumented in this encounter Care Teams Home Office Claims Examiner Relationship Specialty Start Date End Date Erika So APRN [address] [place] [address] PCP - General Nurse Practitioner 05/07/23 [place] Bahena MD [address] [place] [phone] Referring Physician Obstetrics and Gynecology 05/07/23 documented as of this encounter
--- OUTSIDE RECORDS SUMMARY | 2025-05-25 13:20 | XMS_ITS | Encounter Summary ---
Author Organization [employer] ([place], [place], [place], [place]) Address [address] [place] [address] Care Team Providers Care Timber Treating Tank Operator Name Role Phone Erika So APRN Primary Care Provider [phone] Jim Bahena MD Unavailable [phone] Encounter Details Date Type Department Care Team (Late st Contact Info) Description 05/19/2020 Transcribed Document [facility] [place] [address] [place] [address] ProviderJosiah MD [address] [place] [address] Social History Tobacco Use Types Packs/Day Years Used Date Smoking Tobacco: Never Assessed Comments Unknown Sex and Gender Information Value Date Recorded Sex Assigned at Not on file Legal Sex Female 5:57 PM CDT Gender Identity Not on file Sexual Orientation Not on file documented as of this encounter Miscellaneous Notes * Cerner Conversion Note - Josiah Rivers MD - 05/19/2020 2:26 PM CDT [address] , [place] [address] Patient Copy Patient Information: Name: QUINCY MCCARTY Current Date: 05/19/2020 14:26:01 : 1985 Patient Address: [place] [address] Patient Attending Physician: JIM BAHENA MD-[facility] Primary Care Provider: RUEL LECHUGA NP-[facility] Primary Care Provider Discharge Diagnosis: 1:Cervical dysplasia, moderate; 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 ethinyl estradiol-levonorgestrel (Balcoltra) Oral Every Day. levothyroxine (levothyroxine 50 mcg (0.05 mg) oral tablet) 1 Tablet(s) Oral Every Day. omeprazole 20 Milligram(s) Oral Every Day. vortioxetine (Trintellix 10 mg oral tablet) Oral Every Day. Patient Allergies: Adhesive Bandage [...] Assistance with quitting is available by contacting 7-535-FCMK-NOW. This is a free resource providing counseling, [...] Be sure to sign up for the [employer] patient portal, which gives you 19/03 access to your medical information ??? including these discharge instructions ??? using your computer, smartphone, or tablet. Just go to [email or web address] to get started. Questions? Call . [facility] would like to thank you for allowing us to assist you with your healthcare needs. I, EVITA GU, QUINCY SANCHEZ, (or licensing representative) have received the above patient education materials/instructions and have verbalized understanding: Patient Signature _ Date/Time Patient Manager Mass Signature (if needed) Date/Time Clinician/Hospital Manager Mass Signature (if needed) Date/Time documented in this encounter Plan of Treatment Not on file documented as of this encounter Visit Diagnoses Not on filedocumented in this encounter Care Teams Timber Treating Tank Operator Relationship Specialty Start Date End Date Erika So APRN [address] [place] [address] PCP - General Nurse Practitioner 05/07/23 Jim Bahena MD [address] [place] [address] Referring Physician Obstetrics and Gynecology 05/07/23 documented as of this encounter
--- OUTSIDE RECORDS SUMMARY | 2025-05-25 13:20 | XMS_ITS | Encounter Summary ---
Author Organization [employer] ([place], [place], [place], [place]) Address [address] [place] [address] Care Team Providers Care Searchlight Operator Name Role Phone Erika So APRN Primary Care Provider [phone] [place] Bahena MD Unavailable [phone] Encounter Details Date Type Department Care Team (Late st Contact Info) Description 06/13/2019 Transcribed Document [facility] [place] [address] [place] [address] ProviderJosiah MD [address] [place], [place] [id number] Social History Tobacco Use Types Packs/Day Years [...] MD - 06/13/2019 2:46 PM CDT Evaluation, Occupational Therapy Entered On: 06/13/2019 15:20 EDT Performed On: 06/13/2019 15:04 EDT by FEDERICO SANCHEZ OTR/Van General Information, OT Visit Type, OT : Initial evaluation Patient Orders : Order Date Order Ordering 06/13/2019 09:50 Occupational Therapy Evaluation and Treatme Ordered By: VIVIANA RUBIO MD-ORT 06/13/2019 14:46 OT Evaluation and Treatment Ordered By: VIVIANA RUBIO MD-ORT Active Diagnoses : No Qualifying Diagnoses Therapy Diagnosis, OT : aftercare following lumbar laminectomy Admission Date : 06/13/2019 03:57 Assisted by, OT : Physical Therapist Personal Devices : Personal Devices No Devices Recorded Assistive Devices : Assistive Devices No Devices Recorded Precautions in Place : Fall prevention measures General Information Comment, OT : pt is a pleasant 34 y.o. female admitted s/p lumbar laminectomy performed by Dr. Rubio and is WBAT back precautions FEDERICO SANCHEZ OTR/Van - 06/13/2019 15:04 EDT General Status Patient Received Status : Supine in bed, Other: IV Treatment Start Time : 06/13/2019 14:50 EDT Patient Left Status : Up in chair, Chair alarm activated, RN/PCT informed, All needs met and within reach, Other: IV, present RN/PCT Informed Comment : RN Ok'd to tx, ID and verified Treatment End Time : 06/13/2019 15:06 EDT Treatment Time : 16 Minute(s) FEDERICO SANCHEZ OTR/Van - 06/13/2019 15:04 EDT History and Environment, OT Living Situation, Therapy : Home Patient Lives With : Spouse Persons Assisting Patient at Home : Spouse Persons Providing Information : Patient Home Equipment, Therapy : None Home Setup : Two story Bedroom Location : Main level Bathroom #1 Location : Main level Stairs : Yes Stair Location(s) : Inside, Outside Stairs Inside Comment : can stay on main level of home Outside Stairs, Number of Steps : 2 FEDERICO SANCHEZ OTR/Van - 06/13/2019 15:04 EDT Prior LOF Bathing, OT : Independent Prior LOF Bed Mobility : Independent Prior LOF Upper Body Dressing, OT : Independent Prior LOF Lower Body Dressing, OT : Independent Prior LOF Toileting : Independent Prior LOF Transfer : Independent Prior LOF Grooming, OT : Independent Prior LOF for IADLs, OT : Independent FEDERICO SANCHEZ OTR/Van - 06/13/2019 15:04 EDT History and Environment Comment, OT : pt lives with spouse and 2 young children , I PLOF did not use AD FEDERICO SANCHEZ OTR/Van - 06/13/2019 15:04 EDT Upper Extremity Right UE Active ROM : WFL Right UE Strength : WFL Left UE Active ROM : WFL Left UE Strength : WFL FEDERICO SANCHEZ OTR/L 06/13/2019 15:04 EDT Self Care/Home Management, OT Lower Body Dressing Assist Level, OT : Assist, minimal Lower Body Dressing Device Comment, OT : education on LB dressing technique to maintain back precautions , spouse will be able to assist as needed Bed/Chair/WC Transfer Assist Level : Supervision or set-up Bed/Chair/WC Transfer Device : Belt, gait, Walker, front wheel Bed/Chair/WC Device Comment : CGA/SBa, pt still drowsy FEDERICO SANCHEZ OTR/L 06/13/2019 15:04 EDT Mobility Device/Prosthesis/Wt Bearing Weight Bearing Status Maintained : Yes Weight Bearing Status : As tolerated Functional Mobility Device : Gait belt, Walker, front wheel FEDERICO SANCHEZ OTR/L 06/13/2019 15:04 EDT Functional Mobility Mobility Grid Supine to Sit : Supervision/set-up (Comment: log rolling [FEDERICO SANCHEZ OTR/Van 06/13/2019 15:04 EDT] ) Sit to Stand : Supervision/set-up Bed to Chair : Supervision/set-up (Comment: CGA [FEDERICO SANCHEZ OTR/Van 06/13/2019 15:04 EDT] ) Stand to Sit : Supervision/set-up FEDERICO SANCHEZ OTR/Van 06/13/2019 15:04 EDT Functional MobilityComment : CGA bed to chair using rw secondary still very drowsy and nauseated at this time, gait belt donned, cues for safety FEDERICO SANCHEZ OTR/Van 06/13/2019 15:04 EDT Neuromuscular Reeducation, OT Balance Assist Level : Supervision FEDERICO SANCHEZ OTR/Van 06/13/2019 15:04 EDT Activity Tolerance, OT Activity Comment : good FEDERICO SANCHEZ OTR/Van 06/13/2019 15:04 EDT Neurological/Sensory Overall Sensory Response : Intact FEDERICO SANCHEZ OTR/Van 06/13/2019 15:04 EDT Cognition Assessment, OT Orientation : Oriented x 4 FEDERICO SANCHEZ OTR/Van 06/13/2019 15:04 EDT Education OT Occupational Therapy Education Grid Activity of Daily Living Training : Verbalizes understanding, Returns demonstration Functional Mobility Training : Verbalizes understanding, Returns demonstration Home Safety : Verbalizes understanding FEDERICO SANCHEZ FAVIANTamia/L - 06/13/2019 15:04 EDT Indication Assessment, OT Occupational Therapy Indicated : No Occupational Therapy Not Indicated : No skilled services indicated FEDERICO SANCHEZ OTR/L - 06/13/2019 15:04 EDT Plan of Care, OT OT Tx Plan/Goals Established w Patient : No Reason OT Treatment/Plan Not Established : no further acute care OT needs at this time Other OT Treatment Provided This Date : ADL, education on back precautions, dressing technique and safe transfers FEDERICO SANCHEZ OTTamia/L - 06/13/2019 15:04 EDT Treatment Note Subjective Comment : pt agrees to tx Additional Objective Information : ADL Assessment : no further acute care OT needs at this time Plan for Treatment : pt will discharge home later today with spouse who can assist as needed. FEDERICO SANCHEZ CHAU/Van 06/13/2019 15:04 EDT Pain Assessment Pain Scaled Used : 0-10 Pain scale Pain Score Pre-Intervention : 3 Location : Back, lower Pain Comment : RN aware FEDERICO SANCHEZ CHAU/L - 06/13/2019 15:04 EDT Image 1 - Images currently included in the form version of this document have not been included in the text rendition version of the form. Welcome OT Charges OT Selfcare/Hm Mgmt Ea 15 Min : 1 OT Eval Low Complexity : 1 FEDERICO SANCHEZCHAU/L - 06/13/2019 15:04 EDT documented in this encounter Plan of Treatment Not on file documented as of this encounter Visit Diagnoses Not on filedocumented in this encounter Care Teams Searchlight Operator Relationship Specialty Start Date End Date Erika So, RAGHU [address] [place] [address] PCP - General Nurse Practitioner 05/07/23 [place] Bahena MD [address] [place] [phone] Referring Physician Obstetrics and Gynecology 05/07/23 documented as of this encounter
--- OUTSIDE RECORDS SUMMARY | 2025-05-25 13:20 | XMS_ITS | Encounter Summary ---
Author Organization [employer] ([place], [place], [place], [place]) Address [address] [place] [address] Care Team Providers Care Header Setup Operator Name Role Phone Erika So APRN Primary Care Provider [phone] [place] Bahena MD Unavailable [phone] Encounter Details Date Type Department Care Team (Late st Contact Info) Description 03/06/2021 Transcribed Document [facility] Family Medicine [facility] [address] ProviderJosiah MD [address] [place] [address] [id number] Social History Tobacco Use Types Packs/Day Years Used Date Smoking Tobacco: Never Assessed Comments Unknown Sex and Gender Information Value Date Recorded Sex Assigned at Not on file Legal Sex Female 5:57 PM CDT Gender Identity Not on file Sexual Orientation Not on file documented as of this encounter Miscellaneous Notes * Cerner Conversion Note - Josiah Rivers MD - 03/06/2021 12:00 PM CDT Patient: QUINCY MCCARTY Age: 35 years Sex: Female : 1985 Associated Diagnoses: Cellulitis, leg; Vasculitis of skin; Hypertension Author: ZIA SYKES MD Basic Information Time seen: Date & time 03/06/2021 12:05:00, Voice recognition / service line coordinator technology used for some documentation in this chart in attempt to mitigate substantial inefficiencies created by this electronic health record technology. As a result, there may be some typos and/or non-sensical language introduced into the chart that either are overlooked in editing/review and/or that I am unable to correct as patient care needs require me to prioritize my attention to bedside patient care rather than electronic documentation.. . History source: Patient. Arrival mode: Private vehicle. History limitation: None. Additional information: Chief Complaint from Nursing Triage Note : Chief Complaint 03/06/2021 11:25 EDT Chief Complaint Pt c/o abscess on left upper thigh, pt was seen twice a @ [facility]. Pt was placed on steroids, bactrim, keflex and hydroxizine. Pt states site is getting worse. Pt has rash on back/abd and buttocks. Pt states rash was there prior to abx. . History of Present Illness Ms. Tahir Gu, presents via POV to room #7, with in attendance. Patient reports that this past Sunday she noted a lesion in the medial aspect of her thigh which has grown in circumference quite a bit. She initially yasmin a kasaan around it is gradually intensified. She states that then the rash started spreading up her body around into her back area. This prompted her to go to one of her local urgent treatment centers where she received a steroid shot and was started on a tapering dose of Medrol Dosepak. She states that the rash continued to get worse and was reevaluated and was started on Bactrim as well as Keflex. The rash continues to worsen. She is not getting any relief with the Medrol Dosepak, hydroxyzine or antibiotics. She denies any fevers or chills. She is not having any dizziness or shortness of breath or tongue swelling. The patient presents with rash and skin problem. The onset was 5 days ago. The course/duration of symptoms is constant. Location: Bilateral trunk back lower extremity. The character of symptoms is itching and redness. Radiating symptom(s): spreading symmetrically. The degree of symptoms is moderate. Risk factors consist of none. Prior episodes: none. Therapy today: Bactrim, Keflex, Medrol Dosepak and hydroxyzine. Associated symptoms: none, denies fever, denies chills, denies shortness of breath, denies cough, denies headache, denies weakness, denies fatigue and denies myalgia. Additional history: See note above.. Review of Systems Constitutional symptoms: No fever, no chills, no weakness, no fatigue, no decreased activity. Skin symptoms: Rash, pruritus, no jaundice, no abrasions, no petechiae. Eye symptoms: Vision unchanged. ENMT symptoms: No sore throat, no nasal congestion. Respiratory symptoms: No shortness of breath, no orthopnea, no cough. Cardiovascular symptoms: No chest pain, no palpitations. Gastrointestinal symptoms: No abdominal pain, no nausea, no vomiting, no diarrhea, no constipation, no rectal bleeding. Genitourinary symptoms: No dysuria, no hematuria, no vaginal bleeding, no vaginal discharge. Musculoskeletal symptoms: No back pain, no Muscle pain, no Joint pain. Neurologic symptoms: No headache, no dizziness, no altered level of consciousness, no numbness, no tingling, no weakness. Psychiatric symptoms: No anxiety, no depression. Endocrine symptoms: No polyuria, no polydipsia. Hematologic/Lymphatic symptoms: Bleeding tendency negative, bruising tendency negative, no petechiae. Allergy/immunologic symptoms: No recurrent infections, no impaired immunity. Health Status Allergies: Allergic Reactions (Selected) Severity Not Documented Adhesive Bandage- Surgical tape rash. Latex- No reactions were documented.. Medications: (Selected) Documented Medications Documented Balcoltra: Oral, Daily, 0 Refill(s) Trintellix 10 mg oral tablet: Tab, Oral, Daily, 0 Refill(s) amitriptyline: 50 mg, Oral, At Bedtime, 0 Refill(s) levothyroxine 50 mcg (0.05 mg) oral tablet: 1 Tab, Oral, Daily, 60 Tab, 0 Refill(s) omeprazole: 20 mg, Oral, Daily, 0 Refill(s). Immunizations: Unknown. Menstrual history: Unknown. Past Medical/ Family/ Social History Medical history Gastrointestinal: gastroesophageal reflux. Genitourinary: ovarian cyst. Psychiatric: anxiety. Musculoskeletal: back pain disc disease. Surgical history: Dx Lap for endometrosis. Lap Cholecystectomy. x 2. removal of IUD. Gastric bypass 2017. lumbar discectomy.. Family history: Reviewed as documented in chart. Social history: Social & Psychosocial Habits Alcohol 07/30/2015 Alcohol Use History, Social Habits Yes Alcohol Use in Last Twelve Months Yes Alcohol Use Frequency Rarely Employment/School 01/31/2017 Status: Employed Description: [employer] Home/Environment 01/31/2017 Lives [...] Twelve Months No Smoking Status Never smoker . Physical Examination Vital Signs Vital Signs/Vital Measures 03/06/2021 11:25 EDT Systolic Blood Pressure 147 mmHg HI Diastolic Blood Pressure 75 mmHg Temperature Source Oral Temperature Mode Fahrenheit Temperature, Fahrenheit 98.5 Deg F Clinical Temperature, C 36.9 Deg C Peripheral Pulse Rate 78 bpm Respiratory Rate 18 Breaths/Min Oxygen Saturation 98 % . Measurements 03/06/2021 11:25 EDT Height Source Stated Height Entry Format Edson Height/Length, LATVIAN (ft) 5 ft Height/Length LATVIAN 4 Inch CLINICALHEIGHT 162.56 cm [place] Body Weight 54.3 kg Weight Source, ED Critical estimated dosing weight Weight Entry Format Edson Weight [place] lb 210 lb CLINICALWEIGHT 95.45 kg Body Surface Area (BSA) 2 m2 Body Mass Index 36.1 kg/m2 HI . Oxygen Saturation 03/06/2021 11:25 EDT Oxygen Saturation 98 % . General: Alert, no acute distress, well nourished, calm, cooperative, well hydrated, Ambulation status: With steady gait. Skin: Warm, dry, intact, no pallor, Rash: Papular, raised, red, consistent with vasculitis. Head: Normocephalic, atraumatic. Neck: Supple, trachea midline, no tenderness. Eye: Pupils are equal, round and reactive to light, extraocular movements are intact, normal conjunctiva. Ears, nose, mouth and throat: Oral mucosa moist. Cardiovascular: Regular rate and rhythm, No murmur, Normal peripheral perfusion, No edema. Respiratory: Lungs are clear to auscultation, respirations are non-labored, breath sounds are equal, Symmetrical chest wall expansion. Chest wall: No tenderness, No deformity. Back: Nontender, Normal range of motion. Musculoskeletal: Normal ROM, normal strength, no tenderness, no swelling. Gastrointestinal: Soft, Nontender, Non distended, Normal bowel sounds, No organomegaly. Genitourinary: Exam deferred. Neurological: Alert and oriented to person, place, time, and situation, No focal neurological deficit observed. Lymphatics: No lymphadenopathy. Psychiatric: Cooperative, appropriate mood & affect. . Medical Decision Making Documents reviewed: Emergency department nurses' notes, prior records. Orders Include Previous Orders (Selected) Inpatient Orders Ordered Discharge: Ordered (Collected) Culture Urine: Cancelled (Canceled) CR UGI W Small Bowel WO Air: Completed .Automated Differential: .Urinalysis Microscopic: Benadryl: 25 mg, IV Push, 1-Time Broset Violence Assessment: CBC w/ Auto Diff: CK Creatine Kinase: CMP Comprehensive Metabolic Panel: CRP C-Reactive Protein: ED Adult Fall Risk Assessment: ED Adult Triage: ED C-SSRS: ED Clinical Reconciliation: ED grain operator: ESR Sedimentation Rate Auto: Normal Saline Flush: 10 mL, IV Push, 1-Time, PRN: Other (See Comment) Pepcid: 20 mg, IV Push, 1-Time Saline Lock Insert: Urinalysis UA Rflx Microscopic Cult if Ind: ondansetron: 4 mg, IV Push, 1-Time, PRN: Nausea/Vomiting Prescriptions Prescribed DexPak 13 DayTaperpak 1.5 mg oral tablet: See Instructions, for 27 Day(s), as directed on package labeling, 51 Each, 0 Refill(s) clindamycin 300 mg oral capsule: 1 Cap, Oral, Q6H, for 10 Day(s), 40 Cap, 0 Refill(s) hydrOXYzine pamoate 50 mg oral capsule: 1 Cap, Oral, QID, for 5 Day(s), PRN: as needed for itching, 20 Cap, 0 Refill(s). Results review: Lab results : Lab Results 03/06/2021 12:12 EDT Sodium Level 139 mmol/L Potassium Level 3.8 mmol/L Chloride Level 111 mmol/L Carbon Dioxide Level 23 mmol/L Anion Gap 9 Glucose Level 80 mg/dL Blood Urea Nitrogen 18 mg/dL Creatinine Level 0.95 mg/dL eGFR >60 mL/min/1.73m2 eGFR NonAfrican >60 mL/min/1.73m2 Bun/Creatinine 18.9 Calcium Level 7.7 mg/dL LOW Protein Total 7.2 Gram/dL Albumin Level 3.4 Gram/dL Globulin 3.8 Gram/dL A/G Ratio 0.9 LOW Bilirubin Total 0.5 mg/dL Alk Phos 89 Units/Liter AST 12 Units/Liter ALT 19 Units/Liter CRP 1.0 mg/dL HI CK 47 Units/Liter WBC 13.6 K/uL HI RBC 4.15 Million/uL Hgb 13.0 Gram/dL Hct 39.8 % MCV 95.9 fL HI MCH 31.3 pg MCHC 32.7 Gram/dL Platelet Count 306 K/uL MPV 8.6 fL LOW RDW 13.0 % Neut % 86.9 % HI Neut # 11.82 K/uL HI Lymph % 5.9 % LOW Lymph # 0.81 K/uL LOW Dillon % 4.4 % LOW Dillon # 0.60 K/uL Eos % 2.3 % Eos # 0.31 K/uL Baso % 0.1 % Baso # 0.02 K/uL Sed Rate Auto 15 mm/Hr Slide Review No IG# 0 x10(3)/uL IG% 0 % Urine Type. U CleanCatch Urine Color Yellow Urine Appearance Cloudy Urine Specific [place] 1.020 Urine pH Dipstick 6.0 Urine Leukocyte Esterase Moderate Urine Nitrite Negative Urine Protein Dipstick Negative Urine Glucose Dipstick Negative Urine Ketones Dipstick Negative Urine Urobilinogen Dipstick 0.2 EU/dL Urine Bilirubin Dipstick Negative Urine Blood Dipstick Large Ur RBC 10-20 /HPF Ur WBC 10-20 /HPF Ur Bacteria 2+ Ur Mucous 1+ Ur Squamous Epithelial Cells 50-100 /HPF Urine Culture if Indicated See Comment . Impression and Plan Diagnosis Cellulitis, leg - Discharge, Emergency medicine, Medical Vasculitis of skin - Discharge, Emergency medicine, Medical Hypertension - Discharge, Emergency medicine, Medical Plan Condition: Stable. Disposition: Discharged Admit/Transfer/Discharge: Discharge (Order): Start: 03/06/2021 14:56 EDT, Discharge to: Home. Prescriptions: Prescription [facility] Support Services Pharmacy: clindamycin 300 mg oral capsule (Prescribe): 1 Cap, Oral, Q6H, for 10 Day(s), 40 Cap, 0 Refill(s) hydrOXYzine pamoate 50 mg oral capsule (Prescribe): 1 Cap, Oral, QID, for 5 Day(s), PRN: as needed for itching, 20 Cap, 0 Refill(s) DexPak 13 DayTaperpak 1.5 mg oral tablet (Prescribe): See Instructions, for 27 Day(s), as directed on package labeling, 51 Each, 0 Refill(s). Patient was given the following educational materials: Vasculitis, Cellulitis, Adult, [id number], Hypertension, Adult. Limitations: Limited activity. Follow up with: RUEL LCEHUGA Within 2 to 3 days; SHON BAEZA Within 2 to 3 days Your blood pressure was elevated during your [...] Cap, 0 refill(s), Route to Pharmacy Electronically, [id number] DexPak 13 DayTaperpak 1.5 mg oral tablet See Instructions, as directed on package labeling, 27 Day(s), 51 Each, 0 refill(s), Route to Pharmacy Electronically, [id number] hydrOXYzine pamoate 50 mg oral capsule 50 mg = 1 Cap, Cap, QID, Oral, PRN, as needed for itching, 5 Day(s), 20 Cap, 0 refill(s), Route to Pharmacy Electronically, [id number] . Counseled: Patient, Family, Regarding diagnosis, Regarding diagnostic results, Regarding treatment plan, Regarding prescription, Patient indicated understanding of instructions, Pre-hypertension/Hypertension: The patient has been informed that [...] on filedocumented in this encounter Care Teams Header Setup Operator Relationship Specialty Start Date End Date Erika So APRN [address] [place] [address] PCP - General Nurse Practitioner 05/07/23 [place] Bahena MD [address] [address] Referring Physician Obstetrics and Gynecology 05/07/23 documented as of this encounter
--- OUTSIDE RECORDS SUMMARY | 2025-05-25 13:20 | XMS_ITS | Encounter Summary ---
Author Organization [employer] ([place], [place], [place], [place]) Address [address] [place] [address] Care Team Providers Care Railroad Mechanic Name Role Phone Erika So APRN Primary Care Provider [phone] [place] Bahena MD Unavailable [phone] Encounter Details Date Type Department Care Team (Late st Contact Info) Description 06/13/2019 Transcribed Document [facility] [place] Family Medicine [address] [place] [address] ProviderJosiah MD [address] [place] [address] [id number] Social History Tobacco Use Types Packs/Day Years Used Date Smoking Tobacco: Never Assessed Comments Unknown Sex and Gender Information Value Date Recorded Sex Assigned at Not on file Legal Sex Female 5:57 PM CDT Gender Identity Not on file Sexual Orientation Not on file documented as of this encounter Miscellaneous Notes * Cerner Conversion Note - Josiah Rivers MD - 06/13/2019 11:58 AM CDT [facility] Main OR PACU Summary Primary Physician: VIVIANA RUBIO MD-ORT Finalized Date/Time: 06/13/19 14:42:17 Pt. Name: CAMRYN MCCARTYRESHMA RamanB./Sex: 1985 Female Med Rec #: [id number] Physician: VIVIANA RUBIO MD-ORT Financial #: [id number] Pt. Type: O Room/Bed: 52/ Admit/Disch: 06/13/19 03:57:00 - Institution: [facility] Main OR PACU Case Times Entry 1 In PACU I 06/13/19 13:14:00 Ready for PACU 06/13/19 14:14:00 Discharge Discharge from PACU 06/13/19 14:14:00 I Last Modified By: Elisha Hastings Rn Patient Care Bedside 06/13/19 14:42:06 Finalized By: Elisha Hastings Rn Patient Care Bedside Document Signatures Signed By: Elisha Hastings Rn Patient Care Bedside 06/13/19 14:42 Electronically signed by [facility] Conversion Mathematical Scientist Cerner at 12/11/2022 5:08 PM CDT documented in this encounter Plan of Treatment Not on file documented as of this encounter Visit Diagnoses Not on filedocumented in this encounter Care Teams Railroad Mechanic Relationship Specialty Start Date End Date Erika So APRN [address] [place] [address] PCP - General Nurse Practitioner 05/07/23 [place] Bahena MD [address] [address] Referring Physician Obstetrics and Gynecology 05/07/23 documented as of this encounter
--- OUTSIDE RECORDS SUMMARY | 2025-05-25 13:20 | XMS_ITS | Encounter Summary ---
Author Organization [employer] ([place], [place], [place], [place]) Address [address] [place] [address] Care Team Providers Care Pediatric Physical Therapist Name Role Phone Erika So APRN Primary Care Provider [phone] Jim Bahena MD Unavailable [phone] Encounter Details Date Type Department Care Team (Late st Contact Info) Description 05/19/2020 Transcribed Document [facility] [address] [place] [address] ProviderJosiah MD [address] [place] [address] [id number] Social History Tobacco Use Types Packs/Day Years Used Date Smoking Tobacco: Never Assessed Comments Unknown Sex and Gender Information Value Date Recorded Sex Assigned at Not on file Legal Sex Female 5:57 PM CDT Gender Identity Not on file Sexual Orientation Not on file documented as of this encounter Miscellaneous Notes * Cerner Conversion Note - Josiah Rivers MD - 05/19/2020 12:00 PM CDT [facility] Main OR Preop Summary Primary Physician: JIM BAHENA MD-OBG Finalized Date/Time: 05/19/20 13:17:19 Pt. Name: TAHIR COECUTTQUINCY D.O.B./Sex: 1985 Female Med Rec #: [id number] Physician: JIM BAHENA MD-OBG Financial #: [id number] Pt. Type: O Room/Bed: /1 Admit/Disch: 05/19/20 08:51:00 - Institution: [facility] PreOp Case Times Entry 1 In Preop 05/19/20 09:11:00 Ready for Holding n/a Room Patient Ready for 05/19/20 12:20:00 Surgery Patient Out of Preop 05/19/20 12:51:00 Patient Out of n/a Holding Room Last Modified By: Lexis Leahy RN 05/19/20 13:17:17 [facility] PreOp Case Times Audit 05/19/20 13:17:17 Tank Hoop Bender: RAMEZALR Modifier: POFFJAN <+> 1 Patient Out of Preop 05/19/20 12:36:18 Tank Hoop Bender: RAMEZALR Modifier: RAMEZALR <+> 1 Patient Ready for Surgery Finalized By: Lexis Leahy RN Document Signatures Signed By: Lexis Leahy RN 05/19/20 13:17 Electronically signed by [facility] Conversion Bridge Rigger Cerner at 12/11/2022 4:55 PM CDT documented in this encounter Plan of Treatment Not on file documented as of this encounter Visit Diagnoses Not on filedocumented in this encounter Care Teams Pediatric Physical Therapist Relationship Specialty Start Date End Date Erika So APRN [address] [place] [address] PCP - General Nurse Practitioner 05/07/23 Jim Bahena MD [address] [address] Referring Physician Obstetrics and Gynecology 05/07/23 documented as of this encounter
--- OUTSIDE RECORDS SUMMARY | 2025-05-25 13:20 | XMS_ITS | Encounter Summary ---
Author Organization [employer] ([place], [place], [place], [place]) Address [address] [place] [address] Care Team Providers Care Federal District Clerk Name Role Phone Erika So APRN Primary Care Provider [phone] [place] Bahena MD Unavailable [phone] Encounter Details Date Type Department Care Team (Late st Contact Info) Description 06/13/2019 Transcribed Document [facility] [place] Family Medicine [address] [place] [address] ProviderJosaih MD [address] [place] [address] [id number] Social History Tobacco Use Types Packs/Day Years [...] Rivers MD - 06/13/2019 11:58 AM CDT [facility] Main OR IntraOp Summary Primary Physician: VIVIANA RUBIO MD-ISAMAR Finalized Date/Time: 06/13/19 13:12:23 Pt. Name: CAMRYN MCCARTYRESHMA RamanB./Sex: 1985 Female Med Rec #: [id number] Physician: VIVIANA RUBIO MD-ORT Financial #: [id number] Pt. Type: O Room/Bed: [facility] Admit/Disch: 06/13/19 03:57:00 - Institution: [facility] IntraOp Case Attendance Entry 1 Entry 2 Entry 3 Case Attendee VIVIANA RUBIO MD-ORLOIS MUNGUIA CRNA Warner, Missy M, Rn Role Performed Surgeon/Proceduralist, CLOTHING PATTERNMAKER/Nurse Lawnmower Repair Mechanic Restaurant Crew, First First Time In 06/13/19 11:36:00 06/13/19 11:36:00 06/13/19 11:36:00 Time Out 06/13/19 12:50:00 06/13/19 13:12:00 06/13/19 13:12:00 Procedure Lumbar Laminectomy Lumbar Laminectomy Lumbar Laminectomy Other Attendee Superficial Wound Closed By: Last Modified By: Kiesha Sexton, Rn Kiesha Sexton, Rn Kiesha Sexton, Rn 06/13/19 13:12:15 06/13/19 13:12:15 06/13/19 13:12:15 Entry 4 Entry 5 Entry 6 Case Attendee NICHOLAS BLACK, CARLO ENGLAND PA Crofts, SAHRA Rosales Top Collar Maker Role Performed Scrub, First Physician unit assistant Mixer Attendant Time In 06/13/19 11:36:00 06/13/19 11:36:00 06/13/19 11:36:00 Time Out 06/13/19 13:12:00 06/13/19 13:12:00 06/13/19 13:12:00 Procedure Lumbar Laminectomy Lumbar Laminectomy Lumbar Laminectomy Other Attendee Superficial Wound Closed By: Last Modified By: Kiesha Sexton, Rn Kiesha Sexton, Rn Kiesha Sexton, Rn 06/13/19 13:12:15 06/13/19 13:12:15 06/13/19 13:12:15 Entry 7 Case Attendee TIKI TORRES CRNA Role Performed CLOTHING PATTERNMAKER/Nurse Lawnmower Repair Mechanic Time In 06/13/19 11:53:00 Time Out 06/13/19 12:15:00 Procedure Lumbar Laminectomy Other Attendee LUNCH Superficial Wound Closed By: Last Modified By: Kiesha Sexton Rn 06/13/19 13:12:15 [facility] IntraOp Case Attendance Audit 06/13/19 13:12:15 Manager Play: [id number] Modifier: [id number] <*> Procedure Lumbar Laminectomy 2 <+> Time Out 2 <*> Procedure Lumbar Laminectomy 3 <+> Time Out 3 <*> Procedure Lumbar Laminectomy 4 <+> Time Out 4 <*> Procedure Lumbar Laminectomy 5 <+> Time Out 5 <*> Procedure Lumbar Laminectomy 6 <+> Time Out 6 <*> Procedure Lumbar Laminectomy 7 <*> Procedure Lumbar Laminectomy 06/13/19 12:49:35 Manager Play: [id number] Modifier: [id number] <+> Time Out 1 <*> Procedure Lumbar Laminectomy 7 <+> Time Out 7 <*> Procedure Lumbar Laminectomy 06/13/19 12:07:20 Manager Play: [id number] Modifier: [id number] <+> Time In 1 <*> Procedure Lumbar Laminectomy 2 <+> Time In 2 <*> Procedure Lumbar Laminectomy 3 <+> Time In 3 <*> Procedure Lumbar Laminectomy 4 <+> Time In 4 <*> Procedure Lumbar Laminectomy 5 <+> Time In 5 <*> Procedure Lumbar Laminectomy 6 <+> Time In 6 <*> Procedure Lumbar Laminectomy 7 <*> Procedure Lumbar Laminectomy [facility] IntraOp Case Times Entry 1 Patient In Room Time 06/13/19 11:36:00 Out Room Time 06/13/19 13:12:00 Anesthesia Start Time 06/13/19 11:36:00 Stop Time 06/13/19 13:12:00 Anesthesia Ready 06/13/19 11:36:00 Surgery / Procedure Times Start Time 06/13/19 11:58:00 Stop Time 06/13/19 13:02:00 Last Modified By: Kiesha Sexton, Rn 06/13/19 13:11:58 [facility] IntraOp Case Times Audit 06/13/19 13:11:58 Manager Play: [id number] Modifier: [id number] <+> 1 Out Room Time <+> 1 Stop Time <+> 1 Stop Time 06/13/19 11:59:14 Manager Play: [id number] Modifier: [id number] <+> 1 Start Time [facility] IntraOp Cautery Entry 1 ESU Identification Cautery Type Monopolar ESU ID Number [id number] ID Type Hospital Number Cautery Settings Cut Setting 35 Coag Setting 35 ESU Grounding Pad Ground Pad Type Adult Grounding Pad Site Left thigh Grounding Pad CARLO POLLACK PA Applied By Grounding Pad Site Intact Skin Condition Before Cautery Grounding Pad Site Unchanged Skin Condition After Cautery Last Modified By: Kiesha Sexton Rn 06/13/19 11:59:09 [facility] IntraOp Communication Entry 1 Communication To Family/Significant other Comment START Communication By Kiesha Sexton Rn Date and Time 06/13/19 12:00:00 Last Modified By: Kiesha Sexton Rn 06/13/19 11:59:26 [facility] IntraOp Counts Verification Entry 1 Procedure Lumbar Laminectomy Count Info Count Type Sponge, Sharps Counts Verification Baseline/pre-procedure Sequence Count Results Not Applicable Counts Performed By Count Performed By NICHOLAS BLACK, OR (Scrub) TECH Count Performed By Kiesha Sexton, Kevin (RN) Last Modified By: Kiesha Sexton Rn 06/13/19 11:59:44 [facility] IntraOp Counts Final Entry 1 Procedure Lumbar Laminectomy Final Count Info Count Type Sponge, Sharps Counts Verification Skin Closure/end of Sequence procedure Count Results Correct, surgeon notified Counts Performed By Count Performed By NICHOLAS BLACK, OR (Scrub) TECH Count Performed By Kiesha Sexton Rn (RN) Last Modified By: Kiesha Sexton Rn 06/13/19 12:49:56 [facility] IntraOp Counts Final Audit 06/13/19 12:49:56 Manager Play: [id number] Modifier: [id number] <*> Procedure Lumbar Laminectomy 1 <+> Count Performed By (Scrub) [facility] IntraOp Departure from OR Entry 1 Integumentary Assessment Integumentary WDL Assessment WDL Transfer/Handoff Transfer to PACU Phase I Post-op Transport Bed (including Via specialty) Patient Transport Kiesha Sexton, Kevin, Accompanied by LOIS MCQUEEN CRNA Last Modified By: Kiesha Setxon Rn 06/13/19 12:00:06 [facility] IntraOp Dressing and Packing Entry 1 Type Dressing Location BACK Wound Dressing Item Occlusive dressing, Skin Closure Glue Applied By CARLO POLLACK PA Other Comments PRINEO DRESSING + AQUACEL Last Modified By: Kiesha Sexton Rn 06/13/19 12:00:16 [facility] IntraOp Fire Risk Assessment Entry 1 Fire Info Surgical Site or 0- No Incision Above the Xyphoid Open O2 Source 0- No (Mask or Cannula) Available Ignition 1- Yes (ESU, Laser, Light Source) Fire Risk 1 Assessment Score Fire Score Fire Risk Yes Assessment Complete Fire Risk Kiesha Sexton Riding Coach Verified By Fire Risk 06/13/19 11:57:00 Assessment Verified Date/Time Fire Risk Standard Fire Yes Safety Precautions Followed Last Modified By: Kiesha Sexton Rn 06/13/19 12:00:21 [facility] IntraOp General Case Chemical Lab Supervisor 1 Case Information OR OR 01 [facility] Case Level 1 Room Verified Yes Wound Class I - Clean Specialty SN Neurosurgery Anesthesia Type General ASA Class 2 Diagnosis 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 Postop Same As Preop Yes 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 ANESTHESIA GAVE 10MG OF DECADRON AND REDNESS DISAPPEARED. [facility] IntraOp Intraoperative Equipment Entry 1 Type Equipment Equipment Equipment Richie Suction System Setting HIGH Intraop Monitoring Electrocardiogram Three lead placement (ECG) Electrode Placement Blood Pressure Non-Invasive BP Device Source Antiembolic Devices Antiembolic Devices Sequential compression device, knee high Antiembolic Device Bilateral Location Scopes Photo/Video Documentation Last Modified By: Kiesha Sexton Rn 06/13/19 12:01:17 [facility] IntraOp Medication Admin Entry 1 Entry 2 Entry 3 Medication/Irrigant Marcaine 0.25% w/ PB irrigation 1000ml SPNG [id number] epinephrine 1:200,000 solution - [id number] 30ml vial - [id number] Combo Med List Time Administered 06/13/19 11:36:00 06/13/19 11:36:00 06/13/19 11:36:00 Route of LOCAL Administration Dose Dose Unit of Measure ml Volume 20ML Administered By VIVIANA RUBIO MD-ORT Procedure Irrigation Irrigant Volume In Irrigant Volume Out Last Modified By: Kiesha Sexton Rn Warner, Missy M, Rn Warner, Missy M, Rn 06/13/19 12:01:51 06/13/19 12:01:51 06/13/19 12:01:51 [facility] IntraOp Patient Positioning Entry 1 Procedure Lumbar Laminectomy Body Position Prone Left Arm Position Secured on padded arm board Right Arm Position Secured on padded arm board Left Leg Position Uncrossed, parallel Right Leg Position Uncrossed, parallel Feet Uncrossed Yes Pressure Points Yes Checked Positioning Devices Daniel Table, Rolando Frame, Safety Strap, Thighs, Arm Board, Head Rest, Pillows Positioning Device PRONE VIEW HEAD REST Comments USED BY ANESTH. PILLOWS UNDER LOWER LEGS, GEL PADS UNDER ARMS Positioned By Kiesha Sexton Rn, LOIS MCQUEEN CRNA, CARLO POLLACK PA Position Verified Positioning Yes Verified by Anesthesia Positioning Yes Verified by Surgeon Last Modified By: Kiesha Sexton Rn 06/13/19 12:01:20 [facility] IntraOp Sign In Entry 1 Patient, Site, Yes Procedure Identified Surgical Consent Yes Confirmed Surgical Site N/A Marked by person performing procedure Anesthesia Machine Yes Check Completed Medication Checks Yes Completed Allergies Yes Airway Difficult No Airway/Aspiration Risk Blood Loss Risk Yes Blood Loss Yes Intervention Equipment Prepared and Ready Blood Identifiers Not applicable Verified Per Policy Hypothermia Risk Yes Warming Measures Yes Taken Last Modified By: Kiesha Sexton Rn 06/13/19 12:02:15 [facility] Intra Op Sign Out Entry 1 RN Confirmation Surgical Yes Procedure(s) Identified Instrument, Sponge Yes and Sharps Counts Correct/Documented Equipment Problems N/A Documented Specimen Labeled N/A Correctly Urinary Catheter N/A Documented in IView Safety Checklist Yes Elements Complete? RN Sign Out Kiesha Sexton Rn Signature RN Sign Out 06/13/19 13:01:00 Signature Date/Time Plan of Care Outcome - [...] related to extraneous objects Last Modified By: Kiesha Sexton Rn 06/13/19 13:00:45 [facility] IntraOp Skin Prep Entry 1 Procedure Lumbar Laminectomy Prescribed Yes Pre-Surgical Prep Completed Prep Area BACK Intraop Prep Integumentary WDL Assessment WDL Prep Agents Chloraprep Prep by Kiesha Sexton Rn Hair Removal Last Modified By: Kiesha Sexton Rn 06/13/19 12:02:22 [facility] IntraOp Surgical Procedures Entry 1 Procedure Lumbar Laminectomy Additional LEFT 4-5 LUMBAR Procedure DISCECTOMY LAMINECTOMY Description Primary Procedure Yes Primary Surgeon VIVIANA RUBIO MD-ORT Start 06/13/19 11:58:00 Stop 06/13/19 13:02:00 Anesthesia Type General Specialty SN Orthopedic Wound Class I - Clean Last Modified By: Kiesha Sexton Rn 06/13/19 13:12:18 [facility] IntraOp Surgical Procedures Audit 06/13/19 13:12:18 Manager Play: [id number] Modifier: [id number] <+> 1 Stop [facility] IntraOp Temp Regulation Devices Entry 1 Temp Regulation Temperature Forced Air Warming Regulation Device device Temperature Upper body Regulation Site Temperature Device 43 Setting Temperature LOIS MCQUEEN CLOTHING PATTERNMAKER Regulation Device Applied by Last Modified By: Kiesha Sexton Rn 06/13/19 12:02:29 [facility] IntraOp Time Out Entry 1 Procedure to be Lumbar Laminectomy Performed Time Out Time Out Pause Time 06/13/19 11:57:00 All activity Yes suspended (unless life threatening [...] 60 Minutes Beta Tatianna N/A Administered Venous N/A Thromboembolism Prophylaxis Required Anticipated Critical Events Surgeon None expected Anesthesia Provider None expected Nursing Assures Sterility of instruments Last Modified By: Kiesha Sexton Rn 06/13/19 12:03:00 [facility] IntraOp X-Ray and Images Entry 1 X-Ray/Imaging Type Fluoroscopy Fluoroscopy Type C-Arm Site BACK L4-5 Open Hearth Furnace Operator Name Eladia Toribio, Top Collar Maker Protective Devices Yes Used Last Modified By: Kiesha Sexton Rn 06/13/19 12:03:16 Case Comments <None> Finalized By: Kiesha Sexton, Rn Document Signatures Signed By: Kiesha Sexton Rn 06/13/19 13:12 Electronically signed by [facility] Conversion Public Weigher Cerner at 12/11/2022 5:07 PM CDT documented in this encounter Plan of Treatment Not on file documented as of this encounter Visit Diagnoses Not on filedocumented in this encounter Care Teams Federal District Clerk Relationship Specialty Start Date End Date Erika So APRN [address] [place] [address] PCP - General Nurse Practitioner 05/07/23 [place] Bahena MD [address] [address] Referring Physician Obstetrics and Gynecology 05/07/23 documented as of this encounter
--- OUTSIDE RECORDS SUMMARY | 2025-05-25 13:20 | XMS_ITS | Encounter Summary ---
Author Organization [employer] ([place], [place], [place], [place]) Address [address] [place] [address] Care Team Providers Care Control Operator Flow Coat Name Role Phone Erika So APRN Primary Care Provider [phone] [place] Bahena MD Unavailable [phone] Encounter Details Date Type Department Care Team (Late st Contact Info) Description 06/13/2019 Transcribed Document [facility] [place] Family Medicine [address] [place] [address] ProviderJosiah MD [address] [place] [address] [id number] Social History Tobacco Use Types Packs/Day Years [...] Rivers MD - 06/13/2019 11:58 AM CDT [facility] Main OR PreOp Summary Primary Physician: VIVIANA RUBIO MD-ORT Finalized Date/Time: 06/16/19 08:19:32 Pt. Name: CAMRYN MCCARTYRESHMA RamanB./Sex: 1985 Female Med Rec #: [id number] Physician: VIVIANA RUBIO MD-ORT Financial #: [id number] Pt. Type: O Room/Bed: 528/1 Admit/Disch: 06/13/19 03:57:00 - 06/13/19 18:23:00 Institution[place] [facility] [place] Case Times Entry 1 In Preop 06/13/19 09:00:00 Ready for Holding n/a Room Patient Ready for 06/13/19 10:29:00 Surgery Patient Out of Preop 06/13/19 11:35:00 Patient Out of n/a Holding Room Last Modified By: HUMBERTO RUIZ 06/16/19 08:19:30 [facility] PreOp Case Times Audit 06/16/19 08:19:30 [place] Former Machine Operator: MATT Modifier: [id number] <+> 1 Patient Out of Preop Finalized By: HUMBERTO RUIZ Document Signatures Signed By: HUMBERTO RUIZ 06/16/19 08:19 Electronically signed by [facility] Conversion Medical Dir Cerner at 12/11/2022 5:11 PM CDT documented in this encounter Plan of Treatment Not on file documented as of this encounter Visit Diagnoses Not on filedocumented in this encounter Care Teams Control Operator Flow Coat Relationship Specialty Start Date End Date Erika So, RAGHU [address] [place] [id number] PCP - General Nurse Practitioner 05/07/23 [place] Bahena MD [address] [address] Referring Physician Obstetrics and Gynecology 05/07/23 documented as of this encounter
--- OUTSIDE RECORDS SUMMARY | 2025-05-25 13:20 | XMS_ITS | Encounter Summary ---
Author Organization [email or web address] ([place], [place], [place], [place]) Address [address] [place] [address] Care Team Providers Care Dot Compliance Manager Name Role Phone Erika So APRN Primary Care Provider [phone] [place] Bahena MD Unavailable [phone] Encounter Details Date Type Department Care Team (Late st Contact Info) Description 06/13/2019 Transcribed Document [facility] [place] Family Medicine [address] [place] [address] ProviderJosiah MD [address] [place] [address] [id number] Social History Tobacco Use Types Packs/Day Years Used Date Smoking Tobacco: Never Assessed Comments Unknown Sex and Gender Information Value Date Recorded Sex Assigned at Not on file Legal Sex Female 5:57 PM CDT Gender Identity Not on file Sexual Orientation Not on file documented as of this encounter Miscellaneous Notes * Cerner Conversion Note - Josiah Rivers MD - 06/13/2019 5:14 PM CDT Final Discharge Planning Entered On: 06/13/2019 17:14 EDT Performed On: 06/13/2019 17:14 EDT by GAYE DEVI, Care Management-Lath Tier Final Discharge Planning Discharge Arrangements : Patient Post-Acute Information Patient Name: QUINCY MCCARTY Gender: Female : [birth year] Age: 34 Years No Post-Acute Placement(s) Listed No Post-Acute Service(s) Listed No [place] Referral(s) Listed Discharge To Care Management : Home/Residential/Snf or Self Care -01 GAYE DEIV, Care Management-Lath Tier - 06/13/2019 17:14 EDT Electronically signed by [facility] Conversion Deck Engine Operator Cerner at 12/11/2022 4:50 PM CDT documented in this encounter Plan of Treatment Not on file documented as of this encounter Visit Diagnoses Not on filedocumented in this encounter Care Teams Dot Compliance Manager Relationship Specialty Start Date End Date Erika So, RAGHU [address] [place] [address] PCP - General Nurse Practitioner 05/07/23 [place] Bahena MD [address] [address] Referring Physician Obstetrics and Gynecology 05/07/23 documented as of this encounter
--- OUTSIDE RECORDS SUMMARY | 2025-05-25 13:20 | XMS_ITS | Encounter Summary ---
Author Organization [employer] ([place], [place], [place], [place]) Address [address] [place] [address] Care Team Providers Care Quality Technician Fiberglass Name Role Phone Erika So APRN Primary Care Provider [phone] [place] Bahena MD Unavailable [phone] Encounter Details Date Type Department Care Team (Late st Contact Info) Description 06/13/2019 Transcribed Document [facility] [place] [address] [place] [address] ProviderJosiah MD [address] [place], [place] [id number] Social History Tobacco Use Types Packs/Day Years Used Date Smoking Tobacco: Never Assessed Comments Unknown Sex and Gender Information Value Date Recorded Sex Assigned at Not on file Legal Sex Female 5:57 PM CDT Gender Identity Not on file Sexual Orientation Not on file documented as of this encounter Miscellaneous Notes * Cerner Conversion Note - Josiah Rivers MD - 06/13/2019 5:43 PM CDT Stroke/Warfarin Instructions Entered On: 06/13/2019 17:43 EDT Performed On: 06/13/2019 17:43 EDT by Geneva Cifuentes RN Stroke/Warfarin Instructions Stroke/TIA Discharge Ins : N/A Warfarin Discharge Ins : N/A Geneva Cifuentes RN - 06/13/2019 17:43 EDT documented in this encounter Plan of Treatment Not on file documented as of this encounter Visit Diagnoses Not on filedocumented in this encounter Care Teams Quality Technician Fiberglass Relationship Specialty Start Date End Date Erika So APRN [address] [place] [address] PCP - General Nurse Practitioner 05/07/23 [place] Bahena MD [address] [address] Referring Physician Obstetrics and Gynecology 05/07/23 documented as of this encounter
--- OUTSIDE RECORDS SUMMARY | 2025-05-25 13:20 | XMS_ITS | Encounter Summary ---
Author Organization [employer] ([place], [place], [place], [place]) Address [address] [place] [address] Care Team Providers Care Medical Billing And Coding Specialist Name Role Phone Erika So APRN Primary Care Provider [phone] [place] Bahena MD Unavailable [phone] Encounter Details Date Type Department Care Team (Late st Contact Info) Description 06/13/2019 Transcribed Document [facility] [place] Family Medicine [address] [place] [address] ProviderJosiah MD [address] [place] [address] Social History Tobacco Use Types Packs/Day Years Used Date Smoking Tobacco: Never Assessed Comments Unknown Sex and Gender Information Value Date Recorded Sex Assigned at Not on file Legal Sex Female 5:57 PM CDT Gender Identity Not on file Sexual Orientation Not on file documented as of this encounter Miscellaneous Notes * Cerner Conversion Note - Josiah Rivers MD - 06/13/2019 5:00 PM CDT Chart Check - Review Order Profile Entered On: 06/13/2019 17:19 EDT Performed On: 06/13/2019 17:00 EDT by Geneva Cifuentes RN Chart Check Powerplans Initiated/Discontinued as Appropriate : Yes All Active Orders Reviewed : Yes Geneva Cifuentes RN - 06/13/2019 17:19 EDT Electronically signed by [facility] Conversion Financial Services Counselor Cerner at 12/11/2022 5:05 PM CDT documented in this encounter Plan of Treatment Not on file documented as of this encounter Visit Diagnoses Not on filedocumented in this encounter Care Teams Medical Billing And Coding Specialist Relationship Specialty Start Date End Date Erika So APRN [address] [place] [address] PCP - General Nurse Practitioner 05/07/23 [place] Bahena MD [address] [address] Referring Physician Obstetrics and Gynecology 05/07/23 documented as of this encounter
--- OUTSIDE RECORDS SUMMARY | 2025-05-25 13:20 | XMS_ITS | Encounter Summary ---
Author Organization [employer] ([place], [place], [place], [place]) Address [address] [place] [address] Care Team Providers Care Regional Forester Name Role Phone Erika So APRN Primary Care Provider [phone] [place] Bahena MD Unavailable [phone] Encounter Details Date Type Department Care Team (Late st Contact Info) Description 06/13/2019 Transcribed Document [facility] [place] Family Medicine [address] [place] [address] ProviderJosiah MD [address] [place] [address] [id number] Social History Tobacco Use Types Packs/Day Years Used Date Smoking Tobacco: Never Assessed Comments Unknown Sex and Gender Information Value Date Recorded Sex Assigned at Not on file Legal Sex Female 5:57 PM CDT Gender Identity Not on file Sexual Orientation Not on file documented as of this encounter Miscellaneous Notes * Cerner Conversion Note - Josiah Rivers MD - 06/13/2019 12:53 PM CDT Patient: QUINCY MCCARTY Age: 34 years Sex: Female : 1985 Associated Diagnoses: None Author: VIVIANA RUBIO MD-ORT Operative Report DATE OF PROCEDURE: June 13, 2019 PREOPERATIVE DIAGNOSIS(ES): left L4-5 herniated disc. With nerve root compression POSTOPERATIVE DIAGNOSIS(ES): left L4-5 herniated disc, with nerve root compression PROCEDURE: Lumbar laminectomy, left side, L4-5 discectomy, foraminotomy. SURGEON: Viviana Rubio MD. PSYCHOMETRIC EXAMINER: Shant Do The duties of the physician social research assistant are to carefully help transport the patient onto and off the OR table, careful positioning up. During surgery, careful suctioning and retraction, protecting the nerve root, to minimize the chance of nerve damage, CSF leakage. Assistance with closure of the wound. ANESTHESIA: General. ESTIMATED BLOOD LOSS: Less than 5 mL COMPLICATIONS: None. FLUOROSCOPY TIME: 15 seconds FINDINGS: Large herniation, extending from the midline laterally, underneath the traversing exiting nerve root, with large loose fragment. Entering the nerve root, causing severe compression of the nerve root with hourglass deformity. SURGICAL INDICATORS: Symptoms and duration-Greater than 3 month history of severe lower back pain radiating into left lower extremity. Pain numbness and weakness. Failure of conservative management including steroid anti-inflammatory medication physical therapy. In spite of this continuing symptoms, with progressive increasing numbness and weakness in the left lower extremity causing the patient to fall. Fortunately the patient has not yet heard themselves secondary to following secondary to severe pain and weakness in the lower extremity. The leg pain is much worse than the back pain. Symptoms of pain numbness weakness, radiculopathy, not improvement with conservative care IMAGING STUDIES MRI study confirming left-sided herniation, L4-5, large, occupying greater than 60% of the canal compressing on the left L5 traversing nerve root. Clinical symptoms correlate with imaging studies. RECOMMENDATION: Patient certainly can tell me patient cannot live with the symptoms and patient would like to have this fixed. I think patient is going to require is a lumbar laminectomy at the L4-L5 level, most specifically on left side has a large herniation, resident symptomatic now for almost 2 months, with severe back pain and leg pain progressive numbness and weakness. decompression of the nerve root, discectomy. Laminectomy, and partial foraminotomy. Great care will be taken, to minimize soft tissue injury, not violate the facet joints, they're very gentle on the nerve roots. And carefully removed all free disc material. Risks have been extensively been reviewed with the patient. This was again reviewed with patient today and consent was obtained. RISKS Risks were extensively reviewed reviewed with the patient alternative treatments. Informed consent given. Nerve damage-analyzed with magnification. CSF leakage-minimize with careful retraction, protection of the dura, magnification. Infection-sterile technique, antibiotics, sterile prep Repeat surgery-minimize, with avoidance of violation of the disc, and minimizing damage to the facet joints. Getting adequate decompression above and below the disc confirmed with x-ray at time of surgery Neuropathic pain-minimize with magnification, and gentle manipulation of tissues Bleeding-meticulous hemostasis. Loss of function-minimize with immediate rehabilitation. All the above reviewed not limited, but including all of the above Comorbidities Chronic leg pain Ovarian disorder Anxiety disorder Overweight Hormonal disorder GERD PATIENT QUALITY REPORTING SERVICES Timeout Antibiotics rozzrd-[id number] cephalosporin Antibiotics administered less than 1 hour before surgery Antibiotics-discontinued postop within 24 hours Catheter-not used. DVT prophylaxis. DESCRIPTION OF PROCEDURE: The patient was brought into the operating room. General anesthesia was administered. DVT protocol. Patient placed prone on the OR table. Pressure areas carefully padded. Then very carefully, identification of the L4-L5 level with fluoroscopic control. Washed, prepped, sterile draping. Left side Time-out. Again antibiotics checked, were administered. 4.2 magnification. Midline incision extending from the mid portion of L4 spinous process to the midline of L5 spinous process. Very carefully dissecting through skin and subcutaneous tissues. Meticulous hemostasis. Very carefully, identifying spinous process 4 and spinous process 5, confirming with x-ray, dissecting down the spinous process 4, spinous process 5, down to lamina 4 and lamina 5 and the facet joint. X-ray confirmation of the correct level. left side . Multiple x-rays were required Then with a very high-speed bur, very carefully, removing the inferior portion, crossing the midline of the lamina of L4, carrying this laterally to the medial margin of the facet joint, in a cephalad direction.Then doing the same on the superior portion of L5. X-ray confirmation making certain that we were above the disk, and down below the disk. Multiple x-rays required, making certain that we were above and below the disc. Also with x-rays confirming, that we were below the spinal cord on the surface of the disc, at the end of the case. Carefully using the angled curettes, working underneath the lamina to separate the lamina off from the protective ligamentum flavum. Confirming that this was nicely removed. Then, very carefully removed the ligamentum flavum, from the underlying dura. The dura was carefully protected.then very carefully resecting the portion of the ligamentum flavum, on the symptomatic left side laterally, to identify the lateral margin of the dura. Carrying this up L5 and L4 lamina. There is a large herniation, with the traversing nerve root, draped over the herniation, causing severe compression. This was tediously decompressed, carefully preserving the nerve root, not touching the nerve root, making sure that the overlying bone was removed. Then very carefully retracting the nerve root, with a combination of annulotomy, and sweeping underneath the dura nerve root, finding the disc material. Confirmation with x-ray. Several large fragments, and many tiny small fragments were taken out of the disc space. Laterally identified the lateral margin of the dura. With the lateral margin identified, being very careful to decompress the lateral margin of the dura, from above the disk to below the disk, making certain that the nerve root was well decompressed. then very carefully retracting the L5 nerve root gently in a medial direction to the midline. Identification of the herniation that was pressing on the nerve root. X-ray confirmation that this was the correct level, identification above and below the disc. The facet joints dorsal surfaces were not violated and did not require to be decompressed in this case. I was able to identify the disk, then a careful longitudinal incision was made along the PLL L, Felipa dissecting down through the PLL to identify the herniated disc portion. This portion were then very carefully teased free,gently removing this piece of disc from the bed, where it was compressing the nerve root. Carefully using a angled curette, to reach underneath the PLL, and sweep any free disc material free.from the bed that could be compressing on the nerve root. Going from above the disc down to the below the disc, in the area where the herniation is seen on the MRI study. An carefully reaching into that this remove any free disc material, with a small pituitary straight pituitary up-and-down pituitaries. Washing out the disc space to make certain that there was no further disc material present. X-ray confirmation Identification of the disc, and a small cruciate incision made in the disc. Reaching into the disks make certain that there is no loose disc material protruding backwards onto the nerve. Confirmation with x-ray. The wounds were washed out. Approximately 40 mg of Depo Medrol was placed onto the nerve root and no where else. Meticulous hemostasis. Closure of the deep fascia with #1 Vicryl, subcutaneous fascia with 2-0 Vicryl, skin with daniela. Vancomycin powder. Antibiotic dressing. Patient transferred to recovery room stretcher and then to recovery room. The patient will remain in hospital until medically stable, ambulatory, and pain is controlled. When safe, the patient may be discharged home Sincerely-Dr. Viviana bentley M.D. November 30, 2017, 843 Eastern standard time Viviana Rubio, June 13, 2019, 1257 Eastern standard time documented in this encounter Plan of Treatment Not on file documented as of this encounter Visit Diagnoses Not on filedocumented in this encounter Care Teams Regional Forester Relationship Specialty Start Date End Date Erika So APRN [address] [place] [address] PCP - General Nurse Practitioner 05/07/23 [place] Bahena MD [address] [facility] [address] [place] [address] Referring Physician Obstetrics and Gynecology 05/07/23 documented as of this encounter
--- OUTSIDE RECORDS SUMMARY | 2025-05-25 13:20 | XMS_ITS | Encounter Summary ---
Author Organization [employer] ([place], [place], [place], [place]) Address [address] [place] [address] Care Team Providers Care Contract Engineer Name Role Phone Erika So APRN Primary Care Provider [phone] [place] Bahena MD Unavailable [phone] Encounter Details Date Type Department Care Team (Late st Contact Info) Description 06/13/2019 Transcribed Document [facility] [place] Family Medicine [address] [place] [address] ProviderJosiah MD [address] [place] [address] [phone] Social History Tobacco Use Types Packs/Day Years [...] Rivers MD - 06/13/2019 2:46 PM CDT Pain Assessment Entered On: 06/13/2019 18:26 EDT Performed On: 06/13/2019 17:42 EDT by Geneva Cifuentes RN Intervention Information: acetaminophen-HYDROcodone Performed by Geneva Cifuentes RN on 06/13/2019 16:42:00 EDT acetaminophen-HYDROcodone,1Tab Oral,Pain (Moderate 4-6) Pain Assessment Pain Assessment : Follow-up assessment Pain Scale Goal : 3 Pain Scale Used : 0-10 Scale Pain Improved by Intervention : Yes Geneva Cifuentes RN - 06/13/2019 18:26 EDT Pain Scale Intensity : 2 Geneva Cifuentes RN - 06/13/2019 18:26 EDT Image 4 - Images currently included in the form version of this document have not been included in the text rendition version of the form. Electronically signed by [facility], [facility] Conversion Tenn[address] Attendant Cerner at 12/11/2022 4:54 PM CDT documented in this encounter Plan of Treatment Not on file documented as of this encounter Visit Diagnoses Not on filedocumented in this encounter Care Teams Contract Engineer Relationship Specialty Start Date End Date Erika So APRN [address] [place] [address] PCP - General Nurse Practitioner 05/07/23 [place] Bahena MD [address] [address] Referring Physician Obstetrics and Gynecology 05/07/23 documented as of this encounter
--- OUTSIDE RECORDS SUMMARY | 2025-05-25 13:20 | XMS_ITS | Clinical Summary ---
Author Organization [employer] ([place], [place], [place], [place]) Address [address] [place] [address] Care Team Providers Care Active Directory Architect Name Role Phone Erika So APRN Primary Care Provider [phone] [place] Bahena MD Unavailable [phone] Allergies Active Allergy Reactions Criticality Noted [...] Date Lonnie rded Speak language other than Andorran at home Not on file 09/05/2023 Want [...] 12/16/2024 10:45 AM EDT Plan of Treatment Health Maintenance Due Date Last Done Comments Depression Screening (12+) 1998 HIV Screening 2001 Hepatitis C Screening 2004 DTAP/TDAP/TD VACCINES (1 - Tdap) 2005 Pap Smear 2007 COVID-19 VACCINE (1 - 2023- season) 2025 Influenza Vaccine (#1) 2025 06/13/2019 Tobacco Cessation Counseling and Screening (12+) 12/16/2025 12/16/2024 Lipid Panel 09/25/2026 09/25/2023, 10/25, 05/19/2020, Additional history exists Pneumococcal Vaccine: 0-49 Years Aged Out No longer eligible based on patient's age to complete this topic Procedures Procedure Name Priority Date/Time Associated Diagnosis Comments LIPID PANEL STAT 09/25/2023 6:53 AM EST from Last 3 Months or Most Recently Relevant to Health Maintenance Results * Lipid panel (09/25/2023 6:53 AM EST) Triglycerides 60 0 - 249 mg/dL 09/25/2023 7:20 AM [facility] Cholesterol 197 0 - 199 mg/dL 09/25/2023 7:20 AM [facility] Comment: 200 to 239 mg/dL = Moderate (borderline) >239 mg/dL = High HDL Cholesterol 88 >=40 mg/dL 7:20 AM [facility] Comment: >=60 mg/dL = Desirable <40 mg/dL = Increased Risk All other components are listed individually or are calculations VLDL Cholesterol 12 5 - 40 mg/dL 09/25/2023 7:20 AM [facility] Cholesterol/HDL ratio 2.2 0.0 - 3.2 09/25/2023 7:20 AM [facility] LDl/HDL Ratio 1 0 - 4 09/25/2023 7:20 AM [facility] RISK COMP 2 09/25/2023 7:20 AM [facility] LDL Cholesterol, Calculated 97 0 - 99 mg/dL 09/25/2023 7:20 AM EST [facility] Blood Venipuncture / Unknown 09/25/2023 6:53 AM EST 09/25/2023 6:57 AM EST [place] Bahena MD LAB BLOOD ORDERABLES Final Re sult [facility] [address] [employer] [address] [phone] from Last 3 Months or Most Recently Relevant to Health Maintenance [facility] Advance Directives For more information, please contact: [phone] * Full Code (Latest Code Status on File) Date Activated Date Inactivated Comments 09/25/2023 8:08 AM 09/25/2023 12:20 PM * Full Code Date Activated Date Inactivated Comments 09/25/2023 5:18 AM 09/25/2023 8:08 AM Care Teams Active Directory Architect Relationship Specialty Start Date End Date Erika So APRN [address] [place] [phone] PCP - General Nurse Practitioner 05/07/23 [place] Bahena MD [address] [place] [phone] Referring Physician Obstetrics and Gynecology 05/07/23
--- OUTSIDE RECORDS SUMMARY | 2025-05-25 13:20 | XMS_ITS | Encounter Summary ---
Author Organization [employer] ([place], [place], [place], [place]) Address [address] [place] [address] Care Team Providers Care Precast Molder Name Role Phone Erika So APRN Primary Care Provider [phone] [place] Bahena MD Unavailable [phone] Encounter Details Date Type Department Care Team (Late st Contact Info) Description 06/13/2019 Transcribed Document [facility] [place] [address] [place] [address] ProviderJosiah MD [address] [place] [address] [phone] Social History Tobacco Use Types Packs/Day Years [...] Rivers MD - 06/13/2019 5:43 PM CDT Nursing Discharge Summary Entered On: 06/13/2019 17:44 EDT Performed On: 06/13/2019 17:43 EDT by Geneva Cifuentes RN Discharge Documentation Patient Disposition, General : Discharge Discharge To : Home with ambulatory/outpatient follow-up Mode Of Departure, General Discharge : Private vehicle Accompanied By, Discharge : Spouse IV Discontinued : Yes Personal Belongings With Patient : Yes Prescriptions Given to Patient : Yes Discharge Instructions Reviewed With, Opportunity For Questions Given : Patient, Spouse Patient Education Completed : Yes Number of Prescriptions Given : 1 Teaching Method : Explanation, Printed materials Teaching Evaluation : Verbalizes understanding Geneva Cifuentes, RN - 06/13/2019 17:43 EDT Electronically signed by [facility] Conversion Beaming Machine Operator Cerner at 12/11/2022 5:04 PM CDT documented in this encounter Plan of Treatment Not on file documented as of this encounter Visit Diagnoses Not on filedocumented in this encounter Care Teams Precast Molder Relationship Specialty Start Date End Date Erika So APRN [address] [place] [address] PCP - General Nurse Practitioner 05/07/23 [place] Bahena MD [address] [address] Referring Physician Obstetrics and Gynecology 05/07/23 documented as of this encounter
--- OUTSIDE RECORDS SUMMARY | 2025-05-25 13:20 | XMS_ITS | Encounter Summary ---
Author Organization [employer] ([place], [place], [place], [place]) Address [address] [place] [address] Care Team Providers Care Filling Room Operator Name Role Phone Erika So APRN Primary Care Provider [phone] [place] Bahena MD Unavailable [phone] Encounter Details Date Type Department Care Team (Late st Contact Info) Description 05/19/2020 Transcribed Document [facility] [place] [address] [place] [address] ProviderJosiah MD [address] [place] [address] Social History Tobacco Use Types Packs/Day Years Used Date Smoking Tobacco: Never Assessed Comments Unknown Sex and Gender Information Value Date Recorded Sex Assigned at Not on file Legal Sex Female 5:57 PM CDT Gender Identity Not on file Sexual Orientation Not on file documented as of this encounter Miscellaneous Notes * Cerner Conversion Note - Josiah Rivers MD - 05/19/2020 11:31 AM CDT PAT Adult Entered On: 05/19/2020 11:32 EDT Performed On: 05/19/2020 11:31 EDT by Merari George RN Height and Weight, Clinical Dosing Height Source : Measured Height Entry Format : [place] Height, Feet : 5 ft(Converted to: 152 cm, 60 Inch) Height, Inches : 4 Inch(Converted to: 0 ft 4 Inch, 10.16 cm) Clinical Height : 162.56 cm Weight Source : Standing scale Weight Entry Format : Vanessa Merari George RN - 05/19/2020 11:31 EDT Clinical Dosing Weight : 93.77 kg Weight, Pounds : 206.3 lb Body Surface Area (BSA) : 1.98 m2 Body Mass Index : 35.5 kg/m2 (HI) Merari George RN - 05/19/2020 11:34 EDT [place] Body Weight : 54 kg Merari George RN - 05/19/2020 11:31 EDT Health Histories Smoking Status : Never (less than 100 in lifetime; none in last 30 days) Smokeless Tobacco Status : Never Merari George RN - 05/19/2020 11:31 EDT Social History (As Of: 05/19/2020 11:32:06 EDT) Tobacco: Use in Last 12 Months: [...] LOU SIMS, RN) Employment/School: Employed, Work/School description: [employer]. (Last Updated: 01/31/2017 10:31:56 EDT by MARY LOU SIMS RN) Infectious Disease History Has the patient ever been tested for COVID-19? : Yes, Patient stated results Negative Date of COVID-19 test known? : Yes Does patient have symptoms of COVID-19? : No COVID19 Screening : No Experiencing Infectious Disease Symptoms : No symptoms Physical contact outside [place] in the last 30 days : No Infectious Disease History : Chicken pox/Shingles, Human papilloma virus (HPV), Influenza Tuberculosis Symptoms : None Merari George RN - 05/19/2020 11:32 EDT COVID19 PreProcedure Screening Is this an Emergent or Add on Procedure? : No Has patient been isolated since the test : No Exposed to COVID19 symptoms since test? : No Merari George RN - 05/19/2020 11:32 EDT Anesthesia/Transfusion History Family History of Anesthesia Reaction : No prior transfusion(s) Transfusion History : Prior anesthesia reaction Type of Anesthesia Reaction : Excessive somnolence, Excessive nausea/vomiting Family History of Anesthesia Reaction : None Merari George RN - 05/19/2020 11:32 EDT Advance Directive Patient has Advance Directive *Q : No, patient refuses Advance Directive information Merari George RN - 05/19/2020 11:32 EDT [place] Suicide Severity Rating Scale (C-SSRS) CSSRS Past Month Wish to be : No CSSRS Past Month Suicidal Thoughts : No CSSRS Lifetime Suicide Behavior : No Suicide Severity Rating Score : 0 Suicide Severity Rating : No Additional Care Required at this time Merari George RN - 05/19/2020 11:32 EDT Psychosocial History Chronic/Terminal Illness w/Freq Visits : No Do You Have a History of the Following? : Anxiety Currently in Unsafe Situation : No Merari George RN - 05/19/2020 11:32 EDT General Info Preferred Name : Camryn Support Person/Patient Reinforcing Steel Worker Wire Mesh : No Support Person/Pt Rep Name : Jose Gu Support Person/Pt Rep Contact Information : [phone] Want Family/Rep/Phys Notified of Admit : No Emergency Contact #1 : x Emergency Contact #1 Phone Number : x Emergency Contact #1 Relationship : x Emergency Contact #2 : x Emergency Contact #2 Phone Number : x Emergency Contact #2 Relationship : x Chief Complaint : x Primary Language : [place] Islander Preferred Communication Mode : Verbal Communication Barrier : None Mess Attendant Needed : No Merari George RN - 05/19/2020 11:32 EDT Patel Scale Patel Sensory Perception : No impairment Patel Moisture : Rarely moist Patel Activity : Walks frequently Patel Mobility : No limitation Patel Nutrition : Adequate Patel Friction and Shear : No apparent problem Patel Score : 22 Merari George RN - 05/19/2020 11:32 EDT Sleep Apnea Risk Assmt Hx of Obstructive Sleep Apnea Diagnosis : No Snore Loudly : No Tired, Fatigued, or Sleepy During Day : No Observed Stopping Breathing During Sleep : No Have/Are Being Treated for Hypertension : No Merari George RN - 05/19/2020 11:32 EDT BMI Greater Than 35 kg/m2 : Yes Merari George RN - 05/19/2020 11:34 EDT Age over 50 Years Old : No Neck Circumference Greater Than 40 cm : No Gender Male : No Merari George RN - 05/19/2020 11:32 EDT STOP-BANG Sleep Apnea Risk Level Score : 1 Merari George RN - 05/19/2020 11:34 EDT documented in this encounter Plan of Treatment Not on file documented as of this encounter Visit Diagnoses Not on filedocumented in this encounter Care Teams Filling Room Operator Relationship Specialty Start Date End Date Erika So, RAGHU [address] [place] [address] PCP - General Nurse Practitioner 05/07/23 [place] Bahena MD [address] [address] Referring Physician Obstetrics and Gynecology 05/07/23 documented as of this encounter
--- OUTSIDE RECORDS SUMMARY | 2025-05-25 13:20 | XMS_ITS | Encounter Summary ---
Author Organization [email or web address] ([place], [place], [place], [place]) Address [address] [place] [address] Care Team Providers Care Residential Property Manager Name Role Phone Erika So APRN Primary Care Provider [phone] [place] Bahena MD Unavailable [phone] Encounter Details Date Type Department Care Team (Late st Contact Info) Description 06/13/2019 Transcribed Document [facility] [place] Family Medicine [address] [place] [address] ProviderJosiah MD [address] [place] [address] [id number] Social History Tobacco Use Types Packs/Day Years Used Date Smoking Tobacco: Never Assessed Comments Unknown Sex and Gender Information Value Date Recorded Sex Assigned at Not on file Legal Sex Female 5:57 PM CDT Gender Identity Not on file Sexual Orientation Not on file documented as of this encounter Miscellaneous Notes * Cerner Conversion Note - Josiah Rivers MD - 06/13/2019 2:42 PM CDT Admission History, Adult Entered On: 06/13/2019 14:46 EDT Performed On: 06/13/2019 14:42 EDT by Geneva Cifuentes RN Advance Directive Patient has Advance Directive *Q : No, patient refuses Advance Directive information Geneva Cifuentes RN - 06/13/2019 14:42 EDT Anesthesia/Transfusion History Family History of Anesthesia Reaction : No prior transfusion(s) Blood Transfusion Acceptable to Patient : Yes Transfusion History : Prior anesthesia reaction Type of Anesthesia Reaction : Excessive somnolence, Excessive nausea/vomiting Family History of Anesthesia Reaction : None Geneva Cifuentes RN - 06/13/2019 14:42 EDT Anticipated Discharge Needs Discharge To, Anticipated : Home Anticipated Discharge Needs at This Time : Geneva Barrios RN - 06/13/2019 14:42 EDT Education Topics, Admission Orientation DCP GENERIC CODE Advance Directives : Verbalizes understanding, Returns demonstration Allergy Band Applied : Verbalizes understanding, Returns demonstration Assessment/Vital Signs : Verbalizes understanding, Returns demonstration Bed Control : Verbalizes understanding, Returns demonstration Call Light : Verbalizes understanding, Returns demonstration Confidentiality : Verbalizes understanding, Returns demonstration Diet/Room Service : Verbalizes understanding, Returns demonstration Fall Prevention : Verbalizes understanding, Returns demonstration Hand Hygiene : Verbalizes understanding, Returns demonstration Healthcare Provider Visit : Verbalizes understanding, Returns demonstration ID Band Applied : Verbalizes understanding, Returns demonstration Isolation Precautions : Verbalizes understanding, Returns demonstration Orientation to Room/Bathroom : Verbalizes understanding, Returns demonstration Patient Bill of Rights : Verbalizes understanding, Returns demonstration Patient Rights/Responsibilities : Verbalizes understanding, Returns demonstration Patient Safety : Verbalizes understanding, Returns demonstration Personal Privacy Code : Verbalizes understanding, Returns demonstration Rapid Response Initiated by Patient/Family : Verbalizes understanding, Returns demonstration Rounding : Verbalizes understanding, Returns demonstration Siderails use/risks : Verbalizes understanding, Returns demonstration Skin Precautions : Verbalizes understanding, Returns demonstration Smoking Policy : Verbalizes understanding, Returns demonstration Telemetry Monitoring : Verbalizes understanding, Returns demonstration Television/Phone : Verbalizes understanding, Returns demonstration Visiting Policy : Verbalizes understanding, Returns demonstration Geneva Cifuentes RN - 06/13/2019 14:42 EDT Functional Assessment Living Situation : Home Patient Lives With : Spouse Persons Assisting Patient at Home : Spouse Current Daily Living Assistance : None Sensory Deficits : None RASCON Hx Falls Immediate/Within 3 Months : No Current Home Treatments : None Geneva Cifuentes RN - 06/13/2019 14:42 EDT General Info Preferred Name : Camryn Arrived From : Other: OR Mode of Arrival on Unit : Stretcher Patient Arrival Date/Time : 06/13/2019 14:35 EDT Legal Guardian : Spouse Support Person/Patient Oracle Applications Developer : Yes Support Person/Pt Rep Name : Jose Gu Support Person/Pt Rep Contact Information : [phone] Want Family/Rep/Phys Notified of Admit : No Emergency Contact #1 : Jose Emergency Contact #1 Emergency Contact #1 Relationship : spouse Emergency Contact #2 : . Emergency Contact #2 Phone Number : . Emergency Contact #2 Relationship : . Information Obtained From : Patient Primary Language : Swiss Preferred Communication Mode : Verbal Communication Barrier : None Geneva Cifuentes RN - 06/13/2019 14:42 EDT Fall Risk Scales ABCs Fall Injury Risk Identification : Bones, Surgery ABC Fall Injury Risk : Moderate to high injury risk Injury Moderate to High Risk Interventions : Bed alarm on, Chair alarm on, Wrist band (fall risk) on per policy RASCON Hx Falls Immediate/Within 3 Months : No Rascon Secondary Diagnosis : No RASCON Use of Ambulatory Aid : Bed rest/Nurse assist RASCON IV Therapy or IV Access : Yes Rascon Gait/Transferring : Weak Rascon Mental Status : Oriented to own ability Rascon Fall Risk Score : 30 RASCON Fall Scale Risk Level : 25-45 Medium Risk [place] Fall Interventions : Adequate lighting, Assistive devices within reach, Bed in low position, Call device within reach, Fall prevention handout/education per facility policy, Frequent orientation to call device, Frequent orientation to surroundings, Hourly comfort/safety rounds, Non-slip footwear, Personal items within reach, Reinforced to call for assistance before getting out of bed, Room free of clutter/spills, Upper side-rails up, Wheels locked, Wires/Cords secured Fall Moderate to High Risk Interventions : Bed alarm on, Chair alarm on, Wrist band (fall risk) on Barriers to Learning : None evident Fall Risk Scale Calc Temp : 0 Geneva Cifuentes RN - 06/13/2019 14:42 EDT Health Histories Smoking Status : Never (less than 100 in lifetime; none in last 30 days) Smokeless Tobacco Status : Never Geneva Cifuentes RN - 06/13/2019 14:42 EDT Social History (As Of: 06/13/2019 14:46:03 EDT) Tobacco: Use in Last 12 Months: [...] 01/31/2017 10:31:36 EDT by MARY LOU SIMS, ANTHONY) Employment/School: Employed, Work/School description: [employer]. (Last Updated: 01/31/2017 10:31:56 EDT by MARY LOU SIMS, ANTHONY) Height and Weight, Clinical Dosing Height Source : Stated Height Entry Format : [place] Height, Feet : 5 ft(Converted to: 152 cm, 60 Inch) Height, Inches : 4 Inch(Converted to: 0 ft 4 Inch, 10.16 cm) Clinical Height : 162.56 cm Weight Source : Standing scale Weight Entry Format : [place] Clinical Dosing Weight : 84.55 kg Weight, Pounds : 186 lb Body Surface Area (BSA) : 1.9 m2 Body Mass Index : 32 kg/m2 (HI) [place] Body Weight : 54 kg Geneva Cifuentes RN - 06/13/2019 14:42 EDT Infectious Disease History Infectious Disease History : Chicken pox/Shingles, Influenza Active Surveillance Screen Assessment : Patient does not meet any of above criteria Active Surveillance Screen Negative : Yes Isolation Needed : Standard Fever/Chills Last 48 Hours : No Travel To Regions with Travel Advisories : No Travel Outside [place] Within Last 30 Days : No Contact With Traveler to Advisory Region : No Tuberculosis Symptoms : None Geneva Cifuentes RN - 06/13/2019 14:42 EDT Tetanus Immunization Status Previous Tetanus Immunizations : No qualifying data available. Tetanus Immunization : Greater than 10 years Geneva Cifuentes RN - 06/13/2019 14:42 EDT Influenza Vaccine Asmt, Adult Previous Vaccines from Immunization Schedule : No qualifying data available. Influenza Immunization, Current Season : No Inactivated Flu Vaccine Contraindications : No contraindications to inactivated influenza vaccine Transplant Workup/Recent Transplant : No Order for Influenza Vaccine : Order for influenza vaccine sent to pharmacy Geneva Cifuentes RN - 06/13/2019 14:42 EDT Pneumococcal Vaccine Previous Vaccines from Immunization Schedule : No qualifying data available. Pneumonia Immunization Received : No Pneumococcal Risk Assessment < Age 65 : None Geneva Cifuentes RN - 06/13/2019 14:42 EDT Order Details Transport Mode Order Detail : Wheelchair Order Detail : 0 IV Order Detail : 1 Oxygen Order Detail : 1 Nurse Collect Order Detail : 0 Lift/Transfer : Moderate assist Central Line Order Detail : No Room Service : Not Appropriate Arterial Line : No Geneva Cifuentes RN - 06/13/2019 14:42 EDT Nutrition History Feeding Ability : Independent Adaptive Feeding Equipment : None Adaptive Feeding Equipment : Regular, Other: low carb high protein Oral Medication Administration : By mouth Eating Poorly Due to Decreased Appetite : No Unplanned Weight Loss in Past 3-6 Months : No Malnutrition Screening Tool Total(mal) : 0 Malnutrition Screening Tool Risk Level : Patient not at risk Geneva Cifuentes RN - 06/13/2019 14:42 EDT Psychosocial History Does Someone Depend on You for Care? : Yes Have Arrangements been Made? : Yes Chronic/Terminal Illness w/Freq Visits : No Do You Have a History of the Following? : Anxiety Currently in Unsafe Situation : No Tried to Harm Yourself in the Past? : No Thoughts of Harming/Killing Yourself : No Geneva Cifuentes RN - 06/13/2019 14:42 EDT Sleep Apnea Risk Assmt Hx of [...] Sleep Apnea Risk Level Score : 0 Geneva Cifuentes RN - 06/13/2019 14:42 EDT Spiritual/Cultural Needs Significant Loss/Crisis in Past 3 Years : No Geneva Cifuentes RN - 06/13/2019 14:42 EDT Valuables and Belongings Valuables and Belongings : Clothing Clothing : Common streetwear, Other: glasses Clothing Disposition : With family Geneva Cifuentes RN - 06/13/2019 14:42 EDT Electronically signed by Cameron [facility] Conversion Primer Boxer Cerner at 12/11/2022 5:05 PM CDT documented in this encounter Plan of Treatment Not on file documented as of this encounter Visit Diagnoses Not on filedocumented in this encounter Care Teams Residential Property Manager Relationship Specialty Start Date End Date Erika So APRN [address] [place] [address] PCP - General Nurse Practitioner 05/07/23 [place] Bahena MD [address] [address] Referring Physician Obstetrics and Gynecology 05/07/23 documented as of this encounter
--- OUTSIDE RECORDS SUMMARY | 2025-05-25 13:20 | XMS_ITS | Encounter Summary ---
Author Organization [employer] ([place], [place], [place], [place]) Address [address] [place] [address] Care Team Providers Care Wirer Passenger Car Name Role Phone Erika So APRN Primary Care Provider [phone] [place] Bahena MD Unavailable [phone] Encounter Details Date Type Department Care Team (Late st Contact Info) Description 03/06/2021 Transcribed Document [facility] [facility] [place] [address] ProviderJosiah MD [address] [place] [id number] Social History Tobacco Use Types Packs/Day Years [...] MD - 03/06/2021 11:11 AM CDT ED Assessment Entered On: 03/06/2021 11:41 EDT Performed On: 03/06/2021 11:39 EDT by CHRIS BUENO, HEALTHCARE SCIENCE SPECIALIST Quick Look Assessment Level of Consciousness : Alert, Awake Affect/Behavior : Appropriate, Calm Orientation : Oriented x 4 Skin Temperature : Warm CHRIS BUENO RN - 03/06/2021 11:39 EDT ED General-Functional Assess Information Obtained From : Patient Preferred Communication Mode : Verbal Communication Barrier : None Primary Language : Polish Any Spiritual/Cultural Needs or Requests : No Currently in Unsafe Situation : No CHRIS BUENO RN - 03/06/2021 11:39 EDT Social Habits Smoking Status : Never (less than 100 in lifetime; none in last 30 days) Smokeless Tobacco Status : Never Desires Tobacco Cessation Calc : 0 CHRIS BUENO ANTHONY Minaya - 03/06/2021 11:39 EDT Social History (As Of: 03/06/2021 11:41:27 EDT) Tobacco: Use in Last 12 Months: [...] LOU SIMS, RN) Employment/School: Employed, Work/School description: [employer]. (Last Updated: 01/31/2017 10:31:56 EDT by MARY LOU SIMS, RN) Integumentary Assessment Integumentary Assessment WDL : WDL with exceptions (Comment: Pt reports to the ED for c/o rash and bug bite. Pt states that sunday she woke up with a spot on the inside of her left thigh. Pt states that she noticed a red area growing around the site. Went to [facility] and was given a steriod shot and put on prednisone. Pt states as the week went on, pt started having growing redness and breaking out in a rash and hives on her trunk area, and top of knees. Pt states she went back to [facility] again. Pt states she has taken benadryl, pepcid, and nothing is working. Significant rash on trunk that is red in color. Pt states she itches really bed. Did change the sheets yesterday and found a tick in the bed. [CHRIS BUENO, RN - 03/06/2021 11:39 EDT] ) CHRIS BUENO RN - 03/06/2021 11:39 EDT Neurologic ASMT, ED Neurologic Assessment WDL : WDL Neurological Symptoms : None Level of Consciousness : Alert, Awake CHRIS BUENO RN - 03/06/2021 11:39 EDT Electronically signed by Cameron [facility] Conversion Channel Sales Manager Cerner at 12/11/2022 5:01 PM CDT documented in this encounter Plan of Treatment Not on file documented as of this encounter Visit Diagnoses Not on filedocumented in this encounter Care Teams Wirer Passenger Car Relationship Specialty Start Date End Date Erika So APRN [address] [place] [address] PCP - General Nurse Practitioner 05/07/23 [place] Bahena MD [address] [address] Referring Physician Obstetrics and Gynecology 05/07/23 documented as of this encounter
--- OUTSIDE RECORDS SUMMARY | 2025-05-25 13:20 | XMS_ITS | Encounter Summary ---
Author Organization [employer] ([place], [place], [place], [place]) Address [address] [place] [address] Care Team Providers Care Door Maker Name Role Phone Erika So APRN Primary Care Provider [phone] [place] Bahena MD Unavailable [phone] Encounter Details Date Type Department Care Team (Late st Contact Info) Description 06/13/2019 Transcribed Document [facility] [address] [place] [address] ProviderJosiah MD [address] [place], [place] [id number] Social History Tobacco Use Types Packs/Day Years Used Date Smoking Tobacco: Never Assessed Comments Unknown Sex and Gender Information Value Date Recorded Sex Assigned at Not on file Legal Sex Female 5:57 PM CDT Gender Identity Not on file Sexual Orientation Not on file documented as of this encounter Miscellaneous Notes * Cerner Conversion Note - Josiah Rivers MD - 06/13/2019 10:02 AM CDT Pre Procedure Adult Entered On: 06/13/2019 10:10 EDT Performed On: 06/13/2019 10:02 EDT by Zahida Caldwell RN Height and Weight, Clinical Dosing Height Source : Stated Height Entry Format : [place] Height, Feet : 5 ft(Converted to: 152 cm, 60 Inch) Height, Inches : 4 Inch(Converted to: 0 ft 4 Inch, 10.16 cm) Clinical Height : 162.56 cm Weight Source : Standing scale Weight Entry Format : [place] Clinical [facility] Weight : 84.55 kg Weight, Pounds : 186 lb Body Surface Area (BSA) : 1.9 m2 Body Mass Index : 32 kg/m2 (HI) [place] Body Weight : 54 kg Zahida Caldwell RN - 06/13/2019 10:02 EDT Health Histories Smoking Status : Never (less than 100 in lifetime; none in last 30 days) Smokeless Tobacco Status : Never Zahida Caldwell RN - 06/13/2019 10:02 EDT Social History (As Of: 06/13/2019 10:10:07 EDT) Tobacco: Use in Last 12 Months: [...] LOU SIMS, RN) Employment/School: Employed, Work/School description: [employer] [...] Region : No Tuberculosis Symptoms : None Zahida Caldwell RN - 06/13/2019 10:02 EDT Anesthesia/Transfusion History Family History of Anesthesia Reaction : No prior transfusion(s) Transfusion History : Prior anesthesia reaction Type of Anesthesia Reaction : Excessive somnolence, Excessive nausea/vomiting Family History of Anesthesia Reaction : None Zahida Caldwell RN - 06/13/2019 10:02 EDT Functional Assessment Living Situation : Home Persons Assisting Patient at Home : Spouse Current Home Treatments : None Zhaida Caldwell RN - 06/13/2019 10:02 EDT Psychosocial History Chronic/Terminal Illness w/Freq Visits : No Do You Have a History of the Following? : Anxiety Currently in Unsafe Situation : No Tried to Harm Yourself in the Past? : No Thoughts of Harming/Killing Yourself : No Zahida Caldwell RN - 06/13/2019 10:02 EDT Advance Directive Patient has Advance Directive *Q : No, patient refuses Advance Directive information Zahida Caldwell RN - 06/13/2019 10:02 EDT Teaching/Learning Assessment Barriers To Learning : None evident Zahida Caldwell RN - 06/13/2019 10:02 EDT Education Topics, Periop Preadmission Perioperative Education Grid IV's : Verbalizes understanding NPO Status/Directions : Verbalizes understanding Pain Management : Verbalizes understanding Postoperative Care Preparations : Verbalizes understanding Preprocedure Preparations : Verbalizes understanding Preprocedure Tests/Labs : Verbalizes understanding Remove Body Piercings : Verbalizes understanding Responsible Adult : Verbalizes understanding Take/Hold Medications Pre-Procedure : Verbalizes understanding Zahida Caldwell RN - 06/13/2019 10:02 EDT General Info Preferred Name : Camryn Support Person/Patient Signalman : Yes Support Person/Pt Rep Name : Jose Gu Support Person/Pt Rep Contact Information : [phone] Want Family/Rep/Phys Notified of Admit : No Emergency Contact #1 : Jose Emergency Contact #1 Emergency Contact #1 Relationship : spouse Emergency Contact #2 : . Emergency Contact #2 Phone Number : . Emergency Contact #2 Relationship : . Information Obtained From : Patient Primary Language : Syriac Preferred Communication Mode : Verbal Communication Barrier : None Zahida Caldwell RN - 06/13/2019 10:02 EDT Vital Measurements Temperature Source : Temporal artery scanning Temperature Mode : Fahrenheit Temperature, Fahrenheit : 97.4 Deg F Clinical Temperature, C : 36.3 Deg C Pulse Method : Non-Invasive BP Device Pulse Source : Radial, Left Peripheral Pulse Rate : 85 bpm Pulse Rhythm : Regular Respiratory Rate : 16 Breaths/Min Blood Pressure Location : Arm, left upper Blood Pressure Position : Supine Systolic Blood Pressure : 121 mmHg Diastolic Blood Pressure : 71 mmHg Oxygen Saturation : 98 % Oxygen Therapy Mode : Room air Zahida Caldwell RN - 06/13/2019 10:02 EDT Sleep Apnea Risk Assmt Hx of [...] Sleep Apnea Risk Level Score : 0 Zahida Caldwell RN - 06/13/2019 10:02 EDT Patel Scale Patel Sensory Perception : No impairment Patel Moisture : Rarely moist Patel Activity : Walks occasionally Patel Mobility : No limitation Patel Nutrition : Adequate Patel Friction and Shear : No apparent problem Patel Score : 21 Zahida Caldwell RN - 06/13/2019 10:02 EDT Oxygen Therapy Oxygen Therapy Mode : Room air Zahida Caldwell RN - 06/13/2019 10:02 EDT Pain Assessment Pain Assessment : Initial assessment Pain Scale Goal : 3 Pain Scl Goal Comment : normal Pain Scale Used : 0-10 Scale Zahida Caldwell RN - 06/13/2019 10:02 EDT Fall Risk Scales ABCs Fall Injury Risk Identification : Surgery ABC Fall Injury Risk : Moderate to high injury risk RASCON Hx Falls Immediate/Within 3 Months : No Rascon Secondary Diagnosis : No RASCON Use of Ambulatory Aid : None RASCON IV Therapy or IV Access : Yes Rascon Gait/Transferring : Normal, bedrest, immobile Rascon Mental Status : Oriented to own ability Rascon Fall Risk Score : 20 RASCON Fall Scale Risk Level : 0-24 Low Risk [place] Fall Interventions : Adequate lighting, Bed in low position, Call device within reach, Personal items within reach, Upper side-rails up, Wheels locked Barriers to Learning : None evident Zahida Caldwell RN - 06/13/2019 10:02 EDT Education Topics, Day of Surgery DayofSurgery Education Grid IV's : Verbalizes understanding Medication Instructions : Verbalizes understanding Pain Management : Verbalizes understanding Plan of Care : Verbalizes understanding Respiratory Care : Verbalizes understanding Responsible Adult : Verbalizes understanding Tubes/Drains : Verbalizes understanding Zahida Caldwell RN - 06/13/2019 10:02 EDT Valuables and Belongings Valuables and Belongings : Clothing Clothing : Common streetwear, Other: glasses Clothing Disposition : With family Zahida Caldwell RN - 06/13/2019 10:02 EDT Pain Scale Intensity : 1 Zahida Caldwell RN - 06/13/2019 10:02 EDT Image 4 - Images currently included in the form version of this document have not been included in the text rendition version of the form. documented in this encounter Plan of Treatment Not on file documented as of this encounter Visit Diagnoses Not on filedocumented in this encounter Care Teams Door Maker Relationship Specialty Start Date End Date Erika So APRN [address] [place], [place] [phone] PCP - General Nurse Practitioner 05/07/23 [place] Bahena MD [address] [facility] [address] [place] [address] Referring Physician Obstetrics and Gynecology 05/07/23 documented as of this encounter
--- OUTSIDE RECORDS SUMMARY | 2025-05-25 13:20 | XMS_ITS | Encounter Summary ---
Author Organization [employer] ([place], [place], [place], [place]) Address [address] [place] [address] Care Team Providers Care Sales Planning Manager Name Role Phone Erika So APRN Primary Care Provider [phone] [place] Bahena MD Unavailable [phone] Encounter Details Date Type Department Care Team (Late st Contact Info) Description 03/06/2021 Transcribed Document [facility] [place] [address] [place] [address] ProviderJosiah MD [address] [place] [id number] Social History Tobacco Use Types Packs/Day Years Used Date Smoking Tobacco: Never Assessed Comments Unknown Sex and Gender Information Value Date Recorded Sex Assigned at Not on file Legal Sex Female 5:57 PM CDT Gender Identity Not on file Sexual Orientation Not on file documented as of this encounter Miscellaneous Notes * [employer] Conversion Note - Josiah ProviderMD - 03/06/2021 3:01 PM CDT Electronically signed by Cameron [facility] Conversion Community Outreach Advocate Gabbi at 12/11/2022 5:12 PM CDT documented in this encounter Plan of Treatment Not on file documented as of this encounter Visit Diagnoses Not on filedocumented in this encounter Care Teams Sales Planning Manager Relationship Specialty Start Date End Date Erika So APRN [address] [place] [address] PCP - General Nurse Practitioner 05/07/23 [place] Bahena MD [address] [phone] Referring Physician Obstetrics and Gynecology 05/07/23 documented as of this encounter
--- OUTSIDE RECORDS SUMMARY | 2025-05-25 13:20 | XMS_ITS | Encounter Summary ---
Author Organization [employer] ([place], [place], [place], [place]) Address [address] [place] [address] Care Team Providers Care Mds Nurse Name Role Phone Erika So APRN Primary Care Provider [phone] [place] Bahena MD Unavailable [phone] Encounter Details Date Type Department Care Team (Late st Contact Info) Description 06/13/2019 Transcribed Document [facility] [place] Family Medicine [address] [place] [address] ProviderJosiah MD [address] [place], [place] [id number] Social History Tobacco Use Types Packs/Day Years Used Date Smoking Tobacco: Never Assessed Comments Unknown Sex and Gender Information Value Date Recorded Sex Assigned at Not on file Legal Sex Female 5:57 PM CDT Gender Identity Not on file Sexual Orientation Not on file documented as of this encounter Miscellaneous Notes * Cerner Conversion Note - Josiah Rivers MD - 06/13/2019 2:56 PM CDT UM Authorization Entered On: 06/13/2019 14:56 EDT Performed On: 06/13/2019 14:56 EDT by PRADIP ALEXIS RN-Utilization Review Primary Insurance Authorization Authorization and Policy Numbers : Insurance 1 Health Plan: [employer] Policy Number: [id number] Authorization Number: [id number] Insurance Primary Name : [facility] Policy Number: [id number] Authorization Status-Primary : Opo status approv Authorized Service Begin Date-Primary : 06/13/2019 EDT Observation Authorization Nbr-Primary : [id number] Historical Authorization Comments-Primary : No Authorization Comments Found PRADIP ALEXIS RN-Utilization Review - 06/13/2019 14:56 EDT Electronically signed by Cameron [facility] Conversion Traffic Signal Mechanic Cerner at 12/11/2022 4:54 PM CDT documented in this encounter Plan of Treatment Not on file documented as of this encounter Visit Diagnoses Not on filedocumented in this encounter Care Teams Mds Nurse Relationship Specialty Start Date End Date Erika So, API ARCHITECT [address] [id number] PCP - General Nurse Practitioner 05/07/23 [place] Bahena MD [address] [address] Referring Physician Obstetrics and Gynecology 05/07/23 documented as of this encounter
--- OUTSIDE RECORDS SUMMARY | 2025-05-25 13:20 | XMS_ITS | Encounter Summary ---
Author Organization [employer] ([place], [place], [place], [place]) Address [address] [place] [address] Care Team Providers Care Dining Room Maid Name Role Phone Erika So APRN Primary Care Provider [phone] [place] Bahena MD Unavailable [phone] Encounter Details Date Type Department Care Team (Late st Contact Info) Description 06/13/2019 Transcribed Document [facility] [place] [address] [place] [address] ProviderJosiah MD [address] [place] [address] [id number] Social History Tobacco Use Types Packs/Day Years Used Date Smoking Tobacco: Never Assessed Comments Unknown Sex and Gender Information Value Date Recorded Sex Assigned at Not on file Legal Sex Female 5:57 PM CDT Gender Identity Not on file Sexual Orientation Not on file documented as of this encounter Miscellaneous Notes * Cerner Conversion Note - Josiah Rivers MD - 06/13/2019 12:55 PM CDT Pain Assessment Entered On: 06/13/2019 17:16 EDT Performed On: 06/13/2019 14:41 EDT by Geneva Cifuentes RN Intervention Information: [email or web address] Performed by Elisha Hastings Rn Patient Care Bedside on 06/13/2019 14:11:00 EDT fentaNYL,50mcg IV Push,Peripheral Line 1,Pain (Moderate 4-6) Pain Assessment Pain Assessment : Follow-up assessment Pain Scale Goal : 3 Pain Scale Used : 0-10 Scale Pain Improved by Intervention : Yes Geneva Cifuentes RN - 06/13/2019 17:16 EDT Pain Scale Intensity : 0 Geneva Cifuentes RN - 06/13/2019 17:16 EDT Image 4 - Images currently included in the form version of this document have not been included in the text rendition version of the form. Electronically signed by Cameron, [facility] Conversion Golf Teacher Cerner at 12/11/2022 5:08 PM CDT documented in this encounter Plan of Treatment Not on file documented as of this encounter Visit Diagnoses Not on filedocumented in this encounter Care Teams Dining Room Maid Relationship Specialty Start Date End Date Erika So APRN [address] [place] [address] PCP - General Nurse Practitioner 05/07/23 [place] Bahena MD [address] [address] Referring Physician Obstetrics and Gynecology 05/07/23 documented as of this encounter
--- OUTSIDE RECORDS SUMMARY | 2025-05-25 13:20 | XMS_ITS | Encounter Summary ---
Author Organization [email or web address] ([place], [place], [place], [place]) Address [address] [place] [address] Care Team Providers Care Business Project Analyst Name Role Phone Erika So APRN Primary Care Provider [phone] [place] Bahena MD Unavailable [phone] Encounter Details Date Type Department Care Team (Late st Contact Info) Description 03/06/2021 Transcribed Document [facility] [place] Family Medicine [facility] [place] [address] ProviderJosiah MD [address] [place] [id number] Social History Tobacco Use Types Packs/Day Years Used Date Smoking Tobacco: Never Assessed Comments Unknown Sex and Gender Information Value Date Recorded Sex Assigned at Not on file Legal Sex Female 5:57 PM CDT Gender Identity Not on file Sexual Orientation Not on file documented as of this encounter Miscellaneous Notes * Cerner Conversion Note - Josiah Rivers MD - 03/06/2021 3:22 PM CDT ED Discharge Entered On: 03/06/2021 15:23 EDT Performed On: 03/06/2021 15:22 EDT by Rocío Nicholson RN Discharge Process Patient Disposition : Discharge Personal Belongings With Patient : Yes Patient Education Completed : Yes Teaching Evaluation : Verbalizes understanding IV Discontinued : Yes Nursing Documentation Completed : Yes Rocío Nicholson RN - 03/06/2021 15:22 EDT ED Discharge Discharge To : Home with ambulatory/outpatient follow-up Mode Of Departure : Ambulatory Accompanied By : Spouse Discharge Instructions Reviewed With, Opportunity For Questions Given : Patient Prescriptions Given to Patient : Electronically sent Rocío Nicholson RN - 03/06/2021 15:22 EDT Electronically signed by Cameron [facility] Conversion Wine Merchant Cerner at 12/11/2022 5:11 PM CDT documented in this encounter Plan of Treatment Not on file documented as of this encounter Visit Diagnoses Not on filedocumented in this encounter Care Teams Business Project Analyst Relationship Specialty Start Date End Date Erika So, RAGHU [address] [phone] PCP - General Nurse Practitioner 05/07/23 [place] Bahena MD [address] [address] Referring Physician Obstetrics and Gynecology 05/07/23 documented as of this encounter
--- OUTSIDE RECORDS SUMMARY | 2025-05-25 13:20 | XMS_ITS | Encounter Summary ---
Author Organization [employer] ([place], [place], [place], [place]) Address [address] [place] [address] Care Team Providers Care Desk Attendant Name Role Phone Erika So APRN Primary Care Provider [phone] [place] Bahena MD Unavailable [phone] Encounter Details Date Type Department Care Team (Late st Contact Info) Description 05/19/2020 Transcribed Document [facility] [place] Family Medicine [address] [place] [address] ProviderJosiah MD [address] [place] [id number] Social History Tobacco Use Types Packs/Day Years [...] Rivers MD - 05/19/2020 1:23 PM CDT [facility] Main OR IntraOp Summary Primary Physician: [place] BAHENA MD-OBG Finalized Date/Time: 05/20/20 09:32:31 Pt. Name: EVITA COECUTTCAMRYN D.O.B./Sex: 1985 Female Med Rec #: [id number] Physician: [place] BAHENA MD-OBG Financial #: [id number] Pt. Type: O Room/Bed: /1 Admit/Disch: 05/19/20 08:51:00 - 05/19/20 16:30:00 Institution: [facility] IntraOp Case Attendance Entry 1 Entry 2 Entry 3 Case Attendee [place] BAHENA GRAFF, WAYNE B, JUAN IYER APRN,EQUIPMENT OPERATOR INTERMODAL YARD -OBTimmy Role Performed Surgeon/Proceduralist, Anesthesiologist of EQUIPMENT OPERATOR INTERMODAL YARD/Nurse Perinatal Technician First Record Time In 05/19/20 12:53:00 05/19/20 12:53:00 05/19/20 12:53:00 Time Out 05/19/20 14:26:00 05/19/20 14:26:00 05/19/20 14:26:00 Procedure Cervix Conization w CO2 Cervix Conization w CO2 Cervix Conization w CO2 Laser, Endometrial Laser, Endometrial Laser, Endometrial Ablation, Uterine D and Ablation, Uterine D and Ablation, Uterine D and C Hysteroscopy C Hysteroscopy C Hysteroscopy Other Attendee Superficial Wound Closed By: Last Modified By: Lexis Leahy RN Poff, Janie, RN Poff, Janie, RN 05/19/20 14:26:17 05/19/20 14:26:17 05/19/20 14:26:17 Entry 4 Entry 5 Entry 6 Case Attendee JULIETTE JACOBO Patsy D, RN Lexis Leahy RN Role Performed Scrub, First Chemical Process Analyst, Second Chemical Process Analyst, First Time In 05/19/20 12:53:00 05/19/20 12:53:00 05/19/20 12:53:00 Time Out 05/19/20 14:26:00 05/19/20 14:26:00 05/19/20 14:26:00 Procedure Cervix Conization w CO2 Cervix Conization w CO2 Cervix Conization w CO2 Laser, Endometrial Laser, Endometrial Laser, Endometrial Ablation, Uterine D and Ablation, Uterine D and Ablation, Uterine D and C Hysteroscopy C Hysteroscopy C Hysteroscopy Other Attendee Superficial Wound Closed By: Last Modified By: Lexis Leahy RN Poff, Janie, RN Poff, Janie, RN 05/19/20 14:26:17 05/19/20 14:26:17 05/19/20 14:26:17 [facility] IntraOp Case Attendance Audit 05/19/20 14:26:17 Child And Family Services Specialist: GLENN Modifier: GLENN 1 <+> Time Out 1 <*> Procedure Cervix Conization w CO2 Laser, Endometrial Ablation, Uterine D and C Hysteroscopy 2 <+> Time Out 2 <*> Procedure Cervix Conization w CO2 Laser, Endometrial Ablation, Uterine D and C Hysteroscopy 3 <+> Time Out 3 <*> Procedure Cervix Conization w CO2 Laser, Endometrial Ablation, Uterine D and C Hysteroscopy 4 <+> Time Out 4 <*> Procedure Cervix Conization w CO2 Laser, Endometrial Ablation, Uterine D and C Hysteroscopy 5 <+> Time Out 5 <*> Procedure Cervix Conization w CO2 Laser, Endometrial Ablation, Uterine D and C Hysteroscopy 6 <+> Time Out 6 <*> Procedure Cervix Conization w CO2 Laser, Endometrial Ablation, Uterine D and C Hysteroscopy 05/19/20 13:44:08 Child And Family Services Specialist: GLENN Modifier: GLENN 1 <*> Procedure Cervix Conization w CO2 Laser, Endometrial Ablation, Uterine D and C Hysteroscopy 2 <+> Time In 2 <*> Procedure Cervix Conization w CO2 Laser, Endometrial Ablation, Uterine D and C Hysteroscopy 3 <+> Time In 3 <*> Procedure Cervix Conization w CO2 Laser, Endometrial Ablation, Uterine D and C Hysteroscopy 4 <+> Time In 4 <*> Procedure Cervix Conization w CO2 Laser, Endometrial Ablation, Uterine D and C Hysteroscopy 5 <+> Time In 5 <*> Procedure Cervix Conization w CO2 Laser, Endometrial Ablation, Uterine D and C Hysteroscopy 6 <+> Time In 6 <*> Procedure Cervix Conization w CO2 Laser, Endometrial Ablation, Uterine D and C Hysteroscopy [facility] IntraOp Case Times Entry 1 Patient In Room Time 05/19/20 12:53:00 Out Room Time 05/19/20 14:26:00 Anesthesia Start Time 05/19/20 12:53:00 Stop Time 05/19/20 14:26:00 Surgery / Procedure Times Start Time 05/19/20 13:23:00 Stop Time 05/19/20 14:12:00 Last Modified By: Lexis Leahy RN 05/19/20 14:26:11 [facility] IntraOp Case Times Audit 05/19/20 14:26:11 Child And Family Services Specialist: POFFJAN Modifier: POFFJAN <+> 1 Out Room Time <+> 1 Stop Time 05/19/20 14:24:03 Child And Family Services Specialist: POFFJAN Modifier: POFFJAN <+> 1 Stop Time 05/19/20 13:23:20 Child And Family Services Specialist: POFFJAN Modifier: POFFJAN <+> 1 Start Time [facility] IntraOp Counts Verification Entry 1 Procedure Cervix Conization w CO2 Laser, Endometrial Ablation, Uterine D and C Hysteroscopy Count Info Count Type Sponge, Sharps, Miscellaneous Counts Verification Baseline/pre-procedure Sequence Count Results Not Applicable Counts Performed By Count Performed By JULIETTE JACOBO (Scrub) Count Performed By Lexis Leahy RN (RN) Last Modified By: Lexis Leahy RN 05/19/20 13:34:44 [facility] IntraOp Counts Verification Audit 05/19/20 13:34:44 Child And Family Services Specialist: POFFJAN Modifier: POFFJAN 1 <*> Procedure Cervix Conization w CO2 Laser, Endometrial Ablation, Uterine D and C Hysteroscopy 1 <+> Count Performed By (Scrub) 1 <+> Count Performed By (RN) [facility] IntraOp Counts Final Entry 1 Procedure Cervix Conization w CO2 Laser, Endometrial Ablation, Uterine D and C Hysteroscopy Final Count Info Count Type Sponge, Sharps, Miscellaneous Counts Verification Skin Closure/end of Sequence procedure Count Results Correct, surgeon notified Counts Performed By Count Performed By JULIETTE JACOBO (Scrub) Count Performed By Lexis Leahy RN (RN) Last Modified By: Lexis Leahy RN 05/19/20 14:24:21 [facility] IntraOp Counts Final Audit 05/19/20 14:24:21 Child And Family Services Specialist: POFFMERVIN Modifier: POFFJAN 1 <*> Procedure Cervix Conization w CO2 Laser, Endometrial Ablation, Uterine D and C Hysteroscopy 1 <+> Count Performed By (Scrub) 1 <+> Count Performed By (RN) [facility] IntraOp Cultures and Spec Summary Entry 1 Cultrures and Specimens Specimen Ordered: Yes Test(s) Routine/Path-Lab Requested/Final Disposition Last Modified By: Lexis Leahy RN 05/19/20 13:56:27 General Comments: A. Endometrial curettings B. Cervical cone [facility] IntraOp Departure from OR Entry 1 Integumentary Assessment Integumentary WDL Assessment WDL Transfer/Handoff Transfer to PACU Phase I Handoff Method Phone call Post-op Transport Stretcher/Gurney Via Patient Transport JUAN LAU, Accompanied by HEATHER KRISHNAMURTHY Smith, Patsy D, RN Last Modified By: Lexis Leahy RN 05/19/20 14:26:00 [facility] IntraOp Departure from OR Audit 05/19/20 14:26:00 Child And Family Services Specialist: GLENN Modifier: GLENN <+> 1 Patient Transport Accompanied by 05/19/20 14:00:04 Child And Family Services Specialist: GLENN Modifier: GLENN <+> 1 Handoff Method [facility] IntraOp Fire Risk Assessment Entry 1 Fire Info Surgical Site or 0- No Incision Above the Xyphoid Open O2 Source 0- No (Mask or Cannula) Available Ignition 1- Yes (ESU, Laser, Light Source) Fire Risk 1 Assessment Score Fire Score Fire Risk Yes Assessment Complete Fire Risk Lexis Leahy RN Assessment Verified By Fire Risk 05/19/20 13:23:00 Assessment Verified Date/Time Fire Risk Standard Fire Yes Safety Precautions Followed Last Modified By: Lexis Leahy RN 05/19/20 14:25:06 [facility] IntraOp Fire Risk Assessment Audit 05/19/20 14:25:06 Child And Family Services Specialist: GLENN Modifier: GLENN 1 <*> Open O2 Source (Mask or Cannula) 1- Yes 1 <*> Fire Risk Assessment Score 2 1 <+> Fire Risk Assessment Complete 1 <+> Fire Risk Assessment Verified Date/Time [facility] IntraOp General Case Filter Plant Supervisor 1 Case Information OR OR 13 [facility] Case Level 1 Room Verified Yes Wound Class II - Clean-Contaminated Specialty SN Gynecology Anesthesia Type General ASA Class 2 Diagnosis Preop Diagnosis Abnormal pap smear, mild dysplasia of cervix, high risk HPV infection, Lesion of vulva Postop Same As Preop Yes Postop Diagnosis Abnormal pap smear, mild dysplasia of cervix, high risk HPV infection, Lesion of vulva Last Modified By: Lexis Leahy RN 05/19/20 13:38:35 [facility] IntraOp General Case Data Audit 05/19/20 13:38:35 Child And Family Services Specialist: GLENN Modifier: GLENN <+> 1 ASA Class <+> 1 Anesthesia Type <+> 1 Postop Same As Preop <+> 1 Preop Diagnosis <+> 1 Postop Diagnosis <+> 1 Room Verified [facility] IntraOp Intraoperative Assessment Entry 1 Handoff Method Online nursing summary Valid History / Yes Physical in Chart Preoperative Yes Checklist Reviewed/Evaluated Allergies Reviewed Yes Patient is Latex No Sensitive Isolation Not applicable Precautions Noted Level of WDL Consciousness (WDL = Alert, Oriented to Person, Place, and Time) Skin Assessment Yes Verified Present Upon IVs Arrival to OR Last Modified By: Lexis Leahy RN 05/19/20 13:18:55 [facility] IntraOp Intraoperative Equipment Entry 1 Type Monitoring Equipment Equipment Richie Suction System Intraop Monitoring Electrocardiogram Five lead placement (ECG) Electrode Placement Blood Pressure Non-Invasive BP Device Source Antiembolic Devices Antiembolic Devices Sequential compression device, knee high Antiembolic Device Bilateral Location Scopes Photo/Video Documentation Photo No Video No Intraop Equipment Sequential compression Comment devices on and in operation prior to induction of anesthesia. Last Modified By: Lexis Leahy RN 05/19/20 13:41:09 [facility] IntraOp Medication Admin Entry 1 Entry 2 Entry 3 Medication/Irrigant RTI IRR 0.9% NACL Monsels 500ml solution iodine strong solution [id number] - [id number] 14ml liquid --[id number] Combo Med List Time Administered 05/19/20 13:23:00 Route of Irrigation Administration Dose Dose Unit of Measure Volume Administered By [place] BAHENA, [place] BAHENA MD-OBG MD-OBG Procedure Irrigation Irrigant Volume In Irrigant Volume Out Last Modified By: Lexis Leahy RN Poff, Janie, RN Poff, Janie, RN 05/19/20 13:55:47 05/19/20 13:55:47 05/19/20 13:55:47 Entry 4 Medication/Irrigant acetic acid -- [id number] Combo Med List Time Administered Route of Administration Dose Dose Unit of Measure Volume Administered By Procedure Irrigation Irrigant Volume In Irrigant Volume Out Last Modified By: Lexis Leahy RN 05/19/20 13:55:47 [facility] IntraOp Patient Positioning Entry 1 Procedure Cervix Conization w CO2 Laser, Endometrial Ablation, Uterine D and C Hysteroscopy Body Position Lithotomy Left Arm Position Secured on padded arm board Right Arm Position Secured on padded arm board Left Leg Position Secured in Leg Brown Right Leg Position Secured in Leg Brown Feet Uncrossed Yes Pressure Points Yes Checked Positioning Devices Head Rest, Pad, Elbow, Stirrups/Leg Brown, Boot, Arm Board, Pad, Elbow, Arm Board Positioned By Lexis Leahy RN, JUAN LAU APRN,HEATHER, Poly Triplett RN Position Verified Positioning Yes Verified by Anesthesia Positioning Yes Verified by Surgeon Last Modified By: Lexis Leahy RN 05/19/20 13:23:02 [facility] IntraOp Sign In Entry 1 Patient, Site, Yes Procedure Identified Surgical Consent Yes Confirmed Relevant Surgical Yes Documents Available Surgical Site N/A Marked by person performing procedure Anesthesia Machine Yes Check Completed Medication Checks Yes Completed Allergies Yes Airway Difficult Yes Airway/Aspiration Risk Difficult Yes Airway/Aspiration Intervention Equipment Available Blood Loss Risk Yes Blood Loss Yes Intervention Equipment Prepared and Ready Blood Identifiers Not applicable Verified Per Policy Hypothermia Risk Yes Warming Measures Yes Taken Last Modified By: Lexis Leahy RN 05/19/20 13:44:04 [facility] IntraOp Sign Out Entry 1 RN Confirmation Surgical Yes Procedure(s) Identified Instrument, Sponge Yes and Sharps Counts Correct/Documented Equipment Problems N/A Documented Specimen Labeled Yes Correctly Urinary Catheter N/A Documented in IView Ca Patient Yes Recovery Concerns Reviewed with Anesthesia Provider, Surgeon and RN Ca Patient Yes Management Concerns Reviewed with Anesthesia Provider, Surgeon and RN Safety Checklist Yes Elements Complete? RN Sign Out Lexis Leahy RN Signature RN Sign Out 05/19/20 14:26:00 Signature Date/Time Plan of Care Outcome - [...] of Care Outcome - Xray/Images OUTCOME STATEMENT: N/A Absence of observable signs or symptoms of radiation injury Plan of Care Outcome - Counts OUTCOME STATEMENT: Goal met Absence of signs and symptoms of injury related to extraneous objects Last Modified By: Lexis Leahy RN 05/19/20 14:26:07 [facility] IntraOp Sign Out Audit 05/19/20 14:26:07 Child And Family Services Specialist: GLENN Modifier: GLENN <+> 1 RN Sign Out Signature Date/Time [facility] IntraOp Skin Prep Entry 1 Procedure Cervix Conization w CO2 Laser, Endometrial Ablation, Uterine D and C Hysteroscopy Prescribed Yes Pre-Surgical Prep Completed Prep Area genitalia Intraop Prep Integumentary WDL Assessment WDL Prep Agents Betadine scrub, Betadine solution Prep by Poly Triplett RN Hair Removal Methods No hair removal performed Last Modified By: Lexis Leahy RN 05/19/20 13:38:52 [facility] IntraOp Surgical Procedures Entry 1 Entry 2 Entry 3 Procedure Cervix Conization w CO2 Endometrial Ablation Uterine D and C Laser Hysteroscopy Modifiers Additional CONIZATION OF CERVIX Procedure WITH LASER, LASER OF Description VULVA, ENDOMETRIAL ABLATION, HYSTEROSCOPY D&C Primary Procedure Yes No No Primary Surgeon [place] BAHENA, [place] BAHENA, [place] BAHENA, -OBG -OBG -OBG Start 05/19/20 13:23:00 05/19/20 13:23:00 05/19/20 13:23:00 Stop 05/19/20 14:12:00 05/19/20 14:12:00 05/19/20 14:12:00 Physician States Cecum Reached Anesthesia Type General General General Specialty SN Gynecology SN Gynecology SN Gynecology Wound Class II - Clean-Contaminated II - Clean-Contaminated II - Clean-Contaminated Last Modified By: Lexis Leahy RN Poff, Janie, RN Poff, Janie, RN 05/19/20 14:24:29 05/19/20 14:24:29 05/19/20 14:24:29 [facility] IntraOp Surgical Procedures Audit 05/19/20 14:24:29 Child And Family Services Specialist: GLENN Modifier: GLENN <+> 1 Stop <+> 2 Stop <+> 3 Stop 05/19/20 13:43:23 Child And Family Services Specialist: GLENN Modifier: GLENN 1 <*> Procedure Cervix Conization w CO2 Laser 1 <+> Start 1 <*> Additional Procedure Description (CONIZATION OF CERVIX WITH LASER, LASER OF VULVA, ENDOMETRIAL ABLATION, HYSTEROSCOPY D&C) <+> 2 Start <+> 3 Start [facility] IntraOp Temp Regulation Devices Entry 1 Temp Regulation Temperature Warm blankets Regulation Device Temperature Upper body Regulation Site Temperature Lexis Leahy RN Regulation Device Applied by Last Modified By: Lexis Leahy RN 05/19/20 13:43:05 [facility] IntraOP Time Out Entry 1 Procedure to be Cervix Conization w CO2 Performed Laser, Endometrial Ablation, Uterine D and C Hysteroscopy Time Out Time Out Pause Time 05/19/20 13:23:00 All activity Yes suspended (unless life threatening emergency) Team Verbally Correct patient Confirms Information identity, Consent form is present and accurate, Agreement on the procedure to be done, Correct patient position, Confirm antibiotics have been administered, Confirm the [...] Yes Labeled and Displayed Last Modified By: Lexis Leahy RN 05/19/20 13:23:15 [facility] IntraOP Time Out Audit 05/19/20 13:23:15 Child And Family Services Specialist: GLENN Modifier: GLENN 1 <+> Time Out Pause Time 1 <*> Procedure to be Performed Cervix Conization w CO2 Laser, Endometrial Ablation, Uterine D and C Hysteroscopy Case Comments <None> Finalized By: SUN FRANKS Document Signatures Signed By: Lexis Leahy RN 05/19/20 14:28 SUN FRANKS 05/20/20 09:32 Unfinalized History Date/Time Username Reason for Unfinalizing Freetext Reason for Unfinalizing 05/20/20 09:29 [id number] Correct Billing Electronically signed by Cameron [facility] Conversion Hospital Personnel Director Cerner at 12/11/2022 4:57 PM CDT documented in this encounter Plan of Treatment Not on file documented as of this encounter Visit Diagnoses Not on filedocumented in this encounter Care Teams Desk Attendant Relationship Specialty Start Date End Date Erika So, RAGHU [address] [place] [address] PCP - General Nurse Practitioner 05/07/23 [place] Bahena MD [address] [address] Referring Physician Obstetrics and Gynecology 05/07/23 documented as of this encounter
--- OUTSIDE RECORDS SUMMARY | 2025-05-25 13:20 | XMS_ITS | Encounter Summary ---
Author Organization [email or web address] ([place], [place], [place], [place]) Address [address] [place] [address] Care Team Providers Care Metal Cut Off Saw Operator Name Role Phone Erika So APRN Primary Care Provider [phone] [place] Bahena MD Unavailable [phone] Encounter Details Date Type Department Care Team (Late st Contact Info) Description 03/06/2021 Transcribed Document [facility] Family Medicine [address] [place] [address] ProviderJosiah MD [address] [place] [address] [id number] Social History Tobacco Use Types Packs/Day Years Used Date Smoking Tobacco: Never Assessed Comments Unknown Sex and Gender Information Value Date Recorded Sex Assigned at Not on file Legal Sex Female 5:57 PM CDT Gender Identity Not on file Sexual Orientation Not on file documented as of this encounter Miscellaneous Notes * Cerner Conversion Note - Josiah ProviderMD - 03/06/2021 11:11 AM CDT Broset Violence Assessment Entered On: 03/06/2021 11:31 EDT Performed On: 03/06/2021 11:31 EDT by CHRIS BUENO RN Broset Violence Assessment Broset Violence Checklist of Symptoms : None Broset Violence Symptoms Subtotal : 0 Broset Violence Symptoms Indicator : Low risk (0) CHRIS BUENO RN - 03/06/2021 11:31 EDT documented in this encounter Plan of Treatment Not on file documented as of this encounter Visit Diagnoses Not on filedocumented in this encounter Care Teams Metal Cut Off Saw Operator Relationship Specialty Start Date End Date Erika So APRN [address] [place] [address] PCP - General Nurse Practitioner 05/07/23 [place] Bahena MD [address] [address] Referring Physician Obstetrics and Gynecology 05/07/23 documented as of this encounter
--- NOTE | 2025-05-25 13:30 | US_ITS ---
PROCEDURE INFORMATION: Exam: US Right Breast, Complete Exam date and time: 05/25/2025 1:32 PM Age: 40 years old Clinical indication: Retroareolar right breast palpable lump. History of reduction mammoplasty TECHNIQUE: Imaging protocol: Complete ultrasound of all four quadrants of the right breast and the retroareolar regions, including ultrasound of the axilla when performed. COMPARISON: 03/21/2023 FINDINGS: ULTRASOUND: Breast ultrasound findings: Right 4 quadrants and retroareolar breast ultrasound and right axilla ultrasound There is a near anechoic slightly irregular 0.8 x 0.8 x 0.7 cm mostly circumscribed palpable mass in the 12 o'clock retroareolar breast with posterior shadowing. This may be related to the skin and therefore potentially could reflect sebaceous cyst. Ill-defined shadowing in the 8-9 o'clock breast is thought to be related to reduction mammoplasty, similar on 03/21/2023 No axillary adenopathy is present. IMPRESSION: 0.8 cm 12 o'clock retroareolar palpable mass appears to be related to the skin. Surgical/dermatological consultation for excision should be considered . If this can be confirmed to reflect a benign sebaceous cyst on clinical exam no additional assessment may be required ASSESSMENT: BI-RADS category 4: Suspicious
== END 2025-05-25 23:59 | disposition home or self-care (01) ==
LOC: RAD 13:15
PROVIDERS: PCP Nurse Practitioner Family; Visit Provider Obstetrics & Gynecology
DX: N63.15 Unspecified lump in the right breast, overlapping quadrants (principal); N64.4 Mastodynia
CPT/HCPCS: 76641